=== PATIENT | female | born 2000 | race Caucasian/White ===

== ENCOUNTER → 2024-06-14 | Outpatient (CLI) | payer MEDICAID, SELFPAY ==
[2024-06-14 15:36] LABS: Absolute Lymphocyte Count 1.01 X10^3/uL (0.83-4.51); Absolute Neutrophil Count 7.8 X10^3/uL (2.0-7.7); Basophil# 0.02 X10^3/uL; Basophil% 0.2 % (0-1); Eosinophil# 0.06 X10^3/uL; Eosinophils% 0.7 % (0-5); Hematocrit 45.6 % (37-47); Hemoglobin 15.4 g/dL (12.0-15.0); Lymphocyte # 1.01 X10^3/ul (0.83-4.51); Mean Corp Hgb Conc 33.8 g/dL (32-36); Mean Corpuscular Hgb 30.9 pg (27.0-32.0); Mean Corpuscular Volume 91.6 fL (81-99); Mean Platelet Vol. 10.1 fl (6.2-12.0); Monocyte# 0.32 X10^3/uL; Monocyte% 3.5 % (0-10); NRBC Flagged by Analyzer 0 % (0-5); Neutrophil # 7.77 X10^3/uL (2.7-7.7); Neutrophil % 84.3 % (47-70); Platelet Count 406 K/mm3 (150-450); RBC Distribution Width SD 40.2 fl (35.1-43.9); Red Blood Count 4.98 M/mm3 (4.2-5.4); White Blood Count 9.2 K/mm3 (4.4-11.0)
[2024-06-14 15:55] LABS: Erythrocyte Sedimentation Rate 9 mm/hr (0-30)
[2024-06-14 16:16] LABS: AST(SGOT) 14 U/L (15-37); Alanine Aminotransfer ALT/SGPT 21 U/L (13-56); Albumin, Serum 4.4 g/dL (3.2-5.0); Alkaline Phosphatase 94 U/L (45-117); Anion Gap 10 (5-15); BUN 12 mg/dL (7-18); BUN/Creat Ratio 14.3 RATIO (10-20); CRP < 2.90 mg/L (0.0-3.0); Chloride 105 mmol/L (98-107); Creatinine, Serum 0.84 mg/dL (0.55-1.02); EST Glomerular Filtration Rate 88 mL/min (>60); Est Glom Filt Rate - Afr Amer 107 mL/min (>60); Free T3 2.8 pg/mL (2.18-3.98); Globulin 4.3 g/dL (2.2-4.2); Glucose 110 mg/dL (74-106); LDH 181 U/L (84-246); Potassium 3.3 mmol/L (3.5-5.1); Protein, Total 8.7 g/dL (6.4-8.2); Sodium Level 138 mmol/L (136-145); T4 Free Direct 1.47 ng/dL (0.76-1.46); Thyroid Stim Hormone (TSH) 0.784 uIU/mL (0.358-3.740)
[2024-06-19 09:09] LABS: Anti-Centromere B Ab <0.2 AI (0.0-0.9); Anti-Chromatin <0.2 AI (0.0-0.9); Anti-Jo <0.2 AI (0.0-0.9); Anti-Scleroderma-70 AB <0.2 AI (0.0-0.9); Anti-dsDNA Ab 2 IU/mL (0-9); Beef <0.10 kU/L (Class 0); Chocolate <0.10 kU/L (Class 0); Codfish <0.10 kU/L (Class 0); Corn <0.10 kU/L (Class 0); Egg, Whole <0.10 kU/L (Class 0); Milk (Cow) <0.10 kU/L (Class 0); Mussels <0.10 kU/L (Class 0); Peanut <0.10 kU/L (Class 0); Pork <0.10 kU/L (Class 0); RNP Ab <0.2 AI (0.0-0.9); SJOGREN'S Anti-SS-A test < 0.2 AI (0.0-0.9); SJOGREN'S Anti-SS-B test < 0.2 AI (0.0-0.9); Salmon <0.10 kU/L (Class 0); Shrimp <0.10 kU/L (Class 0); Smith Ab <0.2 AI (0.0-0.9); Soybean <0.10 kU/L (Class 0); Tuna <0.10 kU/L (Class 0); Wheat <0.10 kU/L (Class 0)
[2024-06-19 10:09] LABS: ACCA 36 units (0-90); ALCA 4 units (0-60); AMCA 73 units (0-100); Albumin 4.3 g/dL (2.9-4.4); Alpha-1-Globulins 0.3 g/dL (0.0-0.4); Cytoplasmic Ab (C-ANCA) <1:20 titer (Neg:<1:20); Endomysial Antibody IgA Negative (Negative); Gamma Globulin 1.1 g/dL (0.4-1.8); Gastrin, Serum 146 pg/mL (0-115); Immunoglobulin A 300 mg/dL (87-352); Immunoglobulin E 25 IU/mL (6-495); Immunoglobulin G 1042 mg/dL (586-1602); Immunoglobulin M 120 mg/dL (26-217); PROEL- TOTAL PROTEIN 8.1 g/dL (6.0-8.5); Perinuclear Ab (P-ANCA) <1:20 titer (Neg:<1:20); gASCA 38 units (0-50); t-Transglutaminase IgA <2 U/mL (0-3)
== END | disposition home or self-care (01) ==
PROVIDERS: PCP Family Medicine
DX: K21.9 Gastro-esophageal reflux disease without esophagitis (principal); R10.13 Epigastric pain; K29.70 Gastritis, unspecified, without bleeding; R19.7 Diarrhea, unspecified; K58.9 Irritable bowel syndrome, unspecified
CPT/HCPCS: 36415; 80053; 82784; 82785; 82941; 83516; 83615; 84165; 84439; 84443; 84481; 85025; 85652; 86003; 86005; 86036; 86140; 86225; 86235; 86255; 86256; 86334; 86671

== ENCOUNTER → 2024-10-29 | Outpatient (CLI) | payer MEDICAID, SELFPAY | END | disposition home or self-care (01) | LOC: VSLAB 10:18 | PROVIDERS: PCP Family Medicine; Visit Provider Family Medicine | DX: N39.0 Urinary tract infection, site not specified (principal) | CPT/HCPCS: 87086; 87088 ==

== ENCOUNTER → 2025-02-27 | Outpatient (CLI) | payer MEDICAID, SELFPAY ==
[2025-02-27 14:44] LABS: Red Blood Cells-Urine 0 SEEN /hpf (0-5)
[2025-02-27 16:19] LABS: Absolute Lymphocyte Count 1.16 X10^3/uL (0.83-4.51); Absolute Neutrophil Count 3.8 X10^3/uL (2.0-7.7); Basophil# 0.03 X10^3/uL; Basophil% 0.6 % (0-1); Eosinophil# 0.06 X10^3/uL; Eosinophils% 1.1 % (0-5); Hemoglobin 13.8 g/dL (12.0-15.0); Lymphocyte # 1.16 X10^3/ul (0.83-4.51); Lymphocyte % 21.3 % (19-41); Mean Corp Hgb Conc 33.7 g/dL (32-36); Mean Corpuscular Hgb 30.9 pg (27.0-32.0); Mean Corpuscular Volume 91.7 fL (81-99); Mean Platelet Vol. 10.4 fl (6.2-12.0); Monocyte% 7.3 % (0-10); NRBC Flagged by Analyzer 0 % (0-5); Neutrophil # 3.79 X10^3/uL (2.7-7.7); Neutrophil % 69.5 % (47-70); Platelet Count 399 K/mm3 (150-450); RBC Distribution Width CV 12.5 % (11.6-14.6); RBC Distribution Width SD 41.3 fl (35.1-43.9); Red Blood Count 4.47 M/mm3 (4.2-5.4); White Blood Count 5.5 K/mm3 (4.4-11.0)
[2025-02-27 16:25] LABS: Glucose, Dipstick Normal (Normal); Ketone-Dipstick 50 mg/dl (Negative); Leukocyte Esterase-Dipstick 25 /ul (Negative); Nitrite-Dipstick Negative (Negative); Occult Blood-Urine 10 /ul (Negative); Protein-Dipstick 15 mg/dl (Negative); Specific Gravity, Urine 1.025 (1.002-1.030); Urine Bilirubin Dipstick Negative (Negative); Urine Urobilinogen Normal (Normal)
[2025-02-27 16:29] LABS: Color, Urine Straw (Yellow); Urine Clarity Cloudy (Clear)
[2025-02-27 17:37] LABS: Squamous Epithelial Cells - UA 10-25 SEEN /hpf (5-10)
[2025-02-27 17:38] LABS: Bacteria 2+ /hpf (None Seen); White Blood Cells 5-10 SEEN /hpf (0-5)
[2025-02-27 17:39] LABS: Mucous, Urine 1+ /hpf (<or=2+)
[2025-02-27 17:40] LABS: Amorphous Sediment 2+
[2025-02-27 18:18] LABS: ALB/GLOB Ratio 1.6 RATIO (0.9-2.4); AST(SGOT) 25 U/L (<=31); Alanine Aminotransfer ALT/SGPT 23 U/L (<=34); Albumin, Serum 4.8 g/dL (3.5-5.0); Alkaline Phosphatase 73 U/L (35-104); Anion Gap 15 (5-15); BUN 16 mg/dL (4-19); BUN/Creat Ratio 18.4 RATIO (10-20); Calcium,Total 10.3 mg/dL (7.6-11.0); Carbon Dioxide 22.5 mmol/L (21.0-32.0); Chloride 103 mmol/L (98-108); Creatinine, Serum 0.85 mg/dL (0.70-1.20); EST Glomerular Filtration Rate 98 (>60); Glucose 110 mg/dL (70-99); Potassium 3.5 mmol/L (3.3-5.1); Protein, Total 7.8 g/dL (5.9-8.4); Sodium Level 140 mmol/L (133-145); Total Bilirubin 0.45 mg/dL (0.00-1.30)
== END | disposition home or self-care (01) ==
LOC: VSLAB 13:53
PROVIDERS: PCP Family Medicine
DX: R03.0 Elevated blood-pressure reading, without diagnosis of hypertension (principal)
CPT/HCPCS: 36415; 80053; 81001; 84443; 85025; 87086; 87088

== ENCOUNTER 2025-03-28 10:52 | Day surgery (SDC) | payer MEDICAID, SELFPAY ==
[2025-03-28] VITALS (9 sets, daily range): BP systolic 100–139; BP diastolic 62–96; PULSE 85–114; RESP 16–20; TEMP 36.2–37.1; O2SAT 98–100; BMI 27.1
[2025-03-28] MEDS: Lactated Ringers 1,000 ML 15 ML IV (11:00)
[2025-03-28 11:15] LABS: Internal QC Validated? YES +Cl - CLEAR BKGD; Pregnancy, Urine Negative Negative; Record Kit Lot#,Urine Preg 947241
== END 2025-03-28 13:24 | disposition home or self-care (01) ==
LOC: EN 10:53 → AC 10:54
PROVIDERS: Anesthesiology; PCP Family Medicine; Referring Provider Family Medicine; Visit Provider Internal Medicine Gastroenterology
PROC: 0DJ08ZZ Inspection of Upper Intestinal Tract, Via Natural or Artificial Opening Endoscopic (ICD-10-PCS; CPT 43235; principal; 2025-03-28 11:25)
DX: K21.9 Gastro-esophageal reflux disease without esophagitis (principal); R19.7 Diarrhea, unspecified; K29.50 Unspecified chronic gastritis without bleeding; Z79.82 Long term (current) use of aspirin; K22.4 Dyskinesia of esophagus; Z90.49 Acquired absence of other specified parts of digestive tract; Z79.899 Other long term (current) drug therapy; R10.13 Epigastric pain; K31.89 Other diseases of stomach and duodenum
CPT/HCPCS: 43239; 81025; 88305; J2405

== ENCOUNTER → 2025-05-06 | Outpatient (CLI) | payer MEDICAID, SELFPAY | END | disposition home or self-care (01) | LOC: LABSPEC 14:14 | PROVIDERS: PCP Family Medicine; Visit Provider Nurse Practitioner Family | DX: R10.30 Lower abdominal pain, unspecified (principal) | CPT/HCPCS: 87086; 87088 ==

== ENCOUNTER 2025-06-08 11:48 | Emergency (ER) | payer MEDICAID, SELFPAY ==
[2025-06-08 11:49] VITALS: BP 124/85; PULSE 112; RESP 16; TEMP 35.7; O2SAT 100
[2025-06-08 12:00] VITALS: BP 129/85; PULSE 106; RESP 27; O2SAT 100
--- NOTE | 2025-06-08 12:13 | EKG12_ITS ---
Test Reason : SYNCOPE Blood Pressure : */* mmHG Vent. Rate : 93 BPM Atrial Rate : 93 BPM P-R Int : 122 ms QRS Dur : 84 ms QT Int : 344 ms P-R-T Axes : 26 57 40 degrees QTcB Int : 427 ms Normal sinus rhythm Normal ECG Confirmed by Xu Barger ([id number]), graphics editor HE RAYMOND ([id number]) on 06/10/2025 10:35:26 AM Referred By: Confirmed By: Xu Barger
--- NOTE | 2025-06-08 12:14 | RAD_ITS ---
PROCEDURE: CHEST PA AND LATERAL 06/08/2025 REASON FOR EXAM: ALOC RESOLVED TECHNIQUE: Procedure Code: RADCXR Modality: DX Procedure: CHEST PA AND LATERAL COMPARISON: None FINDINGS: The cardiomediastinal silhouette is within normal limits. The lungs are clear. No significant pleural effusion. No pneumothorax. Cholecystectomy clips. RAD/Chest PA and Lateral IMPRESSION: NO ACUTE FINDINGS. Reading Location: [id number]
--- NOTE | 2025-06-08 12:16 | EX.ED.DYSGE1 ---
HPI History of Present Illness Chief Complaint: Syncope Informant: patient and parent Onset/Context/Timing Onset: Today Current Severity: Gone Maximum Severity: Moderate Narrative Narrative: 24-year-old female history of ASD with a prior repair but still is 5% right to left shunt. Also has a history of MTHFR and cholecystectomy. He has been having dizzy spells. For about a month. Today just feels like her body is off and that she is floating. Mom is with her states that she was not acting right at home but they live 40 minutes from here and that now is all totally resolved. There is no family history of intracranial bleeds or aneurysms. She has had no head trauma. She has not recently been ill. Prior similar symptoms: Yes Recent Illness/Hospitalization: No PFSH PFSH Medical History Wears glasses Loose, teeth Broken teeth Depression Anxiety History of IBS Gastric reflux History of hiatal hernia Non-smoker History of stress test Cardiology follow-up encounter History of echocardiogram Cholelithiasis PFO (patent foramen ovale) Atrial septal defect History of gastroesophageal reflux (GERD) Home Medications ?Medication ?Instructions ?Recorded ?Last Taken ?Type aspirin 81 mg tablet,delayed 81 mg PO DAILY 05/07/24 03/24/25 History release pantoprazole 40 mg tablet,delayed 40 mg PO BID 06/14/24 03/28/25 History release cholestyramine 4 gram oral powder 4 g PO QACHS #60 ea 05/06/25 Unknown Rx for suspension in a packet (Cholestyramine Light) rifaximin 550 mg tablet 550 mg PO TID #42 tabs 05/06/25 Unknown Rx Allergy/AdvReac Type Severity Reaction Status Date / Time omeprazole Allergy Intermediate Other Verified 06/08/25 11:53 alprazolam Allergy NEEDS Verified 06/08/25 11:53 FOLLOW-UP azithromycin Allergy NEEDS Verified 06/08/25 11:53 FOLLOW-UP clindamycin Allergy Other Verified 05/06/25 14:33 Penicillins (PCN) Allergy NEEDS Verified 06/08/25 11:53 FOLLOW-UP Sulfa (Sulfonamide Allergy Other Verified 06/08/25 11:53 Antibiotics) doxycycline AdvReac Nausea/Vom/ Verified 06/08/25 11:53 Diarrhea erythromycin base AdvReac Nausea/Vom/ Verified 06/08/25 11:53 Diarrhea sertraline (From Zoloft) AdvReac Other Verified 06/08/25 11:53 Family History Grandmother Heart disease Grandfather Heart disease Surgical History History of cardiac catheterization History of esophagogastroduodenoscopy (EGD) Hx laparoscopic cholecystectomy Status post patent foramen ovale closure History of atrial septal defect repair Social History household members: family Smoking Status: Never smoker alcohol intake: never substance use type: does not use caffeine: Yes ROS ROS ED ROS Narrative Denies recent illness. Dizziness. Not room spinning. Constitutional Constitutional ED: Denies chills or fever(s) Eyes Eyes: Denies blurry vision ENT ENT ED: Denies ear pain Cardiovascular Cardiovascular: Denies chest pain Respiratory/Chest Respiratory/Chest: Denies cough or dyspnea Gastrointestinal Gastrointestinal: Denies abdominal pain Genitourinary Genitourinary ED: Denies dysuria or hematuria Musculoskeletal Musculoskeletal: Denies arthralgias Integumentary Denies abscess Neurologic Neurologic: Reports headache(s) Psychiatric Psychiatric: Reports anxiety Endocrine Endocrinology: Denies cold intolerance Hematologic/Lymphatic Hematologic/Lymphatic: Reports none Allergic/Immunologic Allergic/Immunologic ED: Denies mouth swelling, tongue swelling or urticaria EXAM Physical Exam Narrative Exam Narrative: 4-year-old female vital signs are stable afebrile no acute distress. Pulse ox 100% on room air no signs hypoxia. Mom is present in the room with another family member I believe. H EENT exam pupils round react light. Moist mucous membranes. She has multiple missing dentition. She has an abscess to her right lower tooth. No trouble swallowing or breathing. Neck nontender no lymphadenopathy. Lungs clear to auscultation bilaterally. Heart regular rhythm no murmur. Chest wall and ribs are nontender. Abdomen soft nontender. Moving all 4 extremities. Nontender no edema. Normal 5-5 pcmh specialist strength. Normal dorsi plantarflexion. Normal sensation. Neurologic exam normal. NIH 0. Fingertip to nose and heel briones within normal limits. No drift. Normal strength. Normal sensation. Normal speech. No focal motor deficits. Const Vital Signs: 06/08/25 11:49 06/08/25 12:00 06/08/25 12:02 Temperature 96.2 F L Temperature Source Temporal Pulse Rate 112 H 106 H Respiratory Rate 16 27 H Respiratory Effort Normal Non-Labored Blood Pressure 124/85 H 129/85 H Blood Pressure Mean 98 99 Pulse Ox 100 100 Oxygen Delivery Method Room Air Room Air Positive well nourished and well developed; Negative for cachectic, contractures or unkempt General Appearance ED: well developed and NAD; Negative for unkempt, cachectic, contractures, cyanotic, diaphoretic or pallor Nutritional Appearance: Negative for cachectic HEENT Reports moist mucous membranes Negative for trauma or tenderness Eyes PERRL and EOMs intact bilaterally Neck no lymphadenopathy, supple and no JVD Chest Wall inspection of chest normal and palpation of chest normal Resp normal respiratory effort and clear to auscultation bilaterally Cardio regular rate, regular rhythm, S1 normal heart sound, S2 normal heart sound and no murmurs GI normal to inspection, nondistended, normoactive bowel sounds, non-tender, non-distended and no masses Auscultation: normoactive bowel sounds Palpation: soft; Negative for tender or guarding Back/Spine no CVA tenderness General Back: Negative for CVA tenderness Cervical Spine: Negative for cervical spine tenderness Thoracic Spine / Upper Back: Negative for thoracic spinal tenderness or paraspinal muscle tenderness Lumbar Spine / Lower Back: Negative for lumbar spinal tenderness Extremity normal to inspection General Extremety ED: Negative for edema or tenderness General Extremity: Negative for edema Neuro oriented x3, CN's II-XII intact bilaterally and no sensory deficits noted Sensorium / Orientation: alert Motor Exam: strength 5/5 throughout Psych mental status grossly normal Appearance: Negative for unkempt Attitude: No agitated Mood & Affect: Negative for depressed, anxious or tearful Skin no rashes or lesions noted, no wounds and skin turgor normal General Skin Exam: Negative for jaundice or pallor Rashes: No rashes noted Trauma: Negative for abrasion Wounds: Negative for wounds noted MDM MDM MDM Narrative Medical decision making narrative: 24-year-old female history of prior ASD with repair but still has some [id number] shunt. An episode today at home where she had a altered level of consciousness. Currently her exam is completely normal and all of her symptoms have resolved. Her neurologic exam is normal. She will get a CTA of her head and neck, CAT scan her brain and screening labs. But again right now she has a normal exam. Repeat exam patient is doing well at 1:50 PM. Exam normal. Neurologic exam normal. Awake alert talking no deficits. She is back to her baseline. I discussed with her family they feel more comfortable with her being discharged home with outpatient follow-up. Her primary care provider is currently getting her set up with neurology. They know to return if worse. She was instructed to start 8 daily baby aspirin due to her MTHFR. History & Record Review Discussion w/independent historian: Patient and Family Lab Data Attestation: I reviewed the patient's lab results. Lab results narrative: CBC shows a white count of 7. H&H of 13 and 38. Platelets 322. Electrolytes show a gap of 13. BUN and creatinine are normal. Glucose of 109. CTA head and neck is unremarkable as read by the radiologist and reviewed by me Chest x-ray unremarkable. EKG sinus rhythm. Labs: Laboratory Results - last 24 hr 06/08/25 06/08/25 06/08/25 12:27 12:27 13:02 WBC Cancelled 7.5 Corrected WBC Cancelled RBC Cancelled 4.25 Hgb Cancelled 13.1 Hct Cancelled 38.4 MCV Cancelled 90.4 MCH Cancelled 30.8 MCHC Cancelled 34.1 RDW Std Deviation Cancelled 41.5 RDW Coeff of Kaley Cancelled 12.6 Plt Count Cancelled 322 MPV Cancelled 10.2 Immature Gran % (Auto) Cancelled 0.700 Neut % (Auto) Cancelled 79.2 H Lymph % (Auto) Cancelled 12.2 L Jenkins % (Auto) Cancelled 5.9 Eos % (Auto) Cancelled 1.5 Baso % (Auto) Cancelled 0.5 Absolute Neuts (auto) Cancelled 5.9 Absolute Lymphs (auto) Cancelled 0.91 Total Counted Cancelled Neutrophils % (Manual) Cancelled Band Neutrophils % Cancelled Lymphocytes % (Manual) Cancelled Monocytes % (Manual) Cancelled Eosinophils % (Manual) Cancelled Basophils % (Manual) Cancelled Metamyelocytes % Cancelled Myelocytes % Cancelled Promyelocytes % Cancelled Blast Cells % Cancelled Plasma Cell % (Manual) Cancelled Other Cells % Cancelled Nucleated RBC % Cancelled 0 Nucleated RBCs/100 WBC Cancelled Differential Comment Cancelled Diff Path Review Cancelled Hypersegmented Neuts Cancelled Atypical Lymphocytes Cancelled Reactive Lymphocytes Cancelled Smudge Cells Cancelled Toxic Granulation Cancelled Toxic Vacuolation Cancelled Dohle Bodies Cancelled Chasity Rods Cancelled Platelet Estimate Cancelled Plt Morphology Comment Cancelled RBC Morphology Cancelled Cancelled Polychromasia Cancelled Hypochromasia Cancelled Basophilic Stippling Cancelled Anisocytosis Cancelled Microcytosis Cancelled Macrocytosis Cancelled Spherocytes Cancelled Sickle Cells Cancelled Target Cells Cancelled Tear Drop Cells Cancelled Ovalocytes Cancelled Stomatocytes Cancelled [place] Bodies Cancelled [place] Cells Cancelled Bite Cells Cancelled Crenated Cell Cancelled Acanthocytes (Spur) Cancelled Rouleaux Cancelled Schistocytes Cancelled Sodium 140 Potassium 4.6 Chloride 107 Carbon Dioxide 20.0 L Anion Gap 13 BUN 17 Creatinine 0.88 Est GFR (MDRD) Non-Af 93 BUN/Creatinine Ratio 19.5 Glucose 109 H Calcium 9.5 Radiography Chest X-Ray - ED: 2 View, Read by ED Physician, Read by Radiologist, Normal, Heart, Lungs, Mediastinum, Bony Structures and No Acute Disease Diagnostic Testing: Clinical Impression(s) from Imaging Studies Chest X-Ray 06/08/25 12:14 IMPRESSION: NO ACUTE FINDINGS. Reading Location: [facility] Head/Neck CTA 06/08/25 12:45 IMPRESSION: 1. There is no carotid stenosis according to NASCET criteria. 2. The major vascular structures in the head and neck are grossly unremarkable. Reading Location: [facility] Chest x-ray, 2 views, AP and lateral, shows normal cardiac silhouette. Normal lung [place]. Normal mediastinum. Interpreted both by myself and the radiologist. No acute abnormality. Rhythm Strip Rhythm Strip: Sinus Rhythm Rate: 93 Ectopy: None Discharge Plan Triage Chief Complaint: Syncope ED Provider: Kosta Del Angel Dx/Rx/DC Orders Clinical Impression: Altered level of consciousness, Hx of atrial septal defect Instructions: ED ALOC Prescriptions: No Action aspirin 81 mg tablet,delayed release (DR/EC) 81 mg PO DAILY pantoprazole 40 mg tablet,delayed release (DR/EC) 40 mg PO BID Cholestyramine Light 4 gram powder in packet 4 g PO QACHS Qty: 60 0RF Rx Instructions: no meds 1 hr before/4-6 hr after dose rifaximin 550 mg tablet 550 mg PO TID Qty: 42 2RF Primary Care Provider: Shruti Smith Referrals: Shruti Smith, DO [Primary Care Provider] - As soon as possible Activity Restrictions/Additional Instructions: All your tests today look good including your CAT scan and labs. Follow-up with your primary care provider. Very important to get into see a neurologist as soon as possible. Make sure you are taking 1 baby aspirin a day due to your MTHFR blood disorder. If you have recurrent symptoms or feeling worse return. Print Language: Mongolian Disposition Disposition: Home, Self Care
--- OUTSIDE RECORDS SUMMARY | 2025-06-08 12:20 | XMS RPT_ITS | CCD ---
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 Examination: normal. Prophylactic Antibiotics: The patient does not require prophylactic antibiotics. Prior Anticoagulants: The patient has taken no anticoagulant or antiplatelet agents. ASA Grade Assessment: II - A patient with mild systemic disease. After reviewing the risks and benefits, the patient was deemed in satisfactory condition to undergo the procedure. The anesthesia plan was to use monitored anesthesia care (MAC). Immediately prior to administration of medications, the patient was re-assessed for adequacy to receive sedatives. The heart rate, respiratory rate, oxygen saturations, blood pressure, adequacy of pulmonary ventilation, and response to care were monitored throughout the procedure. The physical status of the patient was re-assessed after the procedure. After obtaining informed consent, the endoscope was passed under direct vision. Throughout the procedure, the patient's blood pressure, pulse, and oxygen saturations were monitored continuously. The Endoscope was introduced through the mouth, and advanced to the third part of the duodenum. Small bowel enteroscopy was deemed necessary. The upper GI endoscopy was accomplished with ease. The patient tolerated the procedure well. Scope In: 12:20:24 PM Scope Out: 12:23:42 PM Total Procedure Duration Time 0 hours 3 minutes 18 seconds Findings: Abnormal motility was noted in the esophagus. The cricopharyngeus was abnormal. There is spasticity of the esophageal body. The distal esophagus/lower esophageal sphincter is spastic, but gives up passage to the endoscope. Tertiary peristaltic waves are noted. Localized erythematous mucosa without bleeding was found in the stomach. Biopsies were taken with a cold forceps for histology. Verification of patient identification for the specimen was done. Biopsies were taken with a cold forceps for Helicobacter pylori testing. Verification of patient identification for the specimen was done. Estimated blood loss was minimal. No gross lesions were noted in the entire examined duodenum. Biopsies were taken with a cold forceps for histology. Verification of patient identification for the specimen was done. Estimated blood loss was minimal. Suspect gastroparesis due to absence of peristalsis, patient symptoms and retained gastric contents. Excessive fluid was found in the gastric body. Impression: - Abnormal esophageal motility, established esophageal spasm. - Erythematous mucosa in the stomach. Biopsied. - No gross lesions in the entire examined duodenum. Biopsied. Recommendation: - Discharge patient to home. - Resume previous diet. - Continue present medications. - Await pathology results. Procedure Code(s): --- Professional --- 95102, Small intestinal endoscopy, enteroscopy beyond second portion of duodenum, not including ileum; with biopsy, single or multiple CPT copyright 2021 [employer]. All rights reserved. The codes documented in this report are preliminary and upon warehouse specialist review may be revised to meet current compliance requirements. Marciano Gonzales DO 03/28/2025 12:30:27 PM This report has been signed electronically. Number of Addenda: 0 Note Initiated On: 03/28/2025 12:11 PM 03/28/25 1230 Date (more content not included)... [facility] MR/POSTOP.ANEon 03-28-2025 MR/POSTOP.[facility] Medical Records Department [address] [place] [address] Anesthesia Postop Eval I 03/28/25 1230 MR#: [id number] Acct: [id number] Name: PRABHA CODY Rep #: [id number] : 2000 From: Bobby Grover PCP: Shruti Smith DO Status:REG SD Y Race: C Location: [place] [address] Anesthesia: Postop Eval I Current Vital Signs Temperature: 97.1 F Pulse Rate: 85 Blood Pressure: 101/62 Respiratory Rate: 16 Pulse Ox: 100 Oxygen Delivery Method: Room Air Assessment Airway patent: Yes Spontaneous unlabored respirations: Yes Mental status: Asleep nausea: No Vomiting: No Anesthesia Complication: No Fluid Hydration Crystalloid volume administer (ml): 300 Total IV fluid infused: 300 Progress Note Anesthesia document: Postop Eval 1 completed: Yes 03/28/25 1231 Date Bobby Whyte Signature: Date CC: Signed [facility] MR/[id number] 03-28-2025 MR/POSTOPA[address] Medical Records Department [address] [place] [address] Anesthesia Postop Eval II 03/28/25 1545 MR#: [id number] Acct: [id number] Name: PRABHA CODY Rep #: [id number] : 2000 From: Noni Schreiber CRNA PCP: Shruti Smith DO Status:DEP [facility] Race: C Location: EN Anesthesia Postop Eval I Sum Postop Eval Completion status Anesthesia document: Postop Eval 1 completed: Yes Anesthesia Postop Eval I Summary Anesthesia Postop Eval I Summary: Anesthesia Postop Eval I: Assessment Summary Airway patent Yes 03/28/25 12:31 [email or web address] Spontaneous unlabored Yes 03/28/25 12:31 [email or web address] respirations Mental status Asleep 03/28/25 12:31 [email or web address] nausea No 03/28/25 12:31 [email or web address] Vomiting No 03/28/25 12:31 [email or web address] Anesthesia Postop Eval I: Fluid Summary Crystalloid volume administer 300 03/28/25 12:31 [email or web address] (ml) Colloids volume administered ( ml) Blood Product volume administered (ml) Total IV fluid infused 300 03/28/25 12:31 [email or web address] Anesthesia Postop Eval I: Summary Notes Anesthesia Complication No 03/28/25 12:31 [email or web address] Anesthesia Complication Comment: Post-operative progress note Anesthesia: Postop Eval II Evaluation Mental status: Awake Pain Level: 0 nausea: No Vomiting: No 03/28/25 1545 Date Noni Paredesign Signature: Date CC: Signed Normal [facility] ,Urineon 03-28-2025 Beta HCG ( test) Ql (U) Negative [facility] Comment on above: Result Comment: Very dilute urine specimens, as indicated by a low specific gravity, may not contain payable representative levels of hCG. If is still suspected, a first morning urine specimen should be collected 48 hours later and tested. Performed By: #### L 400.7600 #### [facility] [place] [address] [place], [address] Surgery Specimen Level Candi 03-28-2025 Surgery Specimen Level IV Patient Age/Sex Location Account Attending Physician PRABHA CODY EN [id number] Marciano Gonzales DO Specimen: [id number] Received: 03/28/25135 Status: SUSAN Nguyen Num: [id number] Spec Type: EGD BIOPSY Subm Dr: Marciano Gonzales DO HEADAMIRAH OPERATION: EGD, biopsy PRE-OP DIAGNOSIS: Gastritis, acid reflux, epigastric abdominal pain, diarrhea TISSUE SUBMITTED: A- Duodenum biopsy, B- Gastric body biopsy, C- Random esophagus biopsy MICROSCOPIC DIAGNOSIS A. Duodenum, biopsy: - Normal villous morphology - Negative for increased intraepithelial lymphocytes. B. Gastric body, biopsy: - Oxyntic mucosa with features of reactive gastropathy - Negative for Helicobacter-like organisms (H E). C. Esophagus, random, biopsy: - Squamous mucosa with reactive changes - Negative for eosinophils. MICROSCOPIC DESCRIPTION Slides are reviewed. GROSS DESCRIPTION A. Received in fixative is one container labeled with the patient's name and designated Duodenum biopsy. The specimen consists of multiple irregular fragments of light garcia soft tissue that in aggregate measure 0.2 to 0.3 cm. The specimen is totally submitted in one cassette. B. Received in fixative is one container labeled with the patient's name and designated Gastric body biopsy. The specimen consists of two irregular fragments of light garcia soft tissue that in aggregate measure 0.2 to 0.5 cm. The specimen is totally submitted in one cassette. C. Received in fixative is one container labeled with the patient's name and designated Random esophagus biopsy. The specimen consists of two irregular fragments of light garcia soft tissue that in aggregate measure 0.2 and 0.3 cm. The specimen is totally submitted in one cassette. Luis 03/28/2025 CPT:19069o8 Patient Age/Sex Location Account Attending Physician PRABHA CODY EN [id number] Marciano Gonzales DO Signed (signature on file) Dr. Tamiko Woods MD 04/15/25 1246 Normal [facility] Comment on above: Performed By: #### P SUIV #### [facility] Laboratory [address] [place], [place], [id number] Urine testOrdered By: Dustin Espinoza on 03-28-2025 HCG ( test) Ql (U) Negative [facility] Comment on above: Very dilute urine sp ecimens, as indicated by a low specificgravity, may not contain payable representative levels of hCG. If is still suspected, a first morning urinespecimen should be collected 48 hours later and tested. 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 When Was Last Pacemaker Check QUESTION #4 FULL TEXT: You/Your Family Experience fever (hyperthermia) with Anesthesia Last Oral Intake Last Oral intake: Last Oral Intake NPO since Meds taken in AM with sips of water? Meds patient instructed to take am of surgery PONV PONV - data processing auditor: PONV - data processing auditor Female Yes 03/26/25 13:17 HX of Motion Sickness No 03/26/25 13:17 HX of N/V After Surgery No 03/26/25 13:17 Non-Smoker Yes 03/26/25 13:17 Duration of Surgery greater No 03/26/25 13:17 than 60 minutes Number of Risk Factors 2 03/26/25 13:17 PONV Score Moderate Risk 03/26/25 13:17 Height Weight Height Weight: Anesthesia: Height Weight Height 4 ft 11 in 07/26/24 13:21 Respiratory Assessment Respiratory Assessment - data processing auditor: Respiratory Tract Infection Hx - data processing auditor Hx Respiratory Tract Infection No 03/26/25 13:17 STOP Sleep Apnea STOP Sleep Apnea - data processing auditor: STOP Sleep Apnea - data processing auditor Hx Hypertension No 03/26/25 13:17 Hx Sleep Apnea No 03/26/25 13:17 CPAP BIPAP Do you snore loudly (louder No 03/26/25 13:17 than talking or can be heard Do you often feel tired/ No 03/26/25 13:17 fatigued/ sleepy during daytime? Has anyone observed you stop No 03/26/25 13:17 breathing during sleep? STOP Results Negative 03/26/25 13:17 QUESTION #5 FULL TEXT : Do you snore loudly (louder than talking or can be heard through closed doors)? Tobacco Use History Tobacco Use History - data processing auditor: Tobacco Use History - data processing auditor Tobacco Use Smoking Status Never smoker 03/26/25 13:17 Hx Tobacco Use No 03/26/25 13:17 Years Smoking Packs Smoked per Day Smoking Cessation Date was within the last 15 years Hx Smoking Cessation Date Hx Smoking Cessation Counseling Hematologic Medial History Hematologic Hx - data processing auditor: Hematologic Medical Hx - documentation manager Hx of Blood Transfusion No 03/26/25 13:17 Hx of Transfusion in last 3 No 03/26/25 13:17 Months Date of Last Transfusion (if within last 3 months) Ever experience any problems No 03/26/25 13:17 with transfusion(s)? Specify any problems Hx of Preganancy in last 3 No 03/26/25 13:17 Months Nurse Filling Out Transfusion VLEHMAN 03/26/25 13:17 Questions: Date: 03/26/25 03/26/25 13:17 Time: 13:19 03/26/25 13:17 Patient unable to answer at this time (ie. confused, unrespo /Reproduction History /Reproductive History - data processing auditor: /Reproductive Hx- data processing auditor Hx Now No 03/26/25 13:17 Gestational Age (in weeks): EDC: Hx Hx Para Hx Section SAB No 03/26/25 13:17 [facility] Medical History (Updated 03/26/25 @ 13:22 by Johana Blackburn) Wears glasses Loose, teeth Broken teeth Depression Anxiety History of IBS Gastric reflux History of hiatal hernia Non-smoker History of stress test Cardiology follow-up encounter History of echocardiogram Cholelithiasis PFO (patent foramen ovale) Atrial septal defect History of gastroesophageal reflux (GERD) Home Medications ???Medication ???Instructions ???Recorded ???Last Taken ???Type aspirin 81 mg tablet,delayed 81 mg PO DAILY 05/07/24 03/24/25 H istory release pantoprazole 40 mg tablet,delayed 40 mg PO BID 06/14/24 Unknown His tory release Allergy/AdvReac Type Severity Reaction Status Date / Time omeprazole Allergy Intermediate Other Verified 11/25/24 10:34 alprazolam Allergy NEEDS Verified 11/25/24 10:34 FOLLOW-UP azithromycin Allergy NEEDS Verified 11/25/24 10:34 FOLLOW-UP clindamycin Allergy Other Verified 11/25/24 10:34 Penicillins (PCN) Allergy (more content not included)... Normal [facility] Urine Cultureon 03-01-2025 URC Below infection leve l. Mixed Gram Positive Organisms Picacho Count <1000 MIXC Mixed contaminants. Submit a new specimen if indicated. Normal [facility] Comment on above: Performed By: #### L 501.9520, M100.2200, L500.4050, L400.0001, L100.0100 #### [facility] Laboratory [address] [place], [place], [id number] Absolute lymphocyte countOrd ered By: bulun Beam on 02-27-2025 Lymphocytes Auto (Unsp spec) [#/Vol] 1.16 10*3/uL 0.83-4.51 [facility] Absolute neutrophil countOrd ered By: bulun Beam on 02-27-2025 Neutrophils (Bld) [#/Vol] 3.8 10*3/uL 2.0-7.7 [facility] Amorphous sediment detection in urine sediment by light microscopyOrdered By: Alexanderbulun Beam on 02-27-2025 Amorphous sediment LM Ql (Urine sed) 2+ [facility] Anion gap in Serum or Plasma Ordered By: [facility] on 02-27-2025 Anion gap [Moles/Vol] 15 mmol/L 5-15 [facility] Automated lymphocyte count a s percentage of total leukocytesOrdered By: bulun Beam on 02-27-2025 Lymphocytes/100 WBC Auto (Unsp spec) 21.3 % 19-41 [facility] BUN/creatinine ratioOrdered By: bulun Beam on 02-27-2025 Urea nitrogen/Creatinine [Mass ratio] 18.4 mg/mg 10-20 [facility] Basophil percentageOrdered B y: Zebulun Beam on 02-27-2025 Basophils/100 WBC (Bld) 0.6 % 0-1 [facility] Bilirubin Test strip Ql (U)O rdered By: Zebulun Beam on 02-27-2025 Bilirubin Ql (U) Negative Negative [facility] Bilirubin, totalOrdered By: Alexanderbulun Beam on 02-27-2025 Bilirubin [Mass/Vol] 0.45 mg/dL 0.00-1.30 [facility] CBC W/Diff, Automatedon 05-2 -2024 Absolute Lymph 1.16 X10 3/uL Normal 0.83-4.51 [facility] Comment on above: Performed By: #### L 501.9520, M100.2200, L500.4050, L400.0001, L100.0100 #### [facility] Laboratory [address] [place], [address] Absolute Neut 3.8 X10 3/uL Normal 2.0-7.7 [facility] Comment on above: Performed By: #### L 501.9520, M100.2200, L500.4050, L400.0001, L100.0100 #### [facility] Laboratory [address] [place], [address] Basophils/100 WBC (Bld) 0.6 % Normal 0-1 [facility] Comment on above: Performed By: #### L 501.9520, M100.2200, L500.4050, L400.0001, L100.0100 #### [facility] Laboratory [address] [place], [address] Eosinophils/100 WBC (Bld) 1.1 % Normal 0-5 [facility] Comment on above: Performed By: #### L 501.9520, M100.2200, L500.4050, L400.0001, L100.0100 #### [facility] Laboratory [address] [place], [address] Erythrocyte distribution width (RBC) [Ratio] 12.5 % Normal 11.6-14.6 [facility] Comment on above: Performed By: #### L 501.9520, M100.2200, L500.4050, L400.0001, L100.0100 #### [facility] Laboratory [address] [place], [address] Hematocrit (Bld) [Volume fraction] 41.0 % Normal 37-47 [facility] Comment on above: Performed By: #### L 501.9520, M100.2200, L500.4050, L400.0001, L100.0100 #### [facility] Laboratory [address] [place], [address] Hemoglobin (Bld) [Mass/Vol] 13.8 g/dL Normal 12.0-15.0 [facility] Comment on above: Performed By: #### L 501.9520, M100.2200, L500.4050, L400.0001, L100.0100 #### [facility] Laboratory [address] [place], [address] IG% 0.200 Normal 0.0-0.9 [facility] Comment on above: Result Comment: IG% - Immature Granulocytes (promyelocytes, myelocytes and metamyelocytes) > 1% indicates that a LEFT SHIFT is Present. Performed By: #### L 501.9520, M100.2200, L500.4050, L400.0001, L100.0100 #### [facility] Laboratory [address] [place], [address] Lymphocytes/100 WBC (Bld) 21.3 % Normal 19-41 [facility] Comment on above: Performed By: #### L 501.9520, M100.2200, L500.4050, L400.0001, L100.0100 #### [facility] Laboratory [address] [place], [address] MCH (RBC) [Entitic mass] 30.9 pg Normal 27.0-32.0 [facility] Comment on above: Performed By: #### L 501.9520, M100.2200, L500.4050, L400.0001, L100.0100 #### [facility] Laboratory [address] [place], [address] MCHC (RBC) [Mass/Vol] 33.7 g/dL Normal 32-36 [facility] Comment on above: Performed By: #### L 501.9520, M100.2200, L500.4050, L400.0001, L100.0100 #### [facility] Laboratory [address], [address] MCV (RBC) [Entitic vol] 91.7 fL Normal 81-99 [facility] Comment on above: Performed By: #### L 501.9520, M100.2200, L500.4050, L400.0001, L100.0100 #### [facility] Laboratory [address] [place], [address] Monocytes/100 WBC (Bld) 7.3 % Normal 0-10 [facility] Comment on above: Performed By: #### L 501.9520, M100.2200, L500.4050, L400.0001, L100.0100 #### [facility] Laboratory [address] [place], [address] Neutrophils/100 WBC (Bld) 69.5 % Normal 47-70 [facility] Comment on above: Performed By: #### L 501.9520, M100.2200, L500.4050, L400.0001, L100.0100 #### [facility] Laboratory [address] [place], [address] Nucleated RBC (Bld) [#/Vol] 0 10*3/uL Normal 0-5 [facility] Comment on above: Performed By: #### L 501.9520, M100.2200, L500.4050, L400.0001, L100.0100 #### [facility] Laboratory [address] [place], [address] Platelet mean volume (Bld) [Entitic vol] 10.4 fL Normal 6.2-12.0 [facility] Comment on above: Performed By: #### L 501.9520, M100.2200, L500.4050, L400.0001, L100.0100 #### [facility] Laboratory [address] [place], [address] Platelets (Bld) [#/Vol] 399 10*3/uL Normal 150-450 [facility] Comment on above: Performed By: #### L 501.9520, M100.2200, L500.4050, L400.0001, L100.0100 #### [facility] Laboratory [address] [place], [address] RBC (Bld) [#/Vol] 4.47 10*6/uL Normal 4.2-5.4 [facility] Comment on above: Performed By: #### L 501.9520, M100.2200, L500.4050, L400.0001, L100.0100 #### [facility] Laboratory [address] [place], [address] RDW SD 41.3 fl Normal 35.1-43.9 [facility] Comment on above: Performed By: #### L 501.9520, M100.2200, L500.4050, L400.0001, L100.0100 #### [facility] Laboratory [address] [place], [address] WBC (Bld) [#/Vol] 5.5 10*3/uL Normal 4.4-11.0 [facility] Comment on above: Performed By: #### L 501.9520, M100.2200, L500.4050, L400.0001, L100.0100 #### [facility] Laboratory [address] [place], [address] Carbon dioxide, total [Moles /volume] in Central venous bloodOrdered By: Binh Ramos on 02-27-2025 CO2 [Moles/Vol] 22.5 mmol/L 21.0-32.0 [facility] Chloride assayOrdered By: Alexander Ramos on 02-27-2025 Chloride [Moles/Vol] 103 mmol/L 98-108 [facility] Comprehensive Metabolic Prof ilon 02-27-2025 Albumin [Mass/Vol] 4.8 g/dL Normal 3.5-5.0 [facility] Comment on above: Performed By: #### L 501.9520, M100.2200, L500.4050, L400.0001, L100.0100 #### [facility] Laboratory [address] [place], [address] Albumin/Globulin [Mass ratio] 1.6 {ratio} Normal 0.9-2.4 [facility] Comment on above: Performed By: #### L 501.9520, M100.2200, L500.4050, L400.0001, L100.0100 #### [facility] Laboratory [address] [place], [address] ALK PHOS 73 U/L Normal 35-104 [facility] Comment on above: Performed By: #### L 501.9520, M100.2200, L500.4050, L400.0001, L100.0100 #### [facility] Laboratory [address] [place], [address] ALT [Catalytic activity/Vol] 23 U/L Normal <=34 [facility] Comment on above: Performed By: #### L 501.9520, M100.2200, L500.4050, L400.0001, L100.0100 #### [facility] Laboratory [address] [place], [address] AST [Catalytic activity/Vol] 25 U/L Normal <=31 [facility] Comment on above: Performed By: #### L 501.9520, M100.2200, L500.4050, L400.0001, L100.0100 #### [facility] Laboratory [address] [place], [address] Bilirubin [Mass/Vol] 0.45 mg/dL Normal 0.00-1.30 [facility] Comment on above: Performed By: #### L 501.9520, M100.2200, L500.4050, L400.0001, L100.0100 #### [facility] Laboratory [address] [place], [address] BUN/CRE 18.4 RATIO Normal 10-20 [facility] Comment on above: Performed By: #### L 501.9520, M100.2200, L500.4050, L400.0001, L100.0100 #### [facility] Laboratory [address] [place], [address] Calcium [Mass/Vol] 10.3 mg/dL Normal 7.6-11.0 [facility] Comment on above: Performed By: #### L 501.9520, M100.2200, L500.4050, L400.0001, L100.0100 #### [facility] Laboratory [address] [place], [address] Chloride [Moles/Vol] 103 mmol/L Normal 98-108 [facility] Comment on above: Performed By: #### L 501.9520, M100.2200, L500.4050, L400.0001, L100.0100 #### [facility] [address] [place], [address] CO2 [Moles/Vol] 22.5 mmol/L Normal 21.0-32.0 [facility] Comment on above: Performed By: #### L 501.9520, M100.2200, L500.4050, L400.0001, L100.0100 #### [facility] [address] [place], [address] Creatinine [Mass/Vol] 0.85 mg/dL Normal 0.70-1.20 [facility] Comment on above: Performed By: #### L 501.9520, M100.2200, L500.4050, L400.0001, L100.0100 #### [facility] [address] [place], [address] GAP 15 Normal 5-15 [facility] Comment on above: Performed By: #### L 501.9520, M100.2200, L500.4050, L400.0001, L100.0100 #### [facility] [address] [place], [address] GFR/1.73 sq M.predicted among non-blacks MDRD (S/P/Bld) [Vol rate/Area] 98 mL/min/{1.73_m2} Normal >60 [facility] Comment on above: Result Comment: mL/m in/1.73m2 CKD-EPI Creatinine Equation (2020) Performed By: #### L 501.9520, M100.2200, L500.4050, L400.0001, L100.0100 #### [facility] [address] [place], [address] Globulin (S) [Mass/Vol] 3.0 g/dL Normal 2.2-4.2 [facility] Comment on above: Performed By: #### L 501.9520, M100.2200, L500.4050, L400.0001, L100.0100 #### [facility] [address] [place], [address] Glucose [Mass/Vol] 110 mg/dL High 70-99 [facility] Comment on above: Performed By: #### L 501.9520, M100.2200, L500.4050, L400.0001, L100.0100 #### [facility] [address] [place], [address] Potassium [Moles/Vol] 3.5 mmol/L Normal 3.3-5.1 [facility] Comment on above: Performed By: #### L 501.9520, M100.2200, L500.4050, L400.0001, L100.0100 #### [facility] [address] [place], [address] Sodium [Moles/Vol] 140 mmol/L Normal 133-145 [facility] Comment on above: Performed By: #### L 501.9520, M100.2200, L500.4050, L400.0001, L100.0100 #### [facility] [address] [place], [address] T PROT 7.8 g/dL Normal 5.9-8.4 [facility] Comment on above: Performed By: #### L 501.9520, M100.2200, L500.4050, L400.0001, L100.0100 #### [facility] [address] [place], [address] Urea nitrogen [Mass/Vol] 16 mg/dL Normal 4-19 [facility] Comment on above: Performed By: #### L 501.9520, M100.2200, L500.4050, L400.0001, L100.0100 #### [facility] [address] [place], [address] Eosinophil percentageOrdered By: Lizylun Beam on 02-27-2025 Eosinophils/100 WBC (Bld) 1.1 % 0-5 [facility] Erythrocyte distribution wid th ratioOrdered By: Lizylun Beam on 02-27-2025 Erythrocyte distribution width (RBC) [Ratio] 12.5 % 11.6-14.6 [facility] Erythrocyte distribution wid th standard deviationOrdered By: [facility] on 02-27-2025 Erythrocyte distribution width (RBC) [Ratio] 41.3 fl 35.1-43.9 [facility] Glomerular filtration rate ( GFR) estimation/1.73 sq m using serum, plasma, or whole bOrdered By: Binh Beam on 02-27-2025 GFR/1.73 sq M.predicted among non-blacks MDRD (S/P/Bld) [Vol rate/Area] 98 mL/min/{1.73_m2} >60 [facility] Comment on above: mL/min/1.73m2 CKD-EP I Creatinine Equation (2020) Hematocrit Auto (Bld) [Volum e fraction]Ordered By: Binh Ramos on 02-27-2025 Hematocrit (Bld) [Volume fraction] 41.0 % 37-47 [facility] Hemoglobin measurementOrdere d By: Binh Ramos on 02-27-2025 Hemoglobin (Bld) [Mass/Vol] 13.8 g/dL 12.0-15.0 [facility] Immature granulocytes/100 WB C Auto (Bld)Ordered By: Binh Ramos on 02-27-2025 Immature granulocytes/100 WBC (Bld) 0.200 % 0.0-0.9 [facility] Comment on above: IG% - Immature Granu locytes (promyelocytes, myelocytes and metamyelocytes) > 1% indicates that a LEFT SHIFT is Present. Ketones Test strip Ql (U)Ord ered By: Binh Ramos on 02-27-2025 Ketones Ql (U) 50 mg/dl High Negative [facility] - Chemistry and C hemistry - challengeOrdered By: Binh Ramos on 02-27-2025 AST [Catalytic activity/Vol] 25 U/L <32 [facility] MCV (mean corpuscular volume ) determinationOrdered By: Binh Ramos on 02-27-2025 MCV (RBC) [Entitic vol] 91.7 fL 81-99 [facility] Mean corpuscular hemoglobin (MCH) determinationOrdered By: Binh Ramos on 02-27-2025 MCH (RBC) [Entitic mass] 30.9 pg 27.0-32.0 [facility] Mean corpuscular hemoglobin concentration (MCHC) determinationOrdered By: Binh Ramos on 02-27-2025 MCHC (RBC) [Mass/Vol] 33.7 g/dL 32-36 [facility] Mean platelet volume determi nationOrdered By: Binh Ramos on 02-27-2025 Platelet mean volume (Bld) [Entitic vol] 10.4 fL 6.2-12.0 [facility] Microscopic analysis of urin e for red blood cells (RBC)Ordered By: Binh Ramos on 02-27-2025 Microscopic analysis of urine for red blood cells (RBC) 0 SEEN /hpf 0-5 [facility] Monocyte percentageOrdered B y: Binh Ramos on 02-27-2025 Monocytes/100 WBC (Bld) 7.3 % 0-10 [facility] Mucus LM Ql (Urine sed)Order ed By: Binh Ramos on 02-27-2025 Mucus Ql (Urine sed) 1+ /hpf [facility] Neutrophil percentageOrdered By: Binh Ramos on 02-27-2025 Neutrophils/100 WBC (Bld) 69.5 % 47-70 [facility] Nitrite Test strip Ql (U)Ord ered By: Binh Ramos on 02-27-2025 Nitrite Ql (U) Negative Negative [facility] Nucleated red blood cell per centageOrdered By: Binh Ramos on 02-27-2025 Nucleated RBC/100 WBC (Bld) [Ratio] 0 % 0-5 [facility] Platelet countOrdered By: Alexander Ramos on 02-27-2025 Platelets (Bld) [#/Vol] 399 10*3/uL 150-450 [facility] Potassium measurement (mass/ volume)Ordered By: Binh Ramos on 02-27-2025 Potassium (Unsp spec) [Mass/Vol] 3.5 mmol/L 3.3-5.1 [facility] Protein Test strip Ql (U)Ord ered By: Binh Ramos on 02-27-2025 Protein Ql (U) 15 mg/dl High Negative [facility] RBC Auto (Bld) [#/Vol]Ordere d By: Binh Ramos on 02-27-2025 RBC (Bld) [#/Vol] 4.47 10*6/uL 4.2-5.4 [facility] Serum creatinine measurement (mass/volume)Ordered By: Binh Ramos on 02-27-2025 Creatinine [Mass/Vol] 0.85 mg/dL 0.70-1.20 [facility] Serum globulin measurementOr dered By: Binh Ramos on 02-27-2025 Globulin (S) [Mass/Vol] 3.0 g/dL 2.2-4.2 [facility] Serum glucose measurement (m ass/volume)Ordered By: Lizyabbe Ramos on 02-27-2025 Glucose [Mass/Vol] 110 mg/dL High 70-99 [facility] Serum or plasma alanine ayoub otransferase (ALT) measurementOrdered By: [facility] Ramos on 02-27-2025 ALT [Catalytic activity/Vol] 23 U/L <35 [facility] Serum or plasma albumin sindy urement (mass/volume)Ordered By: [facility] on 02-27-2025 Albumin [Mass/Vol] 4.8 g/dL 3.5-5.0 [facility] Serum or plasma albumin/glob ulin mass ratioOrdered By: [facility] on 02-27-2025 Albumin/Globulin [Mass ratio] 1.6 {ratio} 0.9-2.4 [facility] Serum or plasma alkaline daljit sphatase measurementOrdered By: [facility] on 02-27-2025 ALP [Catalytic activity/Vol] 73 U/L 35-104 [facility] Serum or plasma calcium sindy urement (mass/volume)Ordered By: [facility] on 02-27-2025 Calcium [Mass/Vol] 10.3 mg/dL 7.6-11.0 [facility] Serum or plasma urea nitroge n measurement (mass/volume)Ordered By: [facility] on 02-27-2025 Urea nitrogen [Mass/Vol] 16 mg/dL 4-19 [facility] Sodium levelOrdered By: Lizy Ramos on 02-27-2025 Sodium [Moles/Vol] 140 mmol/L 133-145 [facility] Squamous epithelial cells de tection in urine sediment by light microscopyOrdered By: juan pablo Ramos on 02-27-2025 Epithelial cells.squamous LM Ql (Urine sed) 10-25 SEEN /hpf 5-10 [facility] TSH DL <= 0.005 mIU/L QnOrde red By: Binh Ramos on 02-27-2025 TSH Qn 1.580 uIU/mL 0.300-4.200 [facility] Thyroid Stim Hormone (TSH)on 02-27-2025 TSH 1.580 uIU/mL Normal 0.300-4.200 [facility] Comment on above: Performed By: #### L 501.9520, M100.2200, L500.4050, L400.0001, L100.0100 #### [facility] [address] [place], [address] Total proteinOrdered By: Mike majano Beam on 02-27-2025 Protein [Mass/Vol] 7.8 g/dL 5.9-8.4 [facility] Urinalysis, Completeon 02-27 AMORPHOUS 2+ Normal [facility] Comment on above: Order Comment: CLEAN CATCH Performed By: #### L 501.9520, M100.2200, L500.4050, L400.0001, L100.0100 #### [facility] [address] [place], [address] Mucus Ql (Urine sed) 1+ /hpf Normal [facility] Comment on above: Order Comment: CLEAN CATCH Performed By: #### L 501.9520, M100.2200, L500.4050, L400.0001, L100.0100 #### [facility] [address] [place], [address] BACTERIA 2+ /hpf Normal None Seen [facility] Comment on above: Order Comment: CLEAN CATCH Performed By: #### L 501.9520, M100.2200, L500.4050, L400.0001, L100.0100 #### [facility] [address] [place], [address] WBC 5-10 SEEN Normal 0-5 [facility] Comment on above: Order Comment: CLEAN CATCH Performed By: #### L 501.9520, M100.2200, L500.4050, L400.0001, L100.0100 #### [facility] [address] [place], [address] EPI,SQUAMOUS 10-25 SEEN Normal 5-10 [facility] Comment on above: Order Comment: CLEAN CATCH Performed By: #### L 501.9520, M100.2200, L500.4050, L400.0001, L100.0100 #### [facility] [address] [place], [address] RBC 0 SEEN Normal 0-5 [facility] Comment on above: Order Comment: CLEAN CATCH Performed By: #### L 501.9520, M100.2200, L500.4050, L400.0001, L100.0100 #### [facility] [address] [place], [address] Urine clarityOrdered By: Mike Ramos on 02-27-2025 Clarity (U) Cloudy Clear [facility] Urine color determinationOrd ered By: Binh Ramos on 02-27-2025 Color (U) Straw Yellow [facility] Urine cultureOrdered By: Mike Ramos on 02-27-2025 Bacteria identified Cx Nom (U) Positive Abnormal [facility] Urine glucose detectionOrder ed By: Binh Ramos on 02-27-2025 Glucose Ql (U) Normal mg/dl Normal [facility] Urine leukocyte esterase det ection by dipstickOrdered By: Binh Ramos on 02-27-2025 Leukocyte esterase Test strip Ql (U) 25 /ul High Negative [facility] Urine pHOrdered By: Binh Ramos on 02-27-2025 pH (U) 6.0 [pH] 5.0 - 8.0 [facility] Urine sediment bacteria coun t by microscopy (number/high power field)Ordered By: Binh Ramos on 02-27-2025 Bacteria LM.HPF (Urine sed) [#/Area] 2 /[HPF] None Seen [facility] Urine specific gravity measu rementOrdered By: Binh Ramos on 02-27-2025 Specific gravity (U) [Rel density] 1.025 1.002-1.030 [facility] Urine urobilinogen measureme ntOrdered By: Binh Ramos on 02-27-2025 Urobilinogen Ql (U) Normal mg/dl Normal [facility] White blood cell (WBC) count Ordered By: Binh Ramos on 02-27-2025 WBC (Bld) [#/Vol] 5.5 10*3/uL 4.4-11.0 [facility] White blood cell countOrdere d By: Binh Ramos on 02-27-2025 White blood cell count 5-10 SEEN /hpf 0-5 [facility] ,Urineon 11-26-2024 Beta HCG ( test) Ql (U) Normal [facility] Comment on above: Result Comment: NO U RINE FOUND IN LAB Performed By: #### L 400.7600 #### [facility] [address] [place], [address] INTERNAL QC OK? Normal [facility] Comment on above: Result Comment: NO U RINE FOUND IN LAB Performed By: #### L 400.7600 #### [facility] [address] [place], [place], [address] RECORD KIT LOT# Normal [facility] Comment on above: Result Comment: NO U RINE FOUND IN LAB Performed By: #### L 400.7600 #### [facility] [address] 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 When Was Last Pacemaker Check QUESTION #4 FULL TEXT: You/Your Family Experience fever (hyperthermia) with Anesthesia Last Oral Intake Last Oral intake: Last Oral Intake NPO since Meds taken in AM with sips of water? Meds patient instructed to take am of surgery PONV PONV - data processing auditor: PONV - data processing auditor Female Yes 11/25/24 10:35 HX of Motion Sickness No 11/25/24 10:35 HX of N/V After Surgery No 11/25/24 10:35 Non-Smoker Yes 11/25/24 10:35 Duration of Surgery greater No 11/25/24 10:35 than 60 minutes Number of Risk Factors 2 11/25/24 10:35 PONV Score Moderate Risk 11/25/24 10:35 Height Weight Height Weight: Anesthesia: Height Weight Height 4 ft 11 in 07/26/24 13:21 Respiratory Assessment Respiratory Assessment - data processing auditor: Respiratory Tract Infection Hx - data processing auditor Hx Respiratory Tract Infection No 11/25/24 10:35 STOP Sleep Apnea STOP Sleep Apnea - data processing auditor: STOP Sleep Apnea - data processing auditor Hx Hypertension No 11/25/24 10:35 Hx Sleep Apnea No 11/25/24 10:35 CPAP BIPAP Do you snore loudly (louder No 11/25/24 10:35 than talking or can be heard Do you often feel tired/ Yes 11/25/24 10:35 fatigued/ sleepy during daytime? Has anyone observed you stop No 11/25/24 10:35 breathing during sleep? STOP Results Negative 11/25/24 10:35 QUESTION #5 FULL TEXT : Do you snore loudly (louder than talking or can be heard through closed doors)? Tobacco Use History Tobacco Use History - data processing auditor: Tobacco Use History - data processing auditor Tobacco Use Smoking Status Never smoker 11/25/24 10:35 Hx Tobacco Use No 11/25/24 10:35 Years Smoking Packs Smoked per Day Smoking Cessation Date was within the last 15 years Hx Smoking Cessation Date Hx Smoking Cessation Counseling Hematologic Medial History Hematologic Hx - data processing auditor: Hematologic Medical Hx - documentation manager Hx of Blood Transfusion No 11/25/24 10:35 Hx of Transfusion in last 3 No 11/25/24 10:35 Months Date of Last Transfusion (if within last 3 months) Ever experience any problems No 11/25/24 10:35 with transfusion(s)? Specify any problems Hx of Preganancy in last 3 No 11/25/24 10:35 Months Nurse Filling Out Transfusion DSCHRIBER 11/25/24 10:35 Questions: Date: 11/25/24 11/25/24 10:35 Time: 10:42 11/25/24 10:35 Patient unable to answer at this time (ie. confused, unrespo /Reproduction History /Reproductive History - data processing auditor: /Reproductive Hx- data processing auditor Hx Now No 11/25/24 10:35 Gestational Age (in weeks): EDC: Hx Hx Para Hx Section SAB No 11/25/24 10:35 [facility] Medical History (Updated 11/25/24 @ 10:51 by Sanjuana Raya) Wears glasses Loose, teeth Broken teeth Depression Anxiety History of IBS Gastric reflux History of hiatal hernia Non-smoker History of stress test Cardiology follow-up encounter History of echocardiogram Cholelithiasis PFO (patent foramen ovale) Atrial septal defect History of gastroesophageal reflux (GERD) Home Medications ???Medication ???Instructions ???Recorded ???Last Taken ???Type aspirin 81 mg tablet,delayed 81 mg PO DAILY 05/07/24 Unknown Hi story release pantoprazole 40 mg tablet,delayed 40 mg PO BID 06/14/24 Unknown His tory release Allergy/AdvReac Type Severity Reaction Status Date / Time omeprazole Allergy Intermediate Other Verified 11/25/24 10:34 alprazolam Allergy NEEDS Verified 11/25/24 10:34 FOLLOW-UP azithromycin Allergy NEEDS Verified 11/25/24 10:34 FOLLOW-UP clindamycin Allergy Other Verified 11/25/24 10:34 Penicillins (PCN) Allergy NEEDS (more content not included)... Normal [facility] CV ECHO COMPLETE 5 CV ECHO COMPLETE [address] [address] Patient: PRABHA CODY Phone#: : 2000 Age: 23 Gender: F Pt. Type: Out Account: [id number] Location: 052 Ordering: MARQUES BARGER Exam Date: 11/20/2024: Family Phys: Charge Code: [id number] Physician: [place] Order #: [id number] Dose#: PROCEDURE: ECHOCARDIOGRAM WITH DOPPLER AND COLOR FLOW HISTORY: Patient 23-year-old female with history of ASD closure INDICATIONS: ASD closure COMPARISON: None. TECHNIQUE: A 2-D ultrasound, color spectral Doppler and M-mode evaluation of the heart and great vessels. PATIENT MEASUREMENTS: Height (in.): 59 BSA: 1.58 Weight (lbs.): 140 BP: 139/90 Caretaker: JADE Saline bubble study performed with 9 cc's of agitated 0.9% NS injected I.V. push according to protocol. M MODE 2D MEASUREMENTS AND CALCULATIONS: LVIDd: 3.68 cm LVIDs: 2.34 cm IVSd: 0.82 cm LVPWd: 0.71 cm LVOT diam: 1.98 cm FS: 36.26 % Ao Root diam: 2.23 cm LA diam: 3.3 cm LA Volume Index: 12.5 mL/m2 LA A4 Area: 10.14 cm2 RA A4 Area: 8.1 cm2 RVDd: 3.1 cm TAPSE: DOPPLER MEASUREMENTS AND CALCULATIONS MITRAL MV E MAX carina: 0.61 m/s MV A MAX carina: 0.65 m/s MV E-A ratio: 0.94 MVA VTI 4.08 cm2 Continued Report - Page 2 of 3 Patient: PRABHA CODY Phone#: : 2000 Age: 23 Gender: F Pt. Type: Out Account: [id number] Location: 052 Ordering: MARQUES BARGER Exam Date: 11/20/2024/14:21 Family Phys: Charge Code: [id number] Physician: [place] Order #: [id number] Dose#: MV V2 max: 0.83 m/s MV max P.74 mm[Hg] MV V2 mean: 0.62 m/s MV mean P.58 mm[Hg] MV V2 VTI: 17.03 cm MV PHT: 65.91 ms MVA PHT 3.34 cm2 Lat Peak E' Carina 19 cm/sec Septal Peak E' CARINA 12 cm/sec E/E' lateral 3.23 E/E' medial 5.22 AORTIC Ao V2 max: 1.26 m/s Ao max P.40 mm[Hg] Ao V2 mean: 0.88 m/s Ao mean P.51 mm[Hg] Ao V2 VTI: 26.93 cm JOÃO (V Max): 2.97 cm2 JOÃO (VTI): 2.58 cm2 LV V1 Max 1.22 m/s LV V1 Max PG 5.95 mm[Hg] LV V1 Mean PG 3.51 mm[Hg] LV V1 mean 0.89 m/s LV V1 VTI 22.60 cm PULMONIC PA V2 Max 0.88 m/s PA Max PG 3.11 mm[Hg] TRICUSPID TR Max Carina TR max PG RVSP 2D/M-MODE AND COLOR FLOW LEFT VENTRICLE: Left ventricle is normal in size and thickness. Systolic ejection fraction 55-60%. There are no regional wall motion abnormality seen. Diastolic function is normal. WALL MOTION: 1 - Basal anterior: Normal. 7 - Mid anterior: Normal. 13 - Apical anterior: Normal. 2 - Basal anteroseptal: Normal. 8 - Mid anteroseptal: Normal. 14 - Apical septal: Normal. 3 - Basal inferoseptal: Normal. 9 - Mid inferoseptal: Normal. 15 - Apical inferior: Normal. 4 - Basal inferior: Normal. 10-Mid inferior: Normal. 16 - Apical lateral: Normal. 5 - Basal inferolateral: Normal. 11-Mid inferolateral: Normal. Continued Report - Page 3 of 3 Patient: PRABHA CODY Phone#: : 2000 Age: 23 Gender: F Pt. Type: Out Account: [id number] Location: 052 Ordering: MARQUES BARGER Exam Date: 11/20/2024/14:21 Family Phys: Charge Code: [id number] Physician: [place] Order #: [id number] Dose#: 6 - Basal anterolateral: Normal. 12-Mid anterolateral: Normal. RIGHT VENTRICLE: Right ventricle is normal in size and systolic function. LEFT ATRIUM: Left atrium is normal size. RIGHT ATRIUM: Right atrium is normal size. ATRIAL SEPTUM: There is a well-seated ASD closure device seen. Agitated saline showed right-to- left shunt at rest and with Valsalva. MITRAL VALVE: Mitral valve appears normal structure. There is trivial regurgitation no stenosis seen. TRICUSPID VALVE: Tricuspid valve appears normal structure. There is trivial regurgitation no stenosis seen AORTIC VALVE: Aortic valve is trileaflet. There is no regurgitation or stenosis seen. PULMONIC VALVE: Inadequately visualized AORTIC ROOT: Aortic root is normal in size AORTIC ARCH: Aortic arch normal in size. DESC THORACIC AORTA: Inadequately visualized. Doppler shows normal flow. IVC/SVC: IVC is normal in size with more than 50% collapse of inspiration. Estimated atrial pressure is 3 mm Hg PULMONARY VEINS: Normal pulmonic vein flow PERICARDIUM: There is no pericardial effusion seen. CONCLUSION: 1. Left ventricle is normal in size and thickness. Systolic ejection fraction 55-60% with normal wall motion. 2. There are no significant valvular dysfunction seen. 3. Right ventricle is normal in size and systolic function 4. There is a well-seated is a closure device seen. Agitated saline showed [id number] shunt at rest and with Valsalva. 5. TR velocity is inadequate to calculate for right ventricular systolic pressure. Dictated by: SANGITA GARCIAS MD on 11/21/2024 at 12:12 Approved by: SANGITA GARCIAS MD on 11/21/2024 at 12:19 Normal [facility] Urine Cultureon 10-31-2024 URC Below infection leve l. Mixed Gram Positive Organisms Picacho Count <1000 MIXC Mixed contaminants. Submit a new specimen if indicated. Normal [facility] Comment on above: Performed By: #### L 501.9520, M100.2200, L500.4050, L400.0001, L100.0100 #### [facility] [address] [place], [address] US ABD COMPLETEon 08-16-[address] [address] Patient: PRABHA CDOY Phone#: : 2000 Age: 23 Gender: F Pt. Type: Out Account: [id number] Location: [facility] Ordering: DENICE BAUER Exam Date: 08/16/2024/10:54 Family Phys: Charge Code: [id number] Physician: [place] Order #: [id number] Dose#: PROCEDURE: ABDOMEN COMPLETE ULTRASOUND COMPARISON: None. INDICATIONS: Right upper quadrant abdominal pain TECHNIQUE: High resolution sonographic examination was performed of the abdomen. FINDINGS: LIVER: Normal. Normal size and echotexture. No significant masses. BILIARY: The gallbladder is absent. The common bile duct is normal at 3.9 millimeters PANCREAS: Normal. No visible mass, abnormal atrophy, or ductal dilatation. SPLEEN: Normal. Normal size and echotexture. KIDNEYS: Normal. No mass or obstruction. AORTA/VASCULAR: Normal. No aneurysm. OTHER: Negative. CONCLUSION: 1. Unremarkable abdominal ultrasound post cholecystectomy. Dictated by: Ewa Owen MD on 08/16/2024 at 13:15 Approved by: Ewa Owen MD on 08/16/2024 at 13:19 Normal [facility] C-REACTIVE PROTEINon 024 CRP [Mass/Vol] mg/L Normal 0.00 - 0.90 [facility] Comment on above: Performed By: #### 2 [id number] #### [place] [address] CBC + DIFFon 08-13-2024 Baso # 0.01 [id number]/UL Normal 0.00 - 0.10 [facility] Comment on above: Performed By: #### 2 [id number] ####[facility],[address] [place] [address] Basophils/100 WBC (Bld) 0.1 % Normal 0.0 - 2.0 [facility] Comment on above: Performed By: #### 2 71490 ####[place] [address] CBC + DIFF Normal [facility] Comment on above: Result Comment: CBC- COMPLETE BLOOD COUNT Performed By: #### 2 19647 ####[facility],[address],[place] [address] EO # 0.06 x10EE3/UL Normal 0.00 - 0.50 [facility] Comment on above: Performed By: #### 2 86515 ####[facility],[address] [place] [address] Eosinophils/100 WBC (Bld) 0.7 % Normal 0.0 - 7.0 [facility] Comment on above: Performed By: #### 2 15315 ####[facility],[address] [place] [address] Erythrocyte distribution width (RBC) [Ratio] 13.1 % Normal 12.0 - 15.6 [facility] Comment on above: Performed By: #### 2 33975 ####[facility],[address] [place] [address] Hematocrit (Bld) [Volume fraction] 45.8 % Normal 34.0 - 46.0 [facility] Comment on above: Performed By: #### 2 53698 ####[facility],[address] [place] [address] Hemoglobin (Bld) [Mass/Vol] 15.6 g/dL Normal 12.0 - 16.0 [facility] Comment on above: Performed By: #### 2 74572 ####[facility],[address] [place] [address] Lymph # 0.85 x10EE3/UL Normal 0.80 - 2.80 [facility] Comment on above: Performed By: #### 2 62122 ####[facility],[address] [place] [address] Lymphocytes/100 WBC (Bld) 9.1 % Low 20.0 - 45.0 [facility] Comment on above: Performed By: #### 2 84569 ####[facility],[address] [place], [place] [id number] MANUAL DIFF N/A Normal [facility] Comment on above: Performed By: #### 2 08923 ####[facility],[address] [place] [address] MCH (RBC) [Entitic mass] 31 pg Normal 27 - 33 [facility] Comment on above: Performed By: #### 2 52552 ####[facility],[address] [place] [address] MCHC 34 X10 3 Normal 32 - 36 [facility] Comment on above: Performed By: #### 2 36091 ####[facility],[address] [place] [address] MCV (RBC) [Entitic vol] 92 fL Normal 80 - 99 [facility] Comment on above: Performed By: #### 2 32443 ####[facility],[address] [place] [address] Gilliam # 0.35 x10EE3/UL Normal 0.20 - 1.00 [facility] Comment on above: Performed By: #### 2 62266 ####[facility],[address] [place] [address] MONOS % 3.7 % Normal 0.0 - 10.0 [facility] Comment on above: Performed By: #### 2 62811 ####[facility],[address] [place] [address] Morphology Cristi (Bld) [Interp] N/A Normal [facility] Comment on above: Performed By: #### 2 16788 ####[facility],[address] [place] [address] Neut # 8.05 x10EE3/UL High 1.50 - 7.10 [facility] Comment on above: Performed By: #### 2 35353 ####[facility],[address] [place] [address] Neutrophils/100 WBC (Bld) 86.4 % High 46.0 - 76.0 [facility] Comment on above: Performed By: #### 2 78344 ####[facility],[address] [place] [address] PLATELET 389 x10EE3/UL Normal 150 - 450 [facility] Comment on above: Performed By: #### 2 09404 ####[facility],[address] [place] [address] 16[address] Platelet mean volume (Bld) [Entitic vol] 7.6 fL Normal 6.6 - 10.5 [facility] Comment on above: Result Comment: AUTO MATED DIFFERENTIAL Performed By: #### 2 99103 ####[facility],[address] [place] [address] 16287 RBC 4.99 x 10EE6/UL Normal 4.10 - 5.30 [facility] Comment on above: Performed By: #### 2 34006 ####[facility],[address] [place] [address] WBC 9.3 x 10EE3/UL Normal 4.5 - 10.8 [facility] Comment on above: Performed By: #### 2 91418 ####[facility],[address] [place], [place] [id number] CMP with eGFRon 08-13-2024 AGE 23 years Normal [facility] Comment on above: Performed By: #### 2 34348 ####[facility],[address] [place] [address] Albumin [Mass/Vol] 4.2 g/dL Normal 3.4 - 5.0 [facility] Comment on above: Performed By: #### 2 47184 ####[facility],[address] [place] [address] Albumin/Globulin [Mass ratio] 1.1 {ratio} Normal 0.9 - 1.6 [facility] Comment on above: Performed By: #### 2 77456 ####[facility],[address] [place] [address] ALK PHOS 86 U/L Normal 46 - 116 [facility] Comment on above: Performed By: #### 2 14592 ####[facility],[address] [place] [address] 35812 ALT [Catalytic activity/Vol] 18 U/L Normal 16 - 63 [facility] Comment on above: Performed By: #### 2 68155 ####[facility],[address] [place] [address] Anion gap [Moles/Vol] 14 mmol/L Normal 10 - [address] [facility] Comment on above: Performed By: #### 2 78711 ####[facility],[address] [place] [address]1684 AST [Catalytic activity/Vol] 10 U/L Low 13 - 39 [facility] Comment on above: Performed By: #### 2 75047 ####[facility],[address] [place] [address]37 B/C RATIO 10 ratio Normal 0 - 30 [facility] Comment on above: Performed By: #### 2 46404 ####[facility],[address] [place] [address]70 Bilirubin [Mass/Vol] 0.5 mg/dL Normal 0.2 - 1.0 [facility] Comment on above: Performed By: #### 2 06293 ####[facility],[address] [place] [address] 38123 Calcium [Mass/Vol] 9.5 mg/dL Normal 8.5 - 10.1 [facility] Comment on above: Performed By: #### 2 40747 ####[facility],[address] [place] [address] 17201 Chloride [Moles/Vol] 105 mmol/L Normal 98 - 107 [facility] Comment on above: Performed By: #### 2 09241 ####[facility],[address] [place] [address]38[address] CMP with eGFR Normal [facility] Comment on above: Result Comment: COMP REHENSIVE METABOLIC PANEL Performed By: #### 2 47253 ####[facility],[address] [place] [address] 24269 CO2 [Moles/Vol] 27.6 mmol/L Normal 21.0 - 32.0 [facility] Comment on above: Performed By: #### 2 77696 ####[facility],[address] [place] [address]329 Creatinine [Mass/Vol] 0.91 mg/dL Normal 0.55 - 1.02 [facility] Comment on above: Performed By: #### 2 40988 ####[facility],[address] [place] [address] 88607 GFR/1.73 sq M.predicted among non-blacks MDRD (S/P/Bld) [Vol rate/Area] mL/min/{1.73_m2} Normal 60 - 999 [facility] Comment on above: Performed By: #### 2 71707 ####[facility],[address] [place] [address] Result Comment: ACCO RDING TO THE NATIONAL KIDNEY DISEASE EDUCATION PROGRAM(NKDE), A NORMAL eGFR IS A VALUE GREATER THAN OR EQUAL TO 60 ML/MIN/1.73 SQ METERS. CHRONIC KIDNEY DISEASE: <60mL/MIN/1.73 SQ METERS KIDNEY FAILURE: <15mL/MIN/1.73 SQ METERS THIS TEST SHOULD ONLY BE USED FOR PATIENTS 18 YEARS OF AGE AND OLDER. Globulin (S) [Mass/Vol] 3.8 g/dL Normal 1.5 - 3.8 [facility] Comment on above: Performed By: #### 2 37079 ####[facility],[address] [place] [address]5986 Glucose [Mass/Vol] 111 mg/dL High 74 - 106 [facility] Comment on above: Performed By: #### 2 14743 ####[facility],[address] [place] [address]202 Potassium [Moles/Vol] 3.5 mmol/L Normal 3.5 - 5.[address] [facility] Comment on above: Performed By: #### 2 50866 ####[facility],[address] [place] [address] 64789 Protein [Mass/Vol] 8.0 g/dL Normal 6.4 - 8.2 [facility] Comment on above: Performed By: #### 2 64154 ####[address] [address] Sodium [Moles/Vol] 143 mmol/L Normal 136 - 145 [facility] Comment on above: Performed By: #### 2 84985 ####[facility],[address] [place] [address] 00007 Urea nitrogen [Mass/Vol] 9 mg/dL Normal 7 - 18 [facility] Comment on above: Performed By: #### 2 45769 ####[address] [address] [address] ABDOMEN/PELVIS [facility] 2023 CT ABDOMEN/PELVIS [address] [address] Patient: PRABHA CODY Phone#: : 2000 Age: 23 Gender: F Pt. Type: ER Account: [id number] Location: [facility] Ordering: BILL HUNTER Exam Date: 08/13/2024/13:02 Family Phys: Charge Code: 487295 Physician: [place] Order #: [id number] Dose#: 10.0 PROCEDURE: CT ABDOMEN/PELVIS WITH CONTRAST COMPARISON: None. INDICATIONS: Abdominal pain. TECHNIQUE: After obtaining the patient's consent, CT images were created with non-ionic intravenous contrast material. All CT scans at this facility use dose modulation, iterative reconstruction, and/or weight based dosing when appropriate to reduce radiation dose to as low as reasonably achievable. IV CONTRAST: Omnipaque 350,80ml TOTAL DOSE: 10.0 CTDIvol(mGy) FINDINGS: LIVER: Normal. No enlargement, atrophy, abnormal density, or significant focal lesion. BILIARY: Gallbladder is absent, surgical clips are in the gallbladder fossa PANCREAS: Normal. No lesion, fluid collection, ductal dilatation, or atrophy. SPLEEN: Normal. No enlargement or focal lesion. KIDNEYS: Kidneys enhance and excrete contrast symmetrically. No hydronephrosis ADRENALS: Normal. No mass or enlargement. AORTA/VASCULAR: No aortic aneurysm. RETROPERITONEUM: Normal. No mass or adenopathy. BOWEL/MESENTERY: No bowel obstruction or dilatation. No significant stool burden. Appendix is unremarkable in size and contains air. ABDOMINAL WALL: Normal. No mass or hernia. URINARY BLADDER: Normal. No visible focal wall thickening, lesion, or calculus. PELVIC NODES: Normal. No adenopathy. PELVIC ORGANS: Uterus is present. No adnexal mass. BONES: Normal. No bony lesion or fracture. LUNG BASES: Normal. No visible pulmonary or pleural disease. OTHER: Negative. Continued Report - Page 2 of 2 Patient: PRABHA CODY Phone#: : 2000 Age: 23 Gender: F Pt. Type: ER Account: [id number] Location: [facility] Ordering: BILL HUNTER Exam Date: 08/13/2024/13:02 Family Phys: Charge Code: 899086 Physician: [place] Order #: [id number] Dose#: 10.0 CONCLUSION: 1. No acute intra-abdominal or pelvic abnormality. Dictated by: Savannah Palacios MD on 08/13/2024 at 13:19 Approved by: Savannah Palacios MD on 08/13/2024 at 13:24 Normal [facility] ED MED ADMINISTRATION DETAIL on 08-13-2024 ED MED ADMINISTRATION DETAIL Junior Buyer Medication Administration Record [address] [address] [id number] 08/13/2024 Patient: PRABHA CODY Sex: Female : 2000 Age: 23y MEASUREMENTS: Wt: 63.5 kg, Ht/Terrance: 59.0 in, BMI: 28.28 ALLERGIES: Penicillins, Sulfa (Sulfonamide Antibiotics), Zoloft, alprazolam, clindamycin, doxycycline, erythromycin base Medication Ordered Medication Administration Date/Time 1 of 1 Normal [facility] ED NURSES CLINICAL NOTEon ED NURSES CLINICAL NOTE Nurse Narrative Nurse Clinical Narrative [address] [place] [address] [phone] 08/13/2024 Patient: PRABHA CODY Sex: Female : 2000 Age: 23y Disposition: Discharge to Home Disposition Decision Time: 15:11 08/13/2024 Departure Time: 15:12 08/13/2024 TRIAGE Arrived by private vehicle. Historian: patient. Primary physician (Luis Larson). Triage time: 11:54 08/13/2024. Acuity: LEVEL 3. Chief Complaint: ABDOMINAL PAIN and DIARRHEA. Onset. (days). The patient has had nausea, diarrhea and abdominal pain. SEPSIS SCREEN: NEGATIVE. SIRS criteria negative. No possible sources of infection. -- 12:04 08/13/24 KATH Epps R.N. 12:02 08/13/24. BP: 140/93 MAP: 109. HR: 104. RR: 16. O2 saturation: 97% Temperature: 98.6 F. Pain level now 5/10. Describes the pain as sharp. Intermittent. -- 12:03 08/13/24 KATH Epps R.N. Measurements: 12:00 08/13/24 Wt: 63.5 kg, Ht/Terrance: 59.0 in, BMI: 28.28 -- 12:00 08/13/24 KATH Epps R.N. Medications: Protonix 40 mg tablet,delayed release: 40 mg twice a day for gastroesophageal reflux disease. -- 11:56 08/13/24 KATH Epps R.N.Updated through eRx -- 13:08/13/24 KATH Epps R.N. aspirin 81 mg tablet,delayed release: 81 mg once a day . -- 11:57 08/13/24 KATH Epps R.N.Updated through eRx -- 13:08/13/24 KATH Epps R.N. 1 of 4 Nurse Narrative Protonix 40 mg tablet,delayed release: 40 mg twice a day. -- 13:08/13/24 KATH Epps R.N. aspirin 81 mg tablet,delayed release: 81 mg once a day. -- 13:01 08/13/24 KATH Epps R.N. Allergies: Penicillins: Allergy -- 11:55 08/13/24 KATH Epps R.N. erythromycin base: Allergy -- 11:55 08/13/24 KATH Epps R.N. Zoloft: Allergy -- 11:55 08/13/24 KATH Epps R.N. clindamycin: Allergy -- 11:56 08/13/24 KATH Epps R.N. alprazolam: Allergy -- 12:12 08/13/24 KATH Epps R.N. doxycycline: Allergy -- 12:12 08/13/24 KATH Epps R.N. Sulfa (Sulfonamide Antibiotics): Allergy -- 12:13 08/13/24 KATH Epps R.N. Problems: Gastroesophageal Reflux Disease: Active -- 12:13 08/13/24 KATH Epps R.N. 11:54 08/13/24. Preferred pharmacy: [facility]. -- 12:04 08/13/24 KATH Epps R.N. ADDITIONAL SURGERIES: Cholecystectomy -- 11:57 08/13/24 KATH Epps R.N. Artial septal defect -- 11:58 08/13/24 KATH Epps R.N. History 11:54 08/13/24. PAST MEDICAL HX: Gastroesophageal reflux disease. Last normal menstrual period was 1 week ago- weeks ago. SOCIAL HX: Never smoker. No alcohol use or drug use. The patient has not traveled outside the [place] Infectious disease exposure: No infectious disease exposure. ABUSE ASSESSMENT: The patient answered yes to the question(s) Do you feel safe in your home? and no to the question(s) Are you afraid to go home?. 2 of 4 Nurse Narrative SELF HARM ASSESSMENT: Self harm assessment was performed. The patient answered no to the question(s) Have you recently felt down, depressed, or hopeless? and Do you have thoughts of harming or killing yourself?. FALL RISK ASSESSMENT: Fall risk assessment completed. No risk factors identified. Fall interventions initiated. Instructed not to get up without assistance. -- 12:04 08/13/24 KATH Epps R.N. Interventions 11:54 08/13/24. Advanced care plan. Patient does not have advanced directive. -- 12:04 08/13/24 KATH Epps R.N. PHYSICAL ASSESSMENT 13:00 08/13/24. ( Ate meatloaf on Monday and began to experience constant RLQ abdominal pain. Nausea, diarrhea, no emesis. HX of gall bladder removed). GENERAL / NEURO / PSYCH: Alert. Oriented X 4. Appears in no acute distress. RESPIRATORY: Respirations not labored. Breath sounds within normal limits. CVS: Normal sinus rhythm noted. Capillary refill less than 2 seconds. GI / : The patient has had nausea and diarrhea. Abdominal tenderness in the right lower quadrant. Last oral intake by patient was today. Bowel sounds within normal limits. No emesis noted. -- 13:33 08/13/24 KATH Schmid R.N. 13:00 08/13/24. Pain level now 6/10. Describes the pain as aching. -- 13:29 08/13/24 KATH Schmid R.N. NURSING PROGRESS NOTES 12:50 08/13/24. Site #1 started via IV in the right antecubital space with a 20g angiocath with aseptic technique and good blood return; 1 attempt. Blood drawn: rainbow set tube(s). Labeled in the presence of the patient and sent to the lab. Saline lock flushed with 5 mL saline. -- 12:51 08/13/24 KATH Schmid R.N. 12:53 08/13/24. Patient walked to CT. -- 13:14 08/13/24 KATH Schmid R.N. 13:35 08/13/24. Assisted patient to bathroom; tolerated well. -- 13:35 08/13/24 KATH Schmid R.N. 14:47 08/13/24. ED physician at the patient's bedside (more content not included)... Normal [facility] ED ORDER SHEET (CPOE ONLY)on 08-13-2024 ED ORDER SHEET (CPOE ONLY) Order Sheet Order Sheet [address] [address] [id number] 08/13/2024 [id number] Sex: Female : 2000 Age: 23y MEASUREMENTS: Wt: 63.5 kg, Ht/Terrance: 59.0 in, BMI: 28.28 ALLERGIES: Penicillins, Sulfa (Sulfonamide Antibiotics), Zoloft, alprazolam, clindamycin, doxycycline, erythromycin base MEDICATION/IV/DRIP/FLUID ORDERS Order Description Priority Entered Acknowledged Completed LAB ORDERS Order Description Priority Entered Acknowledged Collected Completed CMP Stat Stat 12:25 08/13/2024 12:30 08/13/2024 12:52 08/13/2024 Farzana Quintanilla Katelyn Horst, R.N. R.N. Urinalysis Stat Stat 12:25 08/13/2024 12:30 08/13/2024 13:39 08/13/2024 Farzana Quintanilla Katelyn Horst, R.NZoë R.N. CBC w Diff Stat Stat 12:25 08/13/2024 12:30 08/13/2024 12:52 08/13/2024 Farzana Quintanilla Katelyn Horst, R.N. R.N. CRP Stat Stat 12:25 08/13/2024 12:30 08/13/2024 12:52 08/13/2024 Farzana Quintanilla Katelyn Horst, R.NZoë RZoëN. 1 of 2 Order Sheet Urine Culture [CCL] Stat Stat 14:50 08/13/2024 15:01 08/13/2024 15:01 08/13/2024 Farzana Quintanilla Katelyn Horst, R.NZoë R.N. DIAGNOSTIC STUDY ORDERS Order Description Priority Entered Acknowledged Completed CT ABD/PEL w IV Cont Stat Stat 12:25 08/13/2024 12:30 13:14 Bill Hunter M.D. 08/13/2024 08/13/2024 Riri Aranda R.N. REdouard Order Comments: 12:25 08/13/2024: Status: Not . Bill Hunter M.D. Reason for Study: Abdominal Pain STAFF ORDERS Order Description Priority Entered Acknowledged Collected Completed IV Saline Lock 12:25 08/13/2024 12:30 08/13/2024 12:52 08/13/2024 Farzana Quintanilla Katelyn Horst, R.N. REdouard [Electronically signed by Bill Hunter M.D. (08/13/2024 15:57 EST)] 2 of 2 Normal [facility] ED PHYSICIAN CLINICAL REPORT on 08-13-2024 ED PHYSICIAN CLINICAL REPORT Narrative Physician Clinical Narrative [address] [place] [address] [id number] 08/13/2024 Patient: PRABHA CODY Sex: Female : 2000 Age: 23y Disposition: Discharge to Home Disposition Decision Time: 15:11 08/13/2024 Departure Time: 15:12 08/13/2024 Measurements Wt: 63.5 kg, Ht/Terrance: 59.0 in, BMI: 28.28 Initial Vital Sign Measured Time BP MAP HR RR O2Sat ETCO2 Temp Pain GCS RTS 12:02 08/13/2024 140/93 109 104 16 97% 98.6 F 5 Time Seen: 12:12 08/13/2024. Arrived- By private vehicle. Historian- patient. HISTORY OF PRESENT ILLNESS Chief Complaint: ABDOMINAL PAIN. This started many months and is still present (worse since 2 days ago). It is described as located in the right flank and the right lower quadrant, in the lower abdomen and in the suprapubic area and radiating to the low back. At its maximum, severity described as 6 / 10. When seen in the E.D., severity described as 2 / 10. The patient has had nausea. No vomiting. The patient has had diarrhea (since yesterday). This has occurred several times. It has been associated with cramps. No bloody or blood-tinged diarrhea. REVIEW OF SYSTEMS : The patient has had mild difficulty with urination (for 2 days), with pain, along with urgency. The patient has had urinary frequency. CONSTITUTIONAL: No fever or chills. All other systems reviewed and are negative. Status: Not . 1 of 12 Narrative PAST HISTORY See nurses notes. Gastroesophageal Reflux Disease: [Active] Surgeries: Artial septal defect Cholecystectomy Medications: aspirin 81 mg tablet,delayed release: 81 mg once a day. Protonix 40 mg tablet,delayed release: 40 mg twice a day. Allergies: alprazolam: Allergy clindamycin: Allergy doxycycline: Allergy erythromycin base: Allergy Penicillins: Allergy Sulfa (Sulfonamide Antibiotics): Allergy Zoloft: Allergy SOCIAL HISTORY Does not use tobacco. No alcohol use. ADDITIONAL NOTES The nursing notes have been reviewed. PHYSICAL EXAM Vital Signs: Have been reviewed. LABS, X-RAYS, AND EKG Laboratory Tests: 2 of 12 Narrative C-REACTIVE PROTEIN Final NGA: 08/13/2024 12:50:00 EST MsgRcvd: 08/13/2024 13:32 EST Lab Test Result Reference Status Received Comments 08/13/2024 13:32 CRP <0.50 mg/dl 0.00 - 0.90 Final EST CBC + DIFF Final NGA: 08/13/2024 12:50:00 EST MsgRcvd: 08/13/2024 13:03 EST Lab Test Result Reference Status Received Comments 08/13/2024 13:03 CBC-COMPLETE CBC + DIFF Final EST BLOOD COUNT 08/13/2024 13:03 WBC 9.3 x 10/UL 4.5 - 10.8 Final EST 08/13/2024 13:03 RBC 4.99 x 10/UL 4.10 - 5.30 Final EST 08/13/2024 13:03 HEMOGLOBIN 15.6 g/dl 12.0 - 16.0 Final EST 08/13/2024 13:03 HEMATOCRIT 45.8 % 34.0 - 46.0 Final EST 08/13/2024 13:03 MCV 92 fl 80 - 99 Final EST 08/13/2024 13:03 MCH 31 pg 27 - 33 Final EST 08/13/2024 13:03 MCHC 34 X10 3 32 - 36 Final EST 08/13/2024 13:03 RDW/CV 13.1 % 12.0 - 15.6 Final EST 3 of 12 Narrative 08/13/2024 13:03 PLATELET 389 x10/UL 150 - 450 Final EST 08/13/2024 13:03 AUTOMATED MPV 7.6 fl 6.6 - 10.5 Final EST DIFFERENTIAL 86.4 % 08/13/2024 13:03 NEUT % 46.0 - 76.0 Final Above high normal EST 9.1 % 08/13/2024 13:03 LYMPH % 20.0 - 45.0 Final Below low normal EST 08/13/2024 13:03 MONOS % 3.7 % 0.0 - 10.0 Final EST 08/13/2024 13:03 EO % 0.7 % 0.0 - 7.0 Final EST 08/13/2024 13:03 BASO % 0.1 % 0.0 - 2.0 Final EST 08/13/2024 13:03 Lymph # 0.85 x10/UL 0.80 - 2.80 Final EST 8.05 x10/UL 08/13/2024 13:03 Neut # 1.50 - 7.10 Final Above high normal EST 08/13/2024 13:03 Gilliam # 0.35 x10/UL 0.20 - 1.00 Final EST 08/13/2024 13:03 EO # 0.06 x10/UL 0.00 - 0.50 Final EST 08/13/2024 13:03 Baso # 0.01 x10/UL 0.00 - 0.10 Final EST 08/13/2024 13:03 MANUAL DIFF N/A New Order EST 08/13/2024 13:03 MORPHOLOGY N/A New Order EST 4 of 12 Narrative CMP with eGFR Final NGA: 08/13/2024 12:50:00 EST MsgRcvd: 08/13/2024 13:32 EST Lab Test Result Reference Status Received Comments COMPREHENSIVE 08/13/2024 CMP with eGFR Final METABOLIC 13:32 EST PANEL 08/13/2024 SODIUM 143 mmol/l 136 - 145 Final 13:32 EST 08/13/2024 POTASSIUM 3.5 mmol/L 3.5 - 5.1 Final 13:32 EST 08/13/2024 CHLORIDE 105 mmol/L 98 - 107 Final 13:32 EST 08/13/2024 CO2 27.6 mmol/L 21.0 - 32.0 Final 13:32 EST 111 mg/dl 08/13/2024 GLUCOSE Above high 74 - 106 Final 13:32 EST normal 08/13/2024 BUN 9 mg/dl 7 - 18 Final 13:32 EST 08/13/2024 CREATININE 0.91 mg/dl 0.55 - 1.02 Final 13:32 EST 10 U/L 08/13/2024 AST/SGOT 13 - 39 Final Below low normal 13:32 EST 08/13/2024 ALK PHOS 86 U/L 46 - 116 Final 13:32 EST (more content not included)... Normal [facility] ED SUPER BILLon 08-13-[facility]24 [facility] [address] [address] [id number] 08/13/2024 Patient: PRABHA CODY Sex: Female : 2000 Age: 23y Item Professional Category Description Facility Code Code Quantity Fee Total Nurse/E/M EMERGENCY 284660 1 $0.00 $0.00 DEPARTMENT VISIT HIGH/URGENT SEVERITY (84695-00) Grand Total $0.00 Providers Bill Hunter M.D. Chief Complaint ABDOMINAL PAIN. Principal Diagnosis Acute generalized and right lower quadrant abdominal pain of undetermined cause. ICD-10 Codes 1 of 2 [facility] R10.84: Generalized abdominal pain R10.31: Right lower quadrant pain 2 of 2 Normal [facility] ED VISIT SUMMARYon ED VISIT SUMMARY Visit Overview Visit Overview [address] [address] [id number] 08/13/2024 Patient: PRABHA CODY Sex: Female : 2000 Age: 23y 08/13/2024 03:57 PM EST ED Arrival:11:48 08/13/2024 EST Status:not Recent Travel:no Language:eng Adv Directive:No Isolation Status: Ethnicity:N Fall Risk:no risk Infectious Disease Exposure:no Measurements:4'11 / 149.9 Self-Harm Status:risk Sepsis Screen:negative cm 140.0 lb / 63.5 kg Chief Complaint:ABDOMINAL PAIN, DIARRHEA, (days), and ([place] Startzman) ALLERGIES alprazolam clindamycin doxycycline erythromycin base Penicillins Sulfa (Sulfonamide Antibiotics) Zoloft HOME MEDICATIONS 1 of 3 Visit Overview aspirin 81 mg tablet,delayed release: 81 mg once a day. Protonix 40 mg tablet,delayed release: 40 mg twice a day. PAST MEDICAL HISTORY / PROBLEMS Gastroesophageal reflux disease Last normal menstrual period was 1 week ago- weeks ago See nurses notes PAST SURGICAL HISTORY Artial septal defect Cholecystectomy SOCIAL HISTORY Smoking status: No Alcohol use: No Drug use: No ED COURSE MEDICATIONS GIVEN IN EMERGENCY DEPARTMENT IV SITE INFORMATION INTAKE OUTPUT REASSESMENT (most recent) 14:49 08/13/24. The patient reports no complaints and the patient is calm and resting quietly. VITAL SIGNS First Vitals Last Vitals Temp 12:02 08/13/24 98.6 F Temp 15:11 08/13/24 BP 12:02 08/13/24 140/93 BP 15:11 08/13/24 145/95 HR 12:02 08/13/24 104 HR 15:11 08/13/24 98 2 of 3 Visit Overview First Vitals Last Vitals RR 12:02 08/13/24 16 RR 15:11 08/13/24 16 O2 Sat 12:02 08/13/24 97% O2 Sat 15:11 08/13/24 97% RA Pain 12:02 08/13/24 5 Pain 15:11 08/13/24 4 ETCO2 12:02 08/13/24 ETCO2 15:11 08/13/24 GCS 12:02 08/13/24 GCS 15:11 08/13/24 RTS 12:02 08/13/24 RTS 15:11 08/13/24 PROCEDURES NURSING INTERVENTIONS LABS / STUDIES LABS / STUDIES ORDERED CBC w Diff CMP CRP CT ABD/PEL w IV Cont Urinalysis Urine Culture [CCL] CLINICAL IMPRESSION ACUTE GENERALIZED AND RIGHT LOWER QUADRANT ABDOMINAL PAIN OF UNDETERMINED CAUSE 3 of 3 Normal [facility] ED VITALS FLOW SHEETon 08-13 ED VITALS FLOW SHEET Vitals Vital Sign Flow Sheet [address] [place] [address] [id number] 08/13/2024 Patient: PRABHA CODY Sex: Female : 2000 Age: 23y Measurements Wt: 63.5 kg, Ht/Terrance: 59.0 in, BMI: 28.28 Measured Time BP MAP HR RR O2Sat ETCO2 Temp Pain GCS RTS 15:11 08/13/2024 145/95 112 98 16 97% RA 4 15:09 08/13/2024 145/95 112 98 16 97% RA 4 13:00 08/13/2024 6 12:02 08/13/2024 140/93 109 104 16 97% 98.6 F 5 1 of 1 Normal [facility] URINALYSISon 08-13-2024 Amorphous NONE Normal [facility] Comment on above: Performed By: #### 2 15029 #### [facility],[address] [place] [address] Bacteria NONE Normal [facility] Comment on above: Performed By: #### 2 47393 #### [facility],[address] [place] [address] Bilirubin Ql (U) Negative Normal NORMAL: NEGATIVE [facility] Comment on above: Performed By: #### 2 41569 #### [facility],[address] [place] [address] Casts NONE Normal [facility] Comment on above: Performed By: #### 2 98580 #### [facility],[address] [place] [address] 33006 Clarity (U) clear Normal NORMAL: CLEAR [facility] Comment on above: Performed By: #### 2 63093 #### [facility],[address] [place], [place] [id number] Color (U) p.yel Normal NORMAL: YELLOW [facility] Comment on above: Performed By: #### 2 89754 #### [facility],[address] [place] [address] 77198 Crystals LM Nom (Urine sed) NONE Normal [facility] Comment on above: Performed By: #### 2 32311 #### [facility],[address] [place] [address] 38305 Epi Cells MODERATE Normal [facility] Comment on above: Performed By: #### 2 19426 #### [facility],[address] [place] [address] 91221 Glucose Ql (U) NORM Normal NORMAL: NORMAL [facility] Comment on above: Performed By: #### 2 50401 #### [facility],[address] [place] [address] 12739 Hemoglobin Ql (U) 150 Abnormal NORMAL: NEGATIVE [facility] Comment on above: Performed By: #### 2 60348 #### [facility],[address] [place] [address] 69927 Ketone Negative Normal NORMAL: NEGATIVE [facility] Comment on above: Performed By: #### 2 26307 #### [facility],[address] [place] [address] 75719 Leukocytes 25 Abnormal NORMAL: NEGATIVE [facility] Comment on above: Performed By: #### 2 14131 #### [facility],[address] [place] [address] 94043 Mucous NONE Normal [facility] Comment on above: Performed By: #### 2 04514 #### [facility],[address] [place] [address] 15312 Nitrite Ql (U) Negative Normal NORMAL: NEGATIVE [facility] Comment on above: Performed By: #### 2 33445 #### [facility],[address] [place] [address] 47731 pH (U) 7 [pH] Normal NORMAL: 5.0-8.0 [facility] Comment on above: Performed By: #### 2 32879 #### [facility],[address] [place] [address] 59821 Protein Ql (U) 15 Abnormal NORMAL: NEGATIVE [facility] Comment on above: Performed By: #### 2 82313 #### [facility],[address] [place] [address] 45513 Rbc 0-5 Normal 0-3/hpf [facility] Comment on above: Performed By: #### 2 57168 #### [facility],[address] [place] [address] Sp Rickreall 1.010 Normal NORMAL: 1.010-1.030 [facility] Comment on above: Performed By: #### 2 27302 #### [facility],[address] [place] [address] Specimen Type R Normal [facility] Comment on above: Performed By: #### 2 71265 #### [facility],[address] [place] [address] Urinalysis dipstick W Reflex Microscopic panel (U) SEE BELOW Normal [facility] Comment on above: Result Comment: MICR OSCOPIC Performed By: #### 2 31412 #### [facility],[address] [place] [address] Urobilinog NORM Normal NORMAL: NORMAL [facility] Comment on above: Performed By: #### 2 27066 #### [facility],[address] [place] [address] Wbc 1-5 Normal 0-5/hpf [facility] Comment on above: Performed By: #### 2 24385 #### [facility],[address] [place] [address] Yeast NONE Normal [facility] Comment on above: Performed By: #### 2 96971 #### [facility],[address] [place] [address] 12 Lead EKG performed by [facility] on 07-26-2024 12 Lead EKG performed by [facility] [address] [place] [address] 12 Lead EKG performed by [facility] 07/26/24 0938 MR#: [id number] Acct: [id number] Name: PRABHA CODY Rep #: [id number] : 2000 23 From: Marques Barger MD Attending Dr: Dr. Marques Barger MD Status: DE P AMB Ordering Dr: Marques Barger MD Date: 07/26/24 Location: [facility] Sex: F C Admitted: BMS/12 Lead EKG performed by [facility] ECG Report Interpretation -Sinus Rhythm -Short FL syndrome Lorene = 108OTHERWISE NORMALElectronically signed on 07/26/2024 at 15:[address] 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 [place] [address] OFFICE VISIT Date of Service: 07/26/24 MR#: [id number] Acct: [id number] Name: PRABHA CODY Rep #: [id number] : 2000 Provider: Dr. Marques bhatt MD Age/Sex: 23/F Location: [facility] Status: Signed with Addenda ADDENDUM by Dr. Marques Barger MD on 07/26/24 at 1419 Addendum Addendum Details:: EKG in office today shows normal sinus rhythm with a short FL interval otherwise unremarkable. Assessment and Plan Assessment and Plan (1) Atrial septal defect: Status: Acute Orders: Orders 12 Lead EKG performed by [facility] Today Q21.10 - Atrial septal defect, unspecified Echo Complete 3 Weeks Q21.10 - Atrial septal defect, unspecified Plan Details Follow Up: 1 Year (With MACK or Dr. Barger) 07/26/24 1415 Date Marques Barger MD cc: KANWAL Bauer * Signed HPI HPI History of Present Illness Details: Patient 23-year-old white female that comes in with a history of what she described as a PFO closure that she reports was done because she desaturated with activity. Apparently when she was in her teenage years she tried to play soccer and could not keep up with anyone in [place] wound up being on supplemental oxygen for a period of time. A SOLO showed that she had a significant ASD/PFO and she underwent a percutaneous clamshell closure device. This was done in early September 2020. The patient subsequently had a stress test done September 23, 2020 where she went 10 minutes and 16 seconds for 11 METS with no chest symptoms she did have significant shortness, no significant shortness of breath, and no cardiac arrhythmias. No ischemic EKG changes noted. Currently the patient is very active and reports that she has had regular activity levels with no significant restrictions. She was told that she needs to have an echocardiogram done on a yearly basis. And she is here to schedule that. This was originally done by Dr. Hosea Gallagher at [facility]. Patient's last echocardiogram April 10, 2023 showed normal LV size and function with EF of 60-65% normal diastolic function. There was a small right to left intracardiac shunt by saline contrast injection this had been previously visualized on the echo Doppler study September 2020. Patient has a history of ASD repair by that report in 2019. There is some confusion in the records as the status post pain-free and ovale closure was said to been done November 21, 2019 but then there is another note that there was a history of atrial septal defect repair 2000. However, the patient was not born until 2000. The patient does report that since her PFO closure she has not had to use supplemental oxygen and she is active keeping up with her companions. 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: No Accompanied by: Self Is patient in pain?: No Allergies omeprazole Allergy (Intermediate, Verified 07/26/24 13:20) Other alprazolam Allergy (Verified 07/26/24 13:20) NEEDS FOLLOW-UP azithromycin Allergy (Verified 07/26/24 13:20) NEEDS FOLLOW-UP clindamycin Allergy (Verified 07/26/24 13:20) Other Penicillins (PCN) Allergy (Verified 07/26/24 13:20) NEEDS FOLLOW-UP Sulfa (Sulfonamide Antibiotics) Allergy (Verified 07/26/24 13:20) Other doxycycline Adverse Reaction (Verified 07/26/24 13:20) Nausea/Vom/Diarrhea erythromycin base Adverse Reaction (Verified 07/26/24 13:20) Nausea/Vom/Diarrhea sertraline (From Zoloft) Adverse Reaction (Verified 07/26/24 13:20) Other Medications ???Medication ???Instructions ???Recorded ???Confirmed ???Type aspirin 81 mg tablet,delayed 81 mg PO DAILY 05/07/24 07/26/24 History release pantoprazole 40 mg tablet,delayed 40 mg PO BID 06/14/24 07/26/24 History release Ejection fraction %: 65 Have you fallen in the past year?: No PFSH Medical History PFO (patent foramen ovale) Shortness of breath History of gastroesophageal reflux (GERD) Atrial septal defect Surgical History Status post patent foramen ovale closure History of atrial septal defect repair Family History Grandmother Heart disease Grandfather Heart disease Social History Smoking Status: Nev (more content not included)... Normal [facility] ARABELLA Comprehensive Panelon ARABELLA TABLE Comment Normal . [facility] Comment on above: Result Comment: Auto antibody Disease Association Condition Frequency --------- Antinuclear Antibody, SLE, mixed connective Direct (ARABELLA-D) tissue diseases --------- dsDNA SLE 40 - 60% --------- Chromatin Drug induced SLE 90% SLE 48 - 97% --------- SSA (Ro) SLE 25 - 35% Sjogren's Syndrome 40 - 70% Lupus 100% --------- SSB (La) SLE 10% Sjogren's Syndrome 30% --------- Sm (anti-Gallagher) SLE 15 - 30% --------- COLLECTION ADMINISTRATOR Mixed Connective Tissue Disease 95% (U1 nRNP, SLE 30 - 50% anti-ribonucleoprotein) Polymyositis and/or Dermatomyositis 20% --------- Scl-70 (antiDNA Scleroderma (diffuse) 20 - 35% topoisomerase) Crest 13% --------- Valerie-1 Polymyositis and/or Dermatomyositis 20 - 40% --------- Centromere B Scleroderma - Crest variant 80% Performed By: #### L 501.9520, M100.2200, L500.4050, L400.0001, L100.0100 #### [facility] [address] [place], [place], [id number] ANTI-CENT B AB <0.2 Normal 0.0-0.9 [facility] Comment on above: Performed By: #### L 501.9520, M100.2200, L500.4050, L400.0001, L100.0100 #### [facility] [address] [place], [address] ANTI-DNA (DS)AB 2 IU/mL Normal 0-9 [facility] Comment on above: Result Comment: Nega tive <5 Equivocal 5 - 9 Positive >9 Performed By: #### L 501.9520, M100.2200, L500.4050, L400.0001, L100.0100 #### [facility] [address] [place], [address] ANTI-VALERIE-1 <0.2 Normal 0.0-0.9 [facility] Comment on above: Performed By: #### L 501.9520, M100.2200, L500.4050, L400.0001, L100.0100 #### [facility] [address] [place], [address] ANTI-SS-A < 0.2 Normal 0.0-0.9 [facility] Comment on above: Performed By: #### L 501.9520, M100.2200, L500.4050, L400.0001, L100.0100 #### [facility] [address] [place], [address] ANTI-SS-B < 0.2 Normal 0.0-0.9 [facility] Comment on above: Performed By: #### L 501.9520, M100.2200, L500.4050, L400.0001, L100.0100 #### [facility] [address] [place], [address] ANTICHROMATIN <0.2 Normal 0.0-0.9 [facility] Comment on above: Performed By: #### L 501.9520, M100.2200, L500.4050, L400.0001, L100.0100 #### [facility] [address] [place], [address] ANTISCLERODERM <0.2 Normal 0.0-0.9 [facility] Comment on above: Performed By: #### L 501.9520, M100.2200, L500.4050, L400.0001, L100.0100 #### [facility] [address] [place], [address] COLLECTION ADMINISTRATOR Ab <0.2 Normal 0.0-0.9 [facility] Comment on above: Performed By: #### L 501.9520, M100.2200, L500.4050, L400.0001, L100.0100 #### [facility] [address] [place], [address] GALLAGHER Ab <0.2 Normal 0.0-0.9 [facility] Comment on above: Performed By: #### L 501.9520, M100.2200, L500.4050, L400.0001, L100.0100 #### [facility] [address] [place], [address] ANCAon 06-19-2024 Atypical pANCA <1:20 Normal Neg:<1:20 [facility] Comment on above: Order Comment: Y Result Comment: The atypical pANCA pattern has been observed in a significant percentage of patients with ulcerative colitis, primary sclerosing cholangitis and autoimmune hepatitis. Performed By: #### L 501.9520, M100.2200, L500.4050, L400.0001, L100.0100 #### [facility] [address] [place], [address] Cytoplasmic Ab <1:20 Normal Neg:<1:20 [facility] Comment on above: Order Comment: Y Performed By: #### L 501.9520, M100.2200, L500.4050, L400.0001, L100.0100 #### [facility] [address] [place], [address] Perinuclear Ab. <1:20 Normal Neg:<1:20 [facility] Comment on above: Order Comment: Y Result Comment: The presence of positive fluorescence exhibiting P-ANCA or C-ANCA patterns alone is not specific for the diagnosis of Tierney's Granulomatosis (WG) or microscopic polyangiitis. Decisions about treatment should not be based solely on ANCA IFA results. The International ANCA Group Consensus recommends follow up testing of positive sera with both FL- 3 and MPO-ANCA enzyme immunoassays. As many as 5% serum samples are positive only by EIA. Ref. AM J Clin Pathol 1999;111:507-513. Performed By: #### L 501.9520, M100.2200, L500.4050, L400.0001, L100.0100 #### [facility] [address] [place], [address] Celiac Disease Profileon ENDOMYSIAL IGA Negative Normal Negative [facility] Comment on above: Order Comment: Y Performed By: #### L 501.9520, M100.2200, L500.4050, L400.0001, L100.0100 #### [facility] [address] [place], [place], [id number] tTG IGA <2 Normal 0-3 [facility] Comment on above: Order Comment: Y Result Comment: Nega tive 0 - 3 Weak Positive 4 - 10 Positive >10 Tissue Transglutaminase (tTG) has been identified as the endomysial antigen. Studies have demonstr- ated that endomysial IgA antibodies have over 99% specificity for gluten sensitive enteropathy. Performed By: #### L 501.9520, M100.2200, L500.4050, L400.0001, L100.0100 #### [facility] [address] [place], [address] Gastrin, Serumon 06-19-2024 GASTRIN 146 pg/mL High 0-115 [facility] Comment on above: Order Comment: Y Result Comment: Siem ens Immulite 2000 Immunochemiluminometric assay (ICMA) Values obtained with different assay methods or kits cannot be used interchangeably. Results cannot be interpreted as absolute evidence of the presence or absence of malignant disease. Performed at: [address] [id number] [employer] Operation: Petey Clark PhD, Phone: [phone] Performed at: [facility] [id number] [employer] Operation: Shahrzad Cotton MD, Phone: [phone] Performed By: #### L 501.9520, M100.2200, L500.4050, L400.0001, L100.0100 #### [facility] [address] [place], [place], [id number] DEBORA + Protein Elect, Serumon 06-19-2024 Albumin [Mass/Vol] 4.3 g/dL Normal 2.9-4.4 [facility] Comment on above: Order Comment: Y Performed By: #### L 501.9520, M100.2200, L500.4050, L400.0001, L100.0100 #### [facility] [address] [place], [address] Albumin/Globulin [Mass ratio] 1.2 {ratio} Normal 0.7-1.7 [facility] Comment on above: Order Comment: Y Performed By: #### L 501.9520, M100.2200, L500.4050, L400.0001, L100.0100 #### [facility] [address] [place], [address] BNTDL-9-BATV 0.3 g/dL Normal 0.0-0.4 [facility] Comment on above: Order Comment: Y Performed By: #### L 501.9520, M100.2200, L500.4050, L400.0001, L100.0100 #### [facility] [address] [place], [address] DBACX-5-HDDJ 1.0 g/dL Normal 0.4-1.0 [facility] Comment on above: Order Comment: Y Performed By: #### L 501.9520, M100.2200, L500.4050, L400.0001, L100.0100 #### [facility] [address] [place], [address] BETA GLOBULIN 1.4 g/dL High 0.7-1.3 [facility] Comment on above: Order Comment: Y Performed By: #### L 501.9520, M100.2200, L500.4050, L400.0001, L100.0100 #### [facility] [address] [place], [address] GAMMA GLOBULIN 1.1 g/dL Normal 0.4-1.8 [facility] Comment on above: Order Comment: Y Performed By: #### L 501.9520, M100.2200, L500.4050, L400.0001, L100.0100 #### [facility] [address] [place], [address] Globulin (S) [Mass/Vol] 3.8 g/dL Normal 2.2-3.9 [facility] Comment on above: Order Comment: Y Performed By: #### L 501.9520, M100.2200, L500.4050, L400.0001, L100.0100 #### [facility] [address] [place], [address] DEBORA RESULT,S Comment Normal . [facility] Comment on above: Order Comment: Y Result Comment: No m onoclonality detected. Performed By: #### L 501.9520, M100.2200, L500.4050, L400.0001, L100.0100 #### [facility] [address] [place], [address] IMMUNOGLOB A QN 300 mg/dL Normal 87-352 [facility] Comment on above: Order Comment: Y Performed By: #### L 501.9520, M100.2200, L500.4050, L400.0001, L100.0100 #### [facility] [address] [place], [address] IMMUNOGLOB G QN 1042 mg/dL Normal 586-1602 [facility] Comment on above: Order Comment: Y Performed By: #### L 501.9520, M100.2200, L500.4050, L400.0001, L100.0100 #### [facility] [address] [place], [address] IMMUNOGLOB M QN 120 mg/dL Normal 26-217 [facility] Comment on above: Order Comment: Y Performed By: #### L 501.9520, M100.2200, L500.4050, L400.0001, L100.0100 #### [facility] [address] [place], [address] M-Jaret Not Observed Normal Not Observed [facility] Comment on above: Order Comment: Y Performed By: #### L 501.9520, M100.2200, L500.4050, L400.0001, L100.0100 #### [facility] [address] [place], [address] NOTE: Comment Normal . [facility] Comment on above: Order Comment: Y Result Comment: Prot ein electrophoresis scan will follow via computer, mail, or business systems advisor delivery. Performed By: #### L 501.9520, M100.2200, L500.4050, L400.0001, L100.0100 #### [facility] [address] [place], [address] Protein [Mass/Vol] 8.1 g/dL Normal 6.0-8.5 [facility] Comment on above: Order Comment: Y Performed By: #### L 501.9520, M100.2200, L500.4050, L400.0001, L100.0100 #### [facility] [address] [place], [address] Immunoglobulins G/A/M/Eric IMMUNOGLOB E QN 25 IU/mL Normal 6-495 [facility] Comment on above: Order Comment: Y Performed By: #### L 501.9520, M100.2200, L500.4050, L400.0001, L100.0100 #### [facility] [address] [place], [address] L2100.0000on 06-19-2024 ACCA 36 units Normal 0-90 [facility] Comment on above: Order Comment: Y Result Comment: Nega tive: <80 Equivocal: 80-90 Positive: >90 Performed By: #### L 501.9520, M100.2200, L500.4050, L400.0001, L100.0100 #### [facility] [address] [place], [address] ALCA 4 units Normal 0-60 [facility] Comment on above: Order Comment: Y Result Comment: Nega tive:<55 Equivocal: 55-60 Positive: >60 Performed By: #### L 501.9520, M100.2200, L500.4050, L400.0001, L100.0100 #### [facility] [address] [place], [address] AMCA 73 units Normal 0-100 [facility] Comment on above: Order Comment: Y Result Comment: Nega tive: <90 Equivocal: 90-100 Positive: >100 This test was developed and its performance characteristics determined by [employer]. It has not been cleared or approved by the Food and Drug Administration. The FDA has determined that such clearance or approval is not necessary. Performed By: #### L 501.9520, M100.2200, L500.4050, L400.0001, L100.0100 #### [facility] [address] [place], [address] Atypical pANCA Negative Normal Negative [facility] Comment on above: Order Comment: Y Performed By: #### L 501.9520, M100.2200, L500.4050, L400.0001, L100.0100 #### [facility] [address] [place], [address] COMMENT Comment Normal . [facility] Comment on above: Order Comment: Y Result Comment: Phuong farnaz is not suggestive of Inflammatory Bowel Disease Performed By: #### L 501.9520, M100.2200, L500.4050, L400.0001, L100.0100 #### [facility] [address] [place], [address] Nestor 38 units Normal 0-50 [facility] Comment on above: Order Comment: Y Result Comment: Nega tive: <45 Equivocal: 45-50 Positive: >50 Performed By: #### L 501.9520, M100.2200, L500.4050, L400.0001, L100.0100 #### [facility] [address] [place], [address] [id number] 06-19-2024 BEEF <0.10 Normal Class 0 [facility] Comment on above: Performed By: #### L 501.9520, M100.2200, L500.4050, L400.0001, L100.0100 #### [facility] Laboratory [address] [place], [address] CHOCOLATE <0.10 Normal Class 0 [facility] Comment on above: Performed By: #### L 501.9520, M100.2200, L500.4050, L400.0001, L100.0100 #### [facility] Laboratory [address] [place], [address] CODFISH <0.10 Normal Class 0 [facility] Comment on above: Performed By: #### L 501.9520, M100.2200, L500.4050, L400.0001, L100.0100 #### [facility] Laboratory [address] [place], [address] COMMENT Comment Normal . [facility] Comment on above: Result Comment: Nelli greenberg of Specific IgE Class Description of Class ----- < 0.10 0 Negative 0.10 - 0.31 0/I Equivocal/Low 0.32 - 0.55 I Low 0.56 - 1.40 II Moderate 1.41 - 3.90 III High 3.91 - 19.00 IV Very High 19.01 - 100.00 V Very High >100.00 Very High Performed By: #### L 501.9520, M100.2200, L500.4050, L400.0001, L100.0100 #### [facility] Laboratory [address] [place], [address] CORN <0.10 Normal Class 0 [facility] Comment on above: Performed By: #### L 501.9520, M100.2200, L500.4050, L400.0001, L100.0100 #### [facility] Laboratory [address] [place], [address] EGG, WHOLE <0.10 Normal Class 0 [facility] Comment on above: Result Comment: Perf ormed at: [facility] [address] [id number] [employer]: Petey Clark PhD, Phone: [phone] Performed at: [facility] [address] [id number] [employer]: Shahrzad Cotton MD, Phone: [phone] Performed By: #### L 501.9520, M100.2200, L500.4050, L400.0001, L100.0100 #### [facility] Laboratory [address] [place], [address] MILK (COW) <0.10 Normal Class 0 [facility] Comment on above: Performed By: #### L 501.9520, M100.2200, L500.4050, L400.0001, L100.0100 #### [facility] Laboratory [address] [place], [address] MUSSELS <0.10 Normal Class 0 [facility] Comment on above: Performed By: #### L 501.9520, M100.2200, L500.4050, L400.0001, L100.0100 #### [facility] [address] [place], [address] PEANUT <0.10 Normal Class 0 [facility] Comment on above: Performed By: #### L 501.9520, M100.2200, L500.4050, L400.0001, L100.0100 #### [facility] [address] [place], [address] PORK <0.10 Normal Class 0 [facility] Comment on above: Performed By: #### L 501.9520, M100.2200, L500.4050, L400.0001, L100.0100 #### [facility] [address] [place], [address] SALMON <0.10 Normal Class 0 [facility] Comment on above: Performed By: #### L 501.9520, M100.2200, L500.4050, L400.0001, L100.0100 #### [facility] [address] [place], [address] SHRIMP <0.10 Normal Class 0 [facility] Comment on above: Performed By: #### L 501.9520, M100.2200, L500.4050, L400.0001, L100.0100 #### [facility] [address] [place], [address] SOYBEAN <0.10 Normal Class 0 [facility] Comment on above: Performed By: #### L 501.9520, M100.2200, L500.4050, L400.0001, L100.0100 #### [facility] [address] [place], [address] TUNA <0.10 Normal Class 0 [facility] Comment on above: Performed By: #### L 501.9520, M100.2200, L500.4050, L400.0001, L100.0100 #### [facility] [address] [place], [address] WHEAT <0.10 Normal Class 0 [facility] Comment on above: Performed By: #### L 501.9520, M100.2200, L500.4050, L400.0001, L100.0100 #### [facility] Laboratory [address] [place], [address] CBC W/Diff, Automatedon 09-0 6-2023 Absolute Lymph 1.01 X10 3/uL Normal 0.83-4.51 [facility] Comment on above: Performed By: #### L 501.9520, M100.2200, L500.4050, L400.0001, L100.0100 #### [facility] [address] [place], [address] Absolute Neut 7.8 X10 3/uL High 2.0-7.7 [facility] Comment on above: Performed By: #### L 501.9520, M100.2200, L500.4050, L400.0001, L100.0100 #### [facility] [address] [place], [address] Basophils/100 WBC (Bld) 0.2 % Normal 0-1 [facility] Comment on above: Performed By: #### L 501.9520, M100.2200, L500.4050, L400.0001, L100.0100 #### [facility] [address] [place], [address] Eosinophils/100 WBC (Bld) 0.7 % Normal 0-5 [facility] Comment on above: Performed By: #### L 501.9520, M100.2200, L500.4050, L400.0001, L100.0100 #### [facility] [address] [place], [address] Erythrocyte distribution width (RBC) [Ratio] 12.0 % Normal 11.6-14.6 [facility] Comment on above: Performed By: #### L 501.9520, M100.2200, L500.4050, L400.0001, L100.0100 #### [facility] [address] [place], [address] Hematocrit (Bld) [Volume fraction] 45.6 % Normal 37-47 [facility] Comment on above: Performed By: #### L 501.9520, M100.2200, L500.4050, L400.0001, L100.0100 #### [facility] [address] [place], [address] Hemoglobin (Bld) [Mass/Vol] 15.4 g/dL High 12.0-15.0 [facility] Comment on above: Performed By: #### L 501.9520, M100.2200, L500.4050, L400.0001, L100.0100 #### [facility] [address] [place], [address] IG% 0.300 Normal 0.0-0.9 [facility] Comment on above: Result Comment: IG% - Immature Granulocytes (promyelocytes, myelocytes and metamyelocytes) > 1% indicates that a LEFT SHIFT is Present. Performed By: #### L 501.9520, M100.2200, L500.4050, L400.0001, L100.0100 #### [facility] [address] [place], [address] Lymphocytes/100 WBC (Bld) 11.0 % Low 19-41 [facility] Comment on above: Performed By: #### L 501.9520, M100.2200, L500.4050, L400.0001, L100.0100 #### [facility] [address] [place], [address] MCH (RBC) [Entitic mass] 30.9 pg Normal 27.0-32.0 [facility] Comment on above: Performed By: #### L 501.9520, M100.2200, L500.4050, L400.0001, L100.0100 #### [facility] [address] [place], [address] MCHC (RBC) [Mass/Vol] 33.8 g/dL Normal 32-36 [facility] Comment on above: Performed By: #### L 501.9520, M100.2200, L500.4050, L400.0001, L100.0100 #### [facility] [address] [place], [address] MCV (RBC) [Entitic vol] 91.6 fL Normal 81-99 [facility] Comment on above: Performed By: #### L 501.9520, M100.2200, L500.4050, L400.0001, L100.0100 #### [facility] [address] [place], [address] Monocytes/100 WBC (Bld) 3.5 % Normal 0-10 [facility] Comment on above: Performed By: #### L 501.9520, M100.2200, L500.4050, L400.0001, L100.0100 #### [facility] [address] [place], [address] Neutrophils/100 WBC (Bld) 84.3 % High 47-70 [facility] Comment on above: Performed By: #### L 501.9520, M100.2200, L500.4050, L400.0001, L100.0100 #### [facility] [address] [place], [address] Nucleated RBC (Bld) [#/Vol] 0 10*3/uL Normal 0-5 [facility] Comment on above: Performed By: #### L 501.9520, M100.2200, L500.4050, L400.0001, L100.0100 #### [facility] [address] [place], [address] Platelet mean volume (Bld) [Entitic vol] 10.1 fL Normal 6.2-12.0 [facility] Comment on above: Performed By: #### L 501.9520, M100.2200, L500.4050, L400.0001, L100.0100 #### [facility] [address] [place], [address] Platelets (Bld) [#/Vol] 406 10*3/uL Normal 150-450 [facility] Comment on above: Performed By: #### L 501.9520, M100.2200, L500.4050, L400.0001, L100.0100 #### [facility] [address] [place], [address] RBC (Bld) [#/Vol] 4.98 10*6/uL Normal 4.2-5.4 [facility] Comment on above: Performed By: #### L 501.9520, M100.2200, L500.4050, L400.0001, L100.0100 #### [facility] [address] [place], [address] RDW SD 40.2 fl Normal 35.1-43.9 [facility] Comment on above: Performed By: #### L 501.9520, M100.2200, L500.4050, L400.0001, L100.0100 #### [facility] [address] [place], [address] WBC (Bld) [#/Vol] 9.2 10*3/uL Normal 4.4-11.0 [facility] Comment on above: Performed By: #### L 501.9520, M100.2200, L500.4050, L400.0001, L100.0100 #### [facility] [address] [place], [address] CRPon 06-14-2024 C-REACTIVE PROT < 2.90 Normal 0.0-3.0 [facility] Comment on above: Order Comment: 1 Result Comment: C-Re active Protein (CRP) provides useful information for the diagnosis, therapy and monitoring of inflammatory processes and associated diseases. For the evaluation of Relative Risk for Cardiovascular Disease, a High Sensitivity CRP (HSCRP) should be ordered. Performed By: #### L 501.9520, M100.2200, L500.4050, L400.0001, L100.0100 #### [facility] [address] [place], [address] Comprehensive Metabolic Prof ilon 06-14-2024 Albumin [Mass/Vol] 4.4 g/dL Normal 3.2-5.0 [facility] Comment on above: Order Comment: 1 Performed By: #### L 501.9520, M100.2200, L500.4050, L400.0001, L100.0100 #### [facility] [address] [place], [address] Albumin/Globulin [Mass ratio] 1.0 {ratio} Normal 0.9-2.4 [facility] Comment on above: Order Comment: 1 Performed By: #### L 501.9520, M100.2200, L500.4050, L400.0001, L100.0100 #### [facility] [address] [place], [address] ALK P 94 U/L Normal 45-117 [facility] Comment on above: Order Comment: 1 Performed By: #### L 501.9520, M100.2200, L500.4050, L400.0001, L100.0100 #### [facility] [address] [place], [address] ALT [Catalytic activity/Vol] 21 U/L Normal 13-56 [facility] Comment on above: Order Comment: 1 Performed By: #### L 501.9520, M100.2200, L500.4050, L400.0001, L100.0100 #### [facility] [address] [place], [address] AST [Catalytic activity/Vol] 14 U/L Low 15-37 [facility] Comment on above: Order Comment: 1 Performed By: #### L 501.9520, M100.2200, L500.4050, L400.0001, L100.0100 #### [facility] [address] [place], [address] Bilirubin [Mass/Vol] 0.70 mg/dL Normal 0.20-1.00 [facility] Comment on above: Order Comment: 1 Result Comment: For patients on eltrombopag therapy, use of Dimension [place] TBIL is not recommended. Performed By: #### L 501.9520, M100.2200, L500.4050, L400.0001, L100.0100 #### [facility] [address] [place], [address] BUN/CRE 14.3 RATIO Normal 10-20 [facility] Comment on above: Order Comment: 1 Performed By: #### L 501.9520, M100.2200, L500.4050, L400.0001, L100.0100 #### [facility] [address] [place], [address] CA,Total 10.0 mg/dL Normal 8.5-10.1 [facility] Comment on above: Order Comment: 1 Performed By: #### L 501.9520, M100.2200, L500.4050, L400.0001, L100.0100 #### [facility] [address] [place], [address] Chloride [Moles/Vol] 105 mmol/L Normal 98-107 [facility] Comment on above: Order Comment: 1 Performed By: #### L 501.9520, M100.2200, L500.4050, L400.0001, L100.0100 #### [facility] [address] [place], [address] CO2 [Moles/Vol] 23.0 mmol/L Normal 21.0-32.0 [facility] Comment on above: Order Comment: 1 Performed By: #### L 501.9520, M100.2200, L500.4050, L400.0001, L100.0100 #### [facility] [address] [place], [address] Creatinine [Mass/Vol] 0.84 mg/dL Normal 0.55-1.02 [facility] Comment on above: Order Comment: 1 Result Comment: The validity of the calculated GFR GFRAA in patients over 70 years has not been determined. Clinical correlation is essential. Performed By: #### L 501.9520, M100.2200, L500.4050, L400.0001, L100.0100 #### [facility] [address] [place], [address] EST GFR - AA 107 mL/min Normal >60 [facility] Comment on above: Order Comment: 1 Result Comment: Afri can [place] GFR Calc Performed By: #### L 501.9520, M100.2200, L500.4050, L400.0001, L100.0100 #### [facility] [address] [place], [address] GAP 10 Normal 5-15 [facility] Comment on above: Order Comment: 1 Performed By: #### L 501.9520, M100.2200, L500.4050, L400.0001, L100.0100 #### [facility] [address] [place], [address] GFR/1.73 sq M.predicted among non-blacks MDRD (S/P/Bld) [Vol rate/Area] 88 mL/min/{1.73_m2} Normal >60 [facility] Comment on above: Order Comment: 1 Result Comment: Non- GFR Calc Performed By: #### L 501.9520, M100.2200, L500.4050, L400.0001, L100.0100 #### [facility] [address] [place], [address] Globulin (S) [Mass/Vol] 4.3 g/dL High 2.2-4.2 [facility] Comment on above: Order Comment: 1 Performed By: #### L 501.9520, M100.2200, L500.4050, L400.0001, L100.0100 #### [facility] [address] [place], [address] Glucose [Mass/Vol] 110 mg/dL High 74-106 [facility] Comment on above: Order Comment: 1 Result Comment: Fast ing Glucose result from 100 to 125 mg/dL suggests IMPAIRED HOMEOSTASIS per A.D.A. criteria. Performed By: #### L 501.9520, M100.2200, L500.4050, L400.0001, L100.0100 #### [facility] [address] [place], [address] Potassium [Moles/Vol] 3.3 mmol/L Low 3.5-5.1 [facility] Comment on above: Order Comment: 1 Performed By: #### L 501.9520, M100.2200, L500.4050, L400.0001, L100.0100 #### [facility] [address] [place], [address] Sodium [Moles/Vol] 138 mmol/L Normal 136-145 [facility] Comment on above: Order Comment: 1 Performed By: #### L 501.9520, M100.2200, L500.4050, L400.0001, L100.0100 #### [facility] [address] [place], [address] T PROT 8.7 g/dL High 6.4-8.2 [facility] Comment on above: Order Comment: 1 Performed By: #### L 501.9520, M100.2200, L500.4050, L400.0001, L100.0100 #### [facility] [address] [place], [address] Urea nitrogen [Mass/Vol] 12 mg/dL Normal 7-18 [facility] Comment on above: Order Comment: 1 Performed By: #### L 501.9520, M100.2200, L500.4050, L400.0001, L100.0100 #### [facility] [address] [place], [address] Erythrocyte Sed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 02-19-2024 End: 02-19-2024 Patient encounter status James Christianson APRN.STEEL HANGER Work Phone: [facility] Procedures Date Procedure Procedure Detail Performing Clinician Start: 05-06-2025 Urine culture Shruti Smith DO Work Phone: Start: 03-28-2025 Esophagogastroduodenoscopy Shruti ely DO Work Phone: Start: 02-27-2025 Urine culture Shruti Smith DO Work Phone: Start: 02-27-2025 Urnls dip stick/tablet reagent auto microscopy Shruti Smith DO Work Phone: Start: 08-13-2024 Urinalysis DENICE BAUER Comment on above: Result Comment: URINALYSIS Performed By: #### [id number] #### [facility],[address] [place] [address] Start: 02-19-2024 BACTERIAL VAGINOSIS NAAT James Christianson APRN.CNP Work Phone: Start: 02-19-2024 Iadna chlamydia trachomatis amplified probe tq James Christianson APRN.CNP Work Phone: Plan of Treatment Date Care Activity Detail Author Start: 02-18-2027 Screening for malign ant neoplasm of cervix Cervical Cancer Screening [facility] Start: 06-10-2025 ambulatory Ambulatory Facility:[facility] Start: 05-06-2025 [facility] Start: 05-06-2025 Bacteria identified in Urine by Culture Urine Culture [facility] Start: 03-28-2025 Egd transoral biopsy single/multiple EGD BIOPSY SINGLE/MULTIPLE [facility] Start: 03-28-2025 Patient discharge [facility] Start: 02-24-2025 End: 02-24-2025 Patient encounter procedure 02/24/2025 1:30 PM EDT Office Visit OB/Gynecology [address] [place] [address] James Christianson APRN.[facility] [address] [place], [place] [id number] annual OB/Gynecology Comment on above: annual Start: 06-09-2024 Covid-19 Vaccine ( season) Covid-19 Vaccine () [facility] Start: 06-09-2024 Influenza vaccination C [facility] Start: 10-09-2023 Behavioral Health Screening Behavioral Health Screening [facility] Start: 06-09-2023 Covid-19 Vaccine () Covid-19 Vaccine () [facility] Start: 12-16-2020 Screening for malign ant neoplasm of cervix Pap Testing [facility] Start: 12-16-2018 Hepatitis B Vaccine (1 of 3 - 19+ 3-dose series) Hepatitis B Vaccine (1 of 3 - 19+ 3-dose series) [facility] Start: 12-16-2018 Urine microalbumin profile DTaP,Tdap,Td Vaccine (1 - Tdap) [facility] Start: 12-16-2017 Anxiety Screening Anxiety Screening [facility] Start: 12-16-2017 Depression Screening Depression Scre ening [facility] Start: 12-16-2017 Hepatitis C screening Hepatitis C Sc reening [facility] Start: 12-16-2017 HIV screening HIV Screening [facility] Start: 2015 Meningococcal B Vaccine: Consider Based On Risk (1 of 2 - Patient Seeks Protection) Meningococcal B Vaccine: Consider Based On Risk (1 of 2 - Patient Seeks Protection) [facility] Start: 12-16-2014 HPV Vaccine (1 - 3-d ose series) HPV Vaccine (1 - 3-dose series) [facility] Start: 12-16-2013 Peds To Adult Transition Annual Assessment Peds To Adult Transition Annual Assessment [facility] Start: 2011 Peds To Adult Transition Initial Discussion Peds To Adult Transition Initial Discussion [facility] PAP TEST PAP TEST Lab Kyrie brownlee Encounter for gynecological examination (general) (routine) without abnormal findings Screening for cervical cancer Encounter for screening for human papillomavirus (HPV) 02/19/2024 1:46 PM EDT [facility] Work Phone: Patient referral [facility] Work Phone: Urine culture [facility] Payers Date Payer Category Payer Self-pay 2023 Private Health Insurance [employer] [place] [id number] 2023-Present [address] [address] [place] [address] Medicaid [id number] 2023 Medicaid [id number] 1999 Unknown [id number] [id number] 97 1999 Unknown [id number] 2.16.840.1.050405.3.579.2.6 51 1999 Unknown [id number] 2.16.840.1.741469.3.579.2.6 51 1999 Unknown [id number] 2.16.840.1.514679.3.579.2.6 51 1999 Unknown [id number] 2.16.840.1.542538.3.579.2.6 51 1999 Unknown [id number] 2.16.840.1.374149.3.579.2.6 51 Private Health Insurance [id number] Unknown [id number] 2.16.840.1.003787.3.579.2.4 62 Unknown [id number] 2.16.840.1.230198.3.579.2.4 62 Unknown [id number] 2.16.840.1.786852.3.579.2.4 62 Unknown [id number] 2.16.840.1.196254.3.579.2.4 62 Unknown [id number] 2.16.840.1.922010.3.579.2.4 62 Unknown [id number] 2.16.840.1.437701.3.579.2.4 62 Unknown [id number] 2.16.840.1.030301.3.579.2.4 62 Unknown [id number] 61 Unknown [id number] 61 Unknown [id number] 62 Unknown [id number] 62 Unknown [id number] 61 Unknown [id number] 62 Social History Date Type Detail Facility Start: 02-19-2024 End: 05-06-2025 Tobacco smoking status NHIS Never smoked tobacco [facility] Start: 02-19-2024 Tobacco use and exposure Smokeless tobacco non-user [facility] Start: 02-19-2024 Alcohol intake Ex-drinker (finding) [facility] Start: 02-19-2024 History of Social function [facility] Start: 02-19-2024 Tobacco use panel [facility] Start: 2000 Sex Assigned At Not on file [facility] Start: 2000 Sex Assigned At Female [facility] NEGATED: Highlighted row Not [facility] Goals Date Patient Goal Desired Activity /State Mental Status Date Assessment Result Facility 03-28-2025 Cognitive function Voice/Name [facility] Work Phone: Clinical Notes 02-19-2024 to 03-28-2025 Note Date & Type Note Facility 03-28-2025 Evaluation note Diagnosis Onset Date Resolution Acid reflux acute March 28 10:52am Diarrhea acute March 28 10:52am Epigastric abdominal pain acute March 28, 2025 10:52am Gastritis acute March 28 10:52am [facility] Work Phone: 1(411) 496-450706-20-2025 Evaluation note* Diagnosis Onset Date Resolution Status Admit Date Acid reflux acute March 28 10:52am Diarrhea acute March 28 10:52am Epigastric abdominal pain acute March 28, 2025 10:52am Gastritis acute March 28 10:52am Epigastric abdominal pain acute May 06, 2025 2:32pm Gastritis acute May 06 2:32pm Irritable bowel syndrome wit h diarrhea acute May 06, 2025 2:32pm [facility] Work Phone: 1(743) 762-795106-20-2025 Consult note [facility] Medical Records Department [address] [place] [address] Anesthesia Postop Eval I 03/28/25 1230 MR#: [id number] Acct: [id number] Name: PRABHA CODY Rep #:[id number] : 2000 24 From: Bobby Grover PCP: Shruti Smith DO Status:REG SDC Y Race: C Location: [place] [address] Anesthesia: Postop Eval I Current Vital Signs Temperature: 97.1 F Pulse Rate: 85 Blood Pressure: 101/62 Respiratory Rate: 16 Pulse Ox: 100 Oxygen Delivery Method: Room Air Assessment Airway patent: Yes Spontaneous unlabored respirations: Yes Mental status: Asleep nausea: No Vomiting: No Anesthesia Complication: No Fluid Hydration Crystalloid volume administer (ml): 300 Total IV fluid infused: 300 Progress Note Anesthesia document: Postop Eval 1 completed: Yes 03/28/25 1231 > Date _ Bobby Whyte Signature: Date CC: ~ Signed [facility]06-20-2025 Procedure note [facility] Medical Records Department [address] [place] [address] EGD Report MR#: [id number] Acct: [id number] Name: PRABHA CODY Rep #:[id number] : 2000 24 From: Marciano Gonzales DO PCP: Shruti Smith DO Status:REG SD Patient Name: Prabha Cody Procedure Date: 03/28/2025 12:11 PM Date of : 2000 Age: 24 Procedure: Upper GI endoscopy Indications: Epigastric abdominal pain, Heartburn Providers: Marciano Gonzales DO Referring MD: Marciano Gonzales DO Medicines: Monitored Anesthesia Care Patient Profile: This is a 24 year old female. Refer to note in patient chart for documentation of history and physical. Patient has symptoms of chronic abdominal cramping, chronic abdominal distention, chronic epigastric abdominal pain, chronic dyspepsia, chronic heartburn and acute nausea. Complications: No immediate complications. Procedure: Pre-Anesthesia Assessment: - Prior to the procedure, a History and Physical was performed, and patient medications and allergies were reviewed. The patient is competent. The risks and benefits of the procedure and the sedation options and risks were discussed with the patient. All questions were answered and informed consent was obtained. Patient identification and proposed procedure were verified by the physician in the pre-procedure area. Mental Status Examination: alert and oriented. Airway Examination: normal oropharyngeal airway and neck mobility. Respiratory Examination: clear to auscultation. CV Examination: normal. Prophylactic Antibiotics: The patient does not require prophylactic antibiotics. Prior Anticoagulants: The patient has taken no anticoagulant or antiplatelet agents. ASA Grade Assessment: II - A patient with mild systemic disease. After reviewing the risks and benefits, the patient was deemed in satisfactory condition to undergo the procedure. The anesthesia plan was to use monitored anesthesia care (MAC). Immediately prior to administration of medications, the patient was re-assessed for adequacy to receive sedatives. The heart rate, respiratory rate, oxygen saturations, blood pressure, adequacy of pulmonary ventilation, and response to care were monitored throughout the procedure. The physical status of the patient was re-assessed after the procedure. After obtaining informed consent, the endoscope was passed under direct vision. Throughout the procedure, the patient's blood pressure, pulse, and oxygen saturations were monitored continuously. The Endoscope was introduced through the mouth, and advanced to the third part of the duodenum. Small bowel enteroscopy was deemed necessary. The upper GI endoscopy was accomplished with ease. The patient tolerated the procedure well. Scope In: 12:20:24 PM Scope Out: 12:23:42 PM Total Procedure Duration Time 0 hours 3 minutes 18 seconds Findings: Abnormal motility was noted in the esophagus. The cricopharyngeus was abnormal. There is spasticity of the esophageal body. The distal esophagus/lower esophageal sphincter is spastic, but gives up passage to the endoscope. Tertiary peristaltic waves are noted. Localized erythematous mucosa without bleeding was found in the stomach. Biopsies were taken with a cold forceps for histology. Verification of patient identification for the specimen was done. Biopsies were taken with a cold forceps for Helicobacter pylori testing. Verification of patient identification for the specimen was done. Estimated blood loss was minimal. No gross lesions were noted in the entire examined duodenum. Biopsies were taken with a cold forceps for histology. Verification of patient identification for the specimen was done. Estimated blood loss was minimal. Suspect gastroparesis due to absence of peristalsis, patient symptoms and retained gastric contents. Excessive fluid was found in the gastric body. Impression: - Abnormal esophageal motility, established esophageal spasm. - Erythematous mucosa in the stomach. Biopsied. - No gross lesions in the entire examined duodenum. Biopsied. Recommendation: - Discharge patient to home. - Resume previous diet. - Continue present medications. - Await pathology results. Procedure Code(s): --- Professional --- 28273, Small intestinal endoscopy, enteroscopy beyond second portion of duodenum, not including ileum; with biopsy, single or multiple CPT copyright 2021 [employer]. All rights reserved. The codes documented in this report are preliminary and upon warehouse specialist review may be revised to meet current compliance requirements. Marciano Gonzales DO 03/28/2025 12:30:27 PM This report has been signed electronically. Number of Addenda: 0 Note Initiated On: 03/28/2025 12:11 PM 03/28/25 1230 Date _ Marciano Coreasignamirah Signature: Date (if indicated) CC: Shruti Smith DO; Marciano Gonzales DO ~ Date Dictated: 03/28/25 1211 Date Transcribed: Information Technology Professor: RF Signed [facility]06-20-2025 Procedure note [facility] Medical Records Department [address] [place] [address] Operative Report - CC Letter MR#: [id number] Acct: [id number] Name: PRABHA CODY Rep #:[id number] : 2000 24 From: Marciano Gonzales DO PCP: Shruti Smith DO Status:REG [facility] 03/28/2025 Shruti Smith Do Re : Upper GI endoscopy procedure for Prabha Cody Dear Luis This procedure was performed on Friday, March 28, 2025. My impressions and recommendations are as follows: Impressions : - Abnormal esophageal motility, established esophageal spasm. - Erythematous mucosa in the stomach. Biopsied. - No gross lesions in the entire examined duodenum. Biopsied. Recommendations : - Discharge patient to home. - Resume previous diet. - Continue present medications. - Await pathology results. My findings are described in the full procedure note, which is enclosed. If I can be of further assistance, please feel free to contact me at . Sincerely, Marciano Gonzales DO 03/28/2025 12:30:27 PM This report has been signed electronically. 03/28/25 1230 Date _ Marciano Coreasignamirah Signature: Date (if indicated) CC: Shruti Smith DO; Marciano Gonzales DO ~ Date Dictated: 03/28/25 1211 Date Transcribed: Information Technology Professor: RF Signed [facility]06-20-2025 Consult note [facility] Medical Records Department [address] [place] [address] Pre-Anesthesia Evaluation 03/28/25 1204 MR#: [id number] Acct: [id number] Name: PRABHA CODY Rep #:[id number] : 2000 24 From: Dustin Espinoza MD PCP: Shruti Smith DO Status:REG [facility] Y Race: C Location: [facility]11-1 ASA Classification* ASA Classification ASA Classification: 2 Assessment & Plan Anesthesia* Anesthesia Assessment Anesthesia Assessment: Discussed sedation and/or anesthesia options, risks, benefits, and alternatives with patient/parents/legal guardian/POA. Questions invited. The patient/parents/legal guardian/POA seems to understand and agrees to proceedwith anesthesia plan. Reviewed the physical assessment, medical history, allergy history and patient home medications list prior to surgery/procedure/anesthetic and documented any changes. Performed airway and anesthesia risk assessments. Anesthesia Type Anesthesia Type: MAC History Source History Obtained from:: Patient and Chart Anesthesia Focused Assessment* Temperature: 98.7 F Pulse Rate: 114 Blood Pressure: 139/96 Respiratory Rate: 20 Pulse Ox: 100 Oxygen Delivery Method: Room Air Airway Assessment Mouth opens: >3 cm Mallampati Score: III Teeth Condition: Chipped/Broken (Several broken teeth.) Neck Range of motion (ROM): Full ROM Labs Anesthesia Preop lab: CBC WBC 5.5 K/mm3 (4.4-11.0) 02/27/25 13:54 02/27/25 RBC 4.47 M/mm3 (4.2-5.4) 02/27/25 13:54 02/27/25 Hgb 13.8 g/dL (12.0-15.0) 02/27/25 13:54 02/27/25 Hct 41.0 % (37-47) 02/27/25 13:54 02/27/25 Plt Count 399 K/mm3 (150-450) 02/27/25 13:54 02/27/25 CHEMISTRY Potassium 3.5 mmol/L (3.3-5.1) 02/27/25 13:54 02/27/25 Sodium 140 mmol/L (133-145) 02/27/25 13:54 02/27/25 BUN 16 mg/dL (4-19) 02/27/25 13:54 02/27/25 Creatinine 0.85 mg/dL (0.70-1.20) 02/27/25 13:54 02/27/25 Glucose 110 mg/dL (70-99) H 02/27/25 13:54 02/27/25 TSH 1.580 uIU/mL (0.300-4.200) 02/27/25 13:54 02/07 12/03 COAG Urine Test Negative Negative 03/28/25 11:05 03/28/25 Pre-Assessment Diagnosis/Proposed Procedure Planned Operative Procedure(s): EGD 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 When Was Last Pacemaker Check QUESTION #4 FULL TEXT: You/Your Family Experience fever (hyperthermia) with Anesthesia Last Oral Intake Last Oral intake: Last Oral Intake NPO since 20:00 03/28/25 11:13 Meds taken in AM with sips of water? Meds patient instructed to take am of surgery Any additional information?: Yes Meds taken in AM with sips of water?: Yes Meds patient instructed to take am of surgery: Protonix PONV PONV - data processing auditor: PONV - data processing auditor Female Yes 03/26/25 13:17 HX of Motion Sickness No 03/26/25 13:17 HX of N/V After Surgery No 03/26/25 13:17 Non-Smoker Yes 03/26/25 13:17 Duration of Surgery greater No 03/26/25 13:17 than 60 minutes Number of Risk Factors 2 03/26/25 13:17 PONV Score Moderate Risk 03/26/25 13:17 Height & Weight Height & Weight: Anesthesia: Height & Weight Height 4 ft 11 in 03/28/25 11:13 Weight: 61.1 kg 03/28/25 11:13 Body Mass Index (BMI) 27.1 03/28/25 11:13 Respiratory Assessment Respiratory Assessment - data processing auditor: Respiratory Tract Infection Hx - data processing auditor Hx Respiratory Tract Infection No 03/26/25 13:17 STOP Sleep Apnea STOP Sleep Apnea - data processing auditor: STOP Sleep Apnea - data processing auditor Hx Hypertension No 03/26/25 13:17 Hx Sleep Apnea No 03/26/25 13:17 CPAP BIPAP Do you snore loudly (louder No 03/26/25 13:17 than talking or can be heard Do you often feel tired/ No 03/26/25 13:17 fatigued/ sleepy during daytime? Has anyone observed you stop No 03/26/25 13:17 breathing during sleep? STOP Results Negative 03/26/25 13:17 QUESTION #5 FULL TEXT : Do you snore loudly (louder than talking or can be heard through closeddoors)? Tobacco Use History Tobacco Use History - data processing auditor: Tobacco Use History - data processing auditor Tobacco Use Smoking Status Never smoker 03/26/25 13:17 Hx Tobacco Use No 03/26/25 13:17 Years Smoking Packs Smoked per Day Smoking Cessation Date was within the last 15 years Hx Smoking Cessation Date Hx Smoking Cessation Counseling Hematologic Medial History Hematologic Hx - data processing auditor: Hematologic Medical Hx - documentation manager Hx of Blood Transfusion No 03/26/25 13:17 Hx of Transfusion in last 3 No 03/26/25 13:17 Months Date of Last Transfusion (if within last 3 months) Ever experience any problems No 03/26/25 13:17 with transfusion(s)? Specify any problems Hx of Preganancy in last 3 No 03/26/25 13:17 Months Nurse Filling Out Transfusion [facility] 03/26/25 13:17 & Questions: Date: 03/26/25 03/26/25 13:17 Time: 13:19 03/26/25 13:17 Patient unable to answer at this time (ie. confused, unrespo /Reproduction History /Reproductive History - data processing auditor: /Reproductive Hx- data processing auditor Hx Now No 03/26/25 13:17 Gestational Age (in weeks): EDC: Hx Hx Para Hx Section SAB No 03/26/25 13:17 Active Medications Active Medications: Current Medications Generic Name Dose Route Start Last Admin Trade Name Freq PRN Reason Stop Dose Admin Lactated Ringer's 1,000 mls @ 15 mls/hr 03/28/25 11:00 03/28/25 11:00 IV 15 mls/hr .Q48H MAGDALENA Administration PFSH Medical History Wears glasses Loose, teeth Broken teeth Depression Anxiety History of IBS Gastric reflux History of hiatal hernia Non-smoker History of stress test Cardiology follow-up encounter History of echocardiogram Cholelithiasis PFO (patent foramen ovale) Atrial septal defect History of gastroesophageal reflux (GERD) Home Medications ?Medication ?Instructions ?Recorded ?Last Taken ?Type aspirin 81 mg tablet,delayed 81 mg PO DAILY 05/07/24 0 03/24/25 History release pantoprazole 40 mg tablet,delayed 40 mg PO BID 4 03/28/25 History release Allergy/AdvReac Type Severity Reaction Status Date / Time omeprazole Allergy Intermediate Other Verified 03/28/25 11:13 alprazolam Allergy NEEDS Verified 03/28/25 11:13 FOLLOW-UP azithromycin Allergy NEEDS Verified 03/28/25 11:13 FOLLOW-UP clindamycin Allergy Other Verified 03/28/25 11:13 Penicillins (PCN) Allergy NEEDS Verified 03/28/25 11:13 FOLLOW-UP Sulfa (Sulfonamide Allergy Other Verified 03/28/25 11:13 Antibiotics) doxycycline AdvReac Nausea/Vom/ Verified 03/28/25 11:13 Diarrhea erythromycin base AdvReac Nausea/Vom/ Verified 03/28/25 11:13 Diarrhea sertraline (From Zoloft) AdvReac Other Verified 03/28/25 11:13 Family History Grandmother Heart disease Grandfather Heart disease Surgical History History of cardiac catheterization History of esophagogastroduodenoscopy (EGD) Hx laparoscopic cholecystectomy Status post patent foramen ovale closure History of atrial septal defect repair Social History Smoking Status: Never smoker alcohol intake: never substance use type: does not use caffeine: Yes Review of Systems (Anesthesia) ROS Narrative System reviewed and no additional complaints, except as documented. 03/28/25 1210 brenden LEYVA> Date _ Dustin Espinoza MD Cosigner Signature: Date CC: ~ Signed [facility]06-20-2025 History and physical note [facility] Medical Records Department [address] [place] [address] History & Physical Exam 03/28/25 1149 MR#: [id number] Acct: [id number] Name: PRABHA CODY Rep #:[id number] : 2000 24 From: Marciano Gonzales DO PCP: Shruti Smith DO Status:REG [facility] Location: [place] [address] HPI - General General Date of Admission: 03/28/25 Date of Service: 03/28/25 Chief Complaint: Acid reflux HPI Narrative PRABHA CODY, is a 24 F who presentsMakalinnette Cody, is a 23 F who presentsto the office todayfor establishment with [facility] for complaints of severe pinpointmid-epigastric pain with nausea, moderate RUQ abdominal pain associated/relievedwith BM, and foamy mucus diarrhea 3-4x/day. She reports a hi story of congenital atrial-septal defect repair in 2019; last EGD in April of 2023 that found a smallhiatal hernia and mild chronic gastritis, negative H.pylori; cholecystectomy in May of 2023 d/t cholelithiasis. She denies anesthesia complications. Denies difficulty swallowing, early satiety, choking sensation, vomiting, fever, chills, and constipation. Reports family history of irritable bowel syndrome and DM II. States the pinpoint epigastric pain begins about an hour after eating and lasts for severalhours, describing the pain as gnawing and burning. She does report waking in themiddle of the night with the taste of stomach acid in her mouth henna quently. Denies cough. States that she limits fatty and fast foods since her gallbladder came out, but has slowly began to eat them again, which is worsening her pain despite being on pantoprazole 40mg twice daily. The RUQ pain is described as sharp cramping followed by urgency to have a BM. Following BM, she states the pain and cramping is relieved. She does admit to drinking unfiltered water asshe has a horse and isn't afraid of germs. [facility] Medical History Wears glasses Loose, teeth Broken teeth Depression Anxiety History of IBS Gastric reflux History of hiatal hernia Non-smoker History of stress test Cardiology follow-up encounter History of echocardiogram Cholelithiasis PFO (patent foramen ovale) Atrial septal defect History of gastroesophageal reflux (GERD) Home Medications ?Medication ?Instructions ?Recorded ?Last Taken ?Type aspirin 81 mg tablet,delayed 81 mg PO DAILY 05/07/24 0 03/24/25 History release pantoprazole 40 mg tablet,delayed 40 mg PO BID 4 03/28/25 History release Allergy/AdvReac Type Severity Reaction Status Date / Time omeprazole Allergy Intermediate Other Verified 03/28/25 11:13 alprazolam Allergy NEEDS Verified 03/28/25 11:13 FOLLOW-UP azithromycin Allergy NEEDS Verified 03/28/25 11:13 FOLLOW-UP clindamycin Allergy Other Verified 03/28/25 11:13 Penicillins (PCN) Allergy NEEDS Verified 03/28/25 11:13 FOLLOW-UP Sulfa (Sulfonamide Allergy Other Verified 03/28/25 11:13 Antibiotics) doxycycline AdvReac Nausea/Vom/ Verified 03/28/25 11:13 Diarrhea erythromycin base AdvReac Nausea/Vom/ Verified 03/28/25 11:13 Diarrhea sertraline (From Zoloft) AdvReac Other Verified 03/28/25 11:13 Family History Grandmother Heart disease Grandfather Heart disease Surgical History History of cardiac catheterization History of esophagogastroduodenoscopy (EGD) Hx laparoscopic cholecystectomy Status post patent foramen ovale closure History of atrial septal defect repair Social History Smoking Status: Never smoker alcohol intake: never substance use type: does not use caffeine: Yes ROS Constitutional Constitutional: Denies fatigue, fever(s), poor appetite, weight gain or weight loss Gastrointestinal Gastrointestinal: Denies belching, bloating, change in bowel habits, change in stool character, chewing difficulty, coffee ground emesis, constipation, cramping, diarrhea, dyspepsia, dysphagia, earlysatiety, excessive flatus, fecalincontinence, heartburn, hematemesis, hematochezia, hemorrhoids, loose stools, melena, nausea, odynophagia, rectal bleeding, tenesmus, vomiting or weight changes Vital Signs Vital Signs Vital Signs: 03/28/25 11:13 03/28/25 11:13 Temperature 98.7 F Temperature Source Temporal Pulse Rate 114 H Respiratory Rate 20 H Respiratory Pattern Normal Blood Pressure 139/96 H Blood Pressure Mean 110 Blood Pressure Source Monitor Blood Pressure Position Semi-Fowlers Blood Pressure Location Right Arm Pulse Ox 100 Oxygen Delivery Method Room Air Weight Weight: 134 lb 11.239 oz Body Mass Index (BMI) 27.1 Physical Exam Const alert, oriented x3, no apparent distress and healthy appearing General Appearance: cooperative GI normal to inspection, nondistended, normoactive bowel sounds, soft to palpation,non-tender and non-distended Percussion: normal to percussion Rectal Exam: deferred Results Lab / Micro Data Labs: Laboratory Results - last 24 hr 03/28/25 11:05: Urine Test Negative Assessment & Plan Assessment/Plan (1) Gastritis: QUALIFIERS: Gastritis type: unspecified gastritis Chronicity: chronic Gastritis bleeding: without bleeding Qualified Code(s): K29.50 - Unspecified chronic gastritis without bleeding (2) Acid reflux: QUALIFIERS: Esophagitis presence: esophagitis presence not specified Qualified Code(s): K21.9 - Gastro-esophageal reflux disease without esophagitis (3) Epigastric abdominal pain: (4) Diarrhea: PLAN: Assessment and Plan Assessment and Plan (1) Acid reflux: Status: Acute Qualifiers: Esophagitis presence: esophagitis presence not specified Qualified Code(s): K21.9 - Gastro-esophageal reflux disease without esophagitis (2) Gastritis: Status: Acute Qualifiers: Chronicity: chronic Gastritis bleeding: without bleeding Gastritis type: unspecified gastritis Qualified Code(s): K29.50 - Unspecified chronic gastritis without bleeding Plan: Prabha Cody, is a 23 F who presents to the office today for establishment with [facility] for complaints of severe pinpoint mid-epigastric pain with nausea, moderate RUQ abdominal pain associated/relieved with BM, and foamy mucus diarrhea 3-4x/day. [place]. Differential diagnoses include: GERD, IBS-D, gastric ulcer, duodenal ulcer, EPI, gastritis, esophagitis. * order baseline CBC/d,CMP, IBS/IBD panel, food allergies, hormone * order stool studies to eval digestive enzymes, infective organisms * schedule EGD for evaluation of chronic gastritis, peptic ulcer * order sucralfate AC/HS, stopping 5 days prior to EGD * continue pantoprazole 40mg BID, add famotidine 20mg as needed for breakthrough heartburn Orders: 03/28/25 1150 Cosigner Signature (if applicable): CC: Shruti Smith DO; Marciano Gonzales DO~ Signed [facility]06-20-2025 [facility] Medical Records Department [address] [place] [address] History Physical Exam 03/28/25 1149 MR#: [id number] Acct: [id number] Name: PRABHA CODY Rep #: [id number] : 2000 24 From: Marciano Gonzales DO PCP: Shruti Smith DO Status:REG [facility] Location: [place] [address] HPI - General General Date of Admission: 03/28/25 Date of Service: 03/28/25 Chief Complaint: Acid reflux HPI Narrative PRABHA CODY, is a 24 F who presentsMakalinnette Cody, is a 23 F who presents to the office today for establishment with [facility] for complaints of severe pinpoint mid-epigastric pain with nausea, moderate RUQ abdominal pain associated/relieved with BM, and foamy mucus diarrhea 3-4x/day. She reports a history of congenital atrial-septal defect repair in 2019; last EGD in April of 2023 that found a small hiatal hernia and mild chronic gastritis, negative H.pylori; cholecystectomy in May of 2023 d/t cholelithiasis. She denies anesthesia complications. Denies difficulty swallowing, early satiety, choking sensation, vomiting, fever, chills, and constipation. Reports family history of irritable bowel syndrome and DM II. States the pinpoint epigastric pain begins about an hour after eating and lasts for several hours, describing the pain as gnawing and burning. She does report waking in the middle of the night with the taste of stomach acid in her mouth frequently. Denies cough. States that she limits fatty and fast foods since her gallbladder came out, but has slowly began to eat them again, which is worsening her pain despite being on pantoprazole 40mg twice daily. The RUQ pain is described as sharp cramping followed by urgency to have a BM. Following BM, she states the pain and cramping is relieved. She does admit to drinking unfiltered water as she has a horse and isn't afraid of germs. [facility]MERLY [facility] Medical History Wears glasses Loose, teeth Broken teeth Depression Anxiety History of IBS Gastric reflux History of hiatal hernia Non-smoker History of stress test Cardiology follow-up encounter History of echocardiogram Cholelithiasis PFO (patent foramen ovale) Atrial septal defect History of gastroesophageal reflux (GERD) Home Medications ???Medication ???Instructions ???Recorded ???Last Taken ???Type aspirin 81 mg tablet,delayed 81 mg PO DAILY 05/07/24 03/24/25 H istory release pantoprazole 40 mg tablet,delayed 40 mg PO BID 06/14/24 03/28/25 Hi story release Allergy/AdvReac Type Severity Reaction Status Date / Time omeprazole Allergy Intermediate Other Verified 03/28/25 11:13 alprazolam Allergy NEEDS Verified 03/28/25 11:13 FOLLOW-UP azithromycin Allergy NEEDS Verified 03/28/25 11:13 FOLLOW-UP clindamycin Allergy Other Verified 03/28/25 11:13 Penicillins (PCN) Allergy NEEDS Verified 03/28/25 11:13 FOLLOW-UP Sulfa (Sulfonamide Allergy Other Verified 03/28/25 11:13 Antibiotics) doxycycline AdvReac Nausea/Vom/ Verified 03/28/25 11:13 Diarrhea erythromycin base AdvReac Nausea/Vom/ Verified 03/28/25 11:13 Diarrhea sertraline (From Zoloft) AdvReac Other Verified 03/28/25 11:13 Family History Grandmother Heart disease Grandfather Heart disease Surgical History History of cardiac catheterization History of esophagogastroduodenoscopy (EGD) Hx laparoscopic cholecystectomy Status post patent foramen ovale closure History of atrial septal defect repair Social History Smoking Status: Never smoker alcohol intake: never substance use type: does not use caffeine: Yes ROS Constitutional Constitutional: Denies fatigue, fever(s), poor appetite, weight gain or weight loss Gastrointestinal Gastrointestinal: Denies belching, bloating, change in bowel habits, change in stool character, chewing difficulty, coffee ground emesis, constipation, cramping, diarrhea, dyspepsia, dysphagia, early satiety, excessive flatus, fecal incontinence, heartburn, hematemesis, hematochezia, hemorrhoids, loose stools, melena, nausea, odynophagia, rectal bleeding, tenesmus, vomiting or weight changes Vital Signs Vital Signs Vital Signs: 03/28/25 11:13 03/28/25 11:13 Temperature 98.7 F Temperature Source Temporal Pulse Rate 114 H Respiratory Rate 20 H Respiratory Pattern Normal Blood Pressure 139/96 H Blood Pressure Mean 110 Blood Pressure Source Monitor Blood Pressure Position Semi-Fowlers Blood Pressure Location Right Arm Pulse Ox 100 Oxygen Delivery Method Room Air Weight Weight: 134 lb 11.239 oz Body Mass Index (BMI) 27.1 Phys (more content not included)...[facility]11-05-2024 Note Discharge Instructions Discharge Summary [address] [place] [address] [id number] 08/13/2024 Patient: PRABHA CODY Sex: Female : 2000 Age: 23y Thank you for visiting [facility]. You have been evaluated today by Bill Hunter M.D. for the following condition(s): Principal Diagnosis Acute generalized and right lower quadrant abdominal pain of undetermined cause. INSTRUCTIONS No dietary restrictions. Warnings: GENERAL WARNINGS: Return or contact your physician immediately if your condition worsens or changes unexpectedly, if not improving as expected, or if other problems arise. SPECIFICALLY, return if you develop fever or vomiting; or if there is no improvement in the pain. Prescription Medications: Medications prescribed: Macrobid 100mg 2x/day; Bentyl 10mg 3x/day. Follow-up: Follow up with your doctor in about two days if not better. Call for an appointment. You have been given the following additional information: Unknown Causes of Abdominal Pain (Female) Patient Signature 1 of 5 Discharge Instructions Facility Sales Representative Trainee Date/Time General Instructions with ExitWriter [facility] [address] [place] [address] [id number] 08/13/2024 Patient: PRABHA CODY Sex: Female : 2000 Age: 23y Thank you for visiting [facility]. You have been evaluated today by Bill Hunter M.D. for the following condition(s): Principal Diagnosis Acute generalized and right lower quadrant abdominal pain of undetermined cause. INSTRUCTIONS No dietary restrictions. Warnings: GENERAL WARNINGS: Return or contact your physician immediately if your condition worsens or changes unexpectedly, if not improving as expected, or if other problems arise. SPECIFICALLY, return if you develop fever or vomiting; or if there is no improvement in the pain. Prescription Medications: Medications prescribed: Macrobid 100mg 2x/day; Bentyl 10mg 3x/day. Follow-up: Follow up with your doctor in about two days if not better. Call for an appointment. ADDITIONAL INFORMATION 2 of 5 Discharge Instructions Unknown Causes of Abdominal Pain (Female) The exact cause of your belly (abdominal) pain is not clear. This does not mean that this is something to worry about. Everyone likes to know the exact cause of the problem. But sometimes with belly pain, there is no clear-cut cause, and this could be a good thing. The good news is that your symptoms can be treated, and you will feel better. Your condition does not seem serious now. But sometimes the signs of a serious problem may take more time to appear. For this reason, it is important for you to watch for any new symptoms, problems, or worsening of your condition. Over the next few days, the abdominal pain may come and go. Or it may be constant. Other common symptoms can include nausea and vomiting. Sometimes it can be difficult to tell if you feel nauseous. You may just feel bad and not connect that feeling to nausea. Constipation, diarrhea, and a fever may go along with the pain. The pain may continue even if treated correctly over the following days. Depending on how things go, sometimes the cause can become clear and may need more or different treatment. Additional evaluations, medicines, or tests may also be needed. 3 of 5 Discharge Instructions Home care Your healthcare provider may prescribe medicine for pain, symptoms, or an infection. Follow the healthcare provider's instructions for taking these medicines. General care Rest as much as you can until your next exam. No strenuous activities. Try to find positions that ease discomfort. A small pillow placed on the abdomen may help relieve pain. Something warm on your abdomen (such as a heating pad) may help, but be careful not to burn yourself. Diet Don't force yourself to eat, especially if having cramps, vomiting, or diarrhea. Water is important so you don't get dehydrated. Soup may also be good. Sports drinks may also help, especially if they are not too acidic. Don't drink sugary drinks as this can make things worse. Take liquids in small amounts. Don't guzzle them. Caffeine sometimes makes the pain and cramping worse. Don't take dairy products if you have vomiting or diarrhea. Don't eat large amounts at a time. Wait a few minutes between bites. Eat a diet low in fiber (called a low-residue diet). Foods allowed include refined breads, white rice, fruit and vegetable juices without pulp, tender meats. These foods will pass more easily through the intestine. Don't have whole-grain foods, whole fruits and vegetables, meats, seeds and nuts, fried or fatty foods, dairy, alcohol and spicy foods until your symptoms go away. Follow-up care Foll (more content not included)...[facility]05-14-2024 Telephone encounter Note* Telephone Encounter - Vanesa Henley - 02/20/2024 9:14 AM EDT 1st attempt to call patient... Unable to LVM [facility]05-14-2024 Miscellaneous Notes* Telephone Encounter - Vanesa Henley - 02/20/2024 9:14 AM EDT 1st attempt to call patient... Unable to LVM * Telephone Encounter - James Christianson APRN.STEEL HANGER - 02/19/2024 4:43 PM EDT Vascular medicine consult placed. Please assist patient in scheduling with vascular medicine. James Christianson APRN.RICARDO * Telephone Encounter - Shelton Shabazz DO - 02/19/2024 3:33 PM EDT Yes, vascular medicine consultation. MTHFR mutation is no longer considered a risk factor for venous thromboembolism. However certain MTHFR mutations can increase risk of arterial clotting issues such as stroke and [place]. Shelton Shabazz DO * Telephone Encounter - Jewels Alexander LPN - 02/19/2024 3:25 PM EDT MTHFR mutation - ICD9: V84.89, ICD10: Z15.89 - Considering IUD - Aunt had stroke at 17 years old - Mother with MTHFR mutation - Patient with MTHFR mutation - Would like to assess overall blood clot risk before considering control - Discussed progesterone only options would be safest - CONSULT TO HEMATOLOGY We would need records showing MTHFR mutation. Should this be a vascular medicine consult? Jewels Alexander LPN * Telephone Encounter - Ashley Riley - 02/19/2024 3:20 PM EDT Please review for scheduling. * Telephone Encounter - Georgia Golden - 02/19/2024 2:50 PM EDT Patient needs to be scheduled with hematology dept for dx. MTHFR mutation [Z15.89] Called patient and left a vm to return our call to get this scheduled Georgia Golden documented [facility] Telephone encounter Note * Telephone Encounter - James Christianson APRN.CNP - 02/19/2024 4:43 PM EDT Vascular medicine consult placed. Please assist patient in scheduling with vascular medicine. James Christianson APRN.RICARDO [facility]05-13-2024 Telephone encounter Note* Telephone Encounter - Shelton Shabazz DO - 02/19/2024 3:33 PM EDT Yes, vascular medicine consultation. MTHFR mutation is no longer considered a risk factor for venous thromboembolism. However certain MTHFR mutations can increase risk of arterial clotting issues such as stroke and [place]. Shelton Shabazz DO [facility] Work Phone: 1(895) 786-731005-13-2024 Telephone encounter Note* Telephone Encounter - Jewels Alexander LPN - 02/19/2024 3:25 PM EDT MTHFR mutation - ICD9: V84.89, ICD10: Z15.89 - Considering IUD - Aunt had stroke at 17 years old - Mother with MTHFR mutation - Patient with MTHFR mutation - Would like to assess overall blood clot risk before considering control - Discussed progesterone only options would be safest - CONSULT TO HEMATOLOGY We would need records showing MTHFR mutation. Should this be a vascular medicine consult? Jewels Alexander LPN [facility]05-13-2024 Telephone encounter Note* Telephone Encounter - Ashley Riley - 02/19/2024 3:20 PM EDT Please review for scheduling. [facility]05-13-2024 Telephone encounter Note* Telephone Encounter - Georgia Golden - 02/19/2024 2:50 PM EDT Patient needs to be scheduled with hematology dept for dx. MTHFR mutation [Z15.89] Called patient and left a vm to return our call to get this scheduled Georgia Golden [facility]05-13-2024 Instructions* Patient Instructions* James Christianson APRN.CNP - 02/19/2024 1:18 PM EDT A 3-dose schedule is recommended for people who get the first dose on or after their 15th birthday,and for people with certain immunocompromising conditions. In a 3-dose series, the second dose should be given 1-2 months after the first dose, and the third dose should be given 6 months after the first dose (0, 1-2, 6-month schedule). The minimum intervals are 4 weeks between the first and second dose, 12 weeks between the second and third doses, and 5 months between the first and third doses. If a vaccine dose is administered after a shorter interval, it should be re-administered after another minimum interval has elapsed sincethe most recent dose. If the vaccination schedule is interrupted, vaccine doses do not need to be repeated (no maximum interval). documented in this encounterC[facility]24 NoteHNO ID: [id number] Author: JAMES CHRISTIANSON APRN.CNP Service: ? Author Type: Nurse Practitioner Type: Progress Notes Filed: 02/19/2024 13:50 Note Text: Prabha is a 23 year old No obstetric history on file. who presents for an annual gynecologic exam with complaints, hip pain and cramps with periods . Menses: cycles every 30 days and 7 days of flow. Contraception: none HPV vaccine: N/A Last Pap: none HPV: none History of abnormal pap: No Last mammogram: never Sexually active: Yes History of STDS: None Patient concerns for STD exposure: No. 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 No bloating, early satiety, indigestion, or increased flatulence. + bowel changes with anxiety Bladder: No dysuria, gross hematuria, urinary frequency, urinary urgency, or incontinence. Breast: No breast lumps, nipple d/c, overlying skin changes, redness or skin retraction. Allergies and current medication updated:Yes EXAM: BP 122/74 Ht 4' 11 (1.50m) Wt 129 lb (58.5kg) LMP 02/08/2024 BMI 26.04 kg/(m2). GENERAL: pleasant, female in no apparent distress HEENT: Normocephalic, atraumatic, mucus membranes moist, and no lesions NECK: Supple, full range of motion, no adenopathy, and thyroid normal DERMATOLOGY: Normal, without lesions, non-icteric, and non-hirsute BREAST: soft, non-tender, symmetric, no dominant mass, normal nipple-areolar complex, no lymphadenopathy, and no nipple discharge CHEST: Normal inspiratory effort ABDOMEN: soft, non-tender, and no masses PELVIC: + generalized erythema to labia majora, hypertrophy bilaterally to labia minora, normal Bartholin's glands, urethra, [place]'s glands, no vulvar lesions, no cervical lesions, good vaginal support, physiologic discharge present, normal appearing perineal body and perianal region BIMANUAL: uterus normal size, shape and consistency, no adnexal masses, and non-tender RECTOVAGINAL: deferred. NEURO: alert and oriented x3,exam grossly non-focal EXTREMITIES: normal ASSESSMENT/PLAN: 1) Health maintenance: Pap done with reflex HPV. Nutrition, exercise and routine health maintenance exams reviewed. HPV vaccine: interested, literature given 2) Contraception: considering IUD. Contraceptive options reviewed and information provided. 3) STD screening: Accepted STD check for Gonorrhea and Chlamydia. 4) Follow up one year or sooner as needed Recommend 600-800 mg of Ibuprofen every 8 hours 2-3 days prior to period and through period. Discussed that IUD can cause amenorrhea and therefore may help with hip pain and cramping associated with period. Screening examination for STI - ICD9: V74.5, ICD10: Z11.3 - GONORRHEA/CHLAMYDIA NAAT - CHARITY/TRICHOMONAS NAAT - BACTERIAL VAGINOSIS NAAT MTHFR mutation - ICD9: V84.89, ICD10: Z15.89 - Considering IUD - Aunt had stroke at 17 years old - Mother with MTHFR mutation - Patient with MTHFR mutation - Would like to assess overall blood clot risk before considering control - Discussed progesterone only options would be safest - CONSULT TO HEMATOLOGY James Christianson APRN.[facility]05-13-2024 History of Present illness Narrative* James Christianson APRN.RICARDO - 02/19/2024 1:04 PM EDT Prabha is a 23 year old No obstetric history on file. who presents for an annual gynecologic exam with complaints, hip pain and cramps with periods . Menses: cycles every 30 days and 7 days of flow. Contraception: none HPV vaccine: N/A Last Pap: none HPV: none History of abnormal pap: No Last mammogram: never Sexually active: Yes History of STDS: None Patient concerns for STD exposure: No. 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 No bloating, early satiety, indigestion, or increased flatulence. + bowel changes with anxiety Bladder: No dysuria, gross hematuria, urinary frequency, urinary urgency, or incontinence. Breast: No breast lumps, nipple d/c, overlying skin changes, redness or skin retraction. Allergies and current medication updated:Yes EXAM: BP 122/74 Ht 4' 11 (1.50m) Wt 129 lb (58.5kg) LMP 02/08/2024 BMI 26.04 kg/(m^2). GENERAL: pleasant, female in no apparent distress HEENT: Normocephalic, atraumatic, mucus membranes moist, and no lesions NECK: Supple, full range of motion, no adenopathy, and thyroid normal DERMATOLOGY: Normal, without lesions, non-icteric, and non-hirsute BREAST: soft, non-tender, symmetric, no dominant mass, normal nipple-areolar complex, no lymphadenopathy, and no nipple discharge CHEST: Normal inspiratory effort ABDOMEN: soft, non-tender, and no masses PELVIC: + generalized erythema to labia majora, hypertrophy bilaterally to labia minora, normal Bartholin's glands, urethra, [place]'s glands, no vulvar lesions, no cervical lesions, good vaginal support, physiologic discharge present, normal appearing perineal body and perianal region BIMANUAL: uterus normal size, shape and consistency, no adnexal masses, and non-tender RECTOVAGINAL: deferred. NEURO: alert and oriented x3,exam grossly non-focal EXTREMITIES: normal ASSESSMENT/PLAN: 1) Health maintenance: Pap done with reflex HPV. Nutrition, exercise and routine health maintenance exams reviewed. HPV vaccine: interested, literature given 2) Contraception: considering IUD. Contraceptive options reviewed and information provided. 3) STD screening: Accepted STD check for Gonorrhea and Chlamydia. 4) Follow up one year or sooner as needed Recommend 600-800 mg of Ibuprofen every 8 hours 2-3 days prior to period and through period. Discussed that IUD can cause amenorrhea and therefore may help with hip pain and cramping associated with period. Screening examination for STI - ICD9: V74.5, ICD10: Z11.3 - GONORRHEA/CHLAMYDIA NAAT - CHARITY/TRICHOMONAS NAAT - BACTERIAL VAGINOSIS NAAT MTHFR mutation - ICD9: V84.89, ICD10: Z15.89 - Considering IUD - Aunt had stroke at 17 years old - Mother with MTHFR mutation - Patient with MTHFR mutation - Would like to assess overall blood clot risk before considering control - Discussed progesterone only options would be safest - CONSULT TO HEMATOLOGY James Christianson APRN.STEEL HANGER documented in this encounterMer[facility] note Author Dustin Espinoza [facility] Note Date/Time March 28, 2025 12:1 0pm [facility] Medical Records Department [address] [place] [address] Pre-Anesthesia Evaluation 03/28/25 1204 MR#: [id number] Acct: [id number] Name: PRABHA CODY Rep #:[id number] : 2000 From: Dustin Espinoza MD PCP: Shruti Smith DO Status:REG SDC Y Race: C Location: [place] [address] ASA Classification* ASA Classification ASA Classification: 2 Assessment & Plan Anesthesia* Anesthesia Assessment Anesthesia Assessment: Discussed sedation and/or anesthesia options, risks, benefits, and alternatives with patient/parents/legal guardian/POA. Questions invited. The patient/parents/legal guardian/POA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
--- NOTE | 2025-06-08 12:45 | CT_ITS ---
PROCEDURE: CTA HEAD AND NECK W/ CONTRAST 06/08/2025 REASON FOR EXAM: ALOC RESOLVED TECHNIQUE: Procedure Code: CTCTA.HDNCK Modality: CT Procedure: CTA HEAD AND NECK W/ CONTRAST Multiplanar Sagittal and Coronal images were obtained. CONTRAST: Isovue 370 VOLUME: 100 mL One or more dose reduction techniques were used (e.g., Automated exposure control, adjustment of the mA and/or kV according to patient size, use of iterative reconstruction technique). RADIATION DOSE SUMMARY: CTDlvol: 44.99 mGy DLP: 1414.71 mGycm COMPARISON: None FINDINGS: Aortic Arch: Nonaneurysmal three-vessel arch. Brachiocephalic and Subclavians: Unremarkable RIGHT Carotid: Right CCA: Unremarkable. Right ICA: Unremarkable. Maximum stenosis (NASCET): No significant stenosis % Right ECA: Unremarkable. LEFT Carotid: Left CCA: Unremarkable. Left ICA: Unremarkable. Maximum stenosis (NASCET): No significant stenosis % Left ECA: Unremarkable. Vertebrals: Codominant. Arise from the subclavians. Both vertebrals form the basilar. RIGHT Vertebral: Unremarkable. LEFT Vertebral: Unremarkable. Anatomy: [place] anatomy is normal. Aneurysm or avm: No intracranial aneurysms or large vascular malformations are identified. Anterior cerebral arteries: Unremarkable: Middle cerebral arteries: Unremarkable. Basilar artery: Unremarkable. Posterior cerebral arteries: Unremarkable. Other major branches of the posterior circulation: Unremarkable. Major venous structures: Unremarkable. Other findings: Neck: No lymphadenopathy. Radiopaque material in the left buccal cavity likely reflects food stuffs/chewing gum. Left nasal piercing. Lungs: The lung apices are clear. Bones: Bones are unremarkable. CT/CTA Head AND Neck W/ Contrast IMPRESSION: 1. There is no carotid stenosis according to NASCET criteria. 2. The major vascular structures in the head and neck are grossly unremarkable. Reading Location: [id number]
[2025-06-08 12:52] LABS: Anion Gap 13 (5-15); BUN 17 mg/dL (4-19); BUN/Creat Ratio 19.5 RATIO (10-20); Calcium,Total 9.5 mg/dL (7.6-11.0); Carbon Dioxide 20.0 mmol/L (21.0-32.0); Chloride 107 mmol/L (98-108); Glucose 109 mg/dL (70-99); Potassium 4.6 mmol/L (3.3-5.1)
[2025-06-08 13:14] LABS: Hematocrit 38.4 % (37-47); Hemoglobin 13.1 g/dL (12.0-15.0); Immature Granulocytes Count 0.050 X10^3/uL (0.0-0.0); Mean Corp Hgb Conc 34.1 g/dL (32-36); Mean Corpuscular Volume 90.4 fL (81-99); Mean Platelet Vol. 10.2 fl (6.2-12.0); NRBC Flagged by Analyzer 0 % (0-5); Platelet Count 322 K/mm3 (150-450); RBC Distribution Width CV 12.6 % (11.6-14.6); RBC Distribution Width SD 41.5 fl (35.1-43.9); Red Blood Count 4.25 M/mm3 (4.2-5.4); White Blood Count 7.5 K/mm3 (4.4-11.0)
[2025-06-08 14:09] VITALS: BP 119/85; PULSE 96; RESP 28; TEMP 36.6; O2SAT 100
== END 2025-06-08 14:10 | disposition home or self-care (01) ==
PROVIDERS: Emergency Provider Emergency Medicine; PCP Family Medicine; Visit Provider Emergency Medicine
DX: R55 Syncope and collapse (principal); R29.700 NIHSS score 0; Z98.2 Presence of cerebrospinal fluid drainage device; Z90.49 Acquired absence of other specified parts of digestive tract; K21.9 Gastro-esophageal reflux disease without esophagitis; Z79.899 Other long term (current) drug therapy; R41.82 Altered mental status, unspecified; Q21.10 Atrial septal defect, unspecified
CPT/HCPCS: 70496; 70498; 71046; 80048; 85025; 93005; 99283; Q9967; A4216

== ENCOUNTER → 2025-06-25 | Outpatient (CLI) | payer MEDICAID, SELFPAY ==
[2025-06-25 13:01] LABS: Hematocrit 40.3 % (37-47); Hemoglobin 13.5 g/dL (12.0-15.0); Immature Granulocytes Count 0.080 X10^3/uL (0.0-0.0); Mean Corp Hgb Conc 33.5 g/dL (32-36); Mean Corpuscular Volume 91.6 fL (81-99); Mean Platelet Vol. 10.1 fl (6.2-12.0); NRBC Flagged by Analyzer 0 % (0-5); Platelet Count 347 K/mm3 (150-450); RBC Distribution Width CV 12.5 % (11.6-14.6); RBC Distribution Width SD 42.4 fl (35.1-43.9); Red Blood Count 4.40 M/mm3 (4.2-5.4); White Blood Count 7.5 K/mm3 (4.4-11.0)
[2025-06-25 13:22] LABS: AST(SGOT) 14 U/L (<=31); Alanine Aminotransfer ALT/SGPT 10 U/L (<=34); Albumin, Serum 4.5 g/dL (3.5-5.0); Alkaline Phosphatase 84 U/L (35-104); Anion Gap 11 (5-15); BUN 13 mg/dL (4-19); BUN/Creat Ratio 16.2 RATIO (10-20); Calcium,Total 9.3 mg/dL (7.6-11.0); Carbon Dioxide 23.6 mmol/L (21.0-32.0); Chloride 104 mmol/L (98-108); Globulin 2.8 g/dL (2.2-4.2); Glucose 106 mg/dL (70-99); Magnesium 2.1 mg/dL (1.5-2.2); Potassium 4.0 mmol/L (3.3-5.1); Vitamin B12 239 pg/mL (180-914)
--- OUTSIDE RECORDS SUMMARY | 2025-06-25 19:45 | XMS RPT_ITS | CCD ---
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 10.2 fL Normal 6.2-12.0 [facility] Comment on above: Performed By: #### L 100.0100 #### [facility] [address] [place], [address] Platelets (Bld) [#/Vol] 322 10*3/uL Normal 150-450 [facility] Comment on above: Performed By: #### L 100.0100 #### [facility] [address] [place], [address] RBC (Bld) [#/Vol] 4.25 10*6/uL Normal 4.2-5.4 [facility] Comment on above: Performed By: #### L 100.0100 #### [facility] [address] [place], [address] RDW SD 41.5 fl Normal 35.1-43.9 [facility] Comment on above: Performed By: #### L 100.0100 #### [facility] [address] [place], [address] WBC (Bld) [#/Vol] 7.5 10*3/uL Normal 4.4-11.0 [facility] Comment on above: Performed By: #### L 100.0100 #### [facility] [address] [place], [address] Absolute Neut Normal 2.0-7.7 [facility] Comment on above: Result Comment: CLOT DOMINIK Performed By: #### L 500.2500, L100.0100 #### [facility] [address] [place], [address] HCT Normal 37-47 [facility] Comment on above: Result Comment: CLOT DOMINIK Performed By: #### L 500.2500, L100.0100 #### [facility] [address] [place], [address] HGB Normal 12.0-15.0 [facility] Comment on above: Result Comment: CLOT DOMINIK Performed By: #### L 500.2500, L100.0100 #### [facility] [address] [place], [address] MCH Normal 27.0-32.0 [facility] Comment on above: Result Comment: CLOT DOMINIK Performed By: #### L 500.2500, L100.0100 #### [facility] [address] [place], [address] MCHC Normal 32-36 [facility] Comment on above: Result Comment: CLOT DOMINIK Performed By: #### L 500.2500, L100.0100 #### [facility] [address] [place], [address] MCV Normal 81-99 [facility] Comment on above: Result Comment: CLOT DOMINIK Performed By: #### L 500.2500, L100.0100 #### [facility] [address] [place], [address] NEUT% Normal 47-70 [facility] Comment on above: Result Comment: CLOT DOMINIK Performed By: #### L 500.2500, L100.0100 #### [facility] [address] [place], [address] PLT Normal 150-450 [facility] Comment on above: Result Comment: CLOT DOMINIK Performed By: #### L 500.2500, L100.0100 #### [facility] [address] [place], [address] RBC Normal 4.2-5.4 [facility] Comment on above: Result Comment: CLOT DOMINIK Performed By: #### L 500.2500, L100.0100 #### [facility] [address] [place], [address] RDW CV Normal 11.6-14.6 [facility] Comment on above: Result Comment: CLOT DOMINIK Performed By: #### L 500.2500, L100.0100 #### [facility] [address] [place], [address] RDW SD Normal 35.1-43.9 [facility] Comment on above: Result Comment: CLOT DOMINIK Performed By: #### L 500.2500, L100.0100 #### [facility] [address] [place], [address] WBC Normal 4.4-11.0 [facility] Comment on above: Result Comment: CLOT DOMINIK Performed By: #### L 500.2500, L100.0100 #### [facility] [address] [place], [address] CTA Head AND Neck W/ Contras ton 06-08-2025 CTA Head AND Neck W/ Contrast [facility] Imaging Services [address] [place] [address] CTA Head AND Neck W/ Contrast MR#: [id number] Acct: [id number] Name: PRABHA CODY Rep #: [id number] : 2000 F 24 From: Mio hilton MD PCP: Shruti Smith DO Status: REG ER Study: CTA Head AND Neck W/ Contrast Date of Exam: Exam# [id number] Ordering Dr: Kosta Del Angel MD PROCEDURE: CTA HEAD AND NECK W/ CONTRAST 06/08/2025 REASON FOR EXAM: ALOC RESOLVED TECHNIQUE: Procedure Code: CTCTA.HDNCK Modality: CT Procedure: CTA HEAD AND NECK W/ CONTRAST Multiplanar Sagittal and Coronal images were obtained. CONTRAST: Isovue 370 VOLUME: 100 mL One or more dose reduction techniques were used (e.g., Automated exposure control, adjustment of the mA and/or kV according to patient size, use of iterative reconstruction technique). RADIATION DOSE SUMMARY: CTDlvol: 44.99 mGy DLP: 1414.71 mGycm COMPARISON: None FINDINGS: Aortic Arch: Nonaneurysmal three-vessel arch. Brachiocephalic and Subclavians: Unremarkable RIGHT Carotid: Right CCA: Unremarkable. Right ICA: Unremarkable. Maximum stenosis (NASCET): No significant stenosis % Right ECA: Unremarkable. LEFT Carotid: Left CCA: Unremarkable. Left ICA: Unremarkable. Maximum stenosis (NASCET): No significant stenosis % Left ECA: Unremarkable. Vertebrals: Codominant. Arise from the subclavians. Both vertebrals form the basilar. RIGHT Vertebral: Unremarkable. LEFT Vertebral: Unremarkable. Anatomy: [place] anatomy is normal. Aneurysm or avm: No intracranial aneurysms or large vascular malformations are identified. Anterior cerebral arteries: Unremarkable: Middle cerebral arteries: Unremarkable. Basilar artery: Unremarkable. Posterior cerebral arteries: Unremarkable. Other major branches of the posterior circulation: Unremarkable. Major venous structures: Unremarkable. Other findings: Neck: No lymphadenopathy. Radiopaque material in the left buccal cavity likely reflects food stuffs/chewing gum. Left nasal piercing. Lungs: The lung apices are clear. Bones: Bones are unremarkable. CT/CTA Head AND Neck W/ Contrast IMPRESSION: 1. There is no carotid stenosis according to NASCET criteria. 2. The major vascular structures in the head and neck are grossly unremarkable. Reading Location: [facility] CC: Dr. Kosta Del Angel MD; Shruti Smith DO Donation Specialist: Signed Normal [facility] Carbon dioxide, total [Moles /volume] in Central venous bloodOrdered By: Kosta Del Angel on 06-08-2025 CO2 [Moles/Vol] 20.0 mmol/L Low 21.0-32.0 [facility] Chest PA and Lateralon 06-08 Chest PA and Lateral [facility] Imaging Services [address] [place] [address] Chest PA and Lateral MR#: [id number] Acct: [id number] Name: PRABHA CODY Rep #: [id number] : 2000 F 24 From: Mio hilton MD PCP: Shruti Smith DO Status: REG ER Study: Chest PA and Lateral Date of Exam: 06/08/25 Exam# [id number] Ordering Dr: Kosta Del Angel MD PROCEDURE: CHEST PA AND LATERAL 06/08/2025 REASON FOR EXAM: ALOC RESOLVED TECHNIQUE: Procedure Code: RADCXR Modality: DX Procedure: CHEST PA AND LATERAL COMPARISON: None FINDINGS: The cardiomediastinal silhouette is within normal limits. The lungs are clear. No significant pleural effusion. No pneumothorax. Cholecystectomy clips. RAD/Chest PA and Lateral IMPRESSION: NO ACUTE FINDINGS. Reading Location: [facility] CC: Dr. Kosta Del Angel MD; Shruti Smith DO Donation Specialist: Signed [facility] Chloride assayOrdered By: Augustin Del Angel on 06-08-2025 Chloride [Moles/Vol] 107 mmol/L 98-108 [facility] ED MED ADMINISTRATION DETAIL on 06-08-2025 ED MED ADMINISTRATION DETAIL [employer] - PRABHA CODY : 2000, , Medication Administration Record [address] [address] [id number] 06/08/2025 Patient: PRABHA CODY Sex: Female : 2000 Age: 24y MEASUREMENTS: Wt: 63.5 kg, Ht/Terrance: 59.0 in, BMI: 28.28 ALLERGIES: Penicillins, Sulfa (Sulfonamide Antibiotics), Zoloft, alprazolam, clindamycin, doxycycline, erythromycin base Medication Ordered Medication Administration Date/Time 1 of 1 Normal [facility] ED NURSES CLINICAL NOTEon ED NURSES CLINICAL NOTE Nurse Narrative - PRABHA CODY, : 2000, , Nurse Clinical Narrative [address] [place] [address] [id number] 06/08/2025 19:44:00 Patient: PRABHA CODY Sex: Female : 2000 Age: 24y Disposition: Discharge to Home Disposition Decision Time: 20:45 06/08/2025 Departure Time: 21:18 06/08/2025 TRIAGE Arrived by private vehicle. Historian: (patient). Accompanied by family. Triage time: 19:54 06/08/2025. Acuity: LEVEL 3. Chief Complaint: DIZZINESS, NUMBNESS and DOUBLE VISION. Alert. No acute distress. This started today. SEPSIS SCREEN: NEGATIVE. SIRS criteria negative. No possible sources of infection. -- 20:09 06/08/25 EDT Valerie Avalos R.N. 20:06/08/25. BP: 133/85 MAP: 101. HR: 97. RR: 16. O2 saturation: 99% Temperature: 98.2 F. Pain level now 0/10. -- 20:09 06/08/25 EDT Valerie Avalos R.N. Measurements: 20:08 06/08/25 Wt: 63.5 kg, Ht/Terrance: 59.0 in, BMI: 28.28 -- 20:08 06/08/25 EDT Valerie Avalos R.N. Medications: scopolamine 1 mg over 3 days transdermal patch -- 20:06 06/08/25 EDT Valerie Avalos R.N. 1 of 3 Nurse Narrative - HERNANDEZ CODYA, : 2000, , Allergies: Penicillins: Allergy -- 20:06 06/08/25 EDT Valerie Avalos R.N. erythromycin base: Allergy -- 20:06 06/08/25 EDT Valerie Avalos R.N. Zoloft: Allergy -- 20:06/08/25 EDT Valerie Avalos R.N. clindamycin: Allergy -- 20:06/08/25 EDT Valerie Avalos R.N. alprazolam: Allergy -- 20:06/08/25 EDT Valerie Avalos R.N. doxycycline: Allergy -- 20:06/08/25 EDT Valerie Avalos R.N. Sulfa (Sulfonamide Antibiotics): Allergy -- 20:06/08/25 EDT Valerie Avalos R.N. Problems: MTHFR -- 20:06/08/25 EDT Valerie Avalos R.N. Gastroesophageal Reflux Disease: Active -- 20:06/08/25 SAIGET Valerie Avalos R.N. Surgeries: Artial septal defect -- 20:06/08/25 SAIGET Valerie Avalos R.N. Cholecystectomy -- 20:06/08/25 SAIGET Valerie Avalos R.N. History 19:54 06/08/25. SOCIAL HX: Never smoker. No alcohol use [...] assessment completed. No risk factors identified. -- 20:06/08/25 EDT Valerie Avalos R.N. Interventions 2 of 3 Nurse Narrative - PRABHA CODY, : 2000, , 19:54 06/08/25. Identification band on patient. Advanced care plan discussed with patient. Patient does not have advanced directive. -- 20:06/08/25 SAIGET Valerie Avalos R.N. PHYSICAL ASSESSMENT 20:16 06/08/25. Ambulatory to room. ( complaining of facial and r arm numbness. states weakness this morning, unable to use legs. Was seen at [facility], according to pt, nothing was found. Pt states she came here because she wanted answers.). GENERAL / NEURO / PSYCH: Alert. Oriented X 4. Appears in no acute distress. HEENT: Pupils equal, round and reactive to light. RESPIRATORY: Respirations not labored. -- 20:16 06/08/25 EDT Abraham Pompa R.N. NURSING PROGRESS NOTES 20:17 06/08/25. Two patient identifiers checked. Call light placed in reach. Side rails up x 2. Bed placed in lowest position. Brakes of bed on. -- 20:17 06/08/25 EDT Abraham Pompa R.N. DISPOSITION / DISCHARGE 20:34 06/08/25. BP: 140/95 MAP: 103 mmHg. HR: 108 bpm. -- 21:58 06/08/25 EDT Abraham Pompa R.N. 21:15 06/08/25. HR: 99 bpm. O2 saturation: 99%. -- 21:58 06/08/25 EDT Abraham Pompa R.N. Departure time: 21:18 06/08/2025. Condition at departure: improved and stable. No learning barriers present. Discharge instructions provided and reviewed with the patient. Reviewed referrals. Patient verbalized understanding. Written instructions provided in [place]ian. The patient was discharged home and accompanied by spouse. The patient left ambulatory and via private vehicle. Spouse driving. -- 21:58 06/08/25 EDT Abraham Pompa R.N. (Electronically signed by Abraham Pompa R.N. 06/08/25 21:58:48 EDT) Generated by [facility] 3 of 3 Normal [facility] ED ORDER SHEET (CPOE ONLY)on 06-08-2025 ED ORDER SHEET (CPOE ONLY) Order Sheet - PRABHA CODY, : 2000, , Order Sheet [address] [address] [id number] 06/08/2025 Patient: PRABHA CODY Sex: Female : 2000 [...] Entered Acknowledged Collected Completed 1 of 1 Normal [facility] ED PHYSICIAN CLINICAL REPORT on 06-08-2025 ED PHYSICIAN CLINICAL REPORT Narrative - PRABHA CODY, : 2000, , Physician Clinical Narrative [address] [place] [address] [id number] 06/08/2025 19:44:00 Patient: PRABHA CODY Sex: Female : 2000 Age: 24y Disposition: Discharge to Home Disposition Decision Time: 20:45 06/08/2025 Departure Time: 21:18 06/08/2025 Measurements Wt: 63.5 kg, Ht/Terrance: 59.0 in, BMI: 28.28 Initial Vital Sign Measured Time BP MAP HR RR O2Sat ETCO2 Temp Pain GCS RTS 19:50 06/08/2025 115 98% Time Seen: 20:44 06/08/2025. HISTORY OF PRESENT ILLNESS Chief Complaint: PARESTHESIA. This started 1 weeks ago. The patient has had numbness,, tingling, and visual disturbance. No weakness, impaired speech or swallowing or recent fall. No difficulty walking. Usually is alert and oriented X3. (24-year-old female presenting with right facial numbness and right upper extremity numbness. States that she has been having symptoms on and off for a week, and presented to [place] this morning with the symptoms and had a negative workup including labs and CT head. She also notes that she was unable to move at the time of these symptoms. She was having a headache at that time, however, everything resolved without any intervention. States has been about an hour prior to arrival today, she had a recurrence of the numbness, but with no headache, dizziness, nausea, vomiting. She did note difficulty seen this well while wearing her glasses compensation this has been ongoing for the past several days. She also has been recently diagnosed with vertigo, about a week ago and has been using scopolamine. She is also prescribed Dramamine and meclizine, however, she is not use them yet. No previous symptoms prior to a week ago. Already has Neurology referral.). 1 of 4 PRABHA Soto, : 2000, , Recent medical care: The patient was seen recently at another facility in the emergency department. REVIEW OF SYSTEMS SKIN: No skin rash. NEUROLOGICAL: No headache. CONSTITUTIONAL: No fever. GI: No abdominal pain, nausea or vomiting. PAST HISTORY See nurses notes. Gastroesophageal Reflux Disease: [Active] MTHFR Surgeries: Artial septal defect Cholecystectomy Medications: scopolamine 1 mg over 3 days transdermal patch Allergies: alprazolam: Allergy clindamycin: Allergy doxycycline: Allergy erythromycin base: Allergy Penicillins: Allergy Sulfa (Sulfonamide Antibiotics): Allergy Zoloft: Allergy SOCIAL HISTORY Never smoker. ADDITIONAL NOTES The nursing notes have been reviewed. 2 of 4 PRABHA Soto, : 2000, , PHYSICAL EXAM Vital Signs: Have been reviewed. Appearance: Anxious. Head: Head atraumatic. Eyes: Pupils equal, round and reactive to light. ENT: Airway intact. Neck: Normal inspection. Neck supple. CVS: Normal heart rate and rhythm. Pulses normal. Respiratory: No respiratory distress. Skin: Skin warm. Normal skin color. No rash. Extremities: Extremities exhibit normal ROM. No lower extremity edema. Neuro: Alert. Oriented X 3. Cranial nerves normal (as tested). No cerebellar findings. No motor deficit. Sensory deficit present. Altered sensation to light touch on the right face. Altered position sense in the right arm. PROGRESS AND PROCEDURES MEDICAL DECISION MAKING: (24-year-old female presenting with facial and arm numbness. Says it has been going on and off for least a week and often changes sides. Given age and then she is otherwise healthy, low suspicion for stroke. Also had a workup [place] ED. Reviewed their lab work and imaging which were all unremarkable. Maybe related to complex migraine or MS, however, given how long symptoms have been ongoing, have low suspicion that workup in ED today would be different than this morning. And shared decision-making discussion with the patient who was agreeable to not pursuing further testing at this time. Was advised to follow up with Neurology in to take meclizine, Dramamine as needed for her vertigo. Advised to return to the ED if her symptoms do not improve after an hour to dissuade taking medications. Patient discharged in stable condition with PCP and neurology follow up.). Disposition: Condition: stable. Discharged in stable condition. CLINICAL IMPRESSION Paresthesia DISCHARGE INSTRUCTIONS Follow-up: Follow up with your healthcare provider. 3 of 4 Narrative - RPABHA CODY, : 2000, , Follow-up with: [facility], Phone: [phone], [facility] [place], [place] [address]. Call for an appointment. (Electronically signed by Rosalie Maciel M.D. 06/08/25 21:58:56 EDT) Generated by [facility] 4 of 4 [facility] ED SUPER BILLon 06-08-2025 ED SUPER BILL [facility] - PRABHA CODY, : 2000, , [address] [address] [id number] 06/08/2025 Patient: PRABHA CODY Sex: Female : 2000 Age: 24y Item Professional Category Description Facility Code Code Quantity Fee Total Nurse/E/M EMERGENCY 380253 1 $0.00 $0.00 DEPARTMENT VISIT LIMITED/MINOR PROB (24314) Grand Total $0.00 Providers Rosalie Maciel M.D. Chief Complaint PARESTHESIA. Principal Diagnosis Paresthesia ICD-10 Codes R20.2: Paresthesia of skin 1 of 1 [facility] ED VISIT SUMMARYon ED VISIT SUMMARY Visit Overview - PRABHA CODY, : 2000, , Visit [address] [address] [id number] 06/08/2025 Patient: PRABHA CODY Sex: Female : 2000 Age: 24y 06/08/2025 09:58 PM EDT ED Arrival:19:44 06/08/2025 EDT Status: Recent Travel:no Language:eng Adv Directive:No Isolation Status: Ethnicity:N Fall Risk:no risk Infectious Disease Exposure:no Measurements:4'11 / 149.9 Self-Harm Status:risk Sepsis Screen:negative cm 140.0 lb / 63.5 kg Chief Complaint:DIZZINESS, DOUBLE VISION, and NUMBNESS ALLERGIES alprazolam clindamycin doxycycline erythromycin base Penicillins Sulfa (Sulfonamide Antibiotics) Zoloft HOME MEDICATIONS 1 of 3 Visit Overview - PRABHA CODY, : 2000, , scopolamine 1 mg over 3 days transdermal patch PAST MEDICAL HISTORY / PROBLEMS Gastroesophageal Reflux Disease: Active MTHFR See nurses notes PAST SURGICAL HISTORY Artial septal defect Cholecystectomy SOCIAL HISTORY Smoking status: No Alcohol use: No Drug use: No ED COURSE MEDICATIONS GIVEN IN EMERGENCY DEPARTMENT IV SITE INFORMATION INTAKE OUTPUT REASSESMENT (most recent) 20:16 06/08/25. Ambulatory to room. ( complaining of facial and r arm numbness. states weakness this morning, unable to use legs. Was seen at [facility], according to pt, nothing was found. Pt states she came here because she wanted answers.). GENERAL / NEURO / PSYCH: Alert. Oriented X 4. Appears in no acute distress. HEENT: Pupils equal, round and reactive to light. RESPIRATORY: Respirations not labored. VITAL SIGNS First Vitals Last Vitals 2 of 3 Visit Overview - PRABHA CODY, : 2000, , First Vitals Last Vitals Temp 19:50 06/08/25 Temp 21:15 06/08/25 BP 19:50 06/08/25 BP 21:15 06/08/25 HR 19:50 06/08/25 115 HR 21:15 06/08/25 99 RR 19:50 06/08/25 RR 21:15 06/08/25 O2 Sat 19:50 06/08/25 98% O2 Sat 21:15 06/08/25 99% Pain 19:50 06/08/25 Pain 21:15 06/08/25 ETCO2 19:50 06/08/25 ETCO2 21:15 06/08/25 GCS 19:50 06/08/25 GCS 21:15 06/08/25 RTS 19:50 06/08/25 RTS 21:15 06/08/25 PROCEDURES NURSING INTERVENTIONS LABS / STUDIES CLINICAL IMPRESSION PARESTHESIA 3 of 3 Normal [facility] ED VITALS FLOW SHEETon 06-08 ED VITALS FLOW SHEET Vitals - PRABHA CODY, : 2000, , Vital Sign Flow Sheet [address] [address] [id number] 06/08/2025 Patient: PRABHA CODY Sex: Female : 2000 Age: 24y Measurements Wt: 63.5 kg, Ht/Terrance: 59.0 in, BMI: 28.28 Measured Time BP MAP HR RR O2Sat ETCO2 Temp Pain GCS RTS 21:15 06/08/2025 99 99% 21:10 06/08/2025 99 100% 21:05 06/08/2025 95 95% 21:00 06/08/2025 95 98% 20:55 06/08/2025 97 99% 20:50 06/08/2025 106 100% 20:45 06/08/2025 96 99% 20:40 06/08/2025 98 98% 20:35 06/08/2025 108 100% 20:34 06/08/2025 140/95 103 108 20:30 06/08/2025 105 99% 20:25 06/08/2025 96 99% 20:20 06/08/2025 97 98% 20:19 06/08/2025 131/95 103 108 20:15 06/08/2025 99 99% 1 of 2 Vitals - PRABHA CODY, : 2000, , Measured Time BP MAP HR RR O2Sat ETCO2 Temp Pain GCS RTS 20:10 06/08/2025 101 97% 20:09 06/08/2025 133/85 101 97 16 99% 98.2 F 0 20:05 06/08/2025 95 98% 20:04 06/08/2025 133/85 97 97 20:00 06/08/2025 106 97% 19:55 06/08/2025 101 97% 19:50 06/08/2025 115 98% 2 of 2 Normal [facility] Emergency Department Summary on 06-08-2025 Emergency Department Summary [facility] Medical Records Department [address] [place] [address] Emergency Department Summary 06/08/25 MR#: [id number] Acct: [id number] Name: PRABHA CODY Rep #: [id number] : 2000 24 From: Kosta Del Angel MD PCP: Shruti Smith DO Status:REG ER Location: ED HPI History of Present Illness Chief Complaint: Syncope Informant: patient and parent Onset/Context/Timing Onset: Today Current Severity: Gone Maximum Severity: Moderate Narrative Narrative: 24-year-old female history of ASD with a prior repair but still is 5% right to left shunt. Also has a history of MTHFR and cholecystectomy. He has been having dizzy spells. For about a month. Today just feels like her body is off and that she is floating. Mom is with her states that she was not acting right at home but they live 40 minutes from here and that now is all totally resolved. There is no family history of intracranial bleeds or aneurysms. She has had no head trauma. She has not recently been ill. Prior similar symptoms: Yes Recent Illness/Hospitalization: No PFSH PFSH Medical History Wears glasses Loose, teeth [...] PO BID 06/14/24 03/28/25 Hi story release cholestyramine 4 gram oral powder 4 g PO QACHS #60 ea 05/06/25 Unkn own Rx for suspension in a packet (Cholestyramine Light) rifaximin 550 mg tablet 550 mg PO TID #42 tabs 05/06/25 Un known Rx Allergy/AdvReac Type Severity Reaction Status Date / Time omeprazole Allergy Intermediate Other Verified 06/08/25 11:53 alprazolam Allergy NEEDS Verified 06/08/25 11:53 FOLLOW-UP azithromycin Allergy NEEDS Verified 06/08/25 11:53 FOLLOW-UP clindamycin Allergy Other Verified 05/06/25 14:33 Penicillins (PCN) Allergy NEEDS Verified 06/08/25 11:53 FOLLOW-UP Sulfa (Sulfonamide Allergy Other Verified 06/08/25 11:53 Antibiotics) doxycycline AdvReac Nausea/Vom/ Verified 06/08/25 11:53 Diarrhea erythromycin base AdvReac Nausea/Vom/ Verified 06/08/25 11:53 Diarrhea sertraline (From Zoloft) AdvReac Other Verified 06/08/25 11:53 Family History Grandmother Heart disease Grandfather Heart disease Surgical History History of cardiac catheterization History of esophagogastroduodenoscop y (EGD) Hx laparoscopic cholecystectomy Status post patent foramen ovale closure History of atrial septal defect repair Social History household members: family Smoking Status: Never smoker alcohol intake: never substance use type: does not use caffeine: Yes ROS ROS ED ROS Narrative Denies recent illness. Dizziness. Not room spinning. Constitutional Constitutional ED: Denies chills or fever(s) Eyes Eyes: Denies blurry vision ENT ENT ED: Denies ear pain Cardiovascular Cardiovascular: Denies chest pain Respiratory/Chest Respiratory/Chest: Denies cough or dyspnea Gastrointestinal Gastrointestinal: Denies abdominal pain Genitourinary Genitourinary ED: Denies dysuria or hematuria Musculoskeletal Musculoskeletal: Denies arthralgias Integumentary Denies abscess Neurologic Neurologic: Reports headache(s) Psychiatric Psychiatric: Reports anxiety Endocrine Endocrinology: Denies cold intolerance Hematologic/Lymphatic Hematologic/Lymphatic: Reports none Allergic/Immunologic Allergic/Immunologic ED: Denies mouth swelling, tongue swelling or urticaria EXAM Physical Exam Narrative Exam Narrative: 4-year-old female vital signs are stable afebrile no acute distress. Pulse ox 100% on room air no signs hypoxia. Mom is present in the room with another family member I believe. H EENT exam pupils round react light. Moist mucous membranes. She has multiple missing dentition. She has an abscess to her right lower tooth. No trouble swallowing or breathing. Neck nontender no lymphadenopathy. Lungs clear to auscultation bilaterally. Heart regular rhythm no murmur. Chest wall and ribs are nontender. Abdomen soft nontender. Moving all 4 extremities. Nontender no edema. 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 Normal dorsi plantarflexion. Normal sensation. Neurologic exam normal. NIH 0. Fingerti (more content not included)... Normal [facility] Eosinophil percentageOrdered By: Kosta Del Angel on 06-08-2025 Eosinophils/100 WBC (Bld) 1.5 % 0-5 [facility] Erythrocyte distribution wid th ratioOrdered By: Kosta Del Angel on 06-08-2025 Erythrocyte distribution width (RBC) [Ratio] 12.6 % 11.6-14.6 [facility] Erythrocyte distribution wid th standard deviationOrdered By: Kosta Del Angel on 06-08-2025 Erythrocyte distribution width (RBC) [Ratio] 41.5 fl 35.1-43.9 [facility] Glomerular filtration rate ( GFR) estimation/1.73 sq m using serum, plasma, or whole bOrdered By: Kosta Del Angel on 06-08-2025 GFR/1.73 sq M.predicted among non-blacks MDRD (S/P/Bld) [Vol rate/Area] 93 mL/min/{1.73_m2} >60 [facility] Comment on above: mL/min/1.73m2 CKD-EP I Creatinine Equation (2020) Hematocrit Auto (Bld) [Volum e fraction]Ordered By: Kosta Del Angel on 06-08-2025 Hematocrit (Bld) [Volume fraction] 38.4 % 37-47 [facility] Hemoglobin measurementOrdere d By: Kosta Del Angel on 06-08-2025 Hemoglobin (Bld) [Mass/Vol] 13.1 g/dL 12.0-15.0 [facility] Immature granulocytes/100 WB C Auto (Bld)Ordered By: Kosta Del Angel on 06-08-2025 Immature granulocytes/100 WBC (Bld) 0.700 % 0.0-0.9 [facility] Comment on above: IG% - Immature Granu locytes (promyelocytes, myelocytes and metamyelocytes) > 1% indicates that a LEFT SHIFT is Present. MCV (mean corpuscular volume ) determinationOrdered By: Kosta Del Angel on 06-08-2025 MCV (RBC) [Entitic vol] 90.4 fL 81-99 [facility] Mean corpuscular hemoglobin (MCH) determinationOrdered By: Kosta Del Angel on 06-08-2025 MCH (RBC) [Entitic mass] 30.8 pg 27.0-32.0 [facility] Mean corpuscular hemoglobin concentration (MCHC) determinationOrdered By: Kosta Del Angel on 06-08-2025 MCHC (RBC) [Mass/Vol] 34.1 g/dL 32-36 [facility] Mean platelet volume determi nationOrdered By: Kosta Del Angel on 06-08-2025 Platelet mean volume (Bld) [Entitic vol] 10.2 fL 6.2-12.0 [facility] Monocyte percentageOrdered B y: Kosta Del Angel on 06-08-2025 Monocytes/100 WBC (Bld) 5.9 % 0-10 [facility] Neutrophil percentageOrdered By: Kosta Del Angel on 06-08-2025 Neutrophils/100 WBC (Bld) 79.2 % High 47-70 [facility] Nucleated red blood cell per centageOrdered By: Kosta Del Angel on 06-08-2025 Nucleated RBC/100 WBC (Bld) [Ratio] 0 % 0-5 [facility] Platelet countOrdered By: Augustin Del Angel on 06-08-2025 Platelets (Bld) [#/Vol] 322 10*3/uL 150-450 [facility] Potassium measurement (mass/ volume)Ordered By: Kosta Del Angel on 06-08-2025 Potassium (Unsp spec) [Mass/Vol] 4.6 mmol/L 3.3-5.1 [facility] Comment on above: Hemolysis present, R esults could be affected. RBC Auto (Bld) [#/Vol]Ordere d By: Kosta Del Angel on 06-08-2025 RBC (Bld) [#/Vol] 4.25 10*6/uL 4.2-5.4 [facility] Serum creatinine measurement (mass/volume)Ordered By: Kosta Del Angel on 06-08-2025 Creatinine [Mass/Vol] 0.88 mg/dL 0.70-1.20 [facility] Serum glucose measurement (m ass/volume)Ordered By: Kosta Del Angel on 06-08-2025 Glucose [Mass/Vol] 109 mg/dL High 70-99 [facility] Serum or plasma calcium sindy urement (mass/volume)Ordered By: Kosta Del Angel on 06-08-2025 Calcium [Mass/Vol] 9.5 mg/dL 7.6-11.0 [facility] Serum or plasma urea nitroge n measurement (mass/volume)Ordered By: Kosta Del Angel on 06-08-2025 Urea nitrogen [Mass/Vol] 17 mg/dL 4-19 [facility] Sodium levelOrdered By: Kosta Del Angel on 06-08-2025 Sodium [Moles/Vol] 140 mmol/L 133-145 [facility] White blood cell (WBC) count Ordered By: Kosta Del Angel on 06-08-2025 WBC (Bld) [#/Vol] 7.5 10*3/uL 4.4-11.0 [facility] ED MED ADMINISTRATION DETAIL on 06-05-2025 ED MED ADMINISTRATION DETAIL International Organizer - PRABHA CODY, : 2000, , Medication Administration Record [address] [address] [id number] 06/02/2025 Patient: PRABHA CODY Sex: Female : 2000 Age: 24y MEASUREMENTS: Wt: 63.5 kg, Ht/Terrance: 59.0 in, BMI: 28.28 ALLERGIES: Penicillins, Sulfa (Sulfonamide Antibiotics), Zoloft, alprazolam, clindamycin, doxycycline, erythromycin base Medication Ordered Medication Administration Date/Time 1 of 1 [facility] ED NURSES CLINICAL NOTEon ED NURSES CLINICAL NOTE Nurse Narrative - PRABHA CODY, : 2000, , Nurse Clinical Narrative [address] [place] [address] [phone] 06/02/2025 15:32:00 Patient: PRABHA CODY Sex: Female [...] Pain level now 0/10. -- 15:43 06/02/25 SAIGET Josep Mendoza R.N. Measurements: 15:42 06/02/25 Wt: 63.5 kg, Ht/Terrance: 59.0 in, BMI: 28.28 -- 15:42 06/02/25 EDT Joesp Mendoza R.N. Medications: scopolamine 1 mg over 3 days transdermal patch -- 15:44 06/02/25 EDT Josep Mendoza R.N. 1 of 3 Nurse Narrative - PRABHA CODY, : 2000, , 15:36 06/02/25. Preferred Pharmacy: ([facility]). -- 15:43 06/02/25 EDT Josep Mendoza R.N. Allergies: Penicillins: Allergy -- 15:36 06/02/25 EDT Josep Mendoza R.N. erythromycin base: Allergy -- 15:36 06/02/25 EDT Josep Mendoza R.N. Zoloft: Allergy -- 15:36 06/02/25 EDT Jsoep Mendoza R.N. clindamycin: Allergy -- 15:36 06/02/25 EDT Josep Mendoza R.N. alprazolam: Allergy -- 15:36 06/02/25 EDT Josep Mendoza R.N. doxycycline: Allergy -- 15:36 06/02/25 EDT Josep Mendoza R.N. Sulfa (Sulfonamide Antibiotics): Allergy -- 15:36 06/02/25 EDT Josep Mendoza R.N. Problems: Gastroesophageal Reflux Disease: Active -- 15:36 06/02/25 SAIGET Josep Mendoza R.N. MTHFR -- 15:36 06/02/25 EDT Josep Mendoza R.N. Surgeries: Artial septal defect -- 15:41 06/02/25 KELLIE Mendoza R.N. Cholecystectomy -- 15:41 06/02/25 SAIGET [...] No risk factors identified. -- 15:43 06/02/25 KELLIE Mendoza R.N. 2 of 3 Nurse Narrative - PRABHA CODY : 2000, , Interventions 15:36 06/02/25. Advanced care plan discussed with patient. Patient does not have advanced directive. (full code). -- 15:43 06/02/25 SAIGET Josep Mendoza R.N. NURSING PROGRESS NOTES 15:45 06/02/25. ( Denies any needs at this time.). -- 15:45 06/02/25 EDT Josep Mendoza R.N. DISPOSITION / DISCHARGE Departure time: 18:38 06/02/2025. Condition at departure: unchanged and stable. -- 19:13 06/02/25 EDT Josep Mendoza R.N. 19:14 06/02/25. The patient left [...] Mendoza R.N. 06/05/25 10:58:26 EDT) Generated by [facility] 3 of 3 Normal [facility] ED ORDER SHEET (CPOE ONLY)on 06-05-2025 ED ORDER SHEET (CPOE ONLY) Order Sheet - PRABHA CODY, : 2000, , Order Sheet [address] [address] [id number] 06/02/2025 Patient: PRABHA CODY Sex: Female : [...] Entered Acknowledged Collected Completed 1 of 1 Normal [facility] ED SUPER BILLon 06-05-2025 ED SUPER BILL Superbill - PRABHA CODY, : 2000, , Superbill [address] [address] [id number] 06/02/2025 Patient: PRABHA CODY Sex: Female : 2000 Age: 24y Item Professional Category Description Facility Code Code Quantity Fee Total Grand Total $0.00 1 of 1 Normal [facility] ED VISIT SUMMARYon ED VISIT SUMMARY Visit Overview - PRABHA CODY, : 2000, , Visit [address] [address] [id number] 06/02/2025 Patient: PRABHA CODY Sex: Female : 2000 Age: 24y 06/05/2025 10:58 AM EDT ED Arrival:15:32 06/02/2025 EDT Status: Recent Travel:no Language:eng Adv Directive:No Isolation Status: Ethnicity:N Fall Risk:no risk Infectious Disease Exposure:no Measurements:4'11 / 149.9 Self-Harm Status:risk Sepsis Screen:negative cm 140.0 lb / 63.5 kg Chief Complaint:DIZZINESS, VERTIGO, (2 weeks), (Intermittent dizziness, numbness, headaches), and (Conyers Schultzman) ALLERGIES alprazolam clindamycin doxycycline erythromycin base [...] STUDIES CLINICAL IMPRESSION 3 of 3 Normal [facility] ED VITALS FLOW SHEETon 06-05 ED VITALS FLOW SHEET Vitals - PRABHA CODY, : 2000, , Vital Sign Flow Sheet [address] [place] [address] [id number] 06/02/2025 Patient: PRABHA CODY Sex: Female : 2000 Age: 24y Measurements Wt: 63.5 kg, Ht/Terrance: 59.0 in, BMI: 28.28 Measured Time BP MAP HR RR O2Sat ETCO2 Temp Pain GCS RTS 15:43 06/02/2025 126/77 93 97 18 100% 97.8 F 0 1 of 1 Normal [facility] Urine Cultureon 05-07-2025 URC Mixed Gram Pos Gram Neg Org Caroline Count 11,000-25,000 MIXC Mixed contaminants. Submit a new specimen if indicated. Normal [facility] Comment on above: Performed By: #### M 100.4695 ####[facility] [id number] [place], [place], [phone] Gastroenterology Visit Repor ton 05-06-2025 Gastroenterology Visit Report [facility] Gastroenterology [address] [place] [address] OFFICE VISIT Date of Service: 05/06/25 MR#: [id number] Acct: [id number] Name: PRABHA CODY Rep #: [id number] : 2000 Provider: KANWAL roman Age/Sex: 24/F Location: [facility] [place] Status: Signed Intake Vital Signs 03/28/25 11:13 [...] presents to the office today for FU. .624 OV establishment with [facility] for complaints of severe pinpoint mid-epigastric pain [...] famotidine 20mg as needed for breakthrough heartburn 9..24 CBC/CMP wnl, RAST negative, IBD negative 11.8.24 Abd US @[facility] Unremarkable abdominal ultrasound post cholecystectomy. 03.28.25 EGD [...] intraepithelial lymphocy (more content not included)... Normal [facility] Urine cultureOrdered By: Kody Salas on 05-06-2025 Bacteria identified Cx Nom (U) Mixed Gram Pos & Gram Neg Org Abnormal [facility] EGD Reporton 03-28-2025 EGD Report [facility] Medical Records Department [address] [place] [address] EGD Report MR#: [id number] Acct: [id number] Name: PRABHA CODY Rep #: [id number] : 2000 24 From: Marciano Gonzales DO PCP: Shruti Smith DO Status:[facility] Patient Name: Prabha Cody Procedure Date: 03/28/2025 [...] pathology results. Procedure Code(s): --- Professional --- 28528, Small intestinal endoscopy, enteroscopy beyond second portion of duodenum, not including ileum; with biopsy, single or multiple CPT copyright 2021 [employer]. All rights reserved. The codes documented in this report are preliminary and upon crate builder review may be revised to meet current compliance requirements. Marciano Gonzales DO 03/28/2025 12:30:27 PM This report has been signed electronically. Number of Addenda: 0 Note Initiated On: 03/28/2025 12:11 PM 03/28/25 1230 Date (more content not included)... Normal [facility] MR/POSTOP.[facility] 03-28-2025 MR/POSTOP.[facility] Medical Records Department [address] [place] [address] Anesthesia Postop Eval I 03/28/25 1230 MR#: [id number] Acct: [id number] Name: PRABHA CODY Rep #: [id number] : 2000 24 From: Bobby Grover PCP: Shruti Smith DO Status:REG SD Y Race: C Location: [place] [address] Anesthesia: Postop Eval I Current Vital Signs [...] 1 completed: Yes 03/28/25 1231 Date Bobby Grover Cosigner Signature: Date CC: Signed Normal [facility] MR/HATPZOPM0ad 03-28-2025 MR/POSTOPAN2 [facility] Medical Records Department [address] [facility] [address] Anesthesia Postop Eval II 03/28/25 1545 MR#: [id number] Acct: [id number] Name: PRABHA CODY Rep #: [id number] : 2000 From: Noni Schreiber CRNA PCP: Shruti Smith DO Status:[facility] Y Race: C Location: EN Anesthesia Postop [...] No Vomiting: No 03/28/25 1545 Date Noni Schreiber CRNA Cosigneddie Signature: Date CC: Signed Normal [facility] ,Urineon 03-28-2025 Beta HCG ( test) Ql (U) Negative Normal [facility] Comment on above: Result Comment: Very dilute urine specimens, as indicated by a low specific gravity, may not contain telephone claims representative levels of hCG. If is still suspected, a first morning urine specimen should be collected 48 hours later and tested. Performed By: #### L 400.7600 ####[facility] [id number] [place], [place], [phone] Surgery Specimen Level Candi 03-28-2025 Surgery Specimen Level IV Patient Age/Sex Location Account Attending Physician PRABHA CODY / EN [id number] Marciano Gonzales DO Specimen: [id number] Received: 03/28/25282 Status: SUSAN Nguyen Num: [id number] Spec Type: EGD BIOPSY Subm Dr: Marciano Gonzales DO HEADER OPERATION: EGD, biopsy PRE-OP DIAGNOSIS: Gastritis, acid [...] specimen is totally submitted in one cassette. ROXANA/ 03/28/2025 CPT:12163o0 Patient Age/Sex Location Account Attending Physician PRABHA CODY EN [id number] Marciano Gonzales DO Signed (signature on file) Dr. Tamiko Woods MD 04/15/25 1246 Normal [facility] Comment on above: Performed By: #### P SUIV ####[facility] [id number] [place], [place], [phone] Urine testOrdered By: Dustin Espinoza on 03-28-2025 HCG ( test) Ql (U) Negative [facility] Comment on above: Very dilute urine sp ecimens, as indicated by a low specificgravity, may not contain telephone claims representative levels of hCG. If is still suspected, a first morning urinespecimen should be collected 48 hours later and tested. MR/PATOPALmartinez 03-26-2025 MR/PAT.JOHNNA [facility] Medical Records Department [address] [place] [address] PAT - Anesthesia 03/26/252008 MR#: [id number] Acct: [id number] Name: PRABHA CODY Rep #: [id number] : 2000 From: Dustin Espinoza MD PCP: Shruti Smith DO Status:PRE SDC Y Race: C Location: EN Pre-Assessment Diagnosis/Proposed Procedure Planned Operative Procedure(s): EGD 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 - sales specialist: 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 - sales specialist Hx Hospitalization No 03/26/25 13:17 Any Problems [...] take am of surgery PONV PONV - sales specialist: PONV - sales specialist Female Yes 03/26/25 13:17 HX of Motion [...] 07/26/24 13:21 Respiratory Assessment Respiratory Assessment - sales specialist: Respiratory Tract Infection Hx - sales specialist Hx Respiratory Tract Infection No 03/26/25 13:17 STOP Sleep Apnea STOP Sleep Apnea - sales specialist: STOP Sleep Apnea - sales specialist Hx Hypertension No 03/26/25 13:17 Hx Sleep [...] Tobacco Use History Tobacco Use History - sales specialist: Tobacco Use History - sales specialist Tobacco Use Smoking Status Never smoker 03/26/25 13:17 Hx Tobacco Use No 03/26/25 13:17 Years Smoking Packs Smoked per Day Smoking Cessation Date was within the last 15 years Hx Smoking Cessation Date Hx Smoking Cessation Counseling Hematologic Medial History Hematologic Hx - sales specialist: 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 Specify any problems Hx of Preganancy in last 3 No 03/26/25 13:17 Months Nurse Filling Out Transfusion [facility] 03/26/25 13:17 Questions: Date: 03/26/25 03/26/25 13:17 Time: 13:19 03/26/25 13:17 Patient unable to answer at this time (ie. confused, unrespo /Reproduction History /Reproductive History - sales specialist: /Reproductive Hx- sales specialist Hx Now No 03/26/25 13:17 Gestational Age (in weeks): EDC: Hx Hx Para Hx Section SAB No 03/26/25 13:17 PFSH Medical History (Updated 03/26/25 @ 13:22 by [...] (PCN) Allergy (more content not included)... Normal [facility] Urine Cultureon 03-01-2025 URC Below infection leve l. Mixed Gram Positive Organisms Caroline Count <1000 MIXC Mixed contaminants. Submit a new specimen if indicated. Normal [facility] Comment on above: Performed By: #### L 500.4050, L400.0001, L100.0100, L501.9520, M100.2200 ####[facility] [id number] [place], [address] Absolute lymphocyte countOrd ered By: [facility] on 02-27-2025 Lymphocytes Auto (Unsp spec) [#/Vol] 1.16 10*3/uL 0.83-4.51 [facility] Absolute neutrophil countOrd ered By: [facility] on 02-27-2025 Neutrophils (Bld) [#/Vol] 3.8 10*3/uL 2.0-7.7 [facility] Amorphous sediment detection in urine sediment by light microscopyOrdered By: [facility] on 02-27-2025 Amorphous sediment LM Ql (Urine sed) 2+ [facility] Anion gap in Serum or Plasma Ordered By: [facility] on 02-27-2025 Anion gap [Moles/Vol] 15 mmol/L 5-15 [facility] Automated lymphocyte count a s percentage of total leukocytesOrdered By: [facility] on 02-27-2025 Lymphocytes/100 WBC Auto (Unsp spec) 21.3 % 19-41 [facility] BUN/creatinine ratioOrdered By: [facility] on 02-27-2025 Urea nitrogen/Creatinine [Mass ratio] 18.4 mg/mg 10-20 [facility] Basophil percentageOrdered B y: Zebulun Beam on 02-27-2025 Basophils/100 WBC (Bld) 0.6 % 0-1 [facility] Bilirubin Test strip Ql (U)O rdered By: Zebulun Beam on 02-27-2025 Bilirubin Ql (U) Negative Negative [facility] Bilirubin, totalOrdered By: Zebulun Beam on 02-27-2025 Bilirubin [Mass/Vol] 0.45 mg/dL 0.00-1.30 [facility] CBC W/Diff, Automatedon 02-07 Absolute Lymph 1.16 X10 3/uL Normal 0.83-4.51 [facility] Comment on above: Performed By: #### L 500.4050, L400.0001, L100.0100, L501.9520, M100.2200 #### [facility] [address] [place], [address] Absolute Neut 3.8 X10 3/uL Normal 2.0-7.7 [facility] Comment on above: Performed By: #### L 500.4050, L400.0001, L100.0100, L501.9520, M100.2200 #### [facility] [address] [place], [address] Basophils/100 WBC (Bld) 0.6 % Normal 0-1 [facility] Comment on above: Performed By: #### L 500.4050, L400.0001, L100.0100, L501.9520, M100.2200 #### [facility] [address] [place], [address] Eosinophils/100 WBC (Bld) 1.1 % Normal 0-5 [facility] Comment on above: Performed By: #### L 500.4050, L400.0001, L100.0100, L501.9520, M100.2200 #### [facility] [address] [place], [address] Erythrocyte distribution width (RBC) [Ratio] 12.5 % Normal 11.6-14.6 [facility] Comment on above: Performed By: #### L 500.4050, L400.0001, L100.0100, L501.9520, M100.2200 #### [facility] [address] [place], [address] Hematocrit (Bld) [Volume fraction] 41.0 % Normal 37-47 [facility] Comment on above: Performed By: #### L 500.4050, L400.0001, L100.0100, L501.9520, M100.2200 #### [facility] [address] [place], [address] Hemoglobin (Bld) [Mass/Vol] 13.8 g/dL Normal 12.0-15.0 [facility] Comment on above: Performed By: #### L 500.4050, L400.0001, L100.0100, L501.9520, M100.2200 #### [facility] [address] [place], [address] IG% 0.200 Normal 0.0-0.9 [facility] Comment on above: Result Comment: IG% - Immature Granulocytes (promyelocytes, myelocytes and metamyelocytes) > 1% indicates that a LEFT SHIFT is Present. Performed By: #### L 500.4050, L400.0001, L100.0100, L501.9520, M100.2200 #### [facility] [address] [place], [address] Lymphocytes/100 WBC (Bld) 21.3 % Normal 19-41 [facility] Comment on above: Performed By: #### L 500.4050, L400.0001, L100.0100, L501.9520, M100.2200 #### [facility] [address] [place], [address] MCH (RBC) [Entitic mass] 30.9 pg Normal 27.0-32.0 [facility] Comment on above: Performed By: #### L 500.4050, L400.0001, L100.0100, L501.9520, M100.2200 #### [facility] [facility] [address] [place], [address] MCHC (RBC) [Mass/Vol] 33.7 g/dL Normal 32-36 [facility] Comment on above: Performed By: #### L 500.4050, L400.0001, L100.0100, L501.9520, M100.2200 #### [facility] [address] [place], [address] MCV (RBC) [Entitic vol] 91.7 fL Normal 81-99 [facility] Comment on above: Performed By: #### L 500.4050, L400.0001, L100.0100, L501.9520, M100.2200 #### [facility] [address] [place], [address] Monocytes/100 WBC (Bld) 7.3 % Normal 0-10 [facility] Comment on above: Performed By: #### L 500.4050, L400.0001, L100.0100, L501.9520, M100.2200 #### [facility] [address] [place], [address] Neutrophils/100 WBC (Bld) 69.5 % Normal 47-70 [facility] Comment on above: Performed By: #### L 500.4050, L400.0001, L100.0100, L501.9520, M100.2200 #### [facility] [address] [place], [address] Nucleated RBC (Bld) [#/Vol] 0 10*3/uL Normal 0-5 [facility] Comment on above: Performed By: #### L 500.4050, L400.0001, L100.0100, L501.9520, M100.2200 #### [facility] [address] [place], [address] Platelet mean volume (Bld) [Entitic vol] 10.4 fL Normal 6.2-12.0 [facility] Comment on above: Performed By: #### L 500.4050, L400.0001, L100.0100, L501.9520, M100.2200 #### [facility] [address] [place], [address] Platelets (Bld) [#/Vol] 399 10*3/uL Normal 150-450 [facility] Comment on above: Performed By: #### L 500.4050, L400.0001, L100.0100, L501.9520, M100.2200 #### [facility] [address] [place], [address] RBC (Bld) [#/Vol] 4.47 10*6/uL Normal 4.2-5.4 [facility] Comment on above: Performed By: #### L 500.4050, L400.0001, L100.0100, L501.9520, M100.2200 #### [facility] [address] [place], [address] RDW SD 41.3 fl Normal 35.1-43.9 [facility] Comment on above: Performed By: #### L 500.4050, L400.0001, L100.0100, L501.9520, M100.2200 #### [facility] [address] [place], [address] WBC (Bld) [#/Vol] 5.5 10*3/uL Normal 4.4-11.0 [facility] Comment on above: Performed By: #### L 500.4050, L400.0001, L100.0100, L501.9520, M100.2200 #### [facility] [address] [place], [address] Carbon dioxide, total [Moles /volume] in Central venous bloodOrdered By: Alexanderbulun Beam on 02-27-2025 CO2 [Moles/Vol] 22.5 mmol/L 21.0-32.0 [facility] Chloride assayOrdered By: Ze bulun Beam on 02-27-2025 Chloride [Moles/Vol] 103 mmol/L 98-108 [facility] Comprehensive Metabolic Prof ilon 02-27-2025 Albumin [Mass/Vol] 4.8 g/dL Normal 3.5-5.0 [facility] Comment on above: Performed By: #### L 500.4050, L400.0001, L100.0100, L501.9520, M100.2200 ####[facility] [address] [place], [address] Albumin/Globulin [Mass ratio] 1.6 {ratio} Normal 0.9-2.4 [facility] Comment on above: Performed By: #### L 500.4050, L400.0001, L100.0100, L501.9520, M100.2200 ####[facility] [address] [place], [address] ALK PHOS 73 U/L Normal 35-104 [facility] Comment on above: Performed By: #### L 500.4050, L400.0001, L100.0100, L501.9520, M100.2200 ####[facility] [address] [place], [address] ALT [Catalytic activity/Vol] 23 U/L Normal <=34 [facility] Comment on above: Performed By: #### L 500.4050, L400.0001, L100.0100, L501.9520, M100.2200 ####[facility] [address] [place], [address] AST [Catalytic activity/Vol] 25 U/L Normal <=31 [facility] Comment on above: Performed By: #### L 500.4050, L400.0001, L100.0100, L501.9520, M100.2200 ####[facility] [address] [place], [address] Bilirubin [Mass/Vol] 0.45 mg/dL Normal 0.00-1.30 [facility] Comment on above: Performed By: #### L 500.4050, L400.0001, L100.0100, L501.9520, M100.2200 ####[facility] [address] [place], [address] BUN/CRE 18.4 RATIO Normal 10-20 [facility] Comment on above: Performed By: #### L 500.4050, L400.0001, L100.0100, L501.9520, M100.2200 ####[facility] [address] [place], [address] Calcium [Mass/Vol] 10.3 mg/dL Normal 7.6-11.0 [facility] Comment on above: Performed By: #### L 500.4050, L400.0001, L100.0100, L501.9520, M100.2200 ####[facility] [address] [place], [address] Chloride [Moles/Vol] 103 mmol/L Normal 98-108 [facility] Comment on above: Performed By: #### L 500.4050, L400.0001, L100.0100, L501.9520, M100.2200 ####[facility] [address] [place], [address] CO2 [Moles/Vol] 22.5 mmol/L Normal 21.0-32.0 [facility] Comment on above: Performed By: #### L 500.4050, L400.0001, L100.0100, L501.9520, M100.2200 ####[facility] [address] [place], [address] Creatinine [Mass/Vol] 0.85 mg/dL Normal 0.70-1.20 [facility] Comment on above: Performed By: #### L 500.4050, L400.0001, L100.0100, L501.9520, M100.2200 ####[facility] [address] [place], [address] GAP 15 Normal 5-15 [facility] Comment on above: Performed By: #### L 500.4050, L400.0001, L100.0100, L501.9520, M100.2200 ####[facility] [address] [place], [address] GFR/1.73 sq M.predicted among non-blacks MDRD (S/P/Bld) [Vol rate/Area] 98 mL/min/{1.73_m2} Normal >60 [facility] Comment on above: Result Comment: mL/m in/1.73m2 CKD-EPI Creatinine Equation (2020) Performed By: #### L 500.4050, L400.0001, L100.0100, L501.9520, M100.2200 ####[facility] [address] [place], [address] Globulin (S) [Mass/Vol] 3.0 g/dL Normal 2.2-4.2 [facility] Comment on above: Performed By: #### L 500.4050, L400.0001, L100.0100, L501.9520, M100.2200 ####[facility] [address] [place], [address] Glucose [Mass/Vol] 110 mg/dL High 70-99 [facility] Comment on above: Performed By: #### L 500.4050, L400.0001, L100.0100, L501.9520, M100.2200 ####[facility] [address] [place], [address] Potassium [Moles/Vol] 3.5 mmol/L Normal 3.3-5.1 [facility] Comment on above: Performed By: #### L 500.4050, L400.0001, L100.0100, L501.9520, M100.2200 ####[facility] [address] [place], [address] Sodium [Moles/Vol] 140 mmol/L Normal 133-145 [facility] Comment on above: Performed By: #### L 500.4050, L400.0001, L100.0100, L501.9520, M100.2200 ####[facility] [address] [place], [address] T PROT 7.8 g/dL Normal 5.9-8.4 [facility] Comment on above: Performed By: #### L 500.4050, L400.0001, L100.0100, L501.9520, M100.2200 ####[facility] [address] [place], [address] Urea nitrogen [Mass/Vol] 16 mg/dL Normal 4-19 [facility] Comment on above: Performed By: #### L 500.4050, L400.0001, L100.0100, L501.9520, M100.2200 ####[facility] [address] [place], [address] Eosinophil percentageOrdered By: Zebulun Beam on 02-27-2025 Eosinophils/100 WBC (Bld) 1.1 % 0-5 [facility] Erythrocyte distribution wid th ratioOrdered By: Zebulun Beam on 02-27-2025 Erythrocyte distribution width (RBC) [Ratio] 12.5 % 11.6-14.6 [facility] Erythrocyte distribution wid th standard deviationOrdered By: Binh Ramos on 02-27-2025 Erythrocyte distribution width (RBC) [Ratio] 41.3 fl 35.1-43.9 [facility] Glomerular filtration rate ( GFR) estimation/1.73 sq m using serum, plasma, or whole bOrdered By: juan pablo Ramos on 02-27-2025 GFR/1.73 sq M.predicted among non-blacks MDRD (S/P/Bld) [Vol rate/Area] 98 mL/min/{1.73_m2} >60 [facility] Comment on above: mL/min/1.73m2 CKD-EP I Creatinine Equation (2020) Hematocrit Auto (Bld) [Volum e fraction]Ordered By: [facility]john [facility] on 02-27-2025 Hematocrit (Bld) [Volume fraction] 41.0 % 37-47 [facility] Hemoglobin measurementOrdere d By: [facility] Richard on 02-27-2025 Hemoglobin (Bld) [Mass/Vol] 13.8 g/dL 12.0-15.0 [facility] Immature granulocytes/100 WB C Auto (Bld)Ordered By: [facility] on 02-27-2025 Immature granulocytes/100 WBC (Bld) 0.200 % 0.0-0.9 [facility] Comment on above: IG% - Immature Granu locytes (promyelocytes, myelocytes and metamyelocytes) > 1% indicates that a LEFT SHIFT is Present. Ketones Test strip Ql (U)Ord ered By: Binh Ramos on 02-27-2025 Ketones Ql (U) 50 mg/dl High Negative [facility] Laboratory - Chemistry and C hemistry - challengeOrdered By: [facility] on 02-27-2025 AST [Catalytic activity/Vol] 25 U/L <32 [facility] MCV (mean corpuscular volume ) determinationOrdered By: quianaabbe Ramos on 02-27-2025 MCV (RBC) [Entitic vol] 91.7 fL 81-99 [facility] Mean corpuscular hemoglobin (MCH) determinationOrdered By: [facility] on 02-27-2025 MCH (RBC) [Entitic mass] 30.9 pg 27.0-32.0 [facility] Mean corpuscular hemoglobin concentration (MCHC) determinationOrdered By: Binh Ramos on 02-27-2025 MCHC (RBC) [Mass/Vol] 33.7 g/dL 32-36 [facility] Mean platelet volume determi nationOrdered By: Binh Ramos on 02-27-2025 Platelet mean volume (Bld) [Entitic vol] 10.4 fL 6.2-12.0 [facility] Microscopic analysis of urin e for red blood cells (RBC)Ordered By: Binh Ramos on 02-27-2025 Microscopic analysis of urine for red blood cells (RBC) 0 SEEN /hpf 0-5 [facility] Monocyte percentageOrdered B y: Binh Ramos on 02-27-2025 Monocytes/100 WBC (Bld) 7.3 % 0-10 [facility] Mucus LM Ql (Urine sed)Order ed By: Binh Ramos on 02-27-2025 Mucus Ql (Urine sed) 1+ /hpf [facility] Neutrophil percentageOrdered By: Binh Ramos on 02-27-2025 Neutrophils/100 WBC (Bld) 69.5 % 47-70 [facility] Nitrite Test strip Ql (U)Ord ered By: Binh Ramos on 02-27-2025 Nitrite Ql (U) Negative Negative [facility] Nucleated red blood cell per centageOrdered By: Binh Ramos on 02-27-2025 Nucleated RBC/100 WBC (Bld) [Ratio] 0 % 0-5 [facility] Platelet countOrdered By: Alexander Ramos on 02-27-2025 Platelets (Bld) [#/Vol] 399 10*3/uL 150-450 [facility] Potassium measurement (mass/ volume)Ordered By: Binh Ramos on 02-27-2025 Potassium (Unsp spec) [Mass/Vol] 3.5 mmol/L 3.3-5.1 [facility] Protein Test strip Ql (U)Ord ered By: Binh Ramos on 02-27-2025 Protein Ql (U) 15 mg/dl High Negative [facility] RBC Auto (Bld) [#/Vol]Ordere d By: Binh Ramos on 02-27-2025 RBC (Bld) [#/Vol] 4.47 10*6/uL 4.2-5.4 [facility] Serum creatinine measurement (mass/volume)Ordered By: Binh Ramos on 02-27-2025 Creatinine [Mass/Vol] 0.85 mg/dL 0.70-1.20 [facility] Serum globulin measurementOr dered By: Binh Ramos on 02-27-2025 Globulin (S) [Mass/Vol] 3.0 g/dL 2.2-4.2 [facility] Serum glucose measurement (m ass/volume)Ordered By: Binh Ramos on 02-27-2025 Glucose [Mass/Vol] 110 mg/dL High 70-99 [facility] Serum or plasma alanine ayoub otransferase (ALT) measurementOrdered By: Binh Ramos on 02-27-2025 ALT [Catalytic activity/Vol] 23 U/L <35 [facility] Serum or plasma albumin sindy urement (mass/volume)Ordered By: Binh Ramos on 02-27-2025 Albumin [Mass/Vol] 4.8 g/dL 3.5-5.0 [facility] Serum or plasma albumin/glob ulin mass ratioOrdered By: Binh Ramos on 02-27-2025 Albumin/Globulin [Mass ratio] 1.6 {ratio} 0.9-2.4 [facility] Serum or plasma alkaline daljit sphatase measurementOrdered By: Binh Ramos on 02-27-2025 ALP [Catalytic activity/Vol] 73 U/L 35-104 [facility] Serum or plasma calcium sindy urement (mass/volume)Ordered By: Binh Ramos on 02-27-2025 Calcium [Mass/Vol] 10.3 mg/dL 7.6-11.0 [facility] Serum or plasma urea nitroge n measurement (mass/volume)Ordered By: Binh Beam on 02-27-2025 Urea nitrogen [Mass/Vol] 16 mg/dL 4-19 [facility] Sodium levelOrdered By: Lizy Ramos on 02-27-2025 Sodium [Moles/Vol] 140 mmol/L 133-145 [facility] Squamous epithelial cells de tection in urine sediment by light microscopyOrdered By: Binh Beam on 02-27-2025 Epithelial cells.squamous LM Ql (Urine sed) 10-25 SEEN /hpf 5-10 [facility] TSH DL <= 0.005 mIU/L QnOrde red By: Lizylun Beam on 02-27-2025 TSH Qn 1.580 uIU/mL 0.300-4.200 [facility] Thyroid Stim Hormone (TSH)on 02-27-2025 TSH 1.580 uIU/mL Normal 0.300-4.200 [facility] Comment on above: Performed By: #### L 500.4050, L400.0001, L100.0100, L501.9520, M100.2200 ####[facility] [address] [place], [address] Total proteinOrdered By: Mike Ramos on 02-27-2025 Protein [Mass/Vol] 7.8 g/dL 5.9-8.4 [facility] Urinalysis, Completeon 02-27 AMORPHOUS 2+ Normal [facility] Comment on above: Order Comment: CLEAN CATCH Performed By: #### L 500.4050, L400.0001, L100.0100, L501.9520, M100.2200 ####[facility] [address] [place], [address] Mucus Ql (Urine sed) 1+ /hpf Normal [facility] Comment on above: Order Comment: CLEAN CATCH Performed By: #### L 500.4050, L400.0001, L100.0100, L501.9520, M100.2200 ####[facility] [address] [place], [address] BACTERIA 2+ /hpf Normal None Seen [facility] Comment on above: Order Comment: CLEAN CATCH Performed By: #### L 500.4050, L400.0001, L100.0100, L501.9520, M100.2200 ####[facility] [address] [place], [address] WBC 5-10 SEEN Normal 0-5 [facility] Comment on above: Order Comment: CLEAN CATCH Performed By: #### L 500.4050, L400.0001, L100.0100, L501.9520, M100.2200 ####[facility] [address] [place], [address] EPI,SQUAMOUS 10-25 SEEN Normal 5-10 [facility] Comment on above: Order Comment: CLEAN CATCH Performed By: #### L 500.4050, L400.0001, L100.0100, L501.9520, M100.2200 ####[facility] [address] [place], [address] RBC 0 SEEN Normal 0-5 [facility] Comment on above: Order Comment: CLEAN CATCH Performed By: #### L 500.4050, L400.0001, L100.0100, L501.9520, M100.2200 ####[facility] [address] [place], [address] Urine clarityOrdered By: Mike Ramos on 02-27-2025 Clarity (U) Cloudy Clear [facility] Urine color determinationOrd ered By: Binh Ramos on 02-27-2025 Color (U) Straw Yellow [facility] Urine cultureOrdered By: Mike Ramos on 02-27-2025 Bacteria identified Cx Nom (U) Positive Abnormal [facility] Urine glucose detectionOrder ed By: Binh Ramos on 02-27-2025 Glucose Ql (U) Normal mg/dl Normal [facility] Urine leukocyte esterase det ection by dipstickOrdered By: Binh Ramos on 02-27-2025 Leukocyte esterase Test strip Ql (U) 25 /ul High Negative [facility] Urine pHOrdered By: Binh Ramos on 02-27-2025 pH (U) 6.0 [pH] 5.0 - 8.0 [facility] Urine sediment bacteria coun t by microscopy (number/high power field)Ordered By: Binh Ramos on 02-27-2025 Bacteria LM.HPF (Urine sed) [#/Area] 2 /[HPF] None Seen [facility] Urine specific gravity measu rementOrdered By: [facility] on 02-27-2025 Specific gravity (U) [Rel density] 1.025 1.002-1.030 [facility] Urine urobilinogen measureme ntOrdered By: [facility] on 02-27-2025 Urobilinogen Ql (U) Normal mg/dl Normal [facility] White blood cell (WBC) count Ordered By: [facility] on 02-27-2025 WBC (Bld) [#/Vol] 5.5 10*3/uL 4.4-11.0 [facility] White blood cell countOrdere d By: [facility] Ramos on 02-27-2025 White blood cell count 5-10 SEEN /hpf 0-5 [facility] ,Urineon 11-26-2024 Beta HCG ( test) Ql (U) Normal [facility] Comment on above: Result Comment: NO U RINE FOUND IN LAB Performed By: #### L 400.7600 #### [facility] [address] [place], [place], [address] INTERNAL QC OK? Normal [facility] Comment on above: Result Comment: NO U RINE FOUND IN LAB Performed By: #### L 400.7600 #### [facility] [address] [place], [place], [address] RECORD KIT LOT# Normal [facility] Comment on above: Result Comment: NO U RINE FOUND IN LAB Performed By: #### L 400.7600 #### [facility] [address] [place], [address] MR/PAT.ANEon 11-25-2024 MR/PAT.JOHNNA [facility] Medical Records Department [address] [place] [address] PAT - Anesthesia 11/25/24 1111 MR#: [id number] Acct: [id number] Name: PRABHA CODY Rep #: [id number] : 2000 23 From: Santosh Sousa MD PCP: Shruti Smith DO Status:PRE SDC Y Race: C Location: EN Pre-Assessment Diagnosis/Proposed Procedure Planned Operative Procedure(s): EGD 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 - sales specialist: 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 - sales specialist Hx Hospitalization No 11/25/24 10:35 Any Problems [...] take am of surgery PONV PONV - sales specialist: PONV - sales specialist Female Yes 11/25/24 10:35 HX of Motion [...] 07/26/24 13:21 Respiratory Assessment Respiratory Assessment - sales specialist: Respiratory Tract Infection Hx - sales specialist Hx Respiratory Tract Infection No 11/25/24 10:35 STOP Sleep Apnea STOP Sleep Apnea - sales specialist: STOP Sleep Apnea - sales specialist Hx Hypertension No 11/25/24 10:35 Hx Sleep [...] Tobacco Use History Tobacco Use History - sales specialist: Tobacco Use History - sales specialist Tobacco Use Smoking Status Never smoker 11/25/24 10:35 Hx Tobacco Use No 11/25/24 10:35 Years Smoking Packs Smoked per Day Smoking Cessation Date was within the last 15 years Hx Smoking Cessation Date Hx Smoking Cessation Counseling Hematologic Medial History Hematologic Hx - sales specialist: 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 Normal [facility] CV ECHO COMPLETEon CV ECHO COMPLETE [place] [address] Patient: PRABHA CODY Phone#: : 2000 Age: 23 Gender: F Pt. Type: Out Account: [id number] Location: [facility] Ordering: MARQUES BARGER Exam Date: 11/20/2024/14:21 Family Phys: Charge Code: [id number] Physician: [place] Order #: [id number] Dose#: PROCEDURE: ECHOCARDIOGRAM WITH DOPPLER AND COLOR FLOW HISTORY: Patient 23-year-old female with history of ASD closure INDICATIONS: ASD closure COMPARISON: None. TECHNIQUE: A 2-D ultrasound, color spectral Doppler and M-mode evaluation of the heart and great vessels. PATIENT MEASUREMENTS: Height (in.): 59 BSA: 1.58 Weight (lbs.): 140 BP: 139/90 Scanning Supervisor: JADE Saline bubble study performed with 9 [...] 23 Gender: F Pt. Type: Out Account: [id number] Location: 052 Ordering: MARQUES BARGER Exam Date: 11/20/2024/14:21 Family Phys: Charge Code: [id number] Physician: [place] Order #: [id number] Dose#: MV V2 max: 0.83 m/s MV [...] Report - Page 3 of 3 Patient: ESCOBAR PRABHA Phone#: : 2000 Age: 23 Gender: F Pt. Type: Out Account: [id number] Location: 052 Ordering: MARQUES BARGER Exam Date: 11/20/2024/14:21 Family Phys: Charge Code: [id number] Physician: [place] Order #: [id number] Dose#: 6 - Basal anterolateral: Normal. 12-Mid [...] a closure device seen. Agitated saline showed yozlc-kb-[id number] shunt at rest and with Valsalva. 5. TR velocity is inadequate to calculate for right ventricular systolic pressure. Dictated by: SANGITA GARCIAS MD on 11/21/2024 at 12:12 Approved by: SANGITA GARCIAS MD on 11/21/2024 at 12:19 Normal [facility] Urine Cultureon 10-31-2024 URC Below infection leve l. Mixed Gram Positive Organisms Caroline Count <1000 MIXC Mixed contaminants. Submit a new specimen if indicated. Normal [facility] Comment on above: Performed By: #### M 100.2200 #### [facility] Laboratory [address] [place], [address] ABD COMPLETEon 08-16-[address] [address] Patient: PRABHA CODY Phone#: : 2000 Age: 23 Gender: F Pt. Type: Out Account: [id number] Location: [facility] Ordering: DENICE BAUER Exam Date: 08/16/2024/10:54 Family Phys: Charge Code: 677979 Physician: [place] Order #: [id number] Dose#: PROCEDURE: ABDOMEN COMPLETE ULTRASOUND COMPARISON: None. [...] Owen MD on 08/16/2024 at 13:19 Normal [facility] C-REACTIVE PROTEINon 024 CRP [Mass/Vol] mg/L Normal 0.00 - 0.90 [facility] Comment on above: Performed By: #### 2 [id number] #### [facility],[address] [place] [address] CBC + DIFFon 08-13-2024 Baso # 0.01 x10EE3/UL Normal 0.00 - 0.10 [facility] Comment on above: Performed By: #### 2 15690 ####[facility],[address] [place] [address] Basophils/100 WBC (Bld) 0.1 % Normal 0.0 - 2.0 [facility] Comment on above: Performed By: #### 2 84617 ####[facility],[address] [place] [address] CBC + DIFF Normal [facility] Comment on above: Result Comment: CBC- COMPLETE BLOOD COUNT Performed By: #### 2 [address] ####[place] [address] EO # 0.06 x10EE3/UL Normal 0.00 - 0.50 [facility] Comment on above: Performed By: #### 2 23186 ####[place] [address] Eosinophils/100 WBC (Bld) 0.7 % Normal 0.0 - 7.0 [facility] Comment on above: Performed By: #### 2 78231 ####[place] [address] Erythrocyte distribution width (RBC) [Ratio] 13.1 % Normal 12.0 - 15.6 [facility] Comment on above: Performed By: #### 2 [address]3523 ####[place] [address] Hematocrit (Bld) [Volume fraction] 45.8 % Normal 34.0 - 46.0 [facility] Comment on above: Performed By: #### 2 65362 ####[place] [address] Hemoglobin (Bld) [Mass/Vol] 15.6 g/dL Normal 12.0 - 16.0 [facility] Comment on above: Performed By: #### 2 [address]4716 ####[place] [address] Lymph # 0.85 x10EE3/UL Normal 0.80 - 2.80 [facility] Comment on above: Performed By: #### 2 46295 ####[address] [address] Lymphocytes/100 WBC (Bld) 9.1 % Low 20.0 - 45.0 [facility] Comment on above: Performed By: #### 2 11868 ####[facility],[address] [place] [address] MANUAL DIFF N/A Normal [facility] Comment on above: Performed By: #### 2 25093 ####[facility],[address] [place] [address] MCH (RBC) [Entitic mass] 31 pg Normal 27 - 33 [facility] Comment on above: Performed By: #### 2 63352 ####[place] [address] MCHC 34 X10 3 Normal 32 - 36 [facility] Comment on above: Performed By: #### 2 16883 ####[place] [address] MCV (RBC) [Entitic vol] 92 fL Normal 80 - 99 [facility] Comment on above: Performed By: #### 2 24553 ####[place] [address] Rosebud # 0.35 x10EE3/UL Normal 0.20 - 1.00 [facility] Comment on above: Performed By: #### 2 39067 ####[place] [address] MONOS % 3.7 % Normal 0.0 - 10.0 [facility] Comment on above: Performed By: #### 2 26677 ####[place] [address] Morphology Cristi (Bld) [Interp] N/A Normal [facility] Comment on above: Performed By: #### 2 03964 ####[place] [address] Neut # 8.05 x10EE3/UL High 1.50 - 7.10 [facility] Comment on above: Performed By: #### 2 52094 ####[facility],[address] [place] [address] Neutrophils/100 WBC (Bld) 86.4 % High 46.0 - 76.0 [facility] Comment on above: Performed By: #### 2 99720 ####[facility],[address] [place], [place] [id number] PLATELET 389 x10EE3/UL Normal 150 - 450 [facility] Comment on above: Performed By: #### 2 58679 ####[facility],[address] [place] [address] Platelet mean volume (Bld) [Entitic vol] 7.6 fL Normal 6.6 - 10.5 [facility] Comment on above: Result Comment: AUTO MATED DIFFERENTIAL Performed By: #### 2 94729 ####[place] [address] RBC 4.99 x 10EE6/UL Normal 4.10 - 5.30 [facility] Comment on above: Performed By: #### 2 95579 ####[facility],[address] [place], [place] [id number] WBC 9.3 x 10EE3/UL Normal 4.5 - 10.8 [facility] Comment on above: Performed By: #### 2 27687 ####[facility],[address] [place], [place] [phone] CMP with eGFRon 08-13-2024 AGE 23 years Normal [facility] Comment on above: Performed By: #### 2 76183 ####[address] [address] Albumin [Mass/Vol] 4.2 g/dL Normal 3.4 - 5.0 [facility] Comment on above: Performed By: #### 2 98450 ####[facility],[address] [place] [address] Albumin/Globulin [Mass ratio] 1.1 {ratio} Normal 0.9 - 1.6 [facility] Comment on above: Performed By: #### 2 49285 ####[facility],[address] [place] [address] ALK PHOS 86 U/L Normal 46 - 116 [facility] Comment on above: Performed By: #### 2 86856 ####[facility],[address] [place] [address] ALT [Catalytic activity/Vol] 18 U/L Normal 16 - 63 [facility] Comment on above: Performed By: #### 2 96478 ####[facility],[address] [place] [address] Anion gap [Moles/Vol] 14 mmol/L Normal 10 - 20 [facility] Comment on above: Performed By: #### 2 22004 ####[facility],[address] [place] [address] AST [Catalytic activity/Vol] 10 U/L Low 13 - 39 [facility] Comment on above: Performed By: #### 2 75359 ####[facility],[address] [place] [address] B/C RATIO 10 ratio Normal 0 - 30 [facility] Comment on above: Performed By: #### 2 94250 ####[facility],[address] [place] [address] Bilirubin [Mass/Vol] 0.5 mg/dL Normal 0.2 - 1.0 [facility] Comment on above: Performed By: #### 2 30746 ####[facility],[address] [place] [address] Calcium [Mass/Vol] 9.5 mg/dL Normal 8.5 - 10.1 [facility] Comment on above: Performed By: #### 2 94546 ####[facility],[address] [place], [place] [phone] Chloride [Moles/Vol] 105 mmol/L Normal 98 - 107 [facility] Comment on above: Performed By: #### 2 49654 ####[facility],[address] [place] [address] CMP with eGFR Normal [facility] Comment on above: Result Comment: COMP REHENSIVE METABOLIC PANEL Performed By: #### 2 05131 ####[facility],[address] [place] [address] CO2 [Moles/Vol] 27.6 mmol/L Normal 21.0 - 32.0 [facility] Comment on above: Performed By: #### 2 55824 ####[facility],[address] [place] [address] Creatinine [Mass/Vol] 0.91 mg/dL Normal 0.55 - 1.02 [facility] Comment on above: Performed By: #### 2 15948 ####[facility],[address] [place] [address] GFR/1.73 sq M.predicted among non-blacks MDRD (S/P/Bld) [Vol rate/Area] mL/min/{1.73_m2} Normal 60 - 999 [facility] Comment on above: Performed By: #### 2 30964 ####[facility],[address] [place] [address] Result Comment: ACCO RDING TO THE NATIONAL KIDNEY DISEASE EDUCATION PROGRAM(NKDE), A NORMAL eGFR IS A VALUE GREATER THAN OR EQUAL TO 60 ML/MIN/1.73 SQ METERS. CHRONIC KIDNEY DISEASE: <60mL/MIN/1.73 SQ METERS KIDNEY FAILURE: <15mL/MIN/1.73 SQ METERS THIS TEST SHOULD ONLY BE USED FOR PATIENTS 18 YEARS OF AGE AND OLDER. Globulin (S) [Mass/Vol] 3.8 g/dL Normal 1.5 - 3.8 [facility] Comment on above: Performed By: #### 2 29018 ####[facility],[address] [place] [address] Glucose [Mass/Vol] 111 mg/dL High 74 - 106 [facility] Comment on above: Performed By: #### 2 98749 ####[facility],[address] [place] [address] Potassium [Moles/Vol] 3.5 mmol/L Normal 3.5 - 5.1 [facility] Comment on above: Performed By: #### 2 28343 ####[facility],[address] [place] [address] Protein [Mass/Vol] 8.0 g/dL Normal 6.4 - 8.2 [facility] Comment on above: Performed By: #### 2 22585 ####[facility],[address] [place] [address] Sodium [Moles/Vol] 143 mmol/L Normal 136 - 145 [facility] Comment on above: Performed By: #### 2 39320 ####[facility],[address] [place] [address] Urea nitrogen [Mass/Vol] 9 mg/dL Normal 7 - 18 [facility] Comment on above: Performed By: #### 2 26053 ####[facility],[address] [place] [address] ABDOMEN/PELVIS [facility] 2023 CT ABDOMEN/PELVIS [place] [address] Patient: PRABHA CODY Phone#: : 2000 Age: 23 Gender: F Pt. Type: ER Account: [id number] Location: [facility] Ordering: BILL HUNTER Exam Date: 08/13/2024/13:02 Family Phys: Charge Code: 763536 Physician: [place] Order #: [id number] Dose#: 10.0 PROCEDURE: CT ABDOMEN/PELVIS WITH CONTRAST [...] 23 Gender: F Pt. Type: ER Account: [id number] Location: [facility] Ordering: BILL HUNTER Exam Date: 08/13/2024/13:02 Family Phys: Charge Code: 127340 Physician: [place] Order #: [id number] Dose#: 10.0 CONCLUSION: 1. No acute intra-abdominal or pelvic abnormality. Dictated by: Savannah Palacios MD on 08/13/2024 at 13:19 Approved by: Savannah Palacios MD on 08/13/2024 at 13:24 Normal [facility] ED MED ADMINISTRATION DETAIL on 08-13-2024 ED MED ADMINISTRATION DETAIL [employer] Medication Administration Record [address] [place] [address] [id number] 08/13/2024 Patient: PRABHA CODY Sex: Female : 2000 Age: 23y MEASUREMENTS: Wt: 63.5 kg, Ht/Terrance: 59.0 in, BMI: 28.28 ALLERGIES: Penicillins, Sulfa (Sulfonamide Antibiotics), Zoloft, alprazolam, clindamycin, doxycycline, erythromycin base Medication Ordered Medication Administration Date/Time 1 of 1 Normal [facility] ED NURSES CLINICAL NOTEon ED NURSES CLINICAL NOTE Nurse Narrative Nurse Clinical Narrative [address] [place] [address] [id number] 08/13/2024 Patient: PRABHA CODY Sex: Female : [...] R.N. Measurements: 12:00 08/13/24 Wt: 63.5 kg, Ht/Terracne: 59.0 in, BMI: 28.28 -- 12:00 08/13/24 KATH Epps R.N. Medications: Protonix 40 mg tablet,delayed release: 40 mg twice a day for gastroesophageal reflux disease. -- 11:56 08/13/24 KATH Epps R.N.Updated through eRx -- 13:01 08/13/24 KATH Epps R.N. aspirin 81 mg tablet,delayed release: 81 mg once a day . -- 11:57 08/13/24 KATH Epps R.N.Updated through eRx -- 13:08/13/24 KATH Epps R.N. 1 of 4 Nurse Narrative Protonix 40 mg tablet,delayed release: 40 mg twice a day. -- 13:08/13/24 KATH Epps R.N. aspirin 81 mg tablet,delayed release: 81 mg once a day. -- 13:08/13/24 KATH Epps R.N. Allergies: Penicillins: Allergy -- [...] KATH Epps R.N. 11:54 08/13/24. Preferred pharmacy: [facility]. -- 12:04 08/13/24 KATH Epps R.N. ADDITIONAL [...] the pain as aching. -- 13:29 08/13/24 AKTH Schmid R.N. NURSING PROGRESS NOTES 12:50 08/13/24. [...] Schmid R.N. 12:53 08/13/24. Patient walked to [place]. -- 13:14 08/13/24 KATH Schmid R.N. 13:35 08/13/24. Assisted patient to bathroom; tolerated well. -- 13:35 08/13/24 KATH Schmid R.N. 14:47 08/13/24. ED physician at the patient's bedside (more content not included)... Normal [facility] ED ORDER SHEET (CPOE ONLY)on 08-13-2024 ED ORDER SHEET (CPOE ONLY) Order Sheet Order Sheet [address] [place] [address] [id number] 08/13/2024 Patient: PRABHA CODY Sex: Female : [...] 08/13/2024 13:39 08/13/2024 Farzana Quintanilla Katelyn Horst, R.N. RZoëN. CBC w Diff Stat Stat 12:25 08/13/2024 12:30 08/13/2024 12:52 08/13/2024 Farzana Quintanilla Katelyn Horst, R.N. RZoëN. CRP Stat Stat 12:25 08/13/2024 12:30 08/13/2024 12:52 08/13/2024 Farzana Quintanilla Katelyn Horst, R.N. REdouard 1 of 2 Order Sheet Urine Culture [CCL] Stat Stat 14:50 08/13/2024 15:01 08/13/2024 15:01 08/13/2024 Farzana Quintanilla Katelyn Horst RZoëNZoë R.Nubia DIAGNOSTIC STUDY ORDERS Order Description Priority Entered [...] 12:52 08/13/2024 Farzana Quintanilla Katelyn Horst, R.NZoë REdouard [Electronically signed by Bill Hunter M.D. (08/13/2024 15:57 EST)] 2 of 2 Normal [facility] ED PHYSICIAN CLINICAL REPORT on 08-13-2024 ED PHYSICIAN CLINICAL REPORT Narrative Physician Clinical Narrative [address] [address] [id number] 08/13/2024 Patient: PRABHA CODY Sex: Female : [...] Final Above high normal EST 08/13/2024 13:03 [place] # 0.35 x10/UL 0.20 - 1.00 Final [...] 13:32 EST (more content not included)... Normal [facility] ED SUPER BILLon 08-13-2024 ED SUPER BILL [facility] [address] [address] [id number] 08/13/2024 Patient: PRABHA CODY Sex: Female : 2000 Age: 23y Item Professional Category Description Facility Code Code Quantity Fee Total Nurse/E/M EMERGENCY 824541 1 $0.00 $0.00 DEPARTMENT VISIT HIGH/URGENT SEVERITY (04344-53) Grand Total $0.00 Providers Bill Hunter M.D. Chief Complaint ABDOMINAL PAIN. Principal Diagnosis Acute generalized and right lower quadrant abdominal pain of undetermined cause. ICD-10 Codes 1 of 2 [facility] R10.84: Generalized abdominal pain R10.31: Right lower quadrant pain 2 of 2 Normal [facility] ED VISIT SUMMARYon ED VISIT SUMMARY Visit Overview Visit Overview [address] [address] [id number] 08/13/2024 Patient: PRABHA CODY Sex: Female : 2000 Age: 23y 08/13/2024 03:57 PM EST ED Arrival:11:48 08/13/2024 EST Status:not Recent Travel:no Language:eng Adv Directive:No Isolation Status: Ethnicity:N Fall Risk:no risk Infectious Disease Exposure:no Measurements:4'11 149.9 Self-Harm Status:risk Sepsis Screen:negative cm 140.0 lb / 63.5 kg Chief Complaint:ABDOMINAL PAIN, DIARRHEA, (days), and (Luiseddie Larson) ALLERGIES alprazolam clindamycin doxycycline erythromycin base Penicillins [...] OF UNDETERMINED CAUSE 3 of 3 Normal [facility] ED VITALS FLOW SHEETon 08-13 ED VITALS FLOW SHEET Vitals [place] [address] [id number] 08/13/2024 Patient: PRABHA CODY Sex: Female : [...] 98.6 F 5 1 of 1 Normal [facility] URINALYSISon 08-13-2024 Amorphous NONE Normal [facility] Comment on above: Performed By: #### 2 40840 #### [facility],[address] [place] [address] Bacteria NONE Normal [facility] Comment on above: Performed By: #### 2 78844 #### [facility],[address] [place], [place] [phone] Bilirubin Ql (U) Negative Normal NORMAL: NEGATIVE [facility] Comment on above: Performed By: #### 2 61220 #### [facility],[address] [place] [address] Casts NONE Normal [facility] Comment on above: Performed By: #### 2 08436 #### [facility],[address] [place] [address] Clarity (U) clear Normal NORMAL: CLEAR [facility] Comment on above: Performed By: #### 2 03701 #### [facility],[address] [place] [address] Color (U) p.yel Normal NORMAL: YELLOW [facility] Comment on above: Performed By: #### 2 22806 #### [facility],[address] [place] [address] Crystals LM Nom (Urine sed) NONE Normal [facility] Comment on above: Performed By: #### 2 91833 #### [facility],[address] [place] [address] Epi Cells MODERATE Normal [facility] Comment on above: Performed By: #### 2 31599 ####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 2023-Present [address] [address] [place] [address] Medicaid [id number] 2023 Medicaid [id number] 1999 Unknown [id number] 2.16.840.1.221095.3.579.2. 297 1999 Unknown [id number] 2.16.840.1.247640.3.579.2. 651 1999 Unknown [id number] 2.16.840.1.852295.3.579.2. 651 1999 Unknown [id number] 2.16.840.1.337213.3.579.2. 651 1999 Unknown [id number] 2.16.840.1.949074.3.579.2. 651 1999 Unknown [id number] 2.16.840.1.261543.3.579.2. 651 1999 Unknown [id number] 2.16.840.1.546969.3.579.2. 651 Private Health Insurance [id number] Unknown [id number] 2.16.840.1.958592.3.579.2. 462 Unknown [id number] 2.16.840.1.745229.3.579.2. 462 Unknown [id number] 2.16.840.1.363592.3.579.2. 462 Unknown [id number] 2.16840.1.811834.3.579.2. 462 Unknown [id number] 2.16840.1.732314.3.579.2. 462 Unknown [id number] 2.16840.1.540539.3.579.2. 462 Unknown [id number] 2.16.840.1.770871.3.579.2. 462 Unknown [id number] 2.16.840.1.139951.3.579.2. 462 Unknown [id number] 2.16840.1.533483.3.579.2. 462 Unknown [id number] 2.840.1.936005.3.579.2. 462 Unknown [id number] 2.16840.1.364362.3.579.2. 462 Unknown [id number] 2.840.1.697936.3.579.2. 462 Social History Date Type Detail Facility Start: 02-19-2024 End: 06-08-2025 Tobacco smoking status LAIS Never smoked tobacco [facility] Start: 02-19-2024 Tobacco use and exposure Smokeless tobacco non-user [facility] Start: 02-19-2024 Alcohol intake Ex-drinker (finding) [facility] Start: 02-19-2024 End: 11-28-2024 History of Social function [facility] Start: 02-19-2024 End: 11-28-2024 Tobacco use panel [facility] Start: 2000 Sex Assigned At Not on file [facility] Start: 2000 Sex Assigned At Female [facility] Start: 12-22-2023 National Score (1-100), lower number is lower risk 50 [facility] Work Phone: NEGATED: Highlighted row Not [facility] Goals Date Patient Goal Desired Activity /State Mental Status Date Assessment Result Facility 06-08-2025 Cognitive function Level Of Cons ciousness Awake;Alert;Appropriate;Follow s Commands [facility] Work Phone: 03-28-2025 Cognitive function Voice/Name [facility] Work Phone: Clinical Notes 02-19-2024 to 06-10-2025 Telephone Encounter - Jhonatan Yang - 06/10/2025 2:46 PM EDTTelephone Encounter - Jhonatan Yang - 06/10/2025 2:46 PM EDT Note Date & Type Note Facility 06-10-2025 Telephone encounter Note Form atting of this note might be different from the original. Patients primary care doctor will fax over a referral for the patient to see . [facility] 06-10-2025 Miscellaneous Notes Formattin g of this note might be different from the original. Patients primary care doctor will fax over a referral for the patient to see . documented in this encounter [facility] 06-08-2025 Discharge summary [facility] 06-08-2025 Discharge summary Note Date/Time June 08, 2025 2:06pm [facility] Medical Records Department [address] [place] [address] Emergency Department Summary 06/08/25 MR#: [id number] Acct: [id number] Name: PRABHA CODY Rep #:[id number] : 2000 24 From: Kosta Del Angel MD PCP: Shruti Smith DO Status:REG ER Location: ED HPI History of Present Illness Chief Complaint: Syncope Informant: patient and parent Onset/Context/Timing Onset: Today Current Severity: Gone Maximum Severity: Moderate Narrative Narrative: 24-year-old female history of ASD with a prior repair but still is 5% right to left shunt. Also has a history of MTHFR and cholecystectomy. He has been having dizzy spells. For about a month. Today just feels like her body is off and that she is floating. Mom is with her states that she was not actingright at home but they live 40 minutes from here and that now is all totally resolved. There is no family history of intracranial bleeds or aneurysms. She has had no head trauma. She has not recently been ill. Prior similar symptoms: Yes Recent Illness/Hospitalization: No PFSH PFSH Medical History Wears glasses Loose, teeth [...] mg PO BID 4 03/28/25 History release cholestyramine 4 gram oral powder 4 g PO QACHS #60 ea 05/06/25 Unknown Rx for suspension in a packet (Cholestyramine Light) rifaximin 550 mg tablet 550 mg PO TID #42 tabs 05/06 Unknown Rx Allergy/AdvReac Type Severity Reaction Status Date / Time omeprazole Allergy Intermediate Other Verified 06/08/25 11:53 alprazolam Allergy NEEDS Verified 06/08/25 11:53 FOLLOW-UP azithromycin Allergy NEEDS Verified 06/08/25 11:53 FOLLOW-UP clindamycin Allergy Other Verified 05/06/25 14:33 Penicillins (PCN) Allergy NEEDS Verified 06/08/25 11:53 FOLLOW-UP Sulfa (Sulfonamide Allergy Other Verified 06/08/25 11:53 Antibiotics) doxycycline AdvReac Nausea/Vom/ Verified 06/08/25 11:53 Diarrhea erythromycin base AdvReac Nausea/Vom/ Verified 06/08/25 11:53 Diarrhea sertraline (From Zoloft) AdvReac Other Verified 06/08/25 11:53 Family History Grandmother Heart disease Grandfather Heart disease Surgical History History of cardiac catheterization History of esophagogastroduodenoscopy (EGD) Hx laparoscopic cholecystectomy Status post patent foramen ovale closure History of atrial septal defect repair Social History household members: family Smoking Status: Never smoker alcohol intake: never substance use type: does not use caffeine: Yes ROS ROS ED ROS Narrative Denies recent illness. Dizziness. Not room spinning. Constitutional Constitutional ED: Denies chills or fever(s) Eyes Eyes: Denies blurry vision ENT ENT ED: Denies ear pain Cardiovascular Cardiovascular: Denies chest pain Respiratory/Chest Respiratory/Chest: Denies cough or dyspnea Gastrointestinal Gastrointestinal: Denies abdominal pain Genitourinary Genitourinary ED: Denies dysuria or hematuria Musculoskeletal Musculoskeletal: Denies arthralgias Integumentary Denies abscess Neurologic Neurologic: Reports headache(s) Psychiatric Psychiatric: Reports anxiety Endocrine Endocrinology: Denies cold intolerance Hematologic/Lymphatic Hematologic/Lymphatic: Reports none Allergic/Immunologic Allergic/Immunologic ED: Denies mouth swelling, tongue swelling or urticaria EXAM Physical Exam Narrative Exam Narrative: 4-year-old female vital signs are stable afebrile no acute distress. Pulse ox 100% on room air no signs hypoxia. Mom is present in the room with another family member I believe. H EENT exam pupils round react light. Moist mucous membranes. She has multiple missing dentition. She has an abscess to her rightlower tooth. No trouble swallowing or breathing. Neck nontender no lymphadenopathy. Lungs clear to auscultation bilaterally. Heart regular rhythmno murmur. Chest wall and ribs are nontender. Abdomen soft nontender. Moving all 4 extremities. Nontender no edema. 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 Normal dorsiplantarflexion. Normal sensation. Neurologic exam normal. NIH 0. Fingertip to nose and heel briones within normal limits. No drift. Normal strength. Normalsensation. Normal speech. No focal motor deficits. Const Vital Signs: 06/08/25 11:49 06/08/25 12:00 06/08/25 12:02 Temperature 96.2 F L Temperature Source Temporal Pulse Rate 112 H 106 H Respiratory Rate 16 27 H Respiratory Effort Normal Non-Labored Blood Pressure 124/85 H 129/85 H Blood Pressure Mean 98 99 Pulse Ox 100 100 Oxygen Delivery Method Room Air Room Air Positive well nourished and well developed; Negative for cachectic, contracturesor unkempt General Appearance ED: well developed and NAD; Negative for unkempt, cachectic, contractures, cyanotic, diaphoretic or pallor Nutritional Appearance: Negative for cachectic HEENT Reports moist mucous membranes Negative for trauma or tenderness Eyes PERRL and EOMs intact bilaterally Neck no lymphadenopathy, supple and no JVD Chest Wall inspection of chest normal and palpation of chest normal Resp normal respiratory effort and clear to auscultation bilaterally Cardio regular rate, regular rhythm, S1 normal heart sound, S2 normal heart sound and no murmurs GI normal to inspection, nondistended, normoactive bowel sounds, non-tender, non-distended and no masses Auscultation: normoactive bowel sounds Palpation: soft; Negative for tender or guarding Back/Spine no CVA tenderness General Back: Negative for CVA tenderness Cervical Spine: Negative for cervical spine tenderness Thoracic Spine / Upper Back: Negative for thoracic spinal tenderness or paraspinal muscle tenderness Lumbar Spine / Lower Back: Negative for lumbar spinal tenderness Extremity normal to inspection General Extremety ED: Negative for edema or tenderness General Extremity: Negative for edema Neuro oriented x3, CN's II-XII intact bilaterally and no sensory deficits noted Sensorium / Orientation: alert Motor Exam: strength 5/5 throughout Psych mental status grossly normal Appearance: Negative for unkempt Attitude: No agitated Mood & Affect: Negative for depressed, anxious or tearful Skin no rashes or lesions noted, no wounds and skin turgor normal General Skin Exam: Negative for jaundice or pallor Rashes: No rashes noted Trauma: Negative for abrasion Wounds: Negative for wounds noted MDM MDM MDM Narrative Medical decision making narrative: 24-year-old female history of prior ASD with repair but still has some [id number] shunt. An episode today at home where she had a altered level of consciousness. Currently her exam is completely normal and all of her symptoms have resolved. Her neurologic exam is normal. She will get a CTA of her head and neck, CAT scan her brain and screening labs. But again right now she has a normal exam. Repeat exam patient is doing well at 1:50 PM. Exam normal. Neurologic exam normal. Awake alert talking no deficits. She is back to her baseline. I discussed with her family they feel more comfortable with her being discharged home with outpatient follow-up. Her primary care provider is currently getting her set up with neurology. They know to return if worse. She was instructed tostart 8 daily baby aspirin due to her MTHFR. History & Record Review Discussion w/independent historian: Patient and Family Lab Data Attestation: I reviewed the patient's lab results. Lab results narrative: CBC shows a white count of 7. H&H of 13 and 38. Platelets 322. Electrolytes show a gap of 13. BUN and creatinine are normal. Glucose of 109. CTA head and neck is unremarkable as read by the radiologist and reviewed by me Chest x-ray unremarkable. EKG sinus rhythm. Labs: Laboratory Results - last 24 hr 06/08/25 06/08/25 06/08/25 12:27 12:27 13:02 WBC Cancelled 7.5 Corrected WBC Cancelled RBC Cancelled 4.25 Hgb Cancelled 13.1 Hct Cancelled 38.4 MCV Cancelled 90.4 MCH Cancelled 30.8 MCHC Cancelled 34.1 RDW Std Deviation Cancelled 41.5 RDW Coeff of Kaley Cancelled 12.6 Plt Count Cancelled 322 MPV Cancelled 10.2 Immature Gran % (Auto) Cancelled 0.700 Neut % (Auto) Cancelled 79.2 H Lymph % (Auto) Cancelled 12.2 L Rosebud % (Auto) Cancelled 5.9 Eos % (Auto) Cancelled 1.5 Baso % (Auto) Cancelled 0.5 Absolute Neuts (auto) Cancelled 5.9 Absolute Lymphs (auto) Cancelled 0.91 Total Counted Cancelled Neutrophils % (Manual) Cancelled Band Neutrophils % Cancelled Lymphocytes % (Manual) Cancelled Monocytes % (Manual) Cancelled Eosinophils % (Manual) Cancelled Basophils % (Manual) Cancelled Metamyelocytes % Cancelled Myelocytes % Cancelled Promyelocytes % Cancelled Blast Cells % Cancelled Plasma Cell % (Manual) Cancelled Other Cells % Cancelled Nucleated RBC % Cancelled 0 Nucleated RBCs/100 WBC Cancelled Differential Comment Cancelled Diff Path Review Cancelled Hypersegmented Neuts Cancelled Atypical Lymphocytes Cancelled Reactive Lymphocytes Cancelled Smudge Cells Cancelled Toxic Granulation Cancelled Toxic Vacuolation Cancelled Dohle Bodies Cancelled Chasity Rods Cancelled Platelet Estimate Cancelled Plt Morphology Comment Cancelled RBC Morphology Cancelled Cancelled Polychromasia Cancelled Hypochromasia Cancelled Basophilic Stippling Cancelled Anisocytosis Cancelled Microcytosis Cancelled Macrocytosis Cancelled Spherocytes Cancelled Sickle Cells Cancelled Target Cells Cancelled Tear Drop Cells Cancelled Ovalocytes Cancelled Stomatocytes Cancelled [place] Bodies Cancelled Gio Cells Cancelled Bite Cells Cancelled Crenated Cell Cancelled Acanthocytes (Spur) Cancelled Rouleaux Cancelled Schistocytes Cancelled Sodium 140 Potassium 4.6 Chloride 107 Carbon Dioxide 20.0 L Anion Gap 13 BUN 17 Creatinine 0.88 Est GFR (MDRD) Non-Af 93 BUN/Creatinine Ratio 19.5 Glucose 109 H Calcium 9.5 Radiography Chest X-Ray - ED: 2 View, Read by ED Physician, Read by Radiologist, Normal, Heart, Lungs, Mediastinum, Bony Structures and No Acute Disease Diagnostic Testing: Clinical Impression(s) from Imaging Studies Chest X-Ray 06/08/25 12:14 IMPRESSION: NO ACUTE FINDINGS. Reading Location: [facility] Head/Neck CTA 06/08/25 12:45 IMPRESSION: 1. There is no carotid stenosis according to NASCET criteria. 2. The major vascular structures in the head and neck are grossly unremarkable. Reading Location: [facility] Chest x-ray, 2 views, AP and lateral, shows normal cardiac silhouette. Normal lung archuleta. Normal mediastinum. Interpreted both by myself and the radiologist. No acute abnormality. Rhythm Strip Rhythm Strip: Sinus Rhythm Rate: 93 Ectopy: None Discharge Plan Triage Chief Complaint: Syncope ED Provider: Kosta Del Angel Dx/Rx/DC Orders Clinical Impression: Altered level of consciousness, Hx of atrial septal defect Instructions: ED ALOC Prescriptions: No Action aspirin 81 mg tablet,delayed release (DR/EC) 81 mg PO DAILY pantoprazole 40 mg tablet,delayed release (DR/EC) 40 mg PO BID Cholestyramine Light 4 gram powder in packet 4 g PO QACHS Qty: 60 0RF Rx Instructions: no meds 1 hr before/4-6 hr after dose rifaximin 550 mg tablet 550 mg PO TID Qty: 42 2RF Primary Care Provider: Shruti Smith Referrals: Shruti Smith, [Primary Care Provider] - As soon as possible Activity Restrictions/Additional Instructions: All your tests today look good including your CAT scan and labs. Follow-up with your primary care provider. Very important to get into see a neurologist as soon as possible. Make sure you are taking 1 baby aspirin a day due to your MTHFR blood disorder. If you have recurrent symptoms or feeling worse return. Print Language: Albanian Disposition Disposition: Home, Self Care What to do if you have Problems For any increased pain, shortness of breath, bleeding, nausea or vomiting, chestpain, or any unexpected problems, contact your Primary Care Provider. Call [facility] ([phone]) or report to the closest Emergency Room. Call 911 if necessary. 06/08/25 1406 <Electronically signed by Kosta Del Angel MD> Cosigner Signature (if applicable): CC: Shruti Smith DO ~ Signed [facility] Work Phone: 1(621) 661-996708-31-2025 Radiology Diagnostic study note [facility] Imaging Services [address] [place] [address] CTA Head AND Neck W/ Contrast MR#: [id number] Acct: [id number] Name: PRABHA CODY Rep #: [id number] : 2000 F 24 From: Virgie Villa MD PCP: Shruti Smith DO Status: REG ER Study:CTA Head AND Neck W/ Contrast Date of E xam: 06/08/25 Exam# [id number] Ordering Dr: Brie Del Angel MD PROCEDURE: CTA HEAD AND NECK W/ CONTRAST 06/08/2025 REASON FOR EXAM: ALOC RESOLVED TECHNIQUE: Procedure Code: CTCTA.HDNCK Modality: CT Procedure: CTA HEAD AND NECK W/ CONTRAST Multiplanar Sagittal and Coronal images were obtained. CONTRAST: Isovue 370 VOLUME: 100 mL One or more dose reduction techniques were used (e.g., Automated exposure control, adjustment of the mA and/or kV according to patient size, use of iterative reconstruction technique). RADIATION DOSE SUMMARY: CTDlvol: 44.99 mGy DLP: 1414.71 mGycm COMPARISON: None FINDINGS: Aortic Arch: Nonaneurysmal three-vessel arch. Brachiocephalic and Subclavians: Unremarkable RIGHT Carotid: Right CCA: Unremarkable. Right ICA: Unremarkable. Maximum stenosis (NASCET): No significant stenosis % Right ECA: Unremarkable. LEFT Carotid: Left CCA: Unremarkable. Left ICA: Unremarkable. Maximum stenosis (NASCET): No significant stenosis % Left ECA: Unremarkable. Vertebrals: Codominant. Arise from the subclavians. Both vertebrals form the basilar. RIGHT Vertebral: Unremarkable. LEFT Vertebral: Unremarkable. Anatomy: [place] anatomy is normal. Aneurysm or avm: No intracranial aneurysms or large vascular malformations are identified. Anterior cerebral arteries: Unremarkable: Middle cerebral arteries: Unremarkable. Basilar artery: Unremarkable. Posterior cerebral arteries: Unremarkable. Other major branches of the posterior circulation: Unremarkable. Major venous structures: Unremarkable. Other findings: Neck: No lymphadenopathy. Radiopaque material in the left buccal cavity likely reflects food stuffs/chewing gum. Left nasal piercing. Lungs: The lung apices are clear. Bones: Bones are unremarkable. CT/CTA Head AND Neck W/ Contrast IMPRESSION: 1. There is no carotid stenosis according to NASCET criteria. 2. The major vascular structures in the head and neck are grossly unremarkable. Reading Location: [id number] CC: Dr. Kosta Del Angel MD; Shruti Smith DO ~ Donation Specialist: Signed [facility]08-31-2025 Radiology Diagnostic study note [facility] Imaging Services [address] [place], [place] [address] Chest PA and Lateral MR#: [id number] Acct: [id number] Name: PRABHA CODY Rep #: [id number] : 2000 F 24 From: Virgie Villa MD PCP: Shruti Smith DO Status: REG ER Study:Chest PA and Lateral Date of Exam: 06/08/25 Exam# [id number] Ordering Dr: Brie Del Angel MD PROCEDURE: CHEST PA AND LATERAL 06/08/2025 REASON FOR EXAM: ALOC RESOLVED TECHNIQUE: Procedure Code: RADCXR Modality: DX Procedure: CHEST PA AND LATERAL COMPARISON: None FINDINGS: The cardiomediastinal silhouette is within normal limits. The lungs are clear. No significant pleural effusion. No pneumothorax. Cholecystectomy clips. RAD/Chest PA and Lateral IMPRESSION: NO ACUTE FINDINGS. Reading Location: [facility] CC: Dr. Kosta Del Angel MD; Shruti Smith DO ~ Donation Specialist: Signed [facility]06-20-2025 Evaluation note* Diagnosis Onset Date Resolution Status Admit Date Acid reflux acute March 28 10:52am Diarrhea acute March 28 10:52am Epigastric abdominal pain acute March 28, 2025 10:52am Gastritis acute March 28 10:52am [facility] Work Phone: 1(553) 627-819906-20-2025 Evaluation note* Diagnosis Onset Date Resolution Status Admit Date Acid reflux acute March 28 10:52am Diarrhea acute March 28 10:52am Epigastric abdominal pain acute March 28, 2025 10:52am Gastritis acute March 28 10:52am Epigastric abdominal pain acute May 06, 2025 2:32pm Gastritis acute May 06 2:32pm Irritable bowel syndrome wit h diarrhea acute May 06, 2025 2:32pm [facility] Work Phone: 1(813) 227-872806-20-2025 Evaluation note* Diagnosis Onset Date Resolution Status Admit Date Acid reflux acute March 28 10:52am Diarrhea acute March 28 10:52am Epigastric abdominal pain acute March 28, 2025 10:52am Gastritis acute March 28 10:52am Epigastric abdominal pain acute May 06, 2025 2:32pm Gastritis acute May 06 2:32pm Irritable bowel syndrome wit h diarrhea acute May 06, 2025 2:32pm Atrial septal defect acute Jun 2:55pm Leg pain acute June 2:55pm MTHFR mutation acute June 25, 2025 2:55pm [facility] Work Phone: 1(139) 596-600706-20-2025 Consult note [facility] Medical Records Department [address] [place] [address] Anesthesia Postop Eval I 03/28/25 1230 MR#: [id number] Acct: [id number] Name: PRABHA CODY Rep #:[id number] : 2000 24 From: Bobby Grover PCP: Shruti Smith DO Status:REG SD Y Race: C Location: [place] [address] Anesthesia: Postop Eval I Current Vital Signs [...] Yes 03/28/25 1231 > Date _ Bobby Paredesigneddie Signature: Date CC: ~ Signed [facility]06-20-2025 Procedure note [facility] Medical Records Department [address] [place] [address] EGD Report MR#: [id number] Acct: [id number] Name: PRABHA CODY Rep #:[id number] : 2000 24 From: Marciano Gonzales DO PCP: Shruti Smith DO Status:REG [facility] Patient Name: Prabha Cody Procedure Date: 03/28/2025 [...] pathology results. Procedure Code(s): --- Professional --- 22064, Small intestinal endoscopy, enteroscopy beyond second portion of duodenum, not including ileum; with biopsy, single or multiple CPT copyright 2021 [employer]. All rights reserved. The codes documented in this report are preliminary and upon crate builder review may be revised to meet current compliance requirements. Marciano Gonzales DO 03/28/2025 12:30:27 PM This report has been signed electronically. Number of Addenda: 0 Note Initiated On: 03/28/2025 12:11 PM 03/28/25 7530 Date _ Marciano Vanessa Signature: Date (if indicated) CC: Shruti Smith DO; Marciano Gonzales DO ~ Date Dictated: 03/28/25 1211 Date Transcribed: Donation Specialist: EDGARD Signed [facility]06-20-2025 Procedure note [facility] Medical Records Department [address] [place] [address] Operative Report - CC Letter MR#: [id number] Acct: [id number] Name: PRABHA CODY Rep #:[id number] : 2000 24 From: Marciano Gonzales DO PCP: Shruti Smith DO Status:REG [facility] 03/28/2025 Shruti Smith Do Re : Upper [...] signed electronically. 03/28/25 1230 Date _ Marciano Vanessa Signature: Date (if indicated) CC: Shruti Smith DO; Marciano Gonzales DO ~ Date Dictated: 03/28/25 1211 Date Transcribed: Donation Specialist: EDGARD Signed [facility]06-20-2025 Consult note [facility] Medical Records Department [address] [place] [address] Pre-Anesthesia Evaluation 03/28/25 1204 MR#: [id number] Acct: [id number] Name: PRABHA CODY Rep #:[id number] : 2000 24 From: Dustin Espinoza MD PCP: Shruti Smith DO Status:REG SDC Y Race: C Location: [place] [address] ASA Classification* ASA Classification ASA Classification: 2 [...] Procedure(s): EGD 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 - sales specialist: 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 - sales specialist Hx Hospitalization No 03/26/25 13:17 Any Problems [...] am of surgery: Protonix PONV PONV - sales specialist: PONV - sales specialist Female Yes 03/26/25 13:17 HX of Motion [...] 03/28/25 11:13 Respiratory Assessment Respiratory Assessment - sales specialist: Respiratory Tract Infection Hx - sales specialist Hx Respiratory Tract Infection No 03/26/25 13:17 STOP Sleep Apnea STOP Sleep Apnea - sales specialist: STOP Sleep Apnea - sales specialist Hx Hypertension No 03/26/25 13:17 Hx Sleep [...] Tobacco Use History Tobacco Use History - sales specialist: Tobacco Use History - sales specialist Tobacco Use Smoking Status Never smoker 03/26/25 13:17 Hx Tobacco Use No 03/26/25 13:17 Years Smoking Packs Smoked per Day Smoking Cessation Date was within the last 15 years Hx Smoking Cessation Date Hx Smoking Cessation Counseling Hematologic Medial History Hematologic Hx - sales specialist: Hematologic 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 Hx of Blood Transfusion No 03/26/25 13:17 [...] confused, unrespo /Reproduction History /Reproductive History - sales specialist: /Reproductive Hx- sales specialist Hx Now No 03/26/25 13:17 Gestational Age [...] MD Cosigner Signature: Date CC: ~ Signed [facility]06-20-2025 History and physical note [facility] Medical Records Department [address] [facility] [place] [address] History & Physical Exam 03/28/25 1149 MR#: [id number] Acct: [id number] Name: PRABHA CODY Rep #:[id number] : 2000 24 From: Marciano Gonzales DO PCP: Shruti Smith DO Status:[facility] Location: [place] [address] HPI - General General Date of Admission: 03/28/25 Date of Service: 03/28/25 Chief Complaint: Acid reflux HPI Narrative PRABHA CODY, is a 24 F who presentsMalinnette Cody, is a 23 F who presentsto the office todayfor establishment with [facility] for complaints of severe pinpointmid-epigastric pain with [...] a horse and isn't afraid of germs. [facility] Medical History Wears glasses Loose, teeth Broken [...] to the office today for establishment with [facility] for complaints of severe pinpoint mid-epigastric pain with nausea, moderate RUQ abdominal pain associated/relieved with BM, and foamy mucus diarrhea 3-4x/day. [place]. Differential diagnoses include: GERD, IBS-D, gastric ulcer, [...] Shruti Smith DO; Marciano Gonzales DO~ Signed [facility]06-20-2025 [facility] Medical Records Department [address] [place] [address] History Physical Exam 03/28/25 1149 MR#: [id number] Acct: [id number] Name: PRABHA CODY Rep #: [id number] : 2000 24 From: Marciano Gonzales DO PCP: Shruti Smith DO Status:[facility] Location: [place] [address] HPI -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
== END | disposition home or self-care (01) ==
LOC: VSLAB 12:04
PROVIDERS: PCP Family Medicine; Referring Provider Family Medicine; Visit Provider Family Medicine
DX: R39.9 Unspecified symptoms and signs involving the genitourinary system (principal); R20.0 Anesthesia of skin
CPT/HCPCS: 36415; 80053; 82607; 83036; 83735; 84443; 85025; 87086; 87088

== ENCOUNTER → 2025-07-17 | Outpatient (CLI) | payer MEDICAID, SELFPAY | END | disposition home or self-care (01) | LOC: MRI 13:20 | PROVIDERS: PCP Family Medicine | DX: G43.809 Other migraine, not intractable, without status migrainosus (principal) ==

== ENCOUNTER → 2025-07-23 | Outpatient (CLI) | payer MEDICAID, SELFPAY ==
--- NOTE | 2025-07-23 12:52 | VDLE_ITS ---
Reason For Study Reason For Study: Pain RIGHT LEFT CFV is compressible, spontaneous, phasic, competent GSV is normal. and demonstrates normal augmentation. CFV is compressible, spontaneous, phasic, competent, Procedure and demonstrates normal augmentation. This is a venous duplex using B-mode, color flow and FV is compressible, spontaneous, phasic, competent spectral Doppler. and demonstrates normal augmentation. Exam performed in department. POP V is compressible, spontaneous, phasic, competent and demonstrates normal augmentation. T/P Trunk is compressible. PTV is compressible. LT PerV is compressible. VL/Venous Duplex US, Unilateral Interpretation Summary Deep veins of the left lower extremity are patent and compressible segmentally. There is no evidence of left lower extremity deep vein thrombosis. The left great saphenous vein appears patent an d compressible segmentally. Ordering Physician: Harsha Zhao Referring Physician: Harsha Zhao Performed By: Geni Berg, RVT
--- NOTE | 2025-07-23 12:52 | VDLE_ITS ---
Reason For Study Reason For Study: Pain RIGHT LEFT CFV is compressible, spontaneous, phasic, competent GSV is normal. and demonstrates normal augmentation. CFV is compressible, spontaneous, phasic, competent, Procedure and demonstrates normal augmentation. This is a venous duplex using B-mode, color flow and FV is compressible, spontaneous, phasic, competent spectral Doppler. and demonstrates normal augmentation. Exam performed in department. POP V is compressible, spontaneous, phasic, competent and demonstrates normal augmentation. T/P Trunk is compressible. PTV is compressible. LT PerV is compressible. VL/Venous Duplex US, Unilateral Interpretation Summary Deep veins of the left lower extremity are patent and compressible segmentally. There is no evidence of left lower extremity deep vein thrombosis. The left great saphenous vein appears patent an d compressible segmentally. Ordering Physician: Harsha Zhao Referring Physician: Harsha Zhao Performed By: Geni Berg, RVT
--- NOTE | 2025-07-23 12:52 | ECHOD_ITS ---
Reason For Study Reason For Study: Atrial Septal Defect Procedure This was a 2D Doppler, Color Flow transthoracic echocardiogram. Exam performed in department. Left Ventricle Normal LV size. The left ventricular ejection fraction is 65 %. Stage 1 diastolic dysfunction. No regional wall motion abnormalities noted. Right Ventricle Normal RV size. Normal systolic function. Atria Normal left atrium. Normal right atrium. Amplatzer occluder device. Mitral Valve Normal mitral valve. Tricuspid Valve Normal tricuspid valve. Aortic Valve Trisinus/trileaflet aortic valve. Pulmonic Valve Normal pulmonic valve. Great Vessels Normal aortic root. The pulmonary artery is normal size. Inferior vena cava collapse with respiration. Pericardium/Pleural No pericardial effusion. MMode/2D Measurements & Calculations LVIDd: 3.8 cm IVSd: 1.00 cm LAV(MOD- bp): 20.3 ml LVIDs: 2.3 cm LVPWd: 0.74 cm LAV(MOD- bp) Indexed: 12.9 ml/m2 RVDd: 3.2 cm FS: 39.8 % LAV(MOD- sp2): 19.1 ml LAV(MOD- sp4): 20.9 ml SV(MOD-sp4): 30.0 ml SV(sp4- el): 31.0 ml LVAd ap4: 19.4 cm2 LVLd ap4: 6.8 cm SI(MOD-sp4): 19.0 ml/m2 EDV(MOD-sp4): 46.2 ml EDV(sp4-el): 47.1 ml LVAs ap4: 10.1 cm2 LVLs ap4: 5.3 cm ESV(MOD-sp4): 16.2 ml ESV(sp4-el): 16.1 ml EF(MOD-sp4): 64.9 % EF(sp4-el): 65.9 % LA A4 area: 10.5 cm2 LA dimension(2D): 2.5 cm RA A4 area: 9.3 cm2 TAPSE: 2.0 cm Time Measurements MV dec time: 0.14 sec Doppler Measurements & Calculations MV E max andrew: 79.1 cm/sec Lat Peak E' Andrew: 16.5 cm/sec Med Peak E' Anderw: 14.2 cm/sec MV A max andrew: 86.8 cm/sec E/E' lat: 4.8 E/E' med: 5.6 MV E/A: 0.91 MV V2 max: 106.3 cm/sec MV P1/2t max andrew: 101.4 cm/sec Ao V2 max: 123.4 cm/sec MV max P.5 mmHg MV P1/2t: 50.1 msec Ao max P.1 mmHg MV V2 mean: 68.3 cm/sec Ao V2 mean: 88.1 cm/sec MV mean P.2 mmHg MV dec slope: 593.5 cm/sec2 Ao mean P.5 mmHg MV V2 VTI: 16.7 cm MVA(P1/2t): 4.4 cm2 Ao V2 VTI: 22.1 cm AV (velocity ratio): 0.94 LV V1 max: 118.6 cm/sec LV V1 max P.6 mmHg LV V1 mean P.1 mmHg LV V1 mean: 82.3 cm/sec LV V1 VTI: 20.7 cm ECHO/Echo Complete Interpretation Summary Normal LV size. The left ventricular ejection fraction is 65 %. Stage 1 diastolic dysfunction. Amplatzer occluder device Ordering Physician: Harsha Zhao Referring Physician: Harsha Zhao Performed By: Fernando Turcios RCS
== END | disposition home or self-care (01) ==
LOC: CVS 12:51
PROVIDERS: PCP Family Medicine; Referring Provider Nurse Practitioner Family; Visit Provider Nurse Practitioner Family
DX: Q21.10 Atrial septal defect, unspecified (principal); M79.606 Pain in leg, unspecified; Z15.89 Genetic susceptibility to other disease
CPT/HCPCS: 93306; 93971

== ENCOUNTER 2025-08-13 22:31 | Emergency (ER) | payer MEDICAID, SELFPAY ==
[2025-08-13 22:32] VITALS: BP 146/95; PULSE 115; RESP 18; TEMP 36.4; O2SAT 99
[2025-08-13 22:36] VITALS: BMI 29.8
[2025-08-13 23:07] VITALS: BMI 29.8
[2025-08-13 23:19] VITALS: BP 128/93; BP 136/95; BP 144/105; PULSE 102; PULSE 104; PULSE 109
--- NOTE | 2025-08-13 23:35 | EX.ED.DYSGE1 ---
HPI History of Present Illness Chief Complaint: Neuro S/Sx Informant: patient and spouse/S.O. Narrative Narrative: Patient is a 24-year-old female with past medical history of anxiety and depression as well as PFO which was closed in 2019. She states that she experiences migraine headaches frequently and is scheduled to see a neurologist later this month. She states that she developed a headache a few days ago and with this noticed numbness and tingling of her arm. She states this can be common with her headaches. She states that headache has persisted and she also has now noticed some reported weakness in her leg. She states that the leg weakness is not common with her headaches and secondary to this she comes in for evaluation. [facility] Medical History MTHFR mutation Palpitations Wears glasses Loose, teeth Broken teeth Depression Anxiety History of IBS Gastric reflux History of hiatal hernia Non-smoker History of stress test Cardiology follow-up encounter History of echocardiogram Cholelithiasis PFO (patent foramen ovale) Atrial septal defect History of gastroesophageal reflux (GERD) Home Medications ?Medication ?Instructions ?Recorded ?Last Taken ?Type aspirin 81 mg tablet,delayed 81 mg PO DAILY 05/07/24 03/24/25 History release pantoprazole 40 mg tablet,delayed 40 mg PO BID 06/14/24 03/28/25 History release Allergy/AdvReac Type Severity Reaction Status Date / Time omeprazole Allergy Intermediate Other Verified 08/13/25 22:32 alprazolam Allergy NEEDS Verified 08/13/25 22:32 FOLLOW-UP azithromycin Allergy NEEDS Verified 08/13/25 22:32 FOLLOW-UP clindamycin Allergy Other Verified 08/13/25 22:32 Penicillins (PCN) Allergy NEEDS Verified 08/13/25 22:32 FOLLOW-UP Sulfa (Sulfonamide Allergy Other Verified 08/13/25 22:32 Antibiotics) doxycycline AdvReac Nausea/Vom/ Verified 08/13/25 22:32 Diarrhea erythromycin base AdvReac Nausea/Vom/ Verified 08/13/25 22:32 Diarrhea sertraline (From Zoloft) AdvReac Other Verified 08/13/25 22:32 Family History Grandmother Heart disease Grandfather Heart disease Surgical History History of cardiac catheterization History of esophagogastroduodenoscopy (EGD) Hx laparoscopic cholecystectomy Status post patent foramen ovale closure History of atrial septal defect repair Social History household members: family Smoking Status: Never smoker alcohol intake: never substance use type: does not use caffeine: Yes ROS ROS ED Constitutional Constitutional ED: Denies chills or fever(s) Eyes Eyes: Denies blurry vision or change in vision ENT ENT ED: Denies rhinorrhea or sore throat Cardiovascular Cardiovascular: Denies chest pain or palpitations Respiratory/Chest Respiratory/Chest: Denies cough or dyspnea Gastrointestinal Gastrointestinal: Denies abdominal pain, diarrhea, nausea or vomiting Genitourinary Genitourinary ED: Denies dysuria Musculoskeletal Musculoskeletal: Denies myalgias Integumentary Denies rash Neurologic Neurologic: Reports headache(s), paresthesias and weakness Hematologic/Lymphatic Hematologic/Lymphatic: Denies easy bleeding or easy bruising EXAM Physical Exam Const Vital Signs: 08/13/25 22:32 08/13/25 23:19 Temperature 97.5 F L Temperature Source Temporal Pulse Rate 115 H Pulse Rate [Lying] 109 H Pulse Rate [Sitting (for 1 minute prior to obtaining)] 104 H Pulse Rate [Standing (for 1 minute prior to obtaining)] 102 H Respiratory Rate 18 Blood Pressure 146/95 H Blood Pressure [Lying] 128/93 H Blood Pressure [Sitting (for 1 minute prior to obtaining)] 136/95 H Blood Pressure [Standing (for 1 minute prior to obtaining)] 144/105 H Blood Pressure Mean 112 Blood Pressure Mean [Lying] 104 Blood Pressure Mean [Sitting (for 1 minute prior to obtaining)] 108 Blood Pressure Mean [Standing (for 1 minute prior to obtaining)] 118 Pulse Ox 99 Oxygen Delivery Method Room Air Positive well nourished and well developed General Appearance ED: well developed; Negative for pallor HEENT HEENT Narrative: Normocephalic atraumatic Eyes PERRL and EOMs intact bilaterally General Eye ED: Negative for scleral icterus Neck supple Resp normal respiratory effort and clear to auscultation bilaterally Cardio regular rhythm Rate: tachycardic and other Other Details: Tachycardic rate with regular rhythm Radial and carotid pulses are equal and symmetric No murmurs rubs or gallop Extremity normal to inspection Extremity Narrative: No asymmetric edema no pitting edema negative Homans' sign bilaterally Neuro oriented x3, CN's II-XII intact bilaterally and no sensory deficits noted Neuro Narrative: GCS of 15 Cranial nerves II through XII are grossly intact without focal neurologic deficit No pronator drift no dysmetria no truncal ataxia Strength is plus 5 out of 5 in the bilateral upper and lower extremities NIH stroke scale score of 0 Sensorium / Orientation: alert Motor Exam: strength 5/5 throughout Psych Mood & Affect: anxious Skin no rashes or lesions noted General Skin Exam: Negative for jaundice or pallor MDM MDM MDM Narrative Medical decision making narrative: Patient arrived to ER mildly hypertensive and tachycardic. However the tachycardia has been chronic for her and she is currently wearing a Holter monitor to further assess the cause of this. At this time she is sinus tachycardia and therefore I feel no need for an EKG as her heart rate is being monitored currently. She reported generalized leg weakness but on physical exam strength is plus 5 out of 5. She also reports she has had a headache and has had numbness and tingling weakness with these in the past and they resolve when the headache improves. She has had no report or signs of trauma so I have low concern for spontaneous subarachnoid or subdural hemorrhage. In order to assess for potential dehydration/orthostasis as a cause orthostatic vitals were obtained. These were negative. In order to assess for acute blood loss anemia acute kidney injury electrolyte abnormality or thyroid dysfunction basic blood work was ordered. Labs revealed no clinically significant findings. On reevaluation the patient is resting comfortably her neurologic exam is normal she is able to ambulate with a steady gait and there is no unilateral or focal findings weakness. Therefore I do not feel there is need for further intervention and she is otherwise safe for discharge. History & Record Review Discussion w/independent historian: Patient and Significant other Lab Data Attestation: I reviewed the patient's lab results. Labs: Laboratory Results - last 24 hr 08/13/25 08/13/25 23:02 23:13 WBC 7.0 RBC 4.54 Hgb 13.6 Hct 39.8 MCV 87.7 MCH 30.0 MCHC 34.2 RDW Std Deviation 39.8 RDW Coeff of Kaley 12.4 Plt Count 397 MPV 10.2 Immature Gran % (Auto) 0.300 Neut % (Auto) 72.5 H Lymph % (Auto) 18.5 L [place] % (Auto) 6.3 Eos % (Auto) 1.7 Baso % (Auto) 0.7 Absolute Neuts (auto) 5.1 Absolute Lymphs (auto) 1.30 Nucleated RBC % 0 Sodium 141 Potassium 3.5 Chloride 104 Carbon Dioxide 23.6 Anion Gap 13 BUN 18 Creatinine 0.77 Estim Creat Clear Calc 95.39 Est GFR (MDRD) Non-Af 110 BUN/Creatinine Ratio 23.2 H Glucose 117 H Calcium 9.4 Magnesium 2.2 TSH 1.530 Serum , Qual NEGATIVE POC Glucose 103 Discharge Plan Triage Chief Complaint: Neuro S/Sx ED Provider: Yosef Hernandez Dx/Rx/DC Orders Clinical Impression: Atypical migraine, Lower extremity weakness, GERD (gastroesophageal reflux disease), History of surgical closure of patent foramen ovale (PFO) Instructions: Preventing Migraine Headaches ... Prescriptions: No Action aspirin 81 mg tablet,delayed release (DR/EC) 81 mg PO DAILY pantoprazole 40 mg tablet,delayed release (DR/EC) 40 mg PO BID Primary Care Provider: Shruti Smith Referrals: Shruti Smith, DO [Primary Care Provider, Family Practice] Activity Restrictions/Additional Instructions: Your workup today revealed no clinically significant findings such as low blood volume kidney damage electrolyte changes or thyroid dysfunction. This indicates that your symptoms are most likely related to an atypical migraine which is a migraine that causes neurologic symptoms. Follow-up with your neurologist as you already have scheduled to further assess and discuss treatment for this and return to the ER should you have any further concerns. Print Language: Prydeinig Disposition Disposition: Home, Self Care
[2025-08-14 00:03] LABS: Internal QC Validated? YES +Cl - CLEAR BKGD; Pregnancy, Serum, hCG Quali. NEGATIVE Negative
[2025-08-14 00:04] LABS: Record Kit Lot#, Serum Preg. 0000980607
[2025-08-14 00:16] LABS: Anion Gap 13 (5-15); BUN 18 mg/dL (4-19); BUN/Creat Ratio 23.2 RATIO (10-20); Calcium,Total 9.4 mg/dL (7.6-11.0); Carbon Dioxide 23.6 mmol/L (21.0-32.0); Chloride 104 mmol/L (98-108); Estimated Creatinine Clearance 95.39 ml/min (50-250); Glucose 117 mg/dL (70-99); Magnesium 2.2 mg/dL (1.5-2.2); Potassium 3.5 mmol/L (3.3-5.1)
[2025-08-14 00:28] LABS: Hematocrit 39.8 % (37-47); Hemoglobin 13.6 g/dL (12.0-15.0); Immature Granulocytes Count 0.020 X10^3/uL (0.0-0.0); Mean Corp Hgb Conc 34.2 g/dL (32-36); Mean Corpuscular Volume 87.7 fL (81-99); Mean Platelet Vol. 10.2 fl (6.2-12.0); NRBC Flagged by Analyzer 0 % (0-5); Platelet Count 397 K/mm3 (150-450); RBC Distribution Width CV 12.4 % (11.6-14.6); RBC Distribution Width SD 39.8 fl (35.1-43.9); Red Blood Count 4.54 M/mm3 (4.2-5.4); White Blood Count 7.0 K/mm3 (4.4-11.0)
[2025-08-14 00:44] VITALS: BP 138/99; PULSE 110; RESP 17; TEMP 36.2; O2SAT 100
== END 2025-08-14 00:44 | disposition home or self-care (01) ==
PROVIDERS: Emergency Provider Emergency Medicine; PCP Family Medicine; Visit Provider Emergency Medicine
DX: G43.909 Migraine, unspecified, not intractable, without status migrainosus (principal); K21.9 Gastro-esophageal reflux disease without esophagitis; R29.898 Other symptoms and signs involving the musculoskeletal system; Z79.899 Other long term (current) drug therapy; Z90.49 Acquired absence of other specified parts of digestive tract
CPT/HCPCS: 80048; 82962; 83735; 84443; 84703; 85025; 99284; A4216

== ENCOUNTER 2025-09-06 23:39 | Emergency (ER) | payer MEDICAID, SELFPAY ==
[2025-09-06 23:41] VITALS: BP 148/104; PULSE 121; RESP 20; TEMP 36.7; O2SAT 100; BMI 28.6
--- NOTE | 2025-09-07 00:04 | EX.ED.DYSGE1 ---
HPI History of Present Illness Chief Complaint: Dental Detail of Chief Complaint: Dental pain and vision changes and multiple complaints Informant: patient Narrative Narrative: Patient presents to the emergency department with multiple complaints main of which is some dental pain. She states she has had dental infection since May and has been on antibiotics. She is followed up with a dentist and is supposed to have her teeth removed. Also sees a neurologist. She states that after she was put on antibiotics in May she had an episode where she had numbness and tingling in her face and arm and headache and was seen back in the emergency department where she had imaging of her brain and significant workup at that time. Today she describes eyes twitching [id number] and neck stiffness and she is worried about infection going up to her brain. She has had no fevers or chills or sweats. She does have history of anxiety. She states she has heart trouble that they thought was due to her mental illness. [facility] Medical History (Updated 09/07/25 @ 00:[address] Kadie Grande, DO) Migraines MTHFR mutation Palpitations Wears glasses Loose, teeth Broken teeth Depression Anxiety History of IBS Gastric reflux History of hiatal hernia Non-smoker History of stress test Cardiology follow-up encounter History of echocardiogram Cholelithiasis PFO (patent foramen ovale) Atrial septal defect History of gastroesophageal reflux (GERD) Home Medications ?Medication ?Instructions ?Recorded ?Last Taken ?Type aspirin 81 mg tablet,delayed 81 mg PO DAILY 05/07/24 03/24/25 History release pantoprazole 40 mg tablet,delayed 40 mg PO BID 06/14/24 03/28/25 History release metronidazole 250 mg tablet 250 mg PO TID 09/06/25 Unknown History cephalexin 500 mg capsule 500 mg PO Q6 #40 CAPSULES 09/07/25 Unknown Rx lorazepam 0.5 mg tablet (Ativan) 0.5 mg PO TID PRN anxiety #10 tabs 09/07/25 Unknown Rx Allergy/AdvReac Type Severity Reaction Status Date / Time omeprazole Allergy Intermediate Other Verified 09/06/25 23:43 alprazolam Allergy NEEDS Verified 09/06/25 23:43 FOLLOW-UP azithromycin Allergy NEEDS Verified 09/06/25 23:43 FOLLOW-UP clindamycin Allergy Other Verified 09/06/25 23:43 Penicillins (PCN) Allergy NEEDS Verified 09/06/25 23:43 FOLLOW-UP Sulfa (Sulfonamide Allergy Other Verified 09/06/25 23:43 Antibiotics) doxycycline AdvReac Nausea/Vom/ Verified 09/06/25 23:43 Diarrhea erythromycin base AdvReac Nausea/Vom/ Verified 09/06/25 23:43 Diarrhea sertraline (From Zoloft) AdvReac Other Verified 09/06/25 23:43 Family History Grandmother Heart disease Grandfather Heart disease Surgical History History of cardiac catheterization History of esophagogastroduodenoscopy (EGD) Hx laparoscopic cholecystectomy Status post patent foramen ovale closure History of atrial septal defect repair Social History household members: family Smoking Status: Never smoker alcohol intake: never substance use type: does not use caffeine: Yes ROS ROS ED Review of Systems ROS Unobtainable: other Constitutional Constitutional ED: Reports lethargy; Denies chills, fever(s), sweats or weight loss Eyes Eyes: Denies blurry vision, change in vision or diplopia ENT ENT ED: Reports other Details: Photophobia, blurred vision ; Denies rhinorrhea or sore throat Cardiovascular Cardiovascular: Denies chest pain, orthopnea or racing heartbeat Respiratory/Chest Respiratory/Chest: Denies cough, dyspnea, dyspnea on exertion, orthopnea or sputum Gastrointestinal Gastrointestinal: Denies abdominal pain, diarrhea, nausea or vomiting Genitourinary Genitourinary ED: Denies dysuria, hematuria or urinary frequency Musculoskeletal Musculoskeletal: Denies arthralgias, back pain, myalgias or neck pain Integumentary Denies abscess, Abrasions or rash Neurologic Neurologic: Denies headache(s) or weakness Psychiatric Psychiatric: Denies anxiety, depression or suicidal thoughts Endocrine Endocrinology: Denies polydipsia, polyphagia or polyuria Hematologic/Lymphatic Hematologic/Lymphatic: Denies easy bleeding, easy bruising or lymphadenopathy Allergic/Immunologic Allergic/Immunologic ED: Denies mouth swelling, tongue swelling or urticaria EXAM Physical Exam Const Vital Signs: 09/06/25 23:41 Temperature 98.1 F Temperature Source Oral Pulse Rate 121 H Respiratory Rate 20 H Blood Pressure 148/104 H Blood Pressure Mean 118 Pulse Ox 100 Oxygen Delivery Method Room Air Positive well nourished and well developed General Appearance ED: well developed and NAD HEENT Reports TM's clear and moist mucous membranes HEENT Narrative: Teeth numbers 17 and 20 broken and carried. No gingival erythema or abscess. No facial swelling. TMs clear bilaterally. normocephalic and atraumatic; Negative for trauma or tenderness Tympanic Membrane ED: Yes TM's clear Eyes PERRL and EOMs intact bilaterally General Eye ED: Negative for pale conjunctiva or scleral icterus Neck no lymphadenopathy, supple and no JVD General: Negative for tenderness Chest Wall inspection of chest normal and palpation of chest normal Chest: Negative for tenderness Resp normal respiratory effort and clear to auscultation bilaterally Effort and Inspection: Negative for respiratory distress or pain with movement Auscultation: Negative for rhonchi, wheezes or diminished lung sounds Cardio regular rate, regular rhythm, S1 normal heart sound, S2 normal heart sound and no murmurs Peripheral Pulses: pulses 2+ throughout GI normal to inspection, nondistended, normoactive bowel sounds, soft to palpation, non-tender, non-distended and no masses Back/Spine no CVA tenderness and no thoracic nor lumbar tenderness Extremity normal to inspection General Extremety ED: Negative for edema General Extremity: Negative for edema Neuro oriented x3, CN's II-XII intact bilaterally, no sensory deficits noted and gait normal Neuro Narrative: Hallpike maneuver performed. There is no evidence of nystagmus on exam. Finger-nose and [id number]-wy-dscp testing within normal limits, negative Romberg, negative pronator drift, fundi benign. Negative kerning's and negative Brezinski sign. Sensorium / Orientation: awake, alert, oriented to person, oriented to place and oriented to time Motor Exam: strength 5/5 throughout and strength abnormal Psych mental status grossly normal Skin no rashes or lesions noted and no wounds MDM MDM MDM Narrative Medical decision making narrative: Patient with dental pain and currently on Flagyl due to the fact that she has multiple drug allergies. She has been on Keflex in the past and is tolerated that well. She feels like maybe the Flagyl is making her feel bad. Clinically she looks well. Do not suspect seizure activity. I suspect a component of anxiety potentially. Will switch her over to cephalexin and write for as needed Ativan as needed as well. She is advised to follow-up with her neurologist within the next 3 to 5 days. Advised to follow-up with her dentist. I do not feel she needs any further workup in the emergency department. Alprazolam is listed as an allergy in her medical record although she is not aware of an allergy to it. Discharge Plan Triage Chief Complaint: Dental ED Provider: Kadie Grande Dx/Rx/DC Orders Clinical Impression: Pain, dental, Anxiety Instructions: ED Anxiety Reaction, ED Dental Pain, ED Dental Cavity Prescriptions: New cephalexin 500 mg capsule 500 mg PO Q6 Qty: 40 0RF lorazepam [Ativan] 0.5 mg tablet 0.5 mg PO TID PRN (Reason: anxiety) Qty: 10 0RF No Action aspirin 81 mg tablet,delayed release (DR/EC) 81 mg PO DAILY pantoprazole 40 mg tablet,delayed release (DR/EC) 40 mg PO BID metronidazole 250 mg tablet 250 mg PO TID Primary Care Provider: Shruti Smith Referrals: Shruti Smith, DO [Primary Care Provider, Family Practice] - 3-5 Days Print Language: Estonian Disposition Disposition: Home, Self Care
--- OUTSIDE RECORDS SUMMARY | 2025-09-07 00:22 | XMS RPT_ITS | CCD ---
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 not acting right. The patient reports that she felt that she had severe headaches which she has had in the past and she was unable to speak. She was evaluated in stroke was ruled out. No definitive etiology was documented. The patient did not have atrial fibrillation she had an event monitor prior to this in December 2024 which showed that she had sinus tachycardia about 20% of the time The patient's last echo November 2024 showed agitated saline with a ilnoa-uh-yzho shunt at rest with Valsalva. A repeat echocardiogram was done in July after this event in May 2025 that showed normal LV size and left ventricular systolic function EF of 65% Amplatzer device was in place all valves were normal agitated saline was not utilized. The patient does have MTHFR mutation. She tells me she is homozygous. She is on aspirin only. She denies any DVTs or PEs. The patient reports that she continues to have these mild spells. To the point that she is not going out without someone with her. She has not had any recurring syncope but she does have these headaches and dizzy spells that are difficult to define. She also does complain of palpitations and tachycardias. Intake Vital Signs 06/25/25 15:12 08/04/25 12:53 Height 4 ft 11 in 4 ft 11 in Weight: 147 lb BMI 29.7 BP 134/85 H Blood Pressure Location Lt brachial Position Sitting Respiration 18 Pulse 114 H Pulse Source Monitor Intake Visit Reasons: 6 W FU Flow Trader Required: No Accompanied by: Friend Is patient in pain?: No Allergies omeprazole Allergy (Intermediate, Verified 08/04/25 12:54) Other alprazolam Allergy (Verified 08/04/25 12:54) NEEDS FOLLOW-UP azithromycin Allergy (Verified 08/04/25 12:54) NEEDS FOLLOW-UP clindamycin Allergy (Verified 08/04/25 12:54) Other Penicillins (PCN) Allergy (Verified 08/04/25 12:54) NEEDS FOLLOW-UP Sulfa (Sulfonamide Antibiotics) Allergy (Verified 08/04/25 12:54) Other doxycycline Adverse Reaction (Verified 08/04/25 12:54) Nausea/Vom/Diarrhea erythromycin base Adverse Reaction (Verified 08/04/25 12:54) Nausea/Vom/Diarrhea sertraline (From Zoloft) Adverse Reaction (Verified 08/04/25 12:54) Other Medications ???Medication ???Instructions ???Recorded ???Confirmed ???Type aspirin 81 mg tablet,delayed 81 mg PO DAILY 05/07/24 08/04/25 H istory release pantoprazole 40 mg tablet,delayed 40 mg PO BID 06/14/24 08/04/25 Hi story release Ejection fraction %: 65 Have you fallen in the past year?: No [facility] Medical History MTHFR mutation Palpitations Wears glasses Loose, teeth Broken teeth Depression [...] Heart disease Grandfather Heart disease Social History household members: family Smoking Status: Never smoker alcohol intake: never substance use type: does not use caffeine: Yes ROS Const Const: Negative for fatigue or weakness Eyes Eyes: Negative for change in vision ENT ENT: Positive for dizziness and balance problems Cardio Chest Pain: No (more content not included)... Normal [facility] Echo Completeon 07-23-2025 Echo Complete [facility] [address] [place] [id number] Echo Complete 07/23/25 1338 MR#: [id number] Acct: [id number] Name: PRABHA CODY Rep #: [id number] : 2000 From: Reese Grayson MD Attending Dr: KANWAL Adame Status: REG I Ordering Dr: Harsha Zhao NP CREDIT RISK REVIEW OFFICER-C Date: 07/23/25 Location: [facility] Sex: F C Admitted: Reason For Study Reason For Study: Atrial Septal Defect Procedure This was a 2D Doppler, Color Flow transthoracic echocardiogram. Exam performed in department. Left Ventricle Normal LV size. The left ventricular ejection fraction is 65 %. Stage 1 diastolic dysfunction. No regional wall motion abnormalities noted. Right Ventricle Normal RV size. Normal systolic function. Atria Normal left atrium. Normal right atrium. Amplatzer occluder device. Mitral Valve Normal mitral valve. Tricuspid Valve Normal tricuspid valve. Aortic Valve Trisinus/trileaflet aortic valve. Pulmonic Valve Normal pulmonic valve. Great Vessels Normal aortic root. The pulmonary artery is normal size. Inferior vena cava collapse with respiration. Pericardium/Pleural No pericardial effusion. MMode/2D Measurements Calculations LVIDd: 3.8 cm IVSd: 1.00 cm LAV(MOD-bp): 20.3 ml LVIDs: 2.3 cm LVPWd: 0.74 cm LAV(MOD-bp) Indexed: 12.9 ml/m2 RVDd: 3.2 cm FS: 39.8 % LAV(MOD-sp2): 19.1 ml LAV(MOD-sp4): 20.9 ml SV(MOD-sp4): 30.0 ml SV(sp4-el): 31.0 ml LVAd ap4: 19.4 cm2 LVLd ap4: 6.8 cm SI(MOD-sp4): 19.0 ml/m2 EDV(MOD-sp4): 46.2 ml EDV(sp4-el): 47.1 ml LVAs ap4: 10.1 cm2 LVLs ap4: 5.3 cm ESV(MOD-sp4): 16.2 ml ESV(sp4-el): 16.1 ml EF(MOD-sp4): 64.9 % EF(sp4-el): 65.9 % LA A4 area: 10.5 cm2 LA dimension(2D): 2.5 cm RA A4 area: 9.3 cm2 TAPSE: 2.0 cm Time Measurements MV dec time: 0.14 sec Doppler Measurements Calculations MV E max carina: 79.1 cm/sec Lat Peak E' Carina: 16.5 cm/sec Med Peak E' Carina: 14.2 cm/sec MV A max carina: 86.8 cm/sec E/E' lat: 4.8 E/E' med: 5.6 MV E/A: 0.91 MV V2 max: 106.3 cm/sec MV P1/2t max carina: 101.4 cm/sec Ao V2 max: 123.4 cm/sec MV max P.5 mmHg MV P1/2t: 50.1 msec Ao max P.1 mmHg MV V2 mean: 68.3 cm/sec Ao V2 mean: 88.1 cm/sec MV mean P.2 mmHg MV dec slope: 593.5 cm/sec2 Ao mean P.5 mmHg MV V2 VTI: 16.7 cm MVA(P1/2t): 4.4 cm2 Ao V2 VTI: 22.1 cm AV (velocity ratio): 0.94 LV V1 max: 118.6 cm/sec LV V1 max P.6 mmHg LV V1 mean P.1 mmHg LV V1 mean: 82.3 cm/sec LV V1 VTI: 20.7 cm ECHO/Echo Complete Interpretation Summary Normal LV size. The left ventricular ejection fraction is 65 %. Stage 1 diastolic dysfunction. Amplatzer occluder device ___ Ordering Physician: Harsha Zhao Referring Physician: Harsha Zhao Performed By: Fernando Turcios RCS 07/23/25 1647 Date Reese Grayson MD CC: CREDIT RISK REVIEW OFFICER-C Harsha Zhao; Shruti Smith DO Date Dictated: 07/23/25 1338 Date Transcribed: 07/23/25 164 Regular Senior Care Provider: Signed Normal [facility] Venous Duplex US, Unilateral on 07-23-2025 Venous Duplex US, Unilateral [facility] [address] [place] [address] Venous Duplex US, Unilateral 07/23/25 1305 MR#: [id number] Acct: [id number] Name: PRABHA CODY Rep #: [id number] : 2000 From: Storm Weller MD Attending Dr: Harsha Zhao NP-C Status: REG CLI Ordering Dr: Harsha Zhao CREDIT RISK REVIEW OFFICER CREDIT RISK REVIEW OFFICER-C Date: 07/23/25 Location: [facility] Sex: F C Admitted: Reason For Study Reason For Study: Pain RIGHT LEFT CFV is compressible, spontaneous, phasic, competent GSV is normal. and demonstrates normal augmentation. CFV is compressible, spontaneous, phasic, competent, Procedure and demonstrates normal augmentation. This is a venous duplex using B-mode, color flow and FV is compressible, spontaneous, phasic, competent spectral Doppler. and demonstrates normal augmentation. Exam performed in department. POP V is compressible, spontaneous, phasic, competent and demonstrates normal augmentation. T/P Trunk is compressible. PTV is compressible. LT PerV is compressible. VL/Venous Duplex US, Unilateral Interpretation Summary Deep veins of the left lower extremity are patent and compressible segmentally. There is no evidence of left lower extremity deep vein thrombosis. The left great saphenous vein appears patent and compressible segmentally. ___ Ordering Physician: Harsha Zhao Referring Physician: Harsha Zhao Performed By: Geni Berg RVT 07/23/251836 Date Storm Weller MD CC: CREDIT RISK REVIEW OFFICER-C Harsha Zhao; Shruti Smith DO Date Dictated: 07/23/25 1305 Date Transcribed: 07/23/251836 Regular Senior Care Provider: Signed Normal [facility] Urine Cultureon 06-28-2025 URC #2 Below infection l evel. Urine Culture Urine Culture Mixed Gram Positive Organisms [place] Count 11,000-25,000 MIXC Mixed contaminants. Submit a new specimen if indicated. GNRL [place] Count <1000 Normal [facility] Comment on above: Performed By: #### L 501.9520, M100.2200, L500.4050, L400.0001, L100.0100 #### [facility] [address] [place], [place], [id number] Absolute lymphocyte countOrd ered By: Shruti Smith on 06-25-2025 Lymphocytes Auto (Unsp spec) [#/Vol] 1.30 10*3/uL 0.83-4.51 [facility] Absolute neutrophil countOrd ered By: Shruti Smith on 06-25-2025 Neutrophils (Bld) [#/Vol] 5.4 10*3/uL 2.0-7.7 [facility] Anion gap in Serum or Plasma Ordered By: Shruti Smith on 06-25-2025 Anion gap [Moles/Vol] 11 mmol/L 5-15 [facility] Automated lymphocyte count a s percentage of total leukocytesOrdered By: Shruti Smith on 06-25-2025 Lymphocytes/100 WBC Auto (Unsp spec) 17.4 % Low 19-41 [facility] BUN/creatinine ratioOrdered By: Shrutievelyn Smith on 06-25-2025 Urea nitrogen/Creatinine [Mass ratio] 16.2 mg/mg 10- [facility] Basophil percentageOrdered B y: Shruti Smith on 06-25-2025 Basophils/100 WBC (Bld) 0.4 % 0- [facility] Bilirubin, totalOrdered By: Shruti Smith on 06-25-2025 Bilirubin [Mass/Vol] 0.34 mg/dL 0.00-1.30 [facility] CBC W/Diff, Automatedon 06-09 Absolute Lymph 1.30 X10 3/uL Normal 0.83-4.51 [facility] Comment on above: Performed By: #### L 501.9520, M100.2200, L500.4050, L400.0001, L100.0100 #### [facility] [address] [place], [address] Absolute Neut 5.4 X10 3/uL Normal 2.0-7.7 [facility] Comment on above: Performed By: #### L 501.9520, M100.2200, L500.4050, L400.0001, L100.0100 #### [facility] [address] [place], [address] Basophils/100 WBC (Bld) 0.4 % Normal 0-1 [facility] Comment on above: Performed By: #### L 501.9520, M100.2200, L500.4050, L400.0001, L100.0100 #### [facility] [address] [place], [address] Eosinophils/100 WBC (Bld) 1.5 % Normal 0-5 [facility] Comment on above: Performed By: #### L 501.9520, M100.2200, L500.4050, L400.0001, L100.0100 #### [facility] [address] [place], [address] Erythrocyte distribution width (RBC) [Ratio] 12.5 % Normal 11.6-14.6 [facility] Comment on above: Performed By: #### L 501.9520, M100.2200, L500.4050, L400.0001, L100.0100 #### [facility] [address] [place], [address] Hematocrit (Bld) [Volume fraction] 40.3 % Normal 37-47 [facility] Comment on above: Performed By: #### L 501.9520, M100.2200, L500.4050, L400.0001, L100.0100 #### [facility] [address] [place], [address] Hemoglobin (Bld) [Mass/Vol] 13.5 g/dL Normal 12.0-15.0 [facility] Comment on above: Performed By: #### L 501.9520, M100.2200, L500.4050, L400.0001, L100.0100 #### [facility] [address] [place], [address] IG% 1.100 High 0.0-0.9 [facility] Comment on above: Result Comment: IG% - Immature Granulocytes (promyelocytes, myelocytes and metamyelocytes) > 1% indicates that a LEFT SHIFT is Present. Performed By: #### L 501.9520, M100.2200, L500.4050, L400.0001, L100.0100 #### [facility] [address] [place], [address] Lymphocytes/100 WBC (Bld) 17.4 % Low 19-41 [facility] Comment on above: Performed By: #### L 501.9520, M100.2200, L500.4050, L400.0001, L100.0100 #### [facility] [address] [place], [address] MCH (RBC) [Entitic mass] 30.7 pg Normal 27.0-32.0 [facility] Comment on above: Performed By: #### L 501.9520, M100.2200, L500.4050, L400.0001, L100.0100 #### [facility] [address] [place], [address] MCHC (RBC) [Mass/Vol] 33.5 g/dL Normal 32-36 [facility] Comment on above: Performed By: #### L 501.9520, M100.2200, L500.4050, L400.0001, L100.0100 #### [facility] [address] [place], [address] MCV (RBC) [Entitic vol] 91.6 fL Normal 81-99 [facility] Comment on above: Performed By: #### L 501.9520, M100.2200, L500.4050, L400.0001, L100.0100 #### [facility] [address] [place], [address] Monocytes/100 WBC (Bld) 7.0 % Normal 0-10 [facility] Comment on above: Performed By: #### L 501.9520, M100.2200, L500.4050, L400.0001, L100.0100 #### [facility] [address] [place], [address] Neutrophils/100 WBC (Bld) 72.6 % High 47-70 [facility] Comment on above: Performed By: #### L 501.9520, M100.2200, L500.4050, L400.0001, L100.0100 #### [facility] [address] [place], [address] Nucleated RBC (Bld) [#/Vol] 0 10*3/uL Normal 0-5 [facility] Comment on above: Performed By: #### L 501.9520, M100.2200, L500.4050, L400.0001, L100.0100 #### [facility] [address] [place], [address] Platelet mean volume (Bld) [Entitic vol] 10.1 fL Normal 6.2-12.0 [facility] Comment on above: Performed By: #### L 501.9520, M100.2200, L500.4050, L400.0001, L100.0100 #### [facility] [address] [place], [address] Platelets (Bld) [#/Vol] 347 10*3/uL Normal 150-450 [facility] Comment on above: Performed By: #### L 501.9520, M100.2200, L500.4050, L400.0001, L100.0100 #### [facility] [address] [place], [address] RBC (Bld) [#/Vol] 4.40 10*6/uL Normal 4.2-5.4 [facility] Comment on above: Performed By: #### L 501.9520, M100.2200, L500.4050, L400.0001, L100.0100 #### [facility] [address] [place], [address] RDW SD 42.4 fl Normal 35.1-43.9 [facility] Comment on above: Performed By: #### L 501.9520, M100.2200, L500.4050, L400.0001, L100.0100 #### [facility] [address] [place], [address] WBC (Bld) [#/Vol] 7.5 10*3/uL Normal 4.4-11.0 [facility] Comment on above: Performed By: #### L 501.9520, M100.2200, L500.4050, L400.0001, L100.0100 #### [facility] [address] [place], [address] Carbon dioxide, total [Moles /volume] in Central venous bloodOrdered By: Shruti Smith on 06-25-2025 CO2 [Moles/Vol] 23.6 mmol/L 21.0-32.0 [facility] Cardiology Visit Reporton Cardiology Visit Report [facility] [place] [facility] [address] [place], [place] [address] OFFICE VISIT Date of Service: 06/25/25 MR#: [id number] Acct: [id number] Name: PRABHA CODY Rep #: [id number] : 2000 Provider: KANWAL hilton Age/Sex: 24/F Location: [facility] [place] Status: Signed HPI HPI History of Present Illness Details: Patient 24-year-old white female that comes in with a [...] originally done by Dr. Hosea Gallagher at [facility]. Patient's last echocardiogram April 10, 2023 showed normal LV size and function with EF of 60-65% normal diastolic function. There was a small right to left intracardiac shunt by saline contrast injection this had been previously visualized on the echo Doppler study September 2020. Patient has a history of ASD repair by that report in 2019. Event monitor from December 2024 showed average heart rate 86 bpm, maximal heart 151 bpm at 2:07 PM, and minimum heart rate of 55 beats minute at 8:02 AM. Her maximum heart rate was noted to be sinus tachycardia and her minimum was noted be sinus bradycardia. She was seen in the Emergency Department on 06/08/2025 for syncope. Per documentation, mom had noted that patient was not acting right at home and that by time they got to the emergency department her symptoms normalized. Her laboratory workup was unremarkable. Head/neck CTA showed no carotid stenosis and that major vascular structures in the head and neck were grossly unremarkable. She recently teeth pulled due to infection not being controlled with oral antibiotics. She acknowledges occasional chest pain into her shoulders that she attributes to acid reflux. She acknowledges palpitations that she describes as fast when lying down. She denies bilateral lower extremity edema. She denies shortness with activity, shortness of breath at rest, orthopnea, or PND. She acknowledges lightheadedness and near syncope. She states feeling off balanced. She denies dizziness, syncope, weakness, or fatigue. Intake Vital Signs 06/08/25 11:49 06/25/25 15:12 06/25/25 15:59 Height 4 ft 11 in 4 ft 11 in Weight: 139 lb BMI 28.0 BP 138/96 H Blood Pressure Location Lt brachial Position Sitting Respiration 16 Pulse 120 H 117 H Pulse Source NIBP Comment ECG Intake Visit Reasons: S/P 06/08 [facility] Flow Trader Required: No Is patient in pain?: No Allergies omeprazole Allergy (Intermediate, Verified 06/25/25 15:32) Other alprazolam Allergy (Verified 06/25/25 15:32) NEEDS FOLLOW-UP azithromycin Allergy (Verified 06/25/25 15:32) NEEDS FOLLOW-UP clindamycin Allergy (Verified 06/25/25 15:32) Other Penicillins (PCN) Allergy (Verified 06/25/25 15:32) NEEDS FOLLOW-UP Sulfa (Sulfonamide Antibiotics) Allergy (Verified 06/25/25 15:32) Other doxycycline Adverse Reaction (Verified 06/08/25 11:53) Nausea/Vom/Diarrhea erythromycin base Adverse Reaction (Verified 06/25/25 15:32) Nausea/Vom/Diarrhea sertraline (From Zoloft) Adverse Reaction (Verified 06/25/25 15:32) Other Medications ???Medication ???Instructions ???Recorded ???Confirmed ???Type aspirin 81 mg tablet,delayed 81 mg PO DAILY 05/07/24 06/25/25 H istory release pantoprazole 40 mg tablet,delayed 40 mg PO BID 06/14/24 06/25/25 Hi story release Ejection fraction %: 55 (55-60) Have you fallen in the past year?: No [facility] Medical History (Updated 06/25/25 @ 16:05 by Harsha Zhao CREDIT RISK REVIEW OFFICER, CREDIT RISK REVIEW OFFICER-C) MTHFR mutation Palpitations Wears glasses Loose, teeth Broken teeth Depression Anxiety History of IBS Gastric reflux History of hiatal hernia Non-smoker History of stress test Cardiology follow-up encounter History of echocardiogram Cholelithiasis PFO (patent foramen ovale) Atrial septal defect History of gastroesophageal reflux (GERD) Surgical History (Reviewed 06/25/25 @ 16:02 by Harsha Zhao CREDIT RISK REVIEW OFFICER, CREDIT RISK REVIEW OFFICER-C) History o (more content not included)... Normal [facility] Chloride assayOrdered By: Darvin Smith on 06-25-2025 Chloride [Moles/Vol] 104 mmol/L 98-108 [facility] Comprehensive Metabolic Prof ilon 06-25-2025 Albumin [Mass/Vol] 4.5 g/dL Normal 3.5-5.0 [facility] Comment on above: Performed By: #### L 501.9520, M100.2200, L500.4050, L400.0001, L100.0100 #### [facility] [address] [place], [address] Albumin/Globulin [Mass ratio] 1.6 {ratio} Normal 0.9-2.4 [facility] Comment on above: Performed By: #### L 501.9520, M100.2200, L500.4050, L400.0001, L100.0100 #### [facility] [address] [place], [address] ALK PHOS 84 U/L Normal 35-104 [facility] Comment on above: Performed By: #### L 501.9520, M100.2200, L500.4050, L400.0001, L100.0100 #### [facility] [address] [place], [address] ALT [Catalytic activity/Vol] 10 U/L Normal <=34 [facility] Comment on above: Performed By: #### L 501.9520, M100.2200, L500.4050, L400.0001, L100.0100 #### [facility] [address] [place], [address] AST [Catalytic activity/Vol] 14 U/L Normal <=31 [facility] Comment on above: Performed By: #### L 501.9520, M100.2200, L500.4050, L400.0001, L100.0100 #### [facility] [address] [place], [address] Bilirubin [Mass/Vol] 0.34 mg/dL Normal 0.00-1.30 [facility] Comment on above: Performed By: #### L 501.9520, M100.2200, L500.4050, L400.0001, L100.0100 #### [facility] [address] [place], [address] BUN/CRE 16.2 RATIO Normal 10-20 [facility] Comment on above: Performed By: #### L 501.9520, M100.2200, L500.4050, L400.0001, L100.0100 #### [facility] [address] [place], [address] Calcium [Mass/Vol] 9.3 mg/dL Normal 7.6-11.0 [facility] Comment on above: Performed By: #### L 501.9520, M100.2200, L500.4050, L400.0001, L100.0100 #### [facility] [address] [place], [address] Chloride [Moles/Vol] 104 mmol/L Normal 98-108 [facility] Comment on above: Performed By: #### L 501.9520, M100.2200, L500.4050, L400.0001, L100.0100 #### [facility] [address] [place], [address] CO2 [Moles/Vol] 23.6 mmol/L Normal 21.0-32.0 [facility] Comment on above: Performed By: #### L 501.9520, M100.2200, L500.4050, L400.0001, L100.0100 #### [facility] [address] [place], [address] Creatinine [Mass/Vol] 0.79 mg/dL Normal 0.70-1.20 [facility] Comment on above: Performed By: #### L 501.9520, M100.2200, L500.4050, L400.0001, L100.0100 #### [facility] [address] [place], [address] GAP 11 Normal 5-15 [facility] Comment on above: Performed By: #### L 501.9520, M100.2200, L500.4050, L400.0001, L100.0100 #### [facility] [address] [place], [address] GFR/1.73 sq M.predicted among non-blacks MDRD (S/P/Bld) [Vol rate/Area] 107 mL/min/{1.73_m2} Normal >60 [facility] Comment on above: Result Comment: mL/m in/1.73m2 CKD-EPI Creatinine Equation (2020) Performed By: #### L 501.9520, M100.2200, L500.4050, L400.0001, L100.0100 #### [facility] [address] [place], [address] Globulin (S) [Mass/Vol] 2.8 g/dL Normal 2.2-4.2 [facility] Comment on above: Performed By: #### L 501.9520, M100.2200, L500.4050, L400.0001, L100.0100 #### [facility] [address] [place], [address] Glucose [Mass/Vol] 106 mg/dL High 70-99 [facility] Comment on above: Performed By: #### L 501.9520, M100.2200, L500.4050, L400.0001, L100.0100 #### [facility] [address] [place], [address] Potassium [Moles/Vol] 4.0 mmol/L Normal 3.3-5.1 [facility] Comment on above: Performed By: #### L 501.9520, M100.2200, L500.4050, L400.0001, L100.0100 #### [facility] [address] [place], [address] Sodium [Moles/Vol] 139 mmol/L Normal 133-145 [facility] Comment on above: Performed By: #### L 501.9520, M100.2200, L500.4050, L400.0001, L100.0100 #### [facility] [address] [place], [address] T PROT 7.3 g/dL Normal 5.9-8.4 [facility] Comment on above: Performed By: #### L 501.9520, M100.2200, L500.4050, L400.0001, L100.0100 #### [facility] [address] [place], [address] Urea nitrogen [Mass/Vol] 13 mg/dL Normal 4-19 [facility] Comment on above: Performed By: #### L 501.9520, M100.2200, L500.4050, L400.0001, L100.0100 #### [facility] [address] [place], [address] Eosinophil percentageOrdered By: Shruti Smith on 06-25-2025 Eosinophils/100 WBC (Bld) 1.5 % 0-5 [facility] Erythrocyte distribution wid th ratioOrdered By: Shruti Smith on 06-25-2025 Erythrocyte distribution width (RBC) [Ratio] 12.5 % 11.6-14.6 [facility] Erythrocyte distribution wid th standard deviationOrdered By: Shruti Smith on 06-25-2025 Erythrocyte distribution width (RBC) [Ratio] 42.4 fl 35.1-43.9 [facility] Glomerular filtration rate ( GFR) estimation/1.73 sq m using serum, plasma, or whole bOrdered By: Shruti Smith on 06-25-2025 GFR/1.73 sq M.predicted among non-blacks MDRD (S/P/Bld) [Vol rate/Area] 107 mL/min/{1.73_m2} >60 [facility] Comment on above: mL/min/1.73m2 CKD-EP I Creatinine Equation (2020) Hematocrit Auto (Bld) [Volum e fraction]Ordered By: Shruti Smith on 06-25-2025 Hematocrit (Bld) [Volume fraction] 40.3 % 37-47 [facility] Hemoglobin A1con 06-25-2025 HbA1c (Bld) [Mass fraction] 5.2 % Normal <=5.6 [facility] Comment on above: Result Comment: Norm al < 5.7 % Prediabetic 5.7 - 6.4 % Diabetic >or= 6.5 % Please note range changes. Performed By: #### L 501.9520, M100.2200, L500.4050, L400.0001, L100.0100 #### [facility] [address] [place], [place], [address] Hemoglobin A1c percentageOrd ered By: Shruti Smith on 06-25-2025 HbA1c (Bld) [Mass fraction] 5.2 % <5.7 [facility] Comment on above: Normal < 5.7 % Predi abetic 5.7 - 6.4 % Diabetic >or= 6.5 % Please note range changes. Hemoglobin measurementOrdere d By: Shruti Smith on 06-25-2025 Hemoglobin (Bld) [Mass/Vol] 13.5 g/dL 12.0-15.0 [facility] Immature granulocytes/100 WB C Auto (Bld)Ordered By: Shruti Smith on 06-25-2025 Immature granulocytes/100 WBC (Bld) 1.100 % High 0.0-0.9 [facility] Comment on above: IG% - Immature Granu locytes (promyelocytes, myelocytes and metamyelocytes) > 1% indicates that a LEFT SHIFT is Present. Laboratory - Chemistry and C hemistry - challengeOrdered By: Shruti Smith on 06-25-2025 AST [Catalytic activity/Vol] 14 U/L <32 [facility] MCV (mean corpuscular volume ) determinationOrdered By: Shruti Smith on 06-25-2025 MCV (RBC) [Entitic vol] 91.6 fL 81-99 [facility] Magnesiumon 06-25-2025 Magnesium [Mass/Vol] 2.1 mg/dL Normal 1.5-2.2 [facility] Comment on above: Performed By: #### L 501.0220, M100.2200, L500.4050, L400.0001, L100.0100 #### [facility] [address] [place], [address] Magnesium measurement (mass/ volume)Ordered By: Shruti Smith on 06-25-2025 Magnesium (Unsp spec) [Mass/Vol] 2.1 mg/dL 1.5-2.2 [facility] Mean corpuscular hemoglobin (MCH) determinationOrdered By: Shruti Smith on 06-25-2025 MCH (RBC) [Entitic mass] 30.7 pg 27.0-32.0 [facility] Mean corpuscular hemoglobin concentration (MCHC) determinationOrdered By: Shruti Smith on 06-25-2025 MCHC (RBC) [Mass/Vol] 33.5 g/dL 32-36 [facility] Mean platelet volume determi nationOrdered By: Shruti Smith on 06-25-2025 Platelet mean volume (Bld) [Entitic vol] 10.1 fL 6.2-12.0 [facility] Monocyte percentageOrdered B y: Shruti Smith on 06-25-2025 Monocytes/100 WBC (Bld) 7.0 % 0-10 [facility] Neutrophil percentageOrdered By: Shruti Smith on 06-25-2025 Neutrophils/100 WBC (Bld) 72.6 % High 47-70 [facility] Nucleated red blood cell per centageOrdered By: Shruti Smith on 06-25-2025 Nucleated RBC/100 WBC (Bld) [Ratio] 0 % 0-5 [facility] Platelet countOrdered By: Darvin Smith on 06-25-2025 Platelets (Bld) [#/Vol] 347 10*3/uL 150-450 [facility] Potassium measurement (mass/ volume)Ordered By: Shruti Smith on 06-25-2025 Potassium (Unsp spec) [Mass/Vol] 4.0 mmol/L 3.3-5.1 [facility] RBC Auto (Bld) [#/Vol]Ordere d By: Shruti Smith on 06-25-2025 RBC (Bld) [#/Vol] 4.40 10*6/uL 4.2-5.4 [facility] Serum creatinine measurement (mass/volume)Ordered By: Shruit Smith on 06-25-2025 Creatinine [Mass/Vol] 0.79 mg/dL 0.70-1.20 [facility] Serum globulin measurementOr dered By: Shruti Smith on 06-25-2025 Globulin (S) [Mass/Vol] 2.8 g/dL 2.2-4.2 [facility] Serum glucose measurement (m ass/volume)Ordered By: Shruti Smith on 06-25-2025 Glucose [Mass/Vol] 106 mg/dL High 70-99 [facility] Serum or plasma alanine ayoub otransferase (ALT) measurementOrdered By: Shruti Smith on 06-25-2025 ALT [Catalytic activity/Vol] 10 U/L <35 [facility] Serum or plasma albumin sindy urement (mass/volume)Ordered By: Shruti Smith on 06-25-2025 Albumin [Mass/Vol] 4.5 g/dL 3.5-5.0 [facility] Serum or plasma albumin/glob ulin mass ratioOrdered By: Shruti Smith on 06-25-2025 Albumin/Globulin [Mass ratio] 1.6 {ratio} 0.9-2.4 [facility] Serum or plasma alkaline daljit sphatase measurementOrdered By: Shruti Smith on 06-25-2025 ALP [Catalytic activity/Vol] 84 U/L 35-104 [facility] Serum or plasma calcium sindy urement (mass/volume)Ordered By: Shruti Smith on 06-25-2025 Calcium [Mass/Vol] 9.3 mg/dL 7.6-11.0 [facility] Serum or plasma urea nitroge n measurement (mass/volume)Ordered By: Shruti Smith on 06-25-2025 Urea nitrogen [Mass/Vol] 13 mg/dL 4-19 [facility] Sodium levelOrdered By: Sascha Smith on 06-25-2025 Sodium [Moles/Vol] 139 mmol/L 133-145 [facility] TSH DL <= 0.005 mIU/L QnOrde red By: Shruti Smith on 06-25-2025 TSH Qn 1.590 uIU/mL 0.300-4.200 [facility] Thyroid Stim Hormone (TSH)on 06-25-2025 TSH 1.590 uIU/mL Normal 0.300-4.200 [facility] Comment on above: Performed By: #### L 501.9520, M100.2200, L500.4050, L400.0001, L100.0100 #### [facility] [address] [place], [place], [id number] Total proteinOrdered By: Jeane Smith on 06-25-2025 Protein [Mass/Vol] 7.3 g/dL 5.9-8.4 [facility] Urine cultureOrdered By: Jeane Smith on 06-25-2025 Bacteria identified Cx Nom (U) Positive Abnormal [facility] Bacteria identified Cx Nom (U) GNR lactose cardiac technician Abnormal [facility] Vitamin B12on 06-25-2025 Cobalamin (Vitamin B12) [Mass/Vol] 239 pg/mL Normal 180-914 [facility] Comment on above: Performed By: #### L 501.9520, M100.2200, L500.4050, L400.0001, L100.0100 #### [facility] [address] [place], [address] Vitamin B12 ser/plasOrdered By: Shruti Smith on 06-25-2025 Cobalamin (Vitamin B12) [Mass/Vol] 239 pg/mL 180-914 [facility] White blood cell (WBC) count Ordered By: Shruti Smith on 06-25-2025 WBC (Bld) [#/Vol] 7.5 10*3/uL 4.4-11.0 [facility] CNPNon 06-10-2025 CNPN Telephone (NEUUPD) ----- NAYELYCEDRIC ([id number]) 89 F Date Time Provider Department 06/10/25 BALTA ERVIN During your visit today, we recorded the following information about you: Jhonatan Yang 06/10/2025 2:47 PM Signed Patients primary care doctor will fax over a referral for the patient to see . Allergies As of Date: 06/10/2025 Noted Allergy Reaction PENICILLINS 02/19/2024 10 - Anaphylaxis ZOLOFT (SERTRALINE) 02/19/2024 16 - Unknown Date Reviewed: 02/19/2024 Reviewed by: James Christianson APRN.LIFE INSURANCE UNDERWRITER - Fully Assessed Reason for Visit: Appointment [...] Encounter Status:Closed by JHONATAN YANG on 06/10/25 [facility] 12 Lead EKGon 06-08-2025 12 Lead EKG [facility] Cardiovascular Services [address] [place] [address] 12 Lead EKG 06/08/25 1228 MR#: [id number] Acct: [id number] Name: PRABHA CODY Rep #: [id number] : 2000 24 From: Marques Barger MD [...] rhythm Normal ECG Confirmed by Marques Barger ([id number]), news editor HE RAYMOND ([id number]) on 06/10/2025 10:35:26 AM Referred By: Confirmed By: Marques Barger 06/10/25 1035 Date Marques Barger MD CC: Dr. Kosta Del Angel MD; Shruti Smith DO Signed Normal [facility] Absolute lymphocyte countOrd ered By: Kosta Del Angel on 06-08-2025 Lymphocytes Auto (Unsp spec) [#/Vol] 0.91 10*3/uL 0.83-4.51 [facility] Absolute neutrophil countOrd ered By: Kosta Del Angel on 06-08-2025 Neutrophils (Bld) [#/Vol] 5.9 10*3/uL 2.0-7.7 [facility] Anion gap in Serum or Plasma Ordered By: Kosta Del Angel on 06-08-2025 Anion gap [Moles/Vol] 13 mmol/L 5-15 [facility] Automated lymphocyte count a s percentage of total leukocytesOrdered By: Kosta Del Angel on 06-08-2025 Lymphocytes/100 WBC Auto (Unsp spec) 12.2 % Low 19-41 [facility] BUN/creatinine ratioOrdered By: Kosta Del Angel on 06-08-2025 Urea nitrogen/Creatinine [Mass ratio] 19.5 mg/mg 10- [facility] Basic Metabolic Profile (BMP )on 06-08-2025 BUN/CRE 19.5 RATIO Normal - [facility] Comment on above: Performed By: #### M 100.2200 #### [facility] [address] [place], [place], [address] Calcium [Mass/Vol] 9.5 mg/dL Normal 7.6-11.0 [facility] Comment on above: Performed By: #### M 100.2200 #### [facility] [address] [place], [address] Chloride [Moles/Vol] 107 mmol/L Normal 98-108 [facility] Comment on above: Performed By: #### M 100.2200 #### [facility] [address] [place], [address] CO2 [Moles/Vol] 20.0 mmol/L Low 21.0-32.0 [facility] Comment on above: Performed By: #### M 100.2200 #### [facility] [address] [place], [address] Creatinine [Mass/Vol] 0.88 mg/dL Normal 0.70-1.20 [facility] Comment on above: Performed By: #### M 100.2200 #### [facility] [address] [place], [address] GAP 13 Normal 5-15 [facility] Comment on above: Performed By: #### M 100.2200 #### [facility] [address] [place], [address] GFR/1.73 sq M.predicted among non-blacks MDRD (S/P/Bld) [Vol rate/Area] 93 mL/min/{1.73_m2} Normal >60 [facility] Comment on above: Result Comment: mL/m in/1.73m2 CKD-EPI Creatinine Equation (2020) Performed By: #### M 100.2200 #### [facility] [address] [place], [address] Glucose [Mass/Vol] 109 mg/dL High 70-99 [facility] Comment on above: Performed By: #### M 100.2200 #### [facility] [address] [place], [address] Potassium [Moles/Vol] 4.6 mmol/L Normal 3.3-5.1 [facility] Comment on above: Result Comment: Hemo lysis present, Results??could be affected. ?? Performed By: #### M 100.2200 #### [facility] [address] [place], [address] Sodium [Moles/Vol] 140 mmol/L Normal 133-145 [facility] Comment on above: Performed By: #### M 100.2200 #### [facility] [address] [place], [address] Urea nitrogen [Mass/Vol] 17 mg/dL Normal 4-19 [facility] Comment on above: Performed By: #### M 100.2200 #### [facility] [address] [place], [address] Basophil percentageOrdered B y: Kosta Del Angel on 06-08-2025 Basophils/100 WBC (Bld) 0.5 % 0-1 [facility] CBC W/Diff, Automatedon 05-11-2024 Absolute Lymph 0.91 X10 3/uL Normal 0.83-4.51 [facility] Comment on above: Performed By: #### L 100.0100 #### [facility] [address] [place], [address] Absolute Neut 5.9 X10 3/uL Normal 2.0-7.7 [facility] Comment on above: Performed By: #### L 100.0100 #### [facility] [address] [place], [address] Basophils/100 WBC (Bld) 0.5 % Normal 0-1 [facility] Comment on above: Performed By: #### L 100.0100 #### [facility] [address] [place], [address] Eosinophils/100 WBC (Bld) 1.5 % Normal 0-5 [facility] Comment on above: Performed By: #### L 100.0100 #### [facility] [address] [place], [address] Erythrocyte distribution width (RBC) [Ratio] 12.6 % Normal 11.6-14.6 [facility] Comment on above: Performed By: #### L 100.0100 #### [facility] [address] [place], [address] Hematocrit (Bld) [Volume fraction] 38.4 % Normal 37-47 [facility] Comment on above: Performed By: #### L 100.0100 #### [facility] [address] [place], [address] Hemoglobin (Bld) [Mass/Vol] 13.1 g/dL Normal 12.0-15.0 [facility] Comment on above: Performed By: #### L 100.0100 #### [facility] [address] [place], [address] IG% 0.700 Normal 0.0-0.9 [facility] Comment on above: Result Comment: IG% - Immature Granulocytes (promyelocytes, myelocytes and metamyelocytes) > 1% indicates that a LEFT SHIFT is Present. Performed By: #### L 100.0100 #### [facility] [address] [place], [address] Lymphocytes/100 WBC (Bld) 12.2 % Low 19-41 [facility] Comment on above: Performed By: #### L 100.0100 #### [facility] [address] [place], [address] MCH (RBC) [Entitic mass] 30.8 pg Normal 27.0-32.0 [facility] Comment on above: Performed By: #### L 100.0100 #### [facility] [address] [place], [address] MCHC (RBC) [Mass/Vol] 34.1 g/dL Normal 32-36 [facility] Comment on above: Performed By: #### L 100.0100 #### [facility] [address] [place], [address] MCV (RBC) [Entitic vol] 90.4 fL Normal 81-99 [facility] Comment on above: Performed By: #### L 100.0100 #### [facility] [address] [place], [address] Monocytes/100 WBC (Bld) 5.9 % Normal 0-10 [facility] Comment on above: Performed By: #### L 100.0100 #### [facility] [address] [place], [address] Neutrophils/100 WBC (Bld) 79.2 % High 47-70 [facility] Comment on above: Performed By: #### L 100.0100 #### [facility] [address] [place], [address] Nucleated RBC (Bld) [#/Vol] 0 10*3/uL Normal 0-5 [facility] Comment on above: Performed By: #### L 100.0100 #### [facility] [address] [place], [address] Platelet mean volume (Bld) [Entitic vol] 10.2 fL Normal 6.2-12.0 [facility] Comment on above: Performed By: #### L 100.0100 #### [facility] [address] [place], [address] Platelets (Bld) [#/Vol] 322 10*3/uL Normal 150-450 [facility] Comment on above: Performed By: #### L 100.0100 #### [facility] [address] [place], [address] RBC (Bld) [#/Vol] 4.25 10*6/uL Normal 4.2-5.4 [facility] Comment on above: Performed By: #### L 100.0100 #### [facility] [address] [place], [address] RDW SD 41.5 fl Normal 35.1-43.9 [facility] Comment on above: Performed By: #### L 100.0100 #### [facility] [address] [place], [address] WBC (Bld) [#/Vol] 7.5 10*3/uL Normal 4.4-11.0 [facility] Comment on above: Performed By: #### L 100.0100 #### [facility] [address] [place], [address] Absolute Neut Normal 2.0-7.7 [facility] Comment on above: Result Comment: CLOT DOMINIK Performed By: #### M 100.2200 #### [facility] [address] [place], [address] HCT Normal 37-47 [facility] Comment on above: Result Comment: CLOT DOMINIK Performed By: #### M 100.2200 #### [facility] [address] [place], [address] HGB Normal 12.0-15.0 [facility] Comment on above: Result Comment: CLOT DOMINIK Performed By: #### M 100.2200 #### [facility] [address] [place], [address] MCH Normal 27.0-32.0 [facility] Comment on above: Result Comment: CLOT DOMINIK Performed By: #### M 100.2200 #### [facility] [address] [place], [address] MCHC Normal 32-36 [facility] Comment on above: Result Comment: CLOT DOMINIK Performed By: #### M 100.2200 #### [facility] [address] [place], [address] MCV Normal 81-99 [facility] Comment on above: Result Comment: CLOT DOMINIK Performed By: #### M 100.2200 #### [facility] [address] [place], [address] NEUT% Normal 47-70 [facility] Comment on above: Result Comment: CLOT DOMINIK Performed By: #### M 100.2200 #### [facility] [address] [place], [address] PLT Normal 150-450 [facility] Comment on above: Result Comment: CLOT DOMINIK Performed By: #### M 100.2200 #### [facility] [address] [place], [address] RBC Normal 4.2-5.4 [facility] Comment on above: Result Comment: CLOT DOMINIK Performed By: #### M 100.2200 #### [facility] [address] [place], [address] RDW CV Normal 11.6-14.6 [facility] Comment on above: Result Comment: CLOT DOMINIK Performed By: #### M 100.2200 #### [facility] [address] [place], [address] RDW SD Normal 35.1-43.9 [facility] Comment on above: Result Comment: CLOT DOMINIK Performed By: #### M 100.2200 #### [facility] [address] [place], [address] WBC Normal 4.4-11.0 [facility] Comment on above: Result Comment: CLOT DOMINIK Performed By: #### M 100.2200 #### [facility] [address] [place], [address] CTA Head AND Neck W/ Contras ton 06-08-2025 CTA Head AND Neck W/ Contrast [facility] Imaging Services [address] [place] [address] CTA Head AND Neck W/ Contrast MR#: [id number] Acct: [id number] Name: PRABHA CODY Rep #: [id number] : 2000 From: Mio hilton MD PCP: Shruti Smith DO Status: REG ER Study: CTA Head AND Neck W/ Contrast Date of Exam: Exam# [id number] Ordering Dr: Kosta Del Angel MD PROCEDURE: [...] RIGHT Vertebral: Unremarkable. LEFT Vertebral: Unremarkable. Anatomy: [place] anatomy is normal. Aneurysm or [...] and neck are grossly unremarkable. Reading Location: [facility] CC: Dr. Kosta Del Angel MD; Shruti Smith DO Regular Senior Care Provider: Signed Normal [facility] Carbon dioxide, total [Moles /volume] in Central venous bloodOrdered By: Kosta Del Angel on 06-08-2025 CO2 [Moles/Vol] 20.0 mmol/L Low 21.0-32.0 [facility] Chest PA and Lateralon 06-08 Chest PA and Lateral [facility] Imaging Services [address] [place] [address] Chest PA and Lateral MR#: [id number] Acct: [id number] Name: PRABHA CODY JACOB Rep #: [id number] : 2000 24 From: Mio hilton MD PCP: Shruti Smith DO Status: REG ER Study: Chest PA and Lateral Date of Exam: 06/08/25 Exam# [id number] Ordering Dr: Kosta Del Angel MD PROCEDURE: CHEST PA AND LATERAL 06/08/2025 REASON FOR EXAM: ALOC RESOLVED TECHNIQUE: Procedure Code: RADCXR Modality: DX Procedure: CHEST PA AND LATERAL COMPARISON: None FINDINGS: The cardiomediastinal silhouette is within normal limits. The lungs are clear. No significant pleural effusion. No pneumothorax. Cholecystectomy clips. RAD/Chest PA and Lateral IMPRESSION: NO ACUTE FINDINGS. Reading Location: [facility] CC: Dr. Kosta Del Angel MD; Shruti Smith DO Regular Senior Care Provider: Signed Normal [facility] Chloride assayOrdered By: Augustin Del Angel on 06-08-2025 Chloride [Moles/Vol] 107 mmol/L 98-108 [facility] ED MED ADMINISTRATION DETAIL on 06-08-2025 ED MED ADMINISTRATION DETAIL Dj Instructor - HERNANDEZ CODYA, : 2000, , Medication Administration Record [id number] [place] [address] [id number] 06/08/2025 Patient: PRABHA CODY Sex: Female : 2000 Age: 24y MEASUREMENTS: Wt: 63.5 kg, Ht/Terrance: 59.0 in, BMI: 28.28 ALLERGIES: Penicillins, Sulfa (Sulfonamide Antibiotics), Zoloft, alprazolam, clindamycin, doxycycline, erythromycin base Medication Ordered Medication Administration Date/Time 1 of 1 Normal [facility] ED NURSES CLINICAL NOTEon ED NURSES CLINICAL NOTE Nurse Narrative - PRABHA CODY, : 2000, , Nurse Clinical Narrative [address] [address] [id number] 06/08/2025 19:44:00 Patient: PRABHA CODY Sex: Female [...] negative. No possible sources of infection. -- 20:06/08/25 EDT Valerie Avalos R.N. 20:06/08/25. BP: 133/85 MAP: 101. HR: 97. RR: 16. O2 saturation: 99% Temperature: 98.2 F. Pain level now 0/10. -- 20:06/08/25 EDT Valerie Avalos R.N. Measurements: 20:08 06/08/25 Wt: 63.5 kg, Ht/Terrance: 59.0 in, BMI: 28.28 -- 20:06/08/25 SAIGET Valerie Avalos R.N. Medications: scopolamine 1 mg over 3 days transdermal patch -- 20:06 06/08/25 EDT Valerie Avalos R.N. 1 of 3 Nurse Narrative - PRABHA CODY DOB: 2000, , Allergies: Penicillins: Allergy -- 20:06 06/08/25 EDT Valerie Avalos R.N. erythromycin base: Allergy -- 20:06 06/08/25 EDT Valerie Avalos R.N. Zoloft: Allergy -- 20:06 06/08/25 EDT Valerie Avalos R.N. clindamycin: Allergy -- 20:06 06/08/25 EDT Valerie Avalos R.N. alprazolam: Allergy -- 20:06 06/08/25 EDT Valerie Avalos R.N. doxycycline: Allergy -- 20:06 06/08/25 EDT Valerie Avalos R.N. Sulfa (Sulfonamide Antibiotics): Allergy -- 20:06 06/08/25 EDT Valerie Avalos R.N. Problems: MTHFR -- 20:06 06/08/25 EDT Valerie Avalos R.N. Gastroesophageal Reflux Disease: Active -- 20:06 06/08/25 EDT Valerie Avalos R.N. Surgeries: Artial septal defect -- 20:06 06/08/25 EDT Valerie Avalos R.N. Cholecystectomy -- 20:06 06/08/25 SAIGET Valerie Avalos R.N. History 19:54 06/08/25. [...] assessment completed. No risk factors identified. -- 20:09 06/08/25 EDT Valerie Avalos R.N. Interventions 2 of 3 Nurse Narrative - PRAB[facility] 2000[id number] 19:54 06/08/25. Identification band on patient. Advanced care plan discussed with patient. Patient does not have advanced directive. -- 20:09 06/08/25 EDT Valerie Avalos R.N. PHYSICAL ASSESSMENT 20:16 06/08/25. Ambulatory to room. ( complaining of facial and r arm numbness. states weakness this morning, unable to use legs. Was seen at [facility], according to pt, nothing was found. [...] Patient verbalized understanding. Written instructions provided in Occitan. The patient was discharged home and accompanied by spouse. The patient left ambulatory and via private vehicle. Spouse driving. -- 21:58 06/08/25 EDT Abraham Pompa R.N. (Electronically signed by Abraham Pompa R.N. 06/08/25 21:58:48 EDT) Generated by [facility] 3 of 3 Normal [facility] ED ORDER SHEET (CPOE ONLY)on 06-08-2025 ED ORDER SHEET (CPOE ONLY) Order Sheet - PRABHA CODY, : 2000, , Order Sheet [address] [address] [id number] 06/08/2025 Patient: PRABHA CODY Sex: Female : [...] Acknowledged Collected Completed 1 of 1 Normal [facility] ED PHYSICIAN CLINICAL REPORT on 06-08-2025 ED PHYSICIAN CLINICAL REPORT Narrative - PRABHA CODY, : 2000, , Physician Clinical Narrative [address] [address] [id number] 06/08/2025 19:44:00 Patient: PRABHA CODY Sex: Female [...] off for a week, and presented to [facility] this morning with the symptoms and had [...] suspicion for stroke. Also had a workup [facility]. Reviewed their lab work and imaging [...] healthcare provider. 3 of 4 Narrative - PRABHA CODY, : 2000, , Follow-up with: [facility], Phone: [phone], [facility] [place] [address]. Call for an appointment. (Electronically signed by Rosalie Maciel M.D. 06/08/25 21:58:56 EDT) Generated by [facility] 4 of 4 Normal [facility] ED SUPER BILLon 06-08-2025 ED SUPER BILL [facility] - PRABHA CODY, : 2000, , [address] [place] [address] [id number] 06/08/2025 Patient: PRABHA CODY Sex: Female : 2000 Age: 24y Item Professional Category Description Facility Code Code Quantity Fee Total Nurse/E/M EMERGENCY 068300 1 $0.00 $0.00 DEPARTMENT VISIT LIMITED/MINOR PROB (70475) Grand Total $0.00 Providers Rosalie Maciel M.D. Chief Complaint PARESTHESIA. Principal Diagnosis Paresthesia ICD-10 Codes R20.2: Paresthesia of skin 1 of 1 Normal [facility] ED VISIT SUMMARYon ED VISIT SUMMARY Visit Overview - PRABHA CODY, : 2000, , Visit [address] [address] [id number] 06/08/2025 Patient: PRABHA CODY Sex: Female : [...] unable to use legs. Was seen at [facility], according to pt, nothing was found. [...] CLINICAL IMPRESSION PARESTHESIA 3 of 3 Normal [facility] ED VITALS FLOW SHEETon 06-08 ED VITALS FLOW SHEET Vitals - PRABHA CODY, : 2000, , Vital Sign Flow Sheet [address] [address] [id number] 06/08/2025 Patient: PRABHA CODY Sex: Female : [...] 06/08/2025 115 98% 2 of 2 Normal [facility] Emergency Department Summary on 06-08-2025 Emergency Department Summary [facility] Medical Records Department [address] [place] [address] Emergency Department Summary 06/08/25 MR#: [id number] Acct: [id number] Name: PRABHA CODY Rep #: [id number] : 2000 24 From: Kosta Del Angel [...] 4 extremities. Nontender no edema. 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 Normal dorsi plantarflexion. Normal sensation. Neurologic exam normal. NIH 0. Fingerti (more content not included)... Normal [facility] Eosinophil percentageOrdered By: Kosta Del Angel on 06-08-2025 Eosinophils/100 WBC (Bld) 1.5 % 0-5 [facility] Erythrocyte distribution wid th ratioOrdered By: Kosta Del Angel on 06-08-2025 Erythrocyte distribution width (RBC) [Ratio] 12.6 % 11.6-14.6 [facility] Erythrocyte distribution wid th standard deviationOrdered By: Kosta Del Angel on 06-08-2025 Erythrocyte distribution width (RBC) [Ratio] 41.5 fl 35.1-43.9 [facility] Glomerular filtration rate ( GFR) estimation/1.73 sq m using serum, plasma, or whole bOrdered By: Kosta Del Angel on 06-08-2025 GFR/1.73 sq M.predicted among non-blacks MDRD (S/P/Bld) [Vol rate/Area] 93 mL/min/{1.73_m2} >60 [facility] Comment on above: mL/min/1.73m2 CKD-EP I Creatinine Equation (2020) Hematocrit Auto (Bld) [Volum e fraction]Ordered By: Kosta Del Angel on 06-08-2025 Hematocrit (Bld) [Volume fraction] 38.4 % 37-47 [facility] Hemoglobin measurementOrdere d By: Kosta Del Angel on 06-08-2025 Hemoglobin (Bld) [Mass/Vol] 13.1 g/dL 12.0-15.0 [facility] Immature granulocytes/100 WB C Auto (Bld)Ordered By: Kosta Del Angel on 06-08-2025 Immature granulocytes/100 WBC (Bld) 0.700 % 0.0-0.9 [facility] Comment on above: IG% - Immature Granu locytes (promyelocytes, myelocytes and metamyelocytes) > 1% indicates that a LEFT SHIFT is Present. MCV (mean corpuscular volume ) determinationOrdered By: Kosta Del Angel on 06-08-2025 MCV (RBC) [Entitic vol] 90.4 fL 81-99 [facility] Mean corpuscular hemoglobin (MCH) determinationOrdered By: Kosta Del Angel on 06-08-2025 MCH (RBC) [Entitic mass] 30.8 pg 27.0-32.0 [facility] Mean corpuscular hemoglobin concentration (MCHC) determinationOrdered By: Kosta Del Angel on 06-08-2025 MCHC (RBC) [Mass/Vol] 34.1 g/dL 32-36 [facility] Mean platelet volume determi nationOrdered By: Kosta Del Angel on 06-08-2025 Platelet mean volume (Bld) [Entitic vol] 10.2 fL 6.2-12.0 [facility] Monocyte percentageOrdered B y: Kosta Del Angel on 06-08-2025 Monocytes/100 WBC (Bld) 5.9 % 0-10 [facility] Neutrophil percentageOrdered By: Kosta Del Angel on 06-08-2025 Neutrophils/100 WBC (Bld) 79.2 % High 47-70 [facility] Nucleated red blood cell per centageOrdered By: Kosta Del Angel on 06-08-2025 Nucleated RBC/100 WBC (Bld) [Ratio] 0 % 0-5 [facility] Platelet countOrdered By: Augustin Del Angel on 06-08-2025 Platelets (Bld) [#/Vol] 322 10*3/uL 150-450 [facility] Potassium measurement (mass/ volume)Ordered By: Kosta Del Angel on 06-08-2025 Potassium (Unsp spec) [Mass/Vol] 4.6 mmol/L 3.3-5.1 [facility] Comment on above: Hemolysis present, R esults could be affected. RBC Auto (Bld) [#/Vol]Ordere d By: Kosta Del Angel on 06-08-2025 RBC (Bld) [#/Vol] 4.25 10*6/uL 4.2-5.4 [facility] Serum creatinine measurement (mass/volume)Ordered By: Kosta Del Angel on 06-08-2025 Creatinine [Mass/Vol] 0.88 mg/dL 0.70-1.20 [facility] Serum glucose measurement (m ass/volume)Ordered By: Kosta Del Angel on 06-08-2025 Glucose [Mass/Vol] 109 mg/dL High 70-99 [facility] Serum or plasma calcium sindy urement (mass/volume)Ordered By: Kosta Del Angel on 06-08-2025 Calcium [Mass/Vol] 9.5 mg/dL 7.6-11.0 [facility] Serum or plasma urea nitroge n measurement (mass/volume)Ordered By: Kosta Del Angel on 06-08-2025 Urea nitrogen [Mass/Vol] 17 mg/dL 4-19 [facility] Sodium levelOrdered By: Kosta Del Angel on 06-08-2025 Sodium [Moles/Vol] 140 mmol/L 133-145 [facility] White blood cell (WBC) count Ordered By: Kosta Del Angel on 06-08-2025 WBC (Bld) [#/Vol] 7.5 10*3/uL 4.4-11.0 [facility] ED MED ADMINISTRATION DETAIL on 06-05-2025 ED MED ADMINISTRATION DETAIL Dj Instructor - PRABHA CODY DOB: 2000, , Medication Administration Record [facility] [address] [place] [address] [id number] 06/02/2025 Patient: PRABHA CODY Sex: Female : 2000 Age: 24y MEASUREMENTS: Wt: 63.5 kg, Ht/Terrance: 59.0 in, BMI: 28.28 ALLERGIES: Penicillins, Sulfa (Sulfonamide Antibiotics), Zoloft, alprazolam, clindamycin, doxycycline, erythromycin base Medication Ordered Medication Administration Date/Time 1 of 1 Normal [facility] ED NURSES CLINICAL NOTEon ED NURSES CLINICAL NOTE Nurse Narrative - PRABHA CODY, : 2000, , Nurse Clinical Narrative [facility] [address] [facility] [place] [address] [id number] 06/02/2025 15:32:00 Patient: PRABHA CODY Sex: Female [...] sources of infection. -- 15:43 06/02/25 EDT Robbin HernadezNZoë 15:43 06/02/25. BP: 126/77 MAP: 93. HR: [...] : 2000, , 15:36 06/02/25. Preferred Pharmacy: ([facility]). -- 15:43 06/02/25 EDT Josep Mendoza R.N. [...] Josep Mendoza R.N. MTHFR -- 15:36 06/02/25 SAIGET [...] No risk factors identified. -- 15:43 06/02/25 EDT Josep Mendoza R.N. 2 of 3 Nurse Narrative - PRABHA CODY, : 2000, , Interventions 15:36 06/02/25. Advanced care plan discussed with patient. Patient does not have advanced directive. (full code). -- 15:43 06/02/25 EDT Josep Mendoza R.N. NURSING PROGRESS NOTES 15:45 [...] Mendoza R.N. 06/05/25 10:58:26 EDT) Generated by [facility] 3 of 3 Normal [facility] ED ORDER SHEET (CPOE ONLY)on 06-05-2025 ED ORDER SHEET (CPOE ONLY) Order Sheet - PRABHA CODY, : 2000, , Order Sheet [address] [address] [id number] 06/02/2025 Patient: PRABHA CODY Sex: Female : [...] Entered Acknowledged Collected Completed 1 of 1 [facility] ED SUPER BILLon 06-05-2025 ED SUPER BILL [facility] - PRABHA CODY, : 2000, , [address] [address] [id number] 06/02/2025 Patient: PRABHA CODY Sex: Female : 2000 Age: 24y Item Professional Category Description Facility Code Code Quantity Fee Total Grand Total $0.00 1 of 1 [facility] ED VISIT SUMMARYon ED VISIT SUMMARY Visit Overview - PRABHA CODY, : 2000, , Visit [address] [address] [id number] 06/02/2025 Patient: PRABHA CODY Sex: Female : 2000 Age: 24y 06/05/2025 10:58 AM EDT ED Arrival:15:32 06/02/2025 EDT Status: Recent Travel:no Language:eng Adv Directive:No Isolation Status: Ethnicity:N Fall Risk:no risk Infectious Disease Exposure:no Measurements:4'11 / 149.9 Self-Harm Status:risk Sepsis Screen:negative cm 140.0 lb / 63.5 kg Chief Complaint:DIZZINESS, VERTIGO, (2 weeks), (Intermittent dizziness, numbness, headaches), and (Haigler Schultzman) ALLERGIES alprazolam clindamycin doxycycline erythromycin base [...] STUDIES CLINICAL IMPRESSION 3 of 3 Normal [facility] ED VITALS FLOW SHEETon 06-05 ED VITALS FLOW SHEET Vitals - PRABHA CODY, : 2000, , Vital Sign Flow Sheet [place] [id number] 06/02/2025 Patient: PRABHA CODY Sex: Female : 2000 Age: 24y Measurements Wt: 63.5 kg, Ht/Terrance: 59.0 in, BMI: 28.28 Measured Time BP MAP HR RR O2Sat ETCO2 Temp Pain GCS RTS 15:43 06/02/2025 126/77 93 97 18 100% 97.8 F 0 1 of 1 Normal [facility] Urine Cultureon 05-07-2025 URC Mixed Gram Pos Gram Neg Org [place] Count 11,000-25,000 MIXC Mixed contaminants. Submit a new specimen if indicated. Normal [facility] Comment on above: Performed By: #### L 501.9520, M100.2200, L500.4050, L400.0001, L100.0100 #### [facility] Laboratory [address] [place], [address] Gastroenterology Visit Repor ton 05-06-2025 Gastroenterology Visit Report [facility]enterology [address] [place] [address] OFFICE VISIT Date of Service: 05/06/25 MR#: [id number] Acct: [id number] Name: PRABHA CODY Rep #: [id number] : 2000 Provider: KANWAL roman Age/Sex: 24/F Location: [facility] Status: Signed Intake Vital Signs 03/28/25 11:13 [...] presents to the office today for FU. 9.6.24 OV establishment with [facility] for complaints of severe pinpoint mid-epigastric [...] famotidine 20mg as needed for breakthrough heartburn 9.04.01 CBC/CMP wnl, RAST negative, IBD negative 11.8 Abd US @[place] Unremarkable abdominal ultrasound post cholecystectomy. 03.28.25 EGD [...] intraepithelial lymphocy (more content not included)... Normal [facility] Urine cultureOrdered By: Kody Salas on 05-06-2025 Bacteria identified Cx Nom (U) Mixed Gram Pos & Gram Neg Org Abnormal [facility] EGD Reporton 03-28-2025 EGD Report [facility] Medical Records Department [address] [place] [address] EGD Report MR#: [id number] Acct: [id number] Name: PRABHA CODY Rep #: [id number] : 2000 24 From: Marciano Gonzales DO [...] pathology results. Procedure Code(s): --- Professional --- 97602, Small intestinal endoscopy, enteroscopy beyond second portion of duodenum, not including ileum; with biopsy, single or multiple CPT copyright 2021 [employer]. All rights reserved. The codes documented in this report are preliminary and upon engine designer review may be revised to meet current compliance requirements. Marciano Gonzales DO 03/28/2025 12:30:27 PM This report has been signed electronically. Number of Addenda: 0 Note Initiated On: 03/28/2025 12:11 PM 03/28/25 1230 Date (more content not included)... Normal [facility] MR/POSTOP.Carlos 03-28-2025 MR/POSTOP.[facility] Medical Records Department [address] [place] [address] Anesthesia Postop Eval I 03/28/25 1230 MR#: [id number] Acct: [id number] Name: PRABHA CODY Rep #: [id number] : 2000 24 From: Bobby Grover PCP: Shruti Smith DO Status:REG [facility] Y Race: C Location: [place] [address] Anesthesia: Postop Eval I Current Vital Signs [...] Date Bobby Whyte Signature: Date CC: Signed Normal [facility] MR/[id number] 03-28-2025 [facility] Medical Records Department [address] [place] [address] Anesthesia Postop Eval II 03/28/25 1545 MR#: [id number] Acct: [id number] Name: PRABHA CODY Rep #: [id number] : 2000 From: Noni Schreiber CRNA PCP: Shruti Smith DO Status:[facility] Y Race: C Location: EN Anesthesia [...] nausea: No Vomiting: No 03/28/25 1545 Date Nonipauly Schreiber CRNA Isabell Signature: Date CC: Signed Normal [facility] ,Urineon 03-28-2025 Beta HCG ( test) Ql (U) Negative Normal [facility] Comment on above: Result Comment: Very dilute urine specimens, as indicated by a low specific gravity, may not contain client care representative levels of hCG. If is still suspected, a first morning urine specimen should be collected 48 hours later and tested. Performed By: #### L 400.7600 #### [facility] Laboratory [facility] [place], [address] Surgery Specimen Level Candi 03-28-2025 Surgery Specimen Level IV Patient Age/Sex Location Account Attending Physician NAYELYPRABHA JACOB EN [id number] Marciano Gonzales DO Specimen: [id number] Received: 03/28/25209 Status: SUSAN Wendy Num: [id number] Spec Type: EGD BIOPSY Subm Dr: Marciano [...] totally submitted in one cassette. Luis 03/28/2025 [facility]:[id number] Patient Age/Sex Location Account Attending Physician PRABHA CODY EN [id number] Marciano Gonzales DO Signed (signature on file) Dr. Tamiko Woods MD 04/15/25 1246 Normal [facility] Comment on above: Performed By: #### L 501.9520, M100.2200, L500.4050, L400.0001, L100.0100 #### [facility] Laboratory [address] [place], [address] Urine testOrdered By: Dustin Espinoza on 03-28-2025 HCG ( test) Ql (U) Negative [facility] Comment on above: Very dilute urine sp ecimens, as indicated by a low specificgravity, may not contain client care representative levels of hCG. If is still suspected, a first morning urinespecimen should be collected 48 hours later and tested. 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 Hx Hospitalization No 03/26/25 13:17 Any Problems [...] take am of surgery PONV PONV - generator operator: PONV - generator operator Female Yes 03/26/25 13:17 HX of Motion [...] 07/26/24 13:21 Respiratory Assessment Respiratory Assessment - generator operator: Respiratory Tract Infection Hx - generator operator Hx Respiratory Tract Infection No 03/26/25 13:17 STOP Sleep Apnea STOP Sleep Apnea - generator operator: STOP Sleep Apnea - generator operator Hx Hypertension No 03/26/25 13:17 Hx Sleep [...] Tobacco Use History Tobacco Use History - generator operator: Tobacco Use History - generator operator Tobacco Use Smoking Status Never smoker 03/26/25 13:17 Hx Tobacco Use No 03/26/25 13:17 Years Smoking Packs Smoked per Day Smoking Cessation Date was within the last 15 years Hx Smoking Cessation Date Hx Smoking Cessation Counseling Hematologic Medial History Hematologic Hx - generator operator: Hematologic 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 Specify any problems Hx of Preganancy in last 3 No 03/26/25 13:17 Months Nurse Filling Out Transfusion [facility] 03/26/25 13:17 Questions: Date: 03/26/25 03/26/25 13:17 Time: 13:19 03/26/25 13:17 Patient unable to answer at this time (ie. confused, unrespo /Reproduction History /Reproductive History - generator operator: /Reproductive Hx- generator operator Hx Now No 03/26/25 13:17 Gestational Age (in weeks): EDC: Hx Hx Para Hx Section SAB No 03/26/25 13:17 [facility] Medical History (Updated 03/26/25 @ 13:22 by [...] (PCN) Allergy (more content not included)... Normal [facility] Urine Cultureon 03-01-2025 URC Below infection leve l. Mixed Gram Positive Organisms [place] Count <1000 MIXC Mixed contaminants. Submit a new specimen if indicated. Normal [facility] Comment on above: Performed By: #### L 501.9520, M100.2200, L500.4050, L400.0001, L100.0100 #### [facility] Laboratory [address] [place], [address] Absolute lymphocyte countOrd ered By: Binh Ramos on 02-27-2025 Lymphocytes Auto (Unsp spec) [#/Vol] 1.16 10*3/uL 0.83-4.51 [facility] Absolute neutrophil countOrd ered By: [facility] on 02-27-2025 Neutrophils (Bld) [#/Vol] 3.8 10*3/uL 2.0-7.7 [facility] Amorphous sediment detection in urine sediment by light microscopyOrdered By: [facility] on 02-27-2025 Amorphous sediment LM Ql (Urine sed) 2+ [facility] Anion gap in Serum or Plasma Ordered By: [facility] on 02-27-2025 Anion gap [Moles/Vol] 15 mmol/L 5-15 [facility] Automated lymphocyte count a s percentage of total leukocytesOrdered By: [facility] on 02-27-2025 Lymphocytes/100 WBC Auto (Unsp spec) 21.3 % - [facility] BUN/creatinine ratioOrdered By: [facility] on 02-27-2025 Urea nitrogen/Creatinine [Mass ratio] 18.4 mg/mg 10- [facility] Basophil percentageOrdered B y: [facility] on 02-27-2025 Basophils/100 WBC (Bld) 0.6 % 0-1 [facility] Bilirubin Test strip Ql (U)O rdered By: [facility] on 02-27-2025 Bilirubin Ql (U) Negative Negative [facility] Bilirubin, totalOrdered By: [facility] on 02-27-2025 Bilirubin [Mass/Vol] 0.45 mg/dL 0.00-1.30 [facility] CBC W/Diff, Automatedon 02-07 Absolute Lymph 1.16 X10 3/uL Normal 0.83-4.51 [facility] Comment on above: Performed By: #### L 501.9520, M100.2200, L500.4050, L400.0001, L100.0100 #### [facility] Laboratory [address] [place], [address] Absolute Neut 3.8 X10 3/uL Normal 2.0-7.7 [facility] Comment on above: Performed By: #### L 501.9520, M100.2200, L500.4050, L400.0001, L100.0100 #### [facility] [address] [place], [address] Basophils/100 WBC (Bld) 0.6 % Normal 0-1 [facility] Comment on above: Performed By: #### L 501.9520, M100.2200, L500.4050, L400.0001, L100.0100 #### [facility] [address] [place], [address] Eosinophils/100 WBC (Bld) 1.1 % Normal 0-5 [facility] Comment on above: Performed By: #### L 501.9520, M100.2200, L500.4050, L400.0001, L100.0100 #### [facility] [address] [place], [address] Erythrocyte distribution width (RBC) [Ratio] 12.5 % Normal 11.6-14.6 [facility] Comment on above: Performed By: #### L 501.9520, M100.2200, L500.4050, L400.0001, L100.0100 #### [facility] [address] [place], [address] Hematocrit (Bld) [Volume fraction] 41.0 % Normal 37-47 [facility] Comment on above: Performed By: #### L 501.9520, M100.2200, L500.4050, L400.0001, L100.0100 #### [facility] [address] [place], [address] Hemoglobin (Bld) [Mass/Vol] 13.8 g/dL Normal 12.0-15.0 [facility] Comment on above: Performed By: #### L 501.9520, M100.2200, L500.4050, L400.0001, L100.0100 #### [facility] [address] [place], [address] IG% 0.200 Normal 0.0-0.9 [facility] Comment on above: Result Comment: IG% - Immature Granulocytes (promyelocytes, myelocytes and metamyelocytes) > 1% indicates that a LEFT SHIFT is Present. Performed By: #### L 501.9520, M100.2200, L500.4050, L400.0001, L100.0100 #### [facility] [address] [place], [address] Lymphocytes/100 WBC (Bld) 21.3 % Normal 19-41 [facility] Comment on above: Performed By: #### L 501.9520, M100.2200, L500.4050, L400.0001, L100.0100 #### [facility] [address] [place], [address] MCH (RBC) [Entitic mass] 30.9 pg Normal 27.0-32.0 [facility] Comment on above: Performed By: #### L 501.9520, M100.2200, L500.4050, L400.0001, L100.0100 #### [facility] [address] [place], [address] MCHC (RBC) [Mass/Vol] 33.7 g/dL Normal 32-36 [facility] Comment on above: Performed By: #### L 501.9520, M100.2200, L500.4050, L400.0001, L100.0100 #### [facility] [address] [place], [address] MCV (RBC) [Entitic vol] 91.7 fL Normal 81-99 [facility] Comment on above: Performed By: #### L 501.9520, M100.2200, L500.4050, L400.0001, L100.0100 #### [facility] [address] [place], [address] Monocytes/100 WBC (Bld) 7.3 % Normal 0-10 [facility] Comment on above: Performed By: #### L 501.9520, M100.2200, L500.4050, L400.0001, L100.0100 #### [facility] [address] [place], [address] Neutrophils/100 WBC (Bld) 69.5 % Normal 47-70 [facility] Comment on above: Performed By: #### L 501.9520, M100.2200, L500.4050, L400.0001, L100.0100 #### [facility] [address] [place], [address] Nucleated RBC (Bld) [#/Vol] 0 10*3/uL Normal 0-5 [facility] Comment on above: Performed By: #### L 501.9520, M100.2200, L500.4050, L400.0001, L100.0100 #### [facility] [address] [place], [address] Platelet mean volume (Bld) [Entitic vol] 10.4 fL Normal 6.2-12.0 [facility] Comment on above: Performed By: #### L 501.9520, M100.2200, L500.4050, L400.0001, L100.0100 #### [facility] [address] [place], [address] Platelets (Bld) [#/Vol] 399 10*3/uL Normal 150-450 [facility] Comment on above: Performed By: #### L 501.9520, M100.2200, L500.4050, L400.0001, L100.0100 #### [facility] [address] [place], [address] RBC (Bld) [#/Vol] 4.47 10*6/uL Normal 4.2-5.4 [facility] Comment on above: Performed By: #### L 501.9520, M100.2200, L500.4050, L400.0001, L100.0100 #### [facility] [address] [place], [address] RDW SD 41.3 fl Normal 35.1-43.9 [facility] Comment on above: Performed By: #### L 501.9520, M100.2200, L500.4050, L400.0001, L100.0100 #### [facility] [address] [place], [address] WBC (Bld) [#/Vol] 5.5 10*3/uL Normal 4.4-11.0 [facility] Comment on above: Performed By: #### L 501.9520, M100.2200, L500.4050, L400.0001, L100.0100 #### [facility] [address] [place], [address] Carbon dioxide, total [Moles /volume] in Central venous bloodOrdered By: Binh Ramos on 02-27-2025 CO2 [Moles/Vol] 22.5 mmol/L 21.0-32.0 [facility] Chloride assayOrdered By: Alexander Ramos on 02-27-2025 Chloride [Moles/Vol] 103 mmol/L 98-108 [facility] Comprehensive Metabolic Prof ilon 02-27-2025 Albumin [Mass/Vol] 4.8 g/dL Normal 3.5-5.0 [facility] Comment on above: Performed By: #### L 501.9520, M100.2200, L500.4050, L400.0001, L100.0100 #### [facility] [address] [place], [address] Albumin/Globulin [Mass ratio] 1.6 {ratio} Normal 0.9-2.4 [facility] Comment on above: Performed By: #### L 501.9520, M100.2200, L500.4050, L400.0001, L100.0100 #### [facility] [address] [place], [address] ALK PHOS 73 U/L Normal 35-104 [facility] Comment on above: Performed By: #### L 501.9520, M100.2200, L500.4050, L400.0001, L100.0100 #### [facility] [address] [place], [address] ALT [Catalytic activity/Vol] 23 U/L Normal <=34 [facility] Comment on above: Performed By: #### L 501.9520, M100.2200, L500.4050, L400.0001, L100.0100 #### [facility] [address] [place], [address] AST [Catalytic activity/Vol] 25 U/L Normal <=31 [facility] Comment on above: Performed By: #### L 501.9520, M100.2200, L500.4050, L400.0001, L100.0100 #### [facility] [address] [place], [address] Bilirubin [Mass/Vol] 0.45 mg/dL Normal 0.00-1.30 [facility] Comment on above: Performed By: #### L 501.9520, M100.2200, L500.4050, L400.0001, L100.0100 #### [facility] [address] [place], [address] BUN/CRE 18.4 RATIO Normal 10-20 [facility] Comment on above: Performed By: #### L 501.9520, M100.2200, L500.4050, L400.0001, L100.0100 #### [facility] [address] [place], [address] Calcium [Mass/Vol] 10.3 mg/dL Normal 7.6-11.0 [facility] Comment on above: Performed By: #### L 501.9520, M100.2200, L500.4050, L400.0001, L100.0100 #### [facility] [address] [place], [address] Chloride [Moles/Vol] 103 mmol/L Normal 98-108 [facility] Comment on above: Performed By: #### L 501.9520, M100.2200, L500.4050, L400.0001, L100.0100 #### [facility] [address] [place], [address] CO2 [Moles/Vol] 22.5 mmol/L Normal 21.0-32.0 [facility] Comment on above: Performed By: #### L 501.9520, M100.2200, L500.4050, L400.0001, L100.0100 #### [facility] [address] [place], [address] Creatinine [Mass/Vol] 0.85 mg/dL Normal 0.70-1.20 [facility] Comment on above: Performed By: #### L 501.9520, M100.2200, L500.4050, L400.0001, L100.0100 #### [facility] [address] [place], [address] GAP 15 Normal 5-15 [facility] Comment on above: Performed By: #### L 501.9520, M100.2200, L500.4050, L400.0001, L100.0100 #### [facility] [address] [place], [address] GFR/1.73 sq M.predicted among non-blacks MDRD (S/P/Bld) [Vol rate/Area] 98 mL/min/{1.73_m2} Normal >60 [facility] Comment on above: Result Comment: mL/m in/1.73m2 CKD-EPI Creatinine Equation (2020) Performed By: #### L 501.9520, M100.2200, L500.4050, L400.0001, L100.0100 #### [facility] [address] [place], [address] Globulin (S) [Mass/Vol] 3.0 g/dL Normal 2.2-4.2 [facility] Comment on above: Performed By: #### L 501.9520, M100.2200, L500.4050, L400.0001, L100.0100 #### [facility] [address] [place], [address] Glucose [Mass/Vol] 110 mg/dL High 70-99 [facility] Comment on above: Performed By: #### L 501.9520, M100.2200, L500.4050, L400.0001, L100.0100 #### [facility] [address] [place], [address] Potassium [Moles/Vol] 3.5 mmol/L Normal 3.3-5.1 [facility] Comment on above: Performed By: #### L 501.9520, M100.2200, L500.4050, L400.0001, L100.0100 #### [facility] [address] [place], [address] Sodium [Moles/Vol] 140 mmol/L Normal 133-145 [facility] Comment on above: Performed By: #### L 501.9520, M100.2200, L500.4050, L400.0001, L100.0100 #### [facility] [address] [place], [address] T PROT 7.8 g/dL Normal 5.9-8.4 [facility] Comment on above: Performed By: #### L 501.9520, M100.2200, L500.4050, L400.0001, L100.0100 #### [facility] [address] [place], [address] Urea nitrogen [Mass/Vol] 16 mg/dL Normal 4-19 [facility] Comment on above: Performed By: #### L 501.9520, M100.2200, L500.4050, L400.0001, L100.0100 #### [facility] [address] [place], [address] Eosinophil percentageOrdered By: Zebulun Beam on 02-27-2025 Eosinophils/100 WBC (Bld) 1.1 % 0-5 [facility] Erythrocyte distribution wid th ratioOrdered By: [facility] on 02-27-2025 Erythrocyte distribution width (RBC) [Ratio] 12.5 % 11.6-14.6 [facility] Erythrocyte distribution wid th standard deviationOrdered By: [facility] Be[facility] on 02-27-2025 Erythrocyte distribution width (RBC) [Ratio] 41.3 fl 35.1-43.9 [facility] Glomerular filtration rate ( GFR) estimation/1.73 sq m using serum, plasma, or whole bOrdered By: [facility] on 02-27-2025 GFR/1.73 sq M.predicted among non-blacks MDRD (S/P/Bld) [Vol rate/Area] 98 mL/min/{1.73_m2} >60 [facility] Comment on above: mL/min/1.73m2 CKD-EP I Creatinine Equation (2020) Hematocrit Auto (Bld) [Volum e fraction]Ordered By: Alexanderbulun Beam on 02-27-2025 Hematocrit (Bld) [Volume fraction] 41.0 % 37-47 [facility] Hemoglobin measurementOrdere d By: Zebulun Beam on 02-27-2025 Hemoglobin (Bld) [Mass/Vol] 13.8 g/dL 12.0-15.0 [facility] Immature granulocytes/100 WB C Auto (Bld)Ordered By: Zebulun Beam on 02-27-2025 Immature granulocytes/100 WBC (Bld) 0.200 % 0.0-0.9 [facility] Comment on above: IG% - Immature Granu locytes (promyelocytes, myelocytes and metamyelocytes) > 1% indicates that a LEFT SHIFT is Present. Ketones Test strip Ql (U)Ord ered By: Binh Ramos on 02-27-2025 Ketones Ql (U) 50 mg/dl High Negative [facility] - Chemistry and C hemistry - challengeOrdered By: [facility] Ramos on 02-27-2025 AST [Catalytic activity/Vol] 25 U/L <32 [facility] MCV (mean corpuscular volume ) determinationOrdered By: [facility] Richard on 02-27-2025 MCV (RBC) [Entitic vol] 91.7 fL 81-99 [facility] Mean corpuscular hemoglobin (MCH) determinationOrdered By: [facility] on 02-27-2025 MCH (RBC) [Entitic mass] 30.9 pg 27.0-32.0 [facility] Mean corpuscular hemoglobin concentration (MCHC) determinationOrdered By: [facility] on 02-27-2025 MCHC (RBC) [Mass/Vol] 33.7 g/dL 32-36 [facility] Mean platelet volume determi nationOrdered By: [facility] on 02-27-2025 Platelet mean volume (Bld) [Entitic vol] 10.4 fL 6.2-12.0 [facility] Microscopic analysis of urin e for red blood cells (RBC)Ordered By: quianaabbe Ramos on 02-27-2025 Microscopic analysis of urine for red blood cells (RBC) 0 SEEN /hpf 0-5 [facility] Monocyte percentageOrdered B y: Binh Ramos on 02-27-2025 Monocytes/100 WBC (Bld) 7.3 % 0-10 [facility] Mucus LM Ql (Urine sed)Order ed By: quianaabbe Ramos on 02-27-2025 Mucus Ql (Urine sed) 1+ /hpf [facility] Neutrophil percentageOrdered By: [facility] on 02-27-2025 Neutrophils/100 WBC (Bld) 69.5 % 47-70 [facility] Nitrite Test strip Ql (U)Ord ered By: juan pablo Ramos on 02-27-2025 Nitrite Ql (U) Negative Negative [facility] Nucleated red blood cell per centageOrdered By: Binh Ramos on 02-27-2025 Nucleated RBC/100 WBC (Bld) [Ratio] 0 % 0-5 [facility] Platelet countOrdered By: Alexander Ramos on 02-27-2025 Platelets (Bld) [#/Vol] 399 10*3/uL 150-450 [facility] Potassium measurement (mass/ volume)Ordered By: Binh Ramos on 02-27-2025 Potassium (Unsp spec) [Mass/Vol] 3.5 mmol/L 3.3-5.1 [facility] Protein Test strip Ql (U)Ord ered By: Binh Ramos on 02-27-2025 Protein Ql (U) 15 mg/dl High Negative [facility] RBC Auto (Bld) [#/Vol]Ordere d By: Binh Ramos on 02-27-2025 RBC (Bld) [#/Vol] 4.47 10*6/uL 4.2-5.4 [facility] Serum creatinine measurement (mass/volume)Ordered By: Binh Ramos on 02-27-2025 Creatinine [Mass/Vol] 0.85 mg/dL 0.70-1.20 [facility] Serum globulin measurementOr dered By: Binh Ramos on 02-27-2025 Globulin (S) [Mass/Vol] 3.0 g/dL 2.2-4.2 [facility] Serum glucose measurement (m ass/volume)Ordered By: Binh Ramos on 02-27-2025 Glucose [Mass/Vol] 110 mg/dL High 70-99 [facility] Serum or plasma alanine ayoub otransferase (ALT) measurementOrdered By: Binh Ramos on 02-27-2025 ALT [Catalytic activity/Vol] 23 U/L <35 [facility] Serum or plasma albumin sindy urement (mass/volume)Ordered By: Binh Ramos on 02-27-2025 Albumin [Mass/Vol] 4.8 g/dL 3.5-5.0 [facility] Serum or plasma albumin/glob ulin mass ratioOrdered By: Binh Ramos on 02-27-2025 Albumin/Globulin [Mass ratio] 1.6 {ratio} 0.9-2.4 [facility] Serum or plasma alkaline daljit sphatase measurementOrdered By: Binh Ramos on 02-27-2025 ALP [Catalytic activity/Vol] 73 U/L 35-104 [facility] Serum or plasma calcium sindy urement (mass/volume)Ordered By: Binh Ramos on 02-27-2025 Calcium [Mass/Vol] 10.3 mg/dL 7.6-11.0 [facility] Serum or plasma urea nitroge n measurement (mass/volume)Ordered By: Lizylun Beam on 02-27-2025 Urea nitrogen [Mass/Vol] 16 mg/dL 4-19 [facility] Sodium levelOrdered By: Lizy Ramos on 02-27-2025 Sodium [Moles/Vol] 140 mmol/L 133-145 [facility] Squamous epithelial cells de tection in urine sediment by light microscopyOrdered By: Binh Ramos on 02-27-2025 Epithelial cells.squamous LM Ql (Urine sed) 10-25 SEEN /hpf 5-10 [facility] TSH DL <= 0.005 mIU/L QnOrde red By: Binh Ramos on 02-27-2025 TSH Qn 1.580 uIU/mL 0.300-4.200 [facility] Thyroid Stim Hormone (TSH)on 02-27-2025 TSH 1.580 uIU/mL Normal 0.300-4.200 [facility] Comment on above: Performed By: #### L 501.9520, M100.2200, L500.4050, L400.0001, L100.0100 #### [facility] [address] [place], [place], [address] Total proteinOrdered By: Mike Ramos on 02-27-2025 Protein [Mass/Vol] 7.8 g/dL 5.9-8.4 [facility] Urinalysis, Completeon 02-27 AMORPHOUS 2+ Normal [facility] Comment on above: Order Comment: CLEAN CATCH Performed By: #### L 501.9520, M100.2200, L500.4050, L400.0001, L100.0100 #### [facility] [address] [place], [address] Mucus Ql (Urine sed) 1+ /hpf Normal [facility] Comment on above: Order Comment: CLEAN CATCH Performed By: #### L 501.9520, M100.2200, L500.4050, L400.0001, L100.0100 #### [facility] [address] [place], [address] BACTERIA 2+ /hpf Normal None Seen [facility] Comment on above: Order Comment: CLEAN CATCH Performed By: #### L 501.9520, M100.2200, L500.4050, L400.0001, L100.0100 #### [facility] [address] [place], [address] WBC 5-10 SEEN Normal 0-5 [facility] Comment on above: Order Comment: CLEAN CATCH Performed By: #### L 501.9520, M100.2200, L500.4050, L400.0001, L100.0100 #### [facility] [address] [place], [address] EPI,SQUAMOUS 10-25 SEEN Normal 5-10 [facility] Comment on above: Order Comment: CLEAN CATCH Performed By: #### L 501.9520, M100.2200, L500.4050, L400.0001, L100.0100 #### [facility] [address] [place], [address] RBC 0 SEEN Normal 0-5 [facility] Comment on above: Order Comment: CLEAN CATCH Performed By: #### L 501.9520, M100.2200, L500.4050, L400.0001, L100.0100 #### [facility] [address] [place], [address] Urine clarityOrdered By: Mike Ramos on 02-27-2025 Clarity (U) Cloudy Clear [facility] Urine color determinationOrd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 Referred To Contact Hematology Diagnoses MTHFR mutation Procedures CONSULT TO HEMATOLOGY OFFICE/OUTPATIENT [facility] 60 MINUTES James Christianson APRN.LIFE INSURANCE UNDERWRITER [address] [place] [address] Referral ID Status Reason Start Date Expiration Date Visits Requested Visits Authorized [id number] Authorized PCP Requested Referral 02/19/2024 02/18/2025 1 1 Specialty Diagnoses / Procedures Referred By Leeanna krishnan Referred To Contact Vascular Medicine Diagnoses MTHFR mutation Procedures CONSULT TO VASCULAR MEDICINE OFFICE/OUTPATIENT [facility] 60 MINUTES James Christianson APRN.CNP [address] [place] [address] Referral ID Status Reason Start Date Expiration Date Visits Requested Visits Authorized [id number] Authorized PCP Requested Referral 02/19/2024 02/18/2025 1 1 Summary Purpose Family History No Family History Records Found Relationship Condition Age at Onset Recorded Date/T cullen grandmother Cardiac disease Unknown grandfather Cardiac disease Unknown Advance Directives No Advanced Directives Records Found Advance Directive Response Recorded Date/ Time Do you have a Healthcare Power of Card Tape Converter Operator? No March 26, 2025 1:17pm Advance Directive Response Recorded Date/ Time Do you have a Healthcare Power of Card Tape Converter Operator? No March 26, 2025 1:17pm Do you have a Healthcare Power of Card Tape Converter Operator? No June 08, 2025 12:02pm Chief Complaint [...] pm Irritable bowel syndrome with diarrhea [facility] 2024 2:32pm Chief Complaint Admit Date TEST [...] June 08, 2025 11 :48am S/P 06/08 [facility] June 25, 2025 2:55pm Reason for Visit Admit Date Acid reflux March 28, 2025 10:5 2am Diarrhea March 28, 2025 10:5 2am Epigastric abdominal pain March 28 10:52am Gastritis March 28, 2025 10:5 2am Epigastric abdominal pain May 06 2:32pm Gastritis May 06, 2025 2:32 pm Irritable bowel syndrome with diarrhea [facility] 2024 2:32pm Atrial septal defect June 25 2:55pm Leg pain June 25, 2025 2:55pm MTHFR mutation June 25, 2025 2:55pm Reason for Visit Admit Date Acid reflux March 28, 2025 10:5 2am Diarrhea March 28, 2025 10:5 2am Epigastric abdominal pain March 28 10:52am Gastritis March 28, 2025 10:5 2am Epigastric abdominal pain May 06 2:32pm Gastritis May 06, 2025 2:32 pm Irritable bowel syndrome with diarrhea Brie mccarthy 2024 2:32pm Atrial septal defect June 25 2:55pm MTHFR mutation June 25, 2025 2:55pm Additional Source Comments Source Comments (unrecognize d section and content) In the event this informatio n is protected by the Federal Confidentiality of Alcohol and Drug Abuse Patient Records regulations: The Federal rules restrict any use of the information to criminally investigate or prosecute any alcohol or drug abuse patient.[facility] the event this information is protected by the Federal Confidentiality of Alcohol and Drug Abuse Patient Records regulations: The Federal rules restrict any use of the information to criminally investigate or prosecute any alcohol or drug abuse patient.[facility] the event this information is protected by the Federal Confidentiality of Alcohol and Drug Abuse Patient Records regulations: The Federal rules restrict any use of the information to criminally investigate or prosecute any alcohol or drug abuse patient.[facility] Reason for Visit (unrecogniz ed section and content) Reason Comments Well Woman Reason Comments New Patient Reason Comments Appointment Care Teams (unrecognized sec tion and content) Peach Grower Relationship Specialty Start Date End Date Deidre Smith DO [address] [place] [address] Referring Family Medicine 05/04/24 Team Status: Active Member Role Status Dates Shruti MUELLER, DO Primary Care Provider Active Team Status: Active Member Role Status Dates Shruti MUELLER, DO Primary Care Provider Active Start: December 09, 2024 Dr. Marques Barger MD Attending Provider Active Start: December 09, 2024 Dr. Marques Barger MD Referring Provider Active Start: December 09, 2024 Team Status: Inactive Member Role Status Dates Shruti MUELLER, DO Primary Care Provider Active Start: February 27, 2025 End: February 27, 2025 Binh MUELLER, CREDIT RISK REVIEW OFFICER-C Attending Provider Active Start: February 27, 2025 End: February 27, 2025 Team Status: Inactive Member Role Status Dates Shruti MUELLER DO Primary Care Provider Active Start: March 28, 2025 End: March 28, 2025 Shruti MUELLER DO Referring Provider Active Start: March 28, 2025 End: March 28, 2025 Dr. Marciano Gonzales DO Attending Provider Active Start: March 28, 2025 End: March 28, 2025 Team Status: Active Member Role Status Dates Shruti MUELLER DO Primary Care Provider Active Start: March 28, 2025 Shruti MUELLER DO Referring Provider Active Start: March 28, [...] 27, 2025 End: February 27, 2025 Binh BELTREC, CREDIT RISK REVIEW OFFICER-C Attending Provider Active Start: February 27, 2025 [...] 06, 2025 End: May 06, 2025 Shruti BELTREC, DO Referring Provider Active Start: May 06, [...] VSC, DO Primary Care Provider Active Start: June 08, 2025 End: June 08, 2025 Dr. Kosta Del Angel MD Emergency Provider Active S tart: June 08, 2025 End: June 08, 2025 Peach Grower Relationship Specialty Start Date End Date Darvin Smithchelita AlvaradoDO [address] [place] [address] Referring Family Medicine 05/04/24 Team Status: Active Member Role/Relationship Status Dates Shruti Smith VSC, DO Primary care physician Active Team Status: Inactive Member Role/Relationship Status Dates Shruti Smith VSC, DO Primary care physician Active Start: February 27, 2025 End: February 27, 2025 Binh BELTREC, CREDIT RISK REVIEW OFFICER-C Attending physician Active Start: February 27, 2025 End: February 27, 2025 Team Status: Inactive Member Role/Relationship Status Dates Shruti BELTREC, DO Primary care physician Active Start: March 28, 2025 End: March 28, 2025 Shruti BELTREC, DO Referring Provider Active Start: March 28, 2025 End: March 28, 2025 Dr. Marciano Gonzales , Attending physician Active Start: March 28, 2025 End: March 28, 2025 Team Status: Active Member Role/Relationship Status Dates Shruti BELTREC, DO Primary care physician Active Start: March 28, 2025 Shruti MUELLER, DO Referring Provider Active Start: March 28, 2025 Dr. Marciano Gonzales DO Attending physician Active Start: March 28, 2025 Dr. Marciano Gonzales , Nurse Practitioner Active Start: March 28, 2025 Team Status: Inactive Member Role/Relationship Status Dates Shruti BELTREC, DO Primary care physician Active Start: May [...] 2025 End: June 25, 2025 Harsha Zhao NP, CREDIT RISK REVIEW OFFICER-C Attending physician Active Start: June 25, 2025 End: June 25, 2025 Team Status: Inactive Member [...] 28, 2025 Dr. Marciano Gonzales , DO Nurse Practitioner Active Start: March 28, 2025 Team Status: Inactive Member Role/Relationship Status Dates hSruti Smith VSC, DO Primary care physician Active [...] 2025 End: June 08, 2025 Team Status: Inactive Member Role/Relationship Status Dates Shruti Smith VSC, DO Primary care physician Active Start: June 25, 2025 End: June 25, 2025 Shruti Smith VSC, DO Attending physician Active Start: June 25, 2025 End: June 25, 2025 Shruti Smith VSC, DO Referring Provider Active Start: June 25, 2025 End: June 25, 2025 Team Status: Inactive Member Role/Relationship Status Dates Shruti Smith VSC, DO Primary care physician Active Start: June 25, 2025 End: June 25, 2025 Shruti Luis VSC, DO Referring Provider Active Start: June 25, 2025 End: June 25, 2025 Harsha Zhao NP CREDIT RISK REVIEW OFFICER-C Attending physician Active Start: June 25, 2025 End: June 25, 2025 INFORMATION SOURCE (unrecogn ized section and content) DATE CREATED AUTHOR 09/19/2024 [facility] DATE CREATED AUTHOR AUTHOR'S ORGANIZ ATION 06/05/2025 [facility] DATE CREATED AUTHOR AUTHOR'S ORGANIZ ATION 06/11/2025 [facility] DATE CREATED AUTHOR AUTHOR'S ORGANIZ ATION 08/15/2025 [facility] DATE CREATED AUTHOR AUTHOR'S ORGANIZ ATION 08/15/2025 [facility] Goals (unrecognized section and content) Goals [...] BE BASED ON THE PRIMARY CLINICAL RECORDS. [employer] provides no warranty or guarantee of the accuracy or completeness of information in this document.
[2025-09-07 00:25] VITALS: BP 142/98; PULSE 103; RESP 18; TEMP 36.6; O2SAT 98
== END 2025-09-07 00:27 | disposition home or self-care (01) ==
LOC: ED 09-07 00:20
PROVIDERS: Emergency Provider Emergency Medicine; PCP Family Medicine; Visit Provider Emergency Medicine
DX: K08.89 Other specified disorders of teeth and supporting structures (principal); F41.9 Anxiety disorder, unspecified; H53.9 Unspecified visual disturbance; K21.9 Gastro-esophageal reflux disease without esophagitis; Z79.899 Other long term (current) drug therapy; Z90.49 Acquired absence of other specified parts of digestive tract
CPT/HCPCS: 99283